=== PATIENT | female | born 1955 | race Caucasian/White ===

== ENCOUNTER → 2016-12-08 | Outpatient (CLI) | payer BC ==
[~2016-12-08] MED LIST: DXY100 PO; HYD10 PO; HYDR-5688 PO; LOSA1TAB38 PO; MAGN500C PO; MISCCAP80 PO; NAPR1CAP12 PO; OMEP40CA PO; ONDA8TAB6 PO; PPTBS PO; PROM25TA9 PO; SYN25 PO; [UNRECOGNIZED DRUG - OTHER] PO
[2016-12-08 17:29] LABS: BASO % 0.3 %; BASO ABS # 0.02 K/uL (0-0.2); COMPLETE YES; HEMATOCRIT 38.4 % (37-47); IG% 0.2 %; LYMPH % 25.8 %; LYMPH ABS # 1.61 K/uL (1.2-3.4); MEAN CELL VOLUME 83.8 fL (80-100); MEAN CORPUSCULAR HEMOGLOBIN 26.9 pg (25-34); MONO % 9.1 %; NEUT % 60.6 %; PLATELET COUNT 277 K/uL (130-400); RED BLOOD COUNT 4.58 M/uL (4.2-5.4); WHITE BLOOD COUNT 6.24 K/uL (4.8-10.8)
== END | disposition home or self-care (01) ==
LOC: C.CPL 16:33
DX: R04.0 Epistaxis (principal); Z85.43 Personal history of malignant neoplasm of ovary

== ENCOUNTER 2017-01-02 15:12 | Emergency (ER) | payer BC ==
[~2017-01-02] VITALS: Ht 168.9 cm; Wt 83.6 kg
[~2017-01-02 15:12] MED LIST changes: -DXY100 PO; -HYD10 PO; -HYDR-5688 PO; -MAGN500C PO; -MISCCAP80 PO; -NAPR1CAP12 PO; -OMEP40CA PO; -ONDA8TAB6 PO; -PPTBS PO; -PROM25TA9 PO; -SYN25 PO; -[UNRECOGNIZED DRUG - OTHER] PO
[2017-01-02 15:30] VITALS: TEMP 36.4; Ht 168.9 cm; Wt 83.6 kg
[2017-01-02] MEDS ORDERED: SODIUM CHLORIDE 0.9% 1000ML 1,000 ML IV STA (16:25)
[2017-01-02] MEDS ORDERED: ONDANSETRON INJ 2 MG/ML 2 ML VIAL IV STA (16:25)
[2017-01-02 17:04] VITALS: O2SAT 91
[2017-01-02 17:06] LABS: BASO % 0.2 %; BASO ABS # 0.01 K/uL (0-0.2); COMPLETE YES; EOS % 2.3 %; HEMATOCRIT 41.2 % (37-47); IG% 0.2 %; LYMPH % 25.1 %; LYMPH ABS # 1.39 K/uL (1.2-3.4); MEAN CELL VOLUME 78.5 fL (80-100); MEAN CORPUSCULAR HEMOGLOBIN 25.3 pg (25-34); MEAN CORPUSCULAR HGB CONC 32.3 g/dl (32-36); MEAN PLATELET VOLUME 9.6 fL (7.4-10.4); MONO % 13.7 %; NEUT % 58.5 %; PLATELET COUNT 224 K/uL (130-400); RED BLOOD COUNT 5.25 M/uL (4.2-5.4); WHITE BLOOD COUNT 5.54 K/uL (4.8-10.8)
[2017-01-02 17:15] LABS: PARTIAL THROMBOPLASTIN RATIO 1.2; PROTHROMBIN TIME (PATIENT) 11.1 SECONDS (9.0-12.0)
[2017-01-02 17:23] LABS: ALT/SGPT 28 U/L (12-78); AST/SGOT 32 U/L (15-37); BLOOD UREA NITROGEN 9 mg/dl (7-18); BUN/CREATININE RATIO 9.4 (10-20); CALCIUM 8.3 mg/dl (8.5-10.1); CARBON DIOXIDE 29 mmol/L (21-32); CHLORIDE 99 mmol/L (98-107); CREATININE 0.94 mg/dl (0.60-1.20); GLUCOSE 81 mg/dl (70-99); MAGNESIUM 1.4 mg/dl (1.8-2.4); POTASSIUM 3.4 mmol/L (3.5-5.1); SODIUM 137 mmol/L (136-145)
[2017-01-02 17:31] LABS: ALKALINE PHOSPHATASE 73 U/L (45-117); C-REACTIVE PROTEIN 4.19 mg/dl (0-0.29); PHOSPHORUS 4.3 mg/dl (2.5-4.9)
--- NOTE | 2017-01-02 17:35 | DIAGNOSTIC IMAGING REPORT ---
CHEST ONE VIEW PORTABLE CLINICAL HISTORY: Altered mental status. Weakness. Ovarian cancer. COMPARISON STUDY: Chest CT April 30, 2015. FINDINGS: A right subclavian [id number] is in place. There is no pneumothorax or pleural effusion. Cardiomediastinal silhouette is stable. There is no evidence of pulmonary edema. The small lung nodules shown on CT of April 30, 2015 are not visualized on this exam, possibly due to technique. Minimal left basilar opacity favors atelectasis. IMPRESSION: No acute cardiopulmonary findings. Electronically signed by: Ernesto Arora M.D. 01/02/2017 5:33 PM Dictated Date/Time: 01/02/2017 5:32 PM
[2017-01-02] MEDS ORDERED: ONDA8TAB6 PO (17:37)
[2017-01-02] MEDS ORDERED: [UNRECOGNIZED DRUG - OTHER] PO (17:37)
[2017-01-02] MEDS ORDERED: PPTBS PO (17:37)
[2017-01-02 18:04] LABS: LYME DISEASE AB IGM NEG (NEG)
[2017-01-02 18:05] LABS: LYME DISEASE AB IGG NEG (NEG)
[2017-01-02] MEDS ORDERED: MAGNESIUM SULFATE 1GM / D5W 1 GM BAG IV STA (18:17)
[2017-01-02] MEDS ORDERED: PROM25TA9 PO (22:09)
[2017-01-02 22:10] VITALS: BP 154/97; PULSE 80; O2SAT 92
[2017-01-02] MEDS ORDERED: PHENERGAN 25MG HOMEPACK PO ONE (22:15)
--- NOTE | 2017-01-02 22:17 | EMERGENCY ROOM VISIT NOTE ---
History First contact with patient: 16:00 Chief Complaint: DIARRHEA Stated Complaint: DIARRHEA - DRY MOUTH - VIRUS FOR 3K - NO APPATITE Nursing Triage Summary: diarrhea and nausea decreased food and fluid intake hospital admission last week for iv fluids History of Present Illness The patient is a 61 year old female who presents to the Emergency Room with complaints of weakness, myalgias, poor appetite, dry mouth and diarrhea. The patient has a history of ovarian cancer, and has been in and [facility] clinical trial for immunotherapy since August 2015. She follows locally with Dr. Molina. The patient reports that she required IV hydration last week. She is also had a history of hypomagnesemia. She developed watery diarrhea last night. She reports generalized abdominal cramping. She has lost approximately 4-6 pounds over the past 5 days. She has had no recent upper respiratory infection, chest pain, cough or urinary symptoms. She currently denies any pain. Review of Systems HEENT: Denies dizziness, visual problems, hearing loss, tinnitus. Denies difficulty swallowing or oral lesions. PULMONARY: Denies cough, shortness of breath, sputum production or hemoptysis. CARDIOVASCULAR: Denies chest pain, palpitations, dyspnea on exertion, orthopnea or peripheral edema. GASTROINTESTINAL: Reports current diarrhea, denies any history of chronic diarrhea/constipation, nausea or vomiting. GENITOURINARY: Denies dysuria, frequency, urgency or nocturia. NEUROLOGIC: Denies history of epilepsy, CVA, TIA or chronic headaches. MUSCULOSKELETAL: Denies history of joint tenderness/swelling. SKIN: Denies rashes or lesions. PSYCHIATRIC: Denies history of depression or mental illness. ENDOCRINE: Denies history of diabetes or thyroid disorders. Past Medical/Surgical History Medical Problems: (1) Calf pain (2) Esophageal Reflux (3) Hx Of Ovarian Malignancy (4) Hx-Venous Thrombosis&Embolism (5) Hypertension Nos (6) Hypertension Nos (7) Obstructive Sleep Apnea (Adult) (Pediatric) (8) Oth Pulmon Embolism/Infarct Surgical Problems: (1) Cystic Kidney Disease, Unspecified Family History Diabetes mellitus Social History Smoking Status: Never Smoker Alcohol Use: occasionally Marital Status: Housing Status: lives with family Occupation Status: employed Current/Historical Medications Scheduled Bismuth Subsalicylate (Pepto-Bismol Susp), 1 DOSE PO PRN Losartan Potassium (Cozaar), 1 TAB PO DAILY [Cediranib Medioc], 20 MG PO 5XD Scheduled PRN Ondansetron Hcl (Zofran), 4-8 MG PO Q6 PRN for Nausea Promethazine Hcl (Phenergan), 25 MG PO Q6H PRN for Nausea Allergies Coded Allergies: Carboplatin (Verified Allergy, Severe, anaphylactic reaction, 12/26/16) Physical Exam Vital Signs Date Time Temp Pulse Resp B/P Pulse Ox O2 Delivery O2 Flow Rate FiO2 01/02/17 22:10 80 18 154/97 92 Room Air 01/02/17 19:32 82 01/02/17 18:29 83 18 134/99 90 Room Air 01/02/17 17:04 91 Room Air 01/02/17 17:00 90 146/93 86 136/100 93 119/85 01/02/17 15:30 36.4 100 20 126/90 91 Room Air Physical Exam CONSTITUTIONAL: Healthy and well nourished. Alert and oriented X 3 with positive affect. Patient does not appear in any acute distress. She clinically appears dehydrated, and is pale. HEENT: Normocephalic, atraumatic. Pupils equal, round and reactive. Ears and nares are clear. No scleral icterus or conjunctival injection/pallor. NECK: Full active range of motion without discomfort. RESPIRATORY: Clear to auscultation bilaterally with no wheezing, crackles, rhonchi or stridor. CARDIOVASCULAR: Regular rate and rhythm with no murmurs, rubs or gallops. GASTROINTESTINAL: Bowel sounds present in all quadrants. Patient has mild and nonfocal tenderness to palpation of the abdomen. No rigidity, guarding or rebound. Negative CVA tenderness. MUSCULOSKELETAL: Full range of motion of all joints without discomfort. INTEGUMENTARY: No rash or other significant dermatologic conditions noted. HEMATOLOGIC: No ecchymosis or petechiae. NEUROLOGIC: No focal neurologic deficits noted. Medical Decision & Procedures ER Provider Diagnostic Interpretation: My interpretation of an ECG shows a normal sinus rhythm of 87 bpm with a low- voltage QRS. There is question of some possible infarct findings in the anterolateral leads. Comparison with a prior ECG of 10/19/14 shows changes in T waves. Repeat ECG after the patient received 2 g of magnesium sulfate showed no significant changes. ECGs were also reviewed with Dr. Sahni. My interpretation of a portable chest x-ray does not show any pneumothorax, consolidations or widened mediastinum. Radiologist report is as follows: CHEST ONE VIEW PORTABLE CLINICAL HISTORY: Altered mental status. Weakness. Ovarian cancer. COMPARISON STUDY: Chest CT April 30, 2015. FINDINGS: A right subclavian [id number] is in place. There is no pneumothorax or pleural effusion. Cardiomediastinal silhouette is stable. There is no evidence of pulmonary edema. The small lung nodules shown on CT of April 30, 2015 are not visualized on this exam, possibly due to technique. Minimal left basilar opacity favors atelectasis. IMPRESSION: No acute cardiopulmonary findings. Laboratory Results 01/02/17 16:50 Red Blood Count 5.25, Mean Corpuscular Volume 78.5, Mean Corpuscular Hemoglobin 25.3, Mean Corpuscular Hemoglobin Concent 32.3, Mean Platelet Volume 9.6, Neutrophils (%) (Auto) 58.5, Lymphocytes (%) (Auto) 25.1, Monocytes (%) (Auto) 13.7, Eosinophils (%) (Auto) 2.3, Basophils (%) (Auto) 0.2, Neutrophils # (Auto ) 3.24, Lymphocytes # (Auto) 1.39, Monocytes # (Auto) 0.76, Eosinophils # (Auto ) 0.13, Basophils # (Auto) 0.01 01/02/17 16:50 Test 01/02/17 16:50 01/02/17 20:17 01/02/17 21:43 White Blood Count 5.54 K/uL (4.8-10.8) Red Blood Count 5.25 M/uL (4.2-5.4) Hemoglobin 13.3 g/dL (12.0-16.0) Hematocrit 41.2 % (37-47) Mean Corpuscular Volume 78.5 fL (80-100) Mean Corpuscular Hemoglobin 25.3 pg (25-34) Mean Corpuscular Hemoglobin Concent 32.3 g/dl (32-36) Platelet Count 224 K/uL (130-400) Mean Platelet Volume 9.6 fL (7.4-10.4) Neutrophils (%) (Auto) 58.5 % Lymphocytes (%) (Auto) 25.1 % Monocytes (%) (Auto) 13.7 % Eosinophils (%) (Auto) 2.3 % Basophils (%) (Auto) 0.2 % Neutrophils # (Auto) 3.24 K/uL (1.4-6.5) Lymphocytes # (Auto) 1.39 K/uL (1.2-3.4) Monocytes # (Auto) 0.76 K/uL (0.11-0.59) Eosinophils # (Auto) 0.13 K/uL (0-0.5) Basophils # (Auto) 0.01 K/uL (0-0.2) RDW Standard Deviation 40.7 fL (36.4-46.3) RDW Coefficient of Variation 14.4 % (11.5-14.5) Immature Granulocyte % (Auto) 0.2 % Immature Granulocyte # (Auto) 0.01 K/uL (0.00-0.02) Erythrocyte Sedimentation Rate 23 mm/hr (0-21) Prothrombin Time 11.1 SECONDS (9.0-12.0) Prothromb Time International Ratio 1.0 (0.9-1.1) Activated Partial Thromboplast Time 30.4 SECONDS (21.0-31.0) Partial Thromboplastin Ratio 1.2 Anion Gap 9.0 mmol/L (3-11) Est Creatinine Clear Calc Drug Dose 68.3 ml/min Estimated GFR () 75.4 Estimated GFR (Non- 65.0 BUN/Creatinine Ratio 9.4 (10-20) Calcium Level 8.3 mg/dl (8.5-10.1) Phosphorus Level 4.3 mg/dl (2.5-4.9) Magnesium Level 1.4 mg/dl (1.8-2.4) Total Bilirubin 0.9 mg/dl (0.2-1) Direct Bilirubin 0.2 mg/dl (0-0.2) Aspartate Amino Transf (AST/SGOT) 32 U/L (15-37) Alanine Aminotransferase (ALT/SGPT) 28 U/L (12-78) Alkaline Phosphatase 73 U/L (45-117) Total Creatine Kinase 99 U/L (26-192) C-Reactive Protein 4.19 mg/dl (0-0.29) Total Protein 6.6 gm/dl (6.4-8.2) Albumin 3.0 gm/dl (3.4-5.0) Thyroid Stimulating Hormone (TSH) 4.780 uIu/ml (0.300-4.500) Free Thyroxine 0.87 ng/dl (0.80-1.60) Free Triiodothyronine 3.11 pg/ml (2.30-4.20) Lyme Disease IgG Antibody NEG (NEG) Lyme Disease IgM Antibody NEG (NEG) Monoscreen NEG (NEG) Bedside Troponin I 0.000 ng/ml (0-0.045) Date/Time Source Procedure Growth Status 01/02/17 17:07 Stool C.difficile Toxin B Gene (PCR) - Final No C. difficile toxin B gene detected Complete The above labs were reviewed. CBC, partial renal profile, LFTs, lipase and troponin are all normal. Sedimentation rate and C-reactive protein are elevated. TSH is mild elevated at 4.78. Lyme screen and mono screen are negative. A repeat laboratory troponin after 2 g of magnesium sulfate was ordered, but they were unable to find the test tube. A bedside troponin was therefore performed in the emergency department and was normal. Review of stool studies shows negative rotavirus and C. difficile. Stool cultures are pending. Medications Administered Medications (Trade) Dose Ordered Sig/Peterson Route Start Time Stop Time Status Last Admin Dose Admin Ondansetron HCl 4 mg 4 mg NOW STAT IV 01/02/17 16:25 01/02/17 16:28 DC 01/02/17 16:25 4 MG Sodium Chloride (Nss 1000ml) 1,000 ml @ 999 mls/hr Q1H1M STAT IV 01/02/17 16:25 01/02/17 17:25 DC 01/02/17 16:25 999 MLS/HR Magnesium Sulfate (Magnesium Sulfate) 2 gm NOW STAT IV 01/02/17 18:17 01/02/17 18:18 DC 01/02/17 18:17 2 GM Heparin Sodium (Porcine) (Heparin 100 Unit/ml 5ml Flush) 5 ml STK-MED ONCE .ROUTE 01/02/17 18:24 01/02/17 18:25 DC 01/02/17 18:24 5 ML Promethazine HCl (Phenergan 25MG Home Pack) 1 homepack UD ONCE PO 01/02/17 22:15 01/02/17 22:16 01/02/17 22:13 1 HOMEPACK Procedure 1. IV hydration: The patient received a liter normal saline bolus 2. IV medications: Zofran 4 mg IVP. The patient also received magnesium sulfate 2 g IV infusion. ED Course Patient history and physical exam were performed. Nurse's notes were reviewed. Vital signs were reviewed, showing an O2 saturation of 91% on room air. The patient is afebrile and normotensive. Pulse rate is at 100 in triage. The patient clinically appears dehydrated. She is also pale in appearance. Orthostatics were performed, showing an approximately 20% drop in systolic pressure from supine to standing position. IV access was established, and labs were drawn. The patient was hydrated with a liter of normal saline. Portable chest x-ray was normal. ECG shows some T- wave inversions in anterolateral leads. Review of labs shows hypomagnesemia. At this point, the case was discussed with Dr. Sahni, ED attending physician , who recommended administering 2 g of magnesium sulfate, followed by repeat ECG and troponin. ECG was reviewed again with Dr. Sahni. The patient reported improvement of symptoms with IV hydration and magnesium sulfate. Repeat ECG and troponin were performed to show no acute changes in her EKG, and negative troponin. At the time of final reevaluation, the patient did reported significant improvement in her symptoms, and requested discharge home. She refused hospitalist evaluation. I did explain that she had an abnormal ECG and should follow-up closely with her PCP for further management. Her reports that her ECGs have also been performed at [facility], and will have her most recent ECG and labs sent to Dr. Molina. She was encouraged to return to the emergency department over the weekend for any concerning or worsening symptoms. I did look at the patient's prescriptions and noticed that she only has a few more Zofran 8 mg tablets left. She was offered a refill of her prescription, but reports that the Zofran actually made her symptoms worse. The patient was therefore provided a home pack and prescription for Phenergan that she can also try for nausea. The patient and were happy with plan of care, and voiced understanding of all discharge instructions. Medical Decision Patient presents to the emergency Department with primary complaint of diarrhea and fatigue. She does clinically appear dehydrated, and responded nicely to IV hydration. Her labs are otherwise unremarkable today except for mildly elevated TSH. Free T3 and T4 were ordered and are pending. She reports that her TSH was actually low at [facility]. The patient was repleted with magnesium. Impression Primary Impression: Hypomagnesemia Additional Impressions: Dehydration Diarrhea Departure Information Prescriptions Promethazine Hcl (Phenergan) 25 Mg Tab 25 MG PO Q6H Y for Nausea, #20 TAB Prov: Sánchez Matson PA 01/02/17 Referrals Mo Molina Jr,D.O. (PCP) Patient Instructions My [facility] Problem Qualifiers Additional Impressions: Diarrhea Diarrhea type: unspecified type Qualified Codes: R19.7 - Diarrhea, unspecified
== END 2017-01-02 22:23 | disposition home or self-care (01) ==
LOC: C.EDB 15:15 → C.EDA 22:23
DX: E83.42 Hypomagnesemia (principal); E86.0 Dehydration; R19.7 Diarrhea, unspecified; K21.9 Gastro-esophageal reflux disease without esophagitis; I10 Essential (primary) hypertension; G47.33 Obstructive sleep apnea (adult) (pediatric); Q61.9 Cystic kidney disease, unspecified; Z85.43 Personal history of malignant neoplasm of ovary; Z86.718 Personal history of other venous thrombosis and embolism; Z86.711 Personal history of pulmonary embolism; Z83.3 Family history of diabetes mellitus

== ENCOUNTER → 2017-01-15 | Outpatient (CLI) | payer BC ==
[~2017-01-15] MED LIST changes: +DXY100 PO; +HYD10 PO; +MAGN500C PO; +MISCCAP80 PO; +NAPR1CAP12 PO; +ONDA8TAB6 PO; +PPTBS PO; +PROM25TA9 PO; +SYN25 PO; +[UNRECOGNIZED DRUG - OTHER] PO
[2017-01-15 15:18] LABS: BASO % 0.6 %; BASO ABS # 0.02 K/uL (0-0.2); COMPLETE YES; EOS % 4.3 %; HEMATOCRIT 42.3 % (37-47); LYMPH % 33.6 %; LYMPH ABS # 1.16 K/uL (1.2-3.4); MEAN CELL VOLUME 80.7 fL (80-100); MEAN CORPUSCULAR HEMOGLOBIN 25.6 pg (25-34); MEAN CORPUSCULAR HGB CONC 31.7 g/dl (32-36); MEAN PLATELET VOLUME 10.4 fL (7.4-10.4); MONO % 17.4 %; NEUT % 44.1 %; PLATELET COUNT 244 K/uL (130-400); RED BLOOD COUNT 5.24 M/uL (4.2-5.4); WHITE BLOOD COUNT 3.45 K/uL (4.8-10.8)
[2017-01-15 15:48] LABS: ALT/SGPT 30 U/L (12-78); AMYLASE 26 U/L (25-115); AST/SGOT 47 U/L (15-37); BLOOD UREA NITROGEN 9 mg/dl (7-18); BUN/CREATININE RATIO 6.9 (10-20); CALCIUM 9.2 mg/dl (8.5-10.1); CARBON DIOXIDE 35 mmol/L (21-32); CHLORIDE 97 mmol/L (98-107); GLUCOSE 84 mg/dl (70-99); MAGNESIUM 1.9 mg/dl (1.8-2.4); POTASSIUM 3.7 mmol/L (3.5-5.1); SODIUM 141 mmol/L (136-145)
[2017-01-15 15:50] LABS: ALB/GLOB RATIO 0.9 (0.9-2); ALKALINE PHOSPHATASE 64 U/L (45-117)
== END | disposition home or self-care (01) ==
LOC: C.LAB 12:28
DX: E86.0 Dehydration (principal)

== ENCOUNTER 2017-01-16 16:10 | Inpatient (IN) | payer BC ==
[~2017-01-16] VITALS: Ht 167.6 cm; Wt 81.1 kg
[~2017-01-16 16:10] MED LIST changes: -DXY100 PO; -HYD10 PO; -MAGN500C PO; -MISCCAP80 PO; -NAPR1CAP12 PO; -SYN25 PO
[2017-01-16] MEDS ORDERED: ONDANSETRON INJ 2 MG/ML 2 ML VIAL IV STA (16:44)
[2017-01-16] MEDS ORDERED: SODIUM CHLORIDE 0.9% 1000ML 1,000 ML IV STA (16:44)
--- NOTE | 2017-01-16 16:51 | EMERGENCY ROOM VISIT NOTE ---
History Report prepared by Kianna: Sy Hodges Under the Supervision of: Dr. Lane Morrison D.O. First contact with patient: 16:36 Chief Complaint: ILLNESS Stated Complaint: VIRUS SX, DEHYDRATED, DIARRHEA, VERY WEAK History of Present Illness The patient is a 61 year old female who presents to the Emergency Room with complaints of worsening weakness and dehydration that the patient has been dealing with for for the past month. The patient states that she came to the emergency department today due to being light headed and severely lethargic. She has been vomiting intermittently as well. The patient has visited with her PCP multiple times over the past week for blood work as well as a stool study. She had both Lyme's disease and C-Diff ruled out from these studies. She was given a prescription of Amoxicillin one week ago, which was just changed to Doxycycline yesterday. The patient had additional blood work drawn yesterday. She also notes that she has been having nausea and diarrhea persistently as well. Her diarrhea is intermittently black and tarry. 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 She has a history of total hysterectomy due to her cancer. Source of History: patient Onset: One month [employer] Position: other (Global) Quality: other (Weakness) Timing: worsening Associated Symptoms: + nausea, + diarrhea, + fatigue, + weakness Review of Systems See HPI for pertinent positives & negatives. A total of 10 systems reviewed and were otherwise negative. Past Medical & Surgical Medical Problems: (1) Calf pain (2) Esophageal Reflux (3) Hx Of Ovarian Malignancy (4) Hx-Venous Thrombosis&Embolism (5) Hypertension Nos (6) Hypertension Nos (7) Lethargy (8) Obstructive Sleep Apnea (Adult) (Pediatric) (9) Oth Pulmon Embolism/Infarct Surgical Problems: (1) Cystic Kidney Disease, Unspecified Family History Diabetes mellitus Social History Smoking Status: Never Smoker Alcohol Use: occasionally Marital Status: Housing Status: lives with family Occupation Status: employed Current/Historical Medications Scheduled Bismuth Subsalicylate (Pepto-Bismol Susp), 1 DOSE PO PRN Doxycycline Hyclate (Doxycycline Hyclate), 1 CAP PO BID Losartan Potassium (Cozaar), 1 TAB PO DAILY Magnesium Oxide (Mg Supplement (Magnesium), 1 CAP PO DAILY Naproxen Sodium (Aleve), 1 CAP PO DAILY Probiotic Product (Probiotic), 1 CAP PO DAILY [Cediranib Medioc], 20 MG PO 5XWK Scheduled PRN Ondansetron Hcl (Zofran), 4-8 MG PO Q6 PRN for Nausea Promethazine Hcl (Phenergan), 25 MG PO Q6H PRN for Nausea Allergies Coded Allergies: Carboplatin (Verified Allergy, Severe, anaphylactic reaction, 01/16/17) Physical Exam Vital Signs Date Time Temp Pulse Resp B/P (MAP) Pulse Ox O2 Delivery O2 Flow Rate FiO2 01/16/17 19:56 100 Nasal Cannula 2.0 01/16/17 18:47 74 20 180/100 95 Room Air 01/16/17 18:40 72 16 167/115 84 Room Air 01/16/17 18:05 69 20 159/102 88 Room Air 01/16/17 17:21 70 01/16/17 16:15 36.5 87 18 132/96 93 Room Air Physical Exam GENERAL: Patient is awake, but somewhat listless. He does not appear to be uncomfortable or in pain. He answers appropriately. EYES: The conjunctivae are clear. The pupils are round and reactive. EARS, NOSE, MOUTH AND THROAT: The nose is without any evidence of any deformity. Mucous membranes are moist tongue is midline NECK: The neck is nontender and supple. RESPIRATORY: Normal respiratory effort is noted there is no evidence of wheezing rhonchi or rales CARDIOVASCULAR: Regular rate and rhythm noted there no murmurs rubs or gallops normal S1 normal S2 GASTROINTESTINAL: The abdomen is distended but soft. Bowel sounds are present in all quadrants. Abdomen is nontender. No specific guarding or rigidity MUSCULOSKELETAL/EXTREMITIES: There is no evidence of gross deformity full range of motion is noted in the hips and shoulders SKIN: Skin is cool, pale, and dry. No pedal edema noted. No signs of cellulitis. There is no obvious evidence of any rash. There are no petechiae, pallor or cyanosis noted. NEUROLOGIC: Patient oriented x3 strength is symmetric patellar reflexes are 1+ bilaterally. Strength was symmetric but diminished. Medical Decision & Procedures ER Provider Diagnostic Interpretation: Radiology results as stated below per my review and radiologist interpretation: CT HEAD WITHOUT CONTRAST (CT) CLINICAL HISTORY: Confusion. Altered mental status. COMPARISON STUDY: No previous studies for comparison. TECHNIQUE: Axial CT of the brain is performed from the vertex to the skull base. IV contrast was not administered for this examination. CT DOSE: 679.75 mGycm FINDINGS: No intra or extra-axial mass lesions are visualized. There is no CT evidence of acute cortical infarction. There is no evidence of midline shift. There is no acute hemorrhage. No calvarial fractures are visualized. There is no evidence of pathologic ventricular dilatation. There is no evidence of acute sinusitis IMPRESSION: Normal noncontrast head CT for age. Electronically signed by: Gustavo Valentin M.D. 01/16/2017 5:40 PM Dictated Date/Time: 01/16/2017 5:39 PM ABDOMEN 2VIEW W/PA CHEST RTN CLINICAL HISTORY: Abdominal pain and weakness. History of ovarian carcinoma. COMPARISON STUDY: Chest x-ray dated 01/02/2017 FINDINGS: The cardiac and mediastinal contours remain stable. There is a right-sided A-Port catheter. There is no free air. There is no focal pulmonary consolidation. Erect and supine views the abdomen reveal surgical clips within the right upper quadrant consistent with a prior cholecystectomy. There are no abnormally dilated loops of large or small bowel. There are no transition zones indicate bowel obstruction. IMPRESSION: No evidence of bowel obstruction. No evidence of free air. Electronically signed by: Gustavo Valentin M.D. 01/16/2017 6:00 PM Dictated Date/Time: 01/16/2017 5:[address] ANGIOGRAM OF THE CHEST CLINICAL HISTORY: Hypoxia OVARIAN CARCINOMA COMPARISON STUDY: 04/30/2015 TECHNIQUE: Following the IV administration of 84 mL of Optiray-320, CT angiogram of the thorax was performed from the thoracic inlet to the lung bases utilizing the pulmonary embolus protocol. Images are reviewed in the axial, sagittal, and coronal planes. IV contrast was administered without complication. MIP imaging was performed. CT DOSE: 445.99 mGy.cm FINDINGS: No pathologically enlarged axillary mediastinal or hilar lymph nodes were visualized. There was no evidence of thoracic aortic dilatation. There were no pulmonary artery filling defects to indicate acute pulmonary embolism. No pleural effusions are visualized. There was no evidence of focal pulmonary consolidation. There is a 7 x 4 mm right apical pulmonary nodule which appears smaller than the prior April 2015 study. The previously identified 7 mm left upper lobe pulmonary nodule has nearly resolved. IMPRESSION: 1. No evidence of acute pulmonary embolism 2. No evidence of focal pulmonary consolidation 3. Interval decrease in the size of the previously identified bilateral pulmonary nodules Electronically signed by: Gustavo Valentin M.D. 01/16/2017 7:33 PM Dictated Date/Time: 01/16/2017 7:28 PM Laboratory Results 01/16/17 17:11 Red Blood Count 5.05, Mean Corpuscular Volume 78.8, Mean Corpuscular Hemoglobin 25.7, Mean Corpuscular Hemoglobin Concent 32.7, Mean Platelet Volume 10.0, Neutrophils (%) (Auto) 47.0, Lymphocytes (%) (Auto) 29.6, Monocytes (%) (Auto) 17.6, Eosinophils (%) (Auto) 4.8, Basophils (%) (Auto) 0.5, Neutrophils # (Auto ) 1.84, Lymphocytes # (Auto) 1.16, Monocytes # (Auto) 0.69, Eosinophils # (Auto ) 0.19, Basophils # (Auto) 0.02 01/16/17 17:11 Test 01/16/17 17:11 01/16/17 19:00 White Blood Count 3.92 K/uL (4.8-10.8) Red Blood Count 5.05 M/uL (4.2-5.4) Hemoglobin 13.0 g/dL (12.0-16.0) Hematocrit 39.8 % (37-47) Mean Corpuscular Volume 78.8 fL (80-100) Mean Corpuscular Hemoglobin 25.7 pg (25-34) Mean Corpuscular Hemoglobin Concent 32.7 g/dl (32-36) Platelet Count 206 K/uL (130-400) Mean Platelet Volume 10.0 fL (7.4-10.4) Neutrophils (%) (Auto) 47.0 % Lymphocytes (%) (Auto) 29.6 % Monocytes (%) (Auto) 17.6 % Eosinophils (%) (Auto) 4.8 % Basophils (%) (Auto) 0.5 % Neutrophils # (Auto) 1.84 K/uL (1.4-6.5) Lymphocytes # (Auto) 1.16 K/uL (1.2-3.4) Monocytes # (Auto) 0.69 K/uL (0.11-0.59) Eosinophils # (Auto) 0.19 K/uL (0-0.5) Basophils # (Auto) 0.02 K/uL (0-0.2) RDW Standard Deviation 41.0 fL (36.4-46.3) RDW Coefficient of Variation 14.6 % (11.5-14.5) Immature Granulocyte % (Auto) 0.5 % Immature Granulocyte # (Auto) 0.02 K/uL (0.00-0.02) Prothrombin Time 10.8 SECONDS (9.0-12.0) Prothromb Time International Ratio 1.0 (0.9-1.1) Activated Partial Thromboplast Time 33.7 SECONDS (21.0-31.0) Partial Thromboplastin Ratio 1.3 Venous Blood pH 7.39 (7.36-7.41) Venous Blood Partial Pressure CO2 57 mmHg (38.0-50.0) Venous Blood Partial Pressure O2 34 mmHg Venous Blood HCO3 34 mmol/L Venous Blood Oxygen Saturation 62.3 % Venous Blood Base Excess 6.9 mmol/L Anion Gap 9.0 mmol/L (3-11) Est Creatinine Clear Calc Drug Dose 52.2 ml/min Estimated GFR () 56.1 Estimated GFR (Non- 48.4 BUN/Creatinine Ratio 7.5 (10-20) Calcium Level 9.0 mg/dl (8.5-10.1) Phosphorus Level 4.0 mg/dl (2.5-4.9) Magnesium Level 1.7 mg/dl (1.8-2.4) Total Bilirubin 0.6 mg/dl (0.2-1) Direct Bilirubin 0.1 mg/dl (0-0.2) Aspartate Amino Transf (AST/SGOT) 46 U/L (15-37) Alanine Aminotransferase (ALT/SGPT) 30 U/L (12-78) Alkaline Phosphatase 65 U/L (45-117) Ammonia 27.0 umol/L (11-32) Total Creatine Kinase 105 U/L (26-192) Creatine Kinase MB 1.4 ng/ml (0.5-3.6) Creatine Kinase MB Ratio 1.3 (0-3.0) Troponin I < 0.015 ng/ml (0-0.045) Pro-B-Type Natriuretic Peptide 221 pg/ml (0-900) Total Protein 6.3 gm/dl (6.4-8.2) Albumin 2.8 gm/dl (3.4-5.0) Lipase 89 U/L (73-393) Urine Color YELLOW Urine Appearance CLEAR (CLEAR) Urine pH 5.5 (4.5-7.5) Urine Specific [place] 1.006 (1.000-1.030) Urine Protein NEG (NEG) Urine Glucose (UA) NEG (NEG) Urine Ketones NEG (NEG) Urine Occult Blood NEG (NEG) Urine Nitrite NEG (NEG) Urine Bilirubin NEG (NEG) Urine Urobilinogen NEG (NEG) Urine Leukocyte Esterase NEG (NEG) Laboratory results per my review. Medications Administered Medications (Trade) Dose Ordered Sig/Peterson Route Start Time Stop Time Status Last Admin Dose Admin Sodium Chloride 1,000 ml @ 999 mls/hr Q1H1M STAT IV 01/16/17 16:44 01/16/17 17:44 DC 01/16/17 16:44 999 MLS/HR Ondansetron HCl (Zofran Inj) 4 mg NOW STAT IV 01/16/17 16:44 01/16/17 16:47 DC 01/16/17 18:08 4 MG Magnesium Sulfate (Magnesium Sulfate) 1 gm NOW STAT IV 01/16/17 18:47 01/16/17 18:48 DC 01/16/17 19:00 1 GM ECG Indication: weakness Rate (beats per minute): 72 Rhythm: normal sinus Findings: nonspecific-ST abn (Diffuse), other (Low voltage noted throughout. ) Comparison ECG Date: 01/02/2017 Change: no significant change ED Course 1639: The patient was evaluated in room C6. A complete history and physical examination were performed. 1644: Ordered Zofran 4 mg IV, Sodium Chloride 1000 mL @ 999 mL/hr IV. 7: Ordered Magnesium Sulfate 1 gm IV. 1954: Upon reevaluation, the patient is resting comfortably in bed. I discussed the results and treatment plan with her. She verbalized agreement of the treatment plan. The patient was discharged home. 2016: I discussed the case with Dr. Rico - [facility] at this time. He will evaluate the patient for further treatment. Medical Decision Differential diagnosis: Etiologies such as metabolic, infection, hypo/hyperglycemia, electrolyte abnormalities, cardiac sources, intracerebral event, toxicologic, neurologic, as well as others were entertained. Nursing notes reviewed. The patient is a 61-year-old female who presented to the emergency department for an evaluation of generalized weakness and diarrhea. The patient's family members also state that she's been having altered mental status with decreased mental status and difficulty concentrating. She was found have hypoxia. Her breath sounds did not appear to be abnormal in her chest x-ray showed nothing acute. For this reason and her history of ovarian cancer was concerned this could be related to a pulmonary embolism. CT the chest did not reveal any acute signs of venous thromboembolic disease. I discussed the patient's laboratory radiographic studies with her. She was treated with IV fluids in the emergency department. She was also given IV magnesium replacement. Given the patient's overall condition as well as her hypoxia I discussed [facility] They've agreed to evaluate the patient in the emergency apartment for further management and disposition. Consults Time Called: 2010 Consulting Physician: Dr. Jacky FISCHER Hospitalist Returned Call: 2016 I discussed the case with Dr. [facility] at this time. He will evaluate the patient for further treatment. Impression Primary Impression: Weakness Additional Impressions: Altered mental status Hypomagnesemia Hypoxia Scribe Attestation The scribe's documentation has been prepared under my direction and personally reviewed by me in its entirety. I confirm that the note above accurately reflects all work, treatment, procedures, and medical decision making performed by me. Departure Information Dispostion Being Evaluated By Hospitalist Referrals Mo Molina Jr,D.O. (PCP) Patient Instructions My [facility] Problem Qualifiers Additional Impressions: Altered mental status Altered mental status type: unspecified Qualified Codes: R41.82 - Altered mental status, unspecified
--- NOTE | 2017-01-16 17:41 | DIAGNOSTIC IMAGING REPORT ---
CT HEAD WITHOUT CONTRAST (CT) CLINICAL HISTORY: Confusion. Altered mental status. COMPARISON STUDY: No previous studies for comparison. TECHNIQUE: Axial CT of the brain is performed from the vertex to the skull base. IV contrast was not administered for this examination. CT DOSE: 679.75 mGycm FINDINGS: No intra or extra-axial mass lesions are visualized. There is no CT evidence of acute cortical infarction. There is no evidence of midline shift. There is no acute hemorrhage. No calvarial fractures are visualized. There is no evidence of pathologic ventricular dilatation. There is no evidence of acute sinusitis IMPRESSION: Normal noncontrast head CT for age. Electronically signed by: Gustavo Valentin M.D. 01/16/2017 5:40 PM Dictated Date/Time: 01/16/2017 5:39 PM
[2017-01-16 17:43] LABS: BASO % 0.5 %; BASO ABS # 0.02 K/uL (0-0.2); COMPLETE YES; EOS % 4.8 %; HEMATOCRIT 39.8 % (37-47); IG% 0.5 %; LYMPH % 29.6 %; LYMPH ABS # 1.16 K/uL (1.2-3.4); MEAN CELL VOLUME 78.8 fL (80-100); MEAN CORPUSCULAR HEMOGLOBIN 25.7 pg (25-34); MEAN CORPUSCULAR HGB CONC 32.7 g/dl (32-36); MONO % 17.6 %; PLATELET COUNT 206 K/uL (130-400); RED BLOOD COUNT 5.05 M/uL (4.2-5.4); WHITE BLOOD COUNT 3.92 K/uL (4.8-10.8)
[2017-01-16 17:47] LABS: VEN BLD GAS O2 SATURATION 62.3 %; VEN BLOOD GAS BASE EXCESS 6.9 mmol/L
[2017-01-16 17:54] LABS: PARTIAL THROMBOPLASTIN RATIO 1.3; PROTHROMBIN TIME (PATIENT) 10.8 SECONDS (9.0-12.0)
--- NOTE | 2017-01-16 18:01 | DIAGNOSTIC IMAGING REPORT ---
ABDOMEN 2VIEW W/PA CHEST RTN CLINICAL HISTORY: Abdominal pain and weakness. History of ovarian carcinoma. COMPARISON STUDY: Chest x-ray dated 01/02/2017 FINDINGS: The cardiac and mediastinal contours remain stable. There is a right-sided A-Port catheter. There is no free air. There is no focal pulmonary consolidation. Erect and supine views the abdomen reveal surgical clips within the right upper quadrant consistent with a prior cholecystectomy. There are no abnormally dilated loops of large or small bowel. There are no transition zones indicate bowel obstruction. IMPRESSION: No evidence of bowel obstruction. No evidence of free air. Electronically signed by: Gustavo Valentin M.D. 01/16/2017 6:00 PM Dictated Date/Time: 01/16/2017 5:59 PM
[2017-01-16] MEDS ORDERED: DXY100 PO (18:20)
[2017-01-16] MEDS ORDERED: NAPR1CAP12 PO (18:20)
[2017-01-16] MEDS ORDERED: MISCCAP80 PO (18:20)
[2017-01-16] MEDS ORDERED: MAGN500C PO (18:20)
[2017-01-16 18:29] LABS: ALT/SGPT 30 U/L (12-78); AST/SGOT 46 U/L (15-37); BLOOD UREA NITROGEN 9 mg/dl (7-18); BUN/CREATININE RATIO 7.5 (10-20); CARBON DIOXIDE 34 mmol/L (21-32); CHLORIDE 98 mmol/L (98-107); GLUCOSE 83 mg/dl (70-99); MAGNESIUM 1.7 mg/dl (1.8-2.4); POTASSIUM 3.4 mmol/L (3.5-5.1); SODIUM 141 mmol/L (136-145)
[2017-01-16 18:32] LABS: ALKALINE PHOSPHATASE 65 U/L (45-117); CKMB/CK RATIO 1.3 (0-3.0)
[2017-01-16] MEDS ORDERED: MAGNESIUM SULFATE 1GM / D5W 1 GM BAG IV STA (18:47)
[2017-01-16] MEDS ORDERED: OPTIRAY 320 IV PRN (19:00)
[2017-01-16 19:27] LABS: URINE APPEARANCE CLEAR (CLEAR); URINE BILIRUBIN NEG (NEG); URINE COLOR YELLOW; URINE NITRITE NEG (NEG); URINE PH 5.5 (4.5-7.5); URINE SPECIFIC GRAVITY 1.006 (1.000-1.030); UROBILINOGEN NEG (NEG)
[2017-01-16 19:28] LABS: MANUAL MICROSCOPIC REQUIRED? NO; REVIEW REQ? NO
--- NOTE | 2017-01-16 19:34 | DIAGNOSTIC IMAGING REPORT ---
CT ANGIOGRAM OF THE CHEST CLINICAL HISTORY: Hypoxia OVARIAN CARCINOMA COMPARISON STUDY: 04/30/2015 TECHNIQUE: Following the IV administration of 84 mL of Optiray-320, CT angiogram of the thorax was performed from the thoracic inlet to the lung bases utilizing the pulmonary embolus protocol. Images are reviewed in the axial, sagittal, and coronal planes. IV contrast was administered without complication. MIP imaging was performed. CT DOSE: 445.99 mGy.cm FINDINGS: No pathologically enlarged axillary mediastinal or hilar lymph nodes were visualized. There was no evidence of thoracic aortic dilatation. There were no pulmonary artery filling defects to indicate acute pulmonary embolism. No pleural effusions are visualized. There was no evidence of focal pulmonary consolidation. There is a 7 x 4 mm right apical pulmonary nodule which appears smaller than the prior April 2015 study. The previously identified 7 mm left upper lobe pulmonary nodule has nearly resolved. IMPRESSION: 1. No evidence of acute pulmonary embolism 2. No evidence of focal pulmonary consolidation 3. Interval decrease in the size of the previously identified bilateral pulmonary nodules Electronically signed by: Gustavo Valentin M.D. 01/16/2017 7:33 PM Dictated Date/Time: 01/16/2017 7:28 PM
[2017-01-16] MEDS ORDERED: MAGNESIUM HYDROXIDE SUSP 30 ML UDC PO PRN (20:45)
[2017-01-16] MEDS ORDERED: ALUMINUM/MAGNESIUM/SIMETH (MAALOX MAX) 30 ML UDC PO PRN (20:45)
[2017-01-16] MEDS ORDERED: POLYETHYLENE (MIRALAX) 17 GM PACK PO PRN (20:45)
[2017-01-16] MEDS ORDERED: ONDANSETRON INJ 2 MG/ML 2 ML VIAL IV PRN (20:45)
[2017-01-16] MEDS ORDERED: PROMETHAZINE HCL 25 MG TAB PO PRN (20:45)
--- NOTE | 2017-01-16 20:59 | History and Physical ---
History & Physical Date & Time of Service: Jan 16, 2017 at 20:46 Chief Complaint: Virus Sx, Dehydrated, Diarrhea, Very Weak Primary Care Physician: Mo Molina Jr, D.O. 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 Pt presents with a constellation of symptoms including severe lethargy and lightheadedness, intermittent N/V, diarrhea and dehydration. She has had a degree of the preceding symptoms for a few months. On arrival to the ER she was also notably hypoxic but has not c/o SOB. She denies fevers, a productive cough, CP or abdominal pain. Her reports that her memory and executive functioning have been declining over the past month as well. The pt has been treated with Cediranib for her CA for the past 1.5 years. This is experimental treatment under a clinical trial and is apparently showing positive effect. She has had minimal side effects aside from her symptom constellation over the past month which may or may not be related. She reports that she was having headaches 2 months prior and was sent for an MRI as a result , which was read as normal. Past Medical/Surgical History Medical Problems: (1) Calf pain Status: Resolved (2) Hypertension Nos Status: Chronic (3) Oth Pulmon Embolism/Infarct Status: Resolved 4) Clear cell ovarian CA - pt had resection of colon mets prior to chemo -0 has been on various treatments which were ineffective for 4.5 years - treated with Cediranib over last 18 months with positive effect. 5) CASSANDRA Family History Diabetes mellitus Social History Smoking Status: Never Smoker Marital Status: Occupational Status: employed Immunizations History of Influenza Vaccine: Yes History of Tetanus Vaccine?: utd ? History of Pneumococcal: No History of Hepatitis B Vaccine: No Multi-Drug Resistant Organisms History of MDRO: No Allergies Coded Allergies: Carboplatin (Verified Allergy, Severe, anaphylactic reaction, 01/16/17) Home Medications Scheduled Bismuth Subsalicylate (Pepto-Bismol Susp), 1 DOSE PO PRN Doxycycline Hyclate (Doxycycline Hyclate), 1 CAP PO BID Losartan Potassium (Cozaar), 1 TAB PO DAILY Magnesium Oxide (Mg Supplement (Magnesium), 1 CAP PO DAILY Naproxen Sodium (Aleve), 1 CAP PO DAILY Probiotic Product (Probiotic), 1 CAP PO DAILY [Cediranib Medioc], 20 MG PO 5XWK Scheduled PRN Ondansetron Hcl (Zofran), 4-8 MG PO Q6 PRN for Nausea Promethazine Hcl (Phenergan), 25 MG PO Q6H PRN for Nausea Review of Systems Constitutional: No fever, No chills, No sweats Eyes: No worsening of vision, No eye pain ENT: No hearing loss, No unusual epistaxis, No nasal symptoms Respiratory: + dyspnea on exertion, No cough, No sputum, No wheezing Cardiovascular: No chest pain, No orthopnea, No PND Abdomen: + nausea, + vomiting, + diarrhea, No pain Musculoskeletal: No joint pain, No muscle pain Genitourinary - Female: No dysuria, No urinary frequency, No urinary urgency Neurologic: + memory loss, + weakness, + problem reported (decline in executive function) Psychiatric: + depression symptoms Endocrine: + fatigue Hematologic / Lymphatic: No abnormal bleeding/bruising Integumentary: No rash Physical Exam Vital Signs Date Time Temp Pulse Resp B/P (MAP) Pulse Ox O2 Delivery O2 Flow Rate FiO2 01/16/17 19:56 100 Nasal Cannula 2.0 01/16/17 18:47 74 20 180/100 95 Room Air 01/16/17 18:40 72 16 167/115 84 Room Air 01/16/17 18:05 69 20 159/102 88 Room Air 01/16/17 17:21 70 01/16/17 16:15 36.5 87 18 132/96 93 Room Air General Appearance: WD/WN, no apparent distress, + pertinent finding (Pale appearing, overweight, middle-aged F) Head: normocephalic, atraumatic Eyes: normal inspection, PERRL, EOMI ENT: normal ENT inspection, pharynx normal Neck: supple, no JVD Respiratory/Chest: chest non-tender, lungs clear, normal breath sounds, no respiratory distress, no accessory muscle use Cardiovascular: regular rate, rhythm, no edema, no gallop, no JVD, no murmur, normal peripheral pulses Abdomen/GI: normal bowel sounds, non tender, soft Back: normal inspection, no CVA tenderness, no muscle spasm, normal range of motion Extremities/Musculoskelatal: normal inspection, no calf tenderness, normal capillary refill, no pedal edema, normal range of motion Neurologic/Psych: water hauler II-XII nml as tested, no motor/sensory deficits, alert, normal mood/affect, normal reflexes, oriented x 3, + pertinent finding ( Genrally weak without focal defecits - AAO x 3 ) Skin: normal color, warm/dry, no rash, + pertinent finding (Pallor present) Diagnostics Laboratory Results Results Past 24 Hours Test 01/16/17 17:11 01/16/17 19:00 Range/Units White Blood Count 3.92 4.8-10.8 K/uL Red Blood Count 5.05 4.2-5.4 M/uL Hemoglobin 13.0 12.0-16.0 g/dL Hematocrit 39.8 37-47 % Mean Corpuscular Volume 78.8 80-100 fL Mean Corpuscular Hemoglobin 25.7 25-34 pg Mean Corpuscular Hemoglobin Concent 32.7 32-36 g/dl Platelet Count 206 130-400 K/uL Mean Platelet Volume 10.0 7.4-10.4 fL Neutrophils (%) (Auto) 47.0 % Lymphocytes (%) (Auto) 29.6 % Monocytes (%) (Auto) 17.6 % Eosinophils (%) (Auto) 4.8 % Basophils (%) (Auto) 0.5 % Neutrophils # (Auto) 1.84 1.4-6.5 K/uL Lymphocytes # (Auto) 1.16 1.2-3.4 K/uL Monocytes # (Auto) 0.69 0.11-0.59 K/uL Eosinophils # (Auto) 0.19 0-0.5 K/uL Basophils # (Auto) 0.02 0-0.2 K/uL RDW Standard Deviation 41.0 36.4-46.3 fL RDW Coefficient of Variation 14.6 11.5-14.5 % Immature Granulocyte % (Auto) 0.5 % Immature Granulocyte # (Auto) 0.02 0.00-0.02 K/uL Prothrombin Time 10.8 9.0-12.0 SECONDS Prothromb Time International Ratio 1.0 0.9-1.1 Activated Partial Thromboplast Time 33.7 21.0-31.0 SECONDS Partial Thromboplastin Ratio 1.3 Venous Blood pH 7.39 7.36-7.41 Venous Blood Partial Pressure CO2 57 38.0-50.0 mmHg Venous Blood Partial Pressure O2 34 mmHg Venous Blood HCO3 34 mmol/L Venous Blood Oxygen Saturation 62.3 % Venous Blood Base Excess 6.9 mmol/L Sodium Level 141 136-145 mmol/L Potassium Level 3.4 3.5-5.1 mmol/L Chloride Level 98 98-107 mmol/L Carbon Dioxide Level 34 21-32 mmol/L Anion Gap 9.0 3-11 mmol/L Blood Urea Nitrogen 9 7-18 mg/dl Creatinine 1.20 0.60-1.20 mg/dl Est Creatinine Clear Calc Drug Dose 52.2 ml/min Estimated GFR () 56.1 Estimated GFR (Non- 48.4 BUN/Creatinine Ratio 7.5 10-20 Random Glucose 83 70-99 mg/dl Calcium Level 9.0 8.5-10.1 mg/dl Magnesium Level 1.7 1.8-2.4 mg/dl Total Bilirubin 0.6 0.2-1 mg/dl Direct Bilirubin 0.1 0-0.2 mg/dl Aspartate Amino Transf (AST/SGOT) 46 15-37 U/L Alanine Aminotransferase (ALT/SGPT) 30 12-78 U/L Alkaline Phosphatase 65 45-117 U/L Ammonia 27.0 11-32 umol/L Total Creatine Kinase 105 26-192 U/L Creatine Kinase MB 1.4 0.5-3.6 ng/ml Creatine Kinase MB Ratio 1.3 0-3.0 Troponin I < 0.015 0-0.045 ng/ml Total Protein 6.3 6.4-8.2 gm/dl Albumin 2.8 3.4-5.0 gm/dl Lipase 89 73-393 U/L Urine Color YELLOW Urine Appearance CLEAR CLEAR Urine pH 5.5 4.5-7.5 Urine Specific [place] 1.006 1.000-1.030 Urine Protein NEG NEG Urine Glucose (UA) NEG NEG Urine Ketones NEG NEG Urine Occult Blood NEG NEG Urine Nitrite NEG NEG Urine Bilirubin NEG NEG Urine Urobilinogen NEG NEG Urine Leukocyte Esterase NEG NEG Diagnostic Radiology CTA 1. No evidence of acute pulmonary embolism 2. No evidence of focal pulmonary consolidation 3. 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 Pt presents with a constellation of symptoms including severe lethargy and lightheadedness, intermittent N/V, diarrhea, dehydration, muscle cramps. She has had a degree of the preceding symptoms for at least 1 month. On arrival to the ER she was also notably hypoxic but has not c/o SOB. She denies fevers, a productive cough, CP or abdominal pain. Her reports that her memory and executive functioning have been declining over the past month as well. 1) Lethargy, functional decline - etiology is not clear - she was recently placed on Amoxicillin and then Doxycycline by her MD to treat a presumed infection - perhaps Lyme. There is no evidence of infectious etiology. Hormonal etiology is also unlikely as her thyroid hormone levels were recently checked and normal and her BP is high ruling out adrenal insufficiency. Differential for her symptoms may then include advancement of her CA (although it is, per her , regressing) and possibly a paraneoplastic process affecting neuromuscular function. More likely would be a progressive effect from her Cediranib treatment. Her blueprint blocker will be consulted to advise on the above and we have held her Cediranib pending evaluation. 2) Diarrhea, N/V, dehydration. She reports markedly decreased PO intake over the past week. She has mild electrolyte abnormalities including hypoMg and hypoK. She reports that she recently received hydration and electrolytes in the outpt setting and this this improved her condition in the short-term. We will hydrate her and replace her electrolytes in addition to checking a phos level. We will culture her stool and check for C diff and O&P. These symptoms however, are more likely tied to her CA or medication. 3) Hypoxia - 02 was in the mid 80s without supplementation. She does not c/o SOB although she fatigues easily with minimal exertion. We will obtain an echo. It is possible that her generalized weakness is leading to hypoventilation as she has a degree of CO2 retention on current labs. We will request a pulmonary consult and monitor on telemetry. EKG shows a NSR and low voltage - there is no clinical or imaging evidence of pericardial effusion or tamponade. 4) HTN - cont Losartan 5) Clear cell ovarian CA - can follow-up as outpt pending further inpt workup - continuation of Cediranib to discretion of her blueprint blocker. Full code - Heparin prophylaxis Total time for this admit including review of labs, meds, EKG, CTA - discussion with pt and ER attending - 45 min Level of Care Telemetry Resuscitation Status FULL RESUSCITATION VTE Prophylaxis VTE Risk Assessment Done? Y/N: Yes Risk Level: High Given or contraindicated: Unfractionated heparin SQ
[2017-01-16] MEDS ORDERED: ALBUTEROL 0.083% NEBU SOLN 3 ML VIAL INH PRN (21:00)
[2017-01-16 22:11] VITALS: BP 163/108; PULSE 77; TEMP 36.6; O2SAT 96; Ht 167.6 cm; Wt 81.1 kg
[2017-01-16] MEDS ORDERED: MAGNESIUM SULFATE 1GM / D5W 1 GM in PREMIXED IN D5W 100 ML IV SCH (22:30)
[2017-01-16] MEDS: D5NSS + 20MEQ KCL 1,000 ML IV SCH (22:45)
[2017-01-16] MEDS: ACETAMINOPHEN 325 MG TAB PO PRN (23:08)
[2017-01-16 23:12] VITALS: BP 153/100; PULSE 72; TEMP 36.5; O2SAT 98
[2017-01-16 23:59] VITALS: O2SAT 98
[2017-01-17] VITALS (7 sets, daily range): BP systolic 143–168; BP diastolic 93–126; PULSE 66–74; TEMP 36.5–36.8; O2SAT 91–98
[2017-01-17] MEDS: D5NSS + 20MEQ KCL 1,000 ML IV SCH (04:59)
[2017-01-17] MEDS: HEPARIN SOD 5000 UNIT/0.5 ML CARP SQ SCH ×3 (05:01→22:03)
[2017-01-17] MEDS: LOSARTAN POTASSIUM 50 MG TAB PO SCH (07:59)
[2017-01-17] MEDS: MAGNESIUM OXIDE 400 MG TAB PO SCH (08:00)
[2017-01-17] MEDS: NAPROXEN 250 MG TAB PO SCH (08:00)
[2017-01-17] MEDS ORDERED: NON-FORMULARY MEDICATION (Probiotic Product (Probiotic) 1 CAP) PO SCH (09:00)
[2017-01-17 11:04] LABS: ARTERIAL BLD GAS O2 SATURATION 97.5 % (90-95); ARTERIAL BLOOD GAS BASE EXCESS 8.6 mEq/L (-9-1.8); ARTERIAL BLOOD GAS HCO3 34 mmol/L (19-24); ARTERIAL BLOOD GAS PO2 100 mm/Hg (80-95); ARTERIAL BLOOD GAS pH 7.43 (7.35-7.45)
[2017-01-17 11:08] LABS: ALLEN TEST POS (POS); O2 ADMINISTRATION 2 L
--- NOTE | 2017-01-17 11:46 | Oncology Consultation ---
Oncology/Heme Consultation Date of Consultation: Jan 17, 2017. Attending Physician: Alexandro Rico M.D. Reason for Consultation: Metastatic ovarian cancer Profound fatigue History of Present Illness Ms. Anderson is a 61 year old woman with a long-standing history of metastatic ovarian cancer. She is heavily pre-treated and most recently has been following at the [facility]. She is on a clinical trial with cediranib (an anti-VEGF TKI) and durvalumab (an anti-PDL1 antibody). Over the last month, she has been profoundly fatigued. She has difficulty getting out of bed in the morning. She also feels generally weak and somewhat lethargic and confused. She saw her PCP who screened her for mono and Lyme, which were negative. She had some friends who were ill around the time her symptoms started, so she thought she just had a viral illness. However, her symptoms have not improved and so her brought her into the ER. She has had intermittent, mild diarrhea. She denies any productive cough, rash, or fevers. Past Medical/Surgical History Medical Problems: (1) Altered mental status Status: Acute (2) Dehydration Status: Acute (3) Hypomagnesemia Status: Acute (4) Hypomagnesemia Status: Acute (5) Hypoxia Status: Acute (6) Weakness Status: Acute Family History Diabetes mellitus Social History Smoking Status: Never Smoker Marital Status: Housing Status: lives with family Occupation Status: employed Allergies Coded Allergies: Carboplatin (Verified Allergy, Severe, anaphylactic reaction, 01/16/17) Home Medications Scheduled Bismuth Subsalicylate (Pepto-Bismol Susp), 1 DOSE PO PRN Doxycycline Hyclate (Doxycycline Hyclate), 1 CAP PO BID Losartan Potassium (Cozaar), 1 TAB PO DAILY Magnesium Oxide (Mg Supplement (Magnesium), 1 CAP PO DAILY Naproxen Sodium (Aleve), 1 CAP PO DAILY Probiotic Product (Probiotic), 1 CAP PO DAILY [Cediranib Medioc], 20 MG PO 5XWK Scheduled PRN Ondansetron Hcl (Zofran), 4-8 MG PO Q6 PRN for Nausea Promethazine Hcl (Phenergan), 25 MG PO Q6H PRN for Nausea Current Inpatient Medications Current Inpatient Medications Medications (Trade) Dose Ordered Sig/Peterson Route Start Time Stop Time Status Last Admin Dose Admin Ioversol (Optiray 320) 100 ml UD PRN IV 01/16/17 19:00 01/20/17 18:59 Heparin Sodium (Porcine) (Heparin Sq 5000 Unit/0.5ml) 5,000 unit Q8 SQ 01/17/17 06:00 02/16/17 05:59 01/17/17 05:01 5,000 UNIT Acetaminophen (Tylenol Tab) 650 mg Q4H PRN PO 01/16/17 20:45 02/15/17 20:44 01/16/17 23:08 650 MG Al Hydrox/Mg Hydrox/Simethicone (Maalox Max Susp) 15 ml Q4H PRN PO 01/16/17 20:45 02/15/17 20:44 Magnesium Hydroxide (Milk Of Magnesia Susp) 30 ml Q12H PRN PO 01/16/17 20:45 02/15/17 20:44 Ondansetron HCl (Zofran Inj) 4 mg Q6H PRN IV 01/16/17 20:45 02/15/17 20:44 Polyethylene (Miralax Powder Packet) 17 gm DAILY PRN PO 01/16/17 20:45 02/15/17 20:44 Losartan Potassium (coZAAR TAB) 100 mg DAILY PO 01/17/17 09:00 02/16/17 08:59 01/17/17 07:59 100 MG Promethazine HCl (Phenergan Tab) 25 mg Q6H PRN PO 01/16/17 20:45 02/15/17 20:44 Magnesium Oxide (Mag-Ox Tab) 400 mg DAILY PO 01/17/17 09:00 02/16/17 08:59 01/17/17 08:00 400 MG Naproxen (Naprosyn Tab) 250 mg DAILY PO 01/17/17 09:00 02/16/17 08:59 01/17/17 08:00 250 MG Potassium Chloride/Dextrose/ Sod Cl 1,000 ml @ 150 mls/hr Q6H40M IV 01/16/17 22:30 01/17/17 11:49 01/17/17 04:59 150 MLS/HR Albuterol Sulfate (Ventolin 0.083% 2.5MG/3ML Neb) 2.5 mg Q6R PRN INH 01/16/17 21:00 02/15/17 20:59 Heparin Sodium (Porcine) (Heparin 100 Unit/ml 5ml Flush) 5 ml PRN PRN IV 01/17/17 04:15 02/16/17 04:14 Review of Systems Constitutional: + weakness, + fatigue, No fever Eyes: No worsening of vision ENT: No nasal symptoms, No sore throat Respiratory: No cough, No sputum, No shortness of breath Cardiovascular: No chest pain Abdomen: + diarrhea, No pain, No nausea, No vomiting Musculoskeletal: No joint pain, No muscle pain Genitourinary - Female: No dysuria, No urinary frequency Neurologic: No weakness Hematologic / Lymphatic: No abnormal bleeding/bruising, No swollen lymph nodes Integumentary: No rash Physical Exam Date Time Temp Pulse Resp B/P (MAP) Pulse Ox O2 Delivery O2 Flow Rate FiO2 01/17/17 08:00 Nasal Cannula 2.0 01/17/17 07:24 36.8 74 16 164/105 (124) 92 Nasal Cannula 2.0 149/97 (114) 01/17/17 04:03 98 Nasal Cannula 2.0 01/17/17 04:00 36.5 68 20 162/108 (126) 98 Nasal Cannula 2.0 159/103 (121) 01/16/17 23:59 98 Nasal Cannula 2.0 01/16/17 23:12 36.5 72 16 153/100 (117) 98 Nasal Cannula 2.0 01/16/17 22:11 36.6 77 14 163/108 96 Nasal Cannula 2.0 01/16/17 21:30 72 12 150/105 99 Nasal Cannula 2.0 01/16/17 21:14 74 14 156/108 98 Nasal Cannula 01/16/17 20:54 72 14 172/116 98 Room Air 01/16/17 19:56 100 Nasal Cannula 2.0 01/16/17 18:47 74 20 180/100 95 Room Air 01/16/17 18:40 72 16 167/115 84 Room Air 01/16/17 18:05 69 20 159/102 88 Room Air 01/16/17 17:21 70 01/16/17 16:15 36.5 87 18 132/96 93 Room Air General Appearance: no apparent distress, + pertinent finding (tired-appearing but otherwise well) Eyes: EOMI, sclerae normal (anicteric) ENT: pharynx normal Respiratory/Chest: lungs clear Cardiovascular: regular rate, rhythm, no murmur Abdomen/GI: non tender, soft, no organomegaly Extremities/Musculoskelatal: no pedal edema Neurologic/Psych: no motor/sensory deficits, alert, oriented x 3 Skin: no rash Lymphatic: no adenopathy Laboratory Results Last 24 Hours Test 01/16/17 17:11 01/16/17 19:00 01/17/17 10:53 White Blood Count 3.92 K/uL Red Blood Count 5.05 M/uL Hemoglobin 13.0 g/dL Hematocrit 39.8 % Mean Corpuscular Volume 78.8 fL Mean Corpuscular Hemoglobin 25.7 pg Mean Corpuscular Hemoglobin Concent 32.7 g/dl Platelet Count 206 K/uL Mean Platelet Volume 10.0 fL Neutrophils (%) (Auto) 47.0 % Lymphocytes (%) (Auto) 29.6 % Monocytes (%) (Auto) 17.6 % Eosinophils (%) (Auto) 4.8 % Basophils (%) (Auto) 0.5 % Neutrophils # (Auto) 1.84 K/uL Lymphocytes # (Auto) 1.16 K/uL Monocytes # (Auto) 0.69 K/uL Eosinophils # (Auto) 0.19 K/uL Basophils # (Auto) 0.02 K/uL RDW Standard Deviation 41.0 fL RDW Coefficient of Variation 14.6 % Immature Granulocyte % (Auto) 0.5 % Immature Granulocyte # (Auto) 0.02 K/uL Prothrombin Time 10.8 SECONDS Prothromb Time International Ratio 1.0 Activated Partial Thromboplast Time 33.7 SECONDS Partial Thromboplastin Ratio 1.3 Venous Blood pH 7.39 Venous Blood Partial Pressure CO2 57 mmHg Venous Blood Partial Pressure O2 34 mmHg Venous Blood HCO3 34 mmol/L Venous Blood Oxygen Saturation 62.3 % Venous Blood Base Excess 6.9 mmol/L Sodium Level 141 mmol/L Potassium Level 3.4 mmol/L Chloride Level 98 mmol/L Carbon Dioxide Level 34 mmol/L Anion Gap 9.0 mmol/L Blood Urea Nitrogen 9 mg/dl Creatinine 1.20 mg/dl Est Creatinine Clear Calc Drug Dose 52.2 ml/min Estimated GFR () 56.1 Estimated GFR (Non- 48.4 BUN/Creatinine Ratio 7.5 Random Glucose 83 mg/dl Calcium Level 9.0 mg/dl Phosphorus Level 4.0 mg/dl Magnesium Level 1.7 mg/dl Total Bilirubin 0.6 mg/dl Direct Bilirubin 0.1 mg/dl Aspartate Amino Transf (AST/SGOT) 46 U/L Alanine Aminotransferase (ALT/SGPT) 30 U/L Alkaline Phosphatase 65 U/L Ammonia 27.0 umol/L Total Creatine Kinase 105 U/L Creatine Kinase MB 1.4 ng/ml Creatine Kinase MB Ratio 1.3 Troponin I < 0.015 ng/ml Pro-B-Type Natriuretic Peptide 221 pg/ml Total Protein 6.3 gm/dl Albumin 2.8 gm/dl Lipase 89 U/L Hepatitis C Antibody Screen NEG Urine Color YELLOW Urine Appearance CLEAR Urine pH 5.5 Urine Specific [place] 1.006 Urine Protein NEG Urine Glucose (UA) NEG Urine Ketones NEG Urine Occult Blood NEG Urine Nitrite NEG Urine Bilirubin NEG Urine Urobilinogen NEG Urine Leukocyte Esterase NEG Arterial Blood pH 7.43 Arterial Blood Partial Pressure CO2 52 mmHg Arterial Blood Partial Pressure O2 100 mm/Hg Arterial Blood HCO3 34 mmol/L Arterial Blood Oxygen Saturation 97.5 % Arterial Blood Base Excess 8.6 mEq/L Arterial Blood Gas Delivery 2 L Jesus Test POS Assessment & Plan Ms. Anderson presents with severe fatigue. Her scans show no evidence of inflammation or infection in her chest. She reports that she's been responding to treatment. She is on a PD-L1 inhibitor, durvalumab. Checkpoint inhibitors very commonly cause endocrinopathies, including hypothyroidism, hypocortisolism , mineralocorticoid deficiency, or even panhypopituitarism. I would work her up for these issues, which could easily explain her symptoms. If they are confirmed , this is a treatment-related effect and she will need hormone replacement, as this inflammatory endocrinopathy is generally not reversible. I will check back in tomorrow.
--- NOTE | 2017-01-17 13:46 | ECHOCARDIOGRAM REPORT ---
*NOTICE TO RECEIVING [employer] This information is strictly Confidential and protected under [place] law. [place] law prohibits you from making any further disclosure of this information unless further disclosure is expressly permitted by the written consent of the person to whom it pertains or is authorized by law. A general authorization for the release of medical or other information is not sufficient for this purpose. Hospital accepts no responsibility if the information is made available to any other person, INCLUDING THE PATIENT. Interpretation Summary * Name: JUNAID GARDNER Study Date: 01/17/2017 06:54 AM BP: 159/103 mmHg * Patient Location: C.2T\S\E220\S\1 HR: 68 * : 1955 (M/d/yyyy) Gender: Female Height: 66 in * Age: 61 yrs Ethnicity: CA Weight: 179 lb * Ordering Physician: Alexandro Rico * Referring Physician: Mo Molina D.O. * Performed By: Margaret Ball * * Reason For Study: CHF * BSA: 1.9 m2 * -- Conclusions -- * There is mild concentric left ventricular hypertrophy. * Left ventricular systolic function is normal. * Grade I diastolic dysfunction, (abnormal relaxation pattern). * Moderate aortic regurgitation. * Right ventricular systolic pressure is normal. Procedure Details * A complete two-dimensional transthoracic echocardiogram was performed (2D, M-mode, Doppler and color flow Doppler). Left Ventricle * The left ventricle is normal in size. * There is mild concentric left ventricular hypertrophy. * Ejection Fraction = 50-55%. * Left ventricular systolic function is normal. * Grade I diastolic dysfunction, (abnormal relaxation pattern). * The left ventricular wall motion is normal. Right Ventricle * The right ventricle is normal in size and function. Atria * The left atrial size is normal. * Right atrial size is normal. Mitral Valve * The mitral valve is grossly normal. * Significant mitral regurgitation is absent. Tricuspid Valve * The tricuspid valve is not well visualized, but is grossly normal. * There is mild tricuspid regurgitation. * Right ventricular systolic pressure is normal. Aortic Valve * The aortic valve is trileaflet. * No hemodynamically significant valvular aortic stenosis. * Moderate aortic regurgitation. Pericardium/Pleural * There is no pericardial effusion. Great Vessels * Normal inferior vena cava diameter and respiratory variation suggests normal central venous pressure. MMode 2D Measurements and Calculations IVSd 1.4 cm IVSs 1.5 cm LVIDd 4.4 cm LVIDs 3.2 cm LVPWd 1.2 cm LVPWs 1.9 cm IVS/LVPW 1.2 FS 27.0 % EDV(Teich) 86.8 ml ESV(Teich) 40.9 ml EF(Teich) 52.9 % EDV(cubed) 84.1 ml ESV(cubed) 32.7 ml EF(cubed) 61.1 % % IVS thick 7.8 % % LVPW thick 65.1 % LV mass(C)d 211.4 grams LV mass(C)dI 110.8 grams/m\S\2 LV mass(C)s 217.1 grams LV mass(C)sI 113.8 grams/m\S\2 SV(Teich) 45.9 ml SI(Teich) 24.1 ml/m\S\2 SV(cubed) 51.4 ml SI(cubed) 26.9 ml/m\S\2 ACS 1.5 cm LA dimension 3.3 cm asc Aorta Diam 3.5 cm LVOT diam 1.7 cm LVOT area 2.4 cm\S\2 LVAd ap4 20.3 cm\S\2 LVLd ap4 6.7 cm EDV(MOD-sp4) 54.1 ml EDV(sp4-el) 52.3 ml LVAs ap4 13.5 cm\S\2 LVLs ap4 6.0 cm ESV(MOD-sp4) 26.0 ml ESV(sp4-el) 26.0 ml EF(MOD-sp4) 52.0 % EF(sp4-el) 50.4 % LVAd ap2 22.4 cm\S\2 LVLd ap2 7.1 cm EDV(MOD-sp2) 58.8 ml EDV(sp2-el) 60.0 ml LVAs ap2 14.4 cm\S\2 LVLs ap2 6.1 cm ESV(MOD-sp2) 28.4 ml ESV(sp2-el) 28.7 ml EF(MOD-sp2) 51.7 % EF(sp2-el) 52.1 % LVLd %diff 5.7 % EDV(MOD-bp) 57.2 ml LVLs %diff 2.5 % ESV(MOD-bp) 27.4 ml EF(MOD-bp) 52.1 % SV(MOD-sp4) 28.1 ml SI(MOD-sp4) 14.7 ml/m\S\2 SV(MOD-sp2) 30.4 ml SI(MOD-sp2) 15.9 ml/m\S\2 SV(MOD-bp) 29.8 ml SI(MOD-bp) 15.6 ml/m\S\2 SV(sp4-el) 26.4 ml SI(sp4-el) 13.8 ml/m\S\2 SV(sp2-el) 31.3 ml SI(sp2-el) 16.4 ml/m\S\2 Doppler Measurements and Calculations MV E max dionne 52.5 cm/sec MV A max dionne 74.0 cm/sec MV E/A 0.71 MV dec time 0.25 sec Ao V2 max 108.7 cm/sec Ao max PG 4.7 mmHg Ao max PG (full) 1.7 mmHg PRINCESS(V,A) 1.9 cm\S\2 PRINCESS(V,D) 1.9 cm\S\2 AI max dionne 440.0 cm/sec AI max PG 77.5 mmHg AI dec slope 110.1 cm/sec\S\2 AI P1/2t 1170.4 msec LV V1 max PG 3.1 mmHg LV V1 max 87.6 cm/sec PA V2 max 76.0 cm/sec PA max PG 2.3 mmHg TR max dionne 249.5 cm/sec
--- NOTE | 2017-01-17 14:02 | Pulmonary Consultation ---
History General Date of Service: Jan 17, 2017. Stated Complaint: Hypoxia, Lethargy HPI The patient is a 61 year old female who presents to [facility] with complaints of Hypoxia, Lethargy. The patient's primary care provider is Mo Molina Jr,D.O.. 61 y/o female admitted to [facility] 01/16/2017 for lethargy, syncope, diarrhea, dehydration and was noted to have a SaO2 of 84% on room air. She had no respiratory complaints and her PE per the reports also noted no signs of respiratory deficiencies. The patient also notes headaches while the patients describes increased memory and cognitive functioning decline over the past 4-6 weeks with a negative MRI of the head. The patient has been maintained on Cediranib over the last 1.5years for treatment of her endometriosis-associated clear cell carcinoma. The patient myself and her have a long conversation and both of them deny any history or clinical signs suggestive of chronic respiratory insufficiency. Cediranib sided effects: HTN, bleeding, poor wound healing, wound dehiscence, fatigue, nausea, diarrhea, weight loss Current Work-Up WBC: 4K H/H: 13/40 PLT: 206K VB.39/57 corrected to ABG #s 7.42/47 ABG: (01/17/17) 7.43/52/100/34 2L A-a gradient : 21 Hep C: negative ALB: 2.8 EKG (01/16/17) compared to 01/02/17 NSR with Left axis deviation poor T wave progression across anterior lateral leads VS: in the ED Sao2: 84-100% (RA2L) RR: 16-20 HR: 69-87 Non-contrast CT Head: WNL ABD 2 view: WNL CTA Chest (01/16/17) compared to (04/30/15) WNL no signs of PE 7mm RUL nodule stable LENKA previous 6.6mm nodule dramatic resolution Previous Work-Up Spirometry (06/2006): mild OVD especially at low lung volumes Historian: patient, family, EMS Review of Systems Constitutional: reports: as stated in HPI Eyes: reports: no symptoms ENT: reports: no symptoms Cardiovascular: reports: no symptoms Respiratory: reports: as stated in HPI Genitourinary - Female: reports: no symptoms Musculoskeletal: reports: as stated in HPI Neurologic: reports: as stated in HPI Psychiatric: reports: no symptoms Endocrine: no symptoms Hematologic / Lymphatic: no symptoms Allergic / Immunologic: no symptoms Past Medical History Past Medical History: 1. Perforated Nasal septum with Epistaxis while on Coumadin & Avastin, necessitating emergency room visit on 12/10/2011 [address] intervention [address] Jaime Saez of ENT on 12/11/2011. 2. Endometriosis-associated clear cell carcinoma Chemotherapy: Taxol, Cisplatin, Neulasta, Aranesp, Avastin, Venofer (06/12/ /02/08) Debulking surgeries (04/18/11 & 06/08/13) 3. Laryngopharyngeal reflux disease 4. B12 deficiency 5. Borderline iron deficiency 6. Mild cisplatin-induced rise in serum creatinine 7. Pulmonary emboli (RLL) diagnosed CTA (09/04/11) 8. Left subclavian vein sub occlusive thrombus (09/05/11) 9. 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 Nancy-umbilical Hernia 11. Ectopic Thyroid tissue CT chest (05/2013) 12. CASSANDRA 13. HTN Past Surgical History: 1. Debulking Ednometriosis-associated clear cell carcinoma (04/18/11) 2. Appendectomy (04/18/11) 3. Recto-sigmoid colectomy (04/18/11) 4. Intraperitoneal Port-A-Cath (04/18/11) 5. Debulking abdominal surgery (06/08/13) Family History Diabetes mellitus Diabetes mellitus Social History Smoking Status: Never Smoker Alcohol Use: occasionally Marital Status: Housing Status: lives with family Occupation Status: employed Hx Tobacco Use In Past Year?: No Smoking Status: Never Smoker Marital status: Occupational Status: employed Immunizations History of Influenza Vaccine: Yes History of Tetanus Vaccine?: utd ? History of Pneumococcal: No History of Hepatitis B Vaccine: No History of MDRO History of MDRO: No Allergies Coded Allergies: Carboplatin (Verified Allergy, Severe, anaphylactic reaction, 01/16/17) Current Medications Reported Home Medications Medications Dose Route/Sig Max Daily Dose Days Date Category Dose Instructions Probiotic (Probiotic Product) 1 Cap Cap 1 Cap PO DAILY 01/16/17 Reported Magnesium (Magnesium Oxide (Mg Supplement) 500 Mg Cap 1 Cap PO DAILY 01/16/17 Reported Aleve (Naproxen Sodium) 220 Mg Cap 1 Cap PO DAILY 01/16/17 Reported Doxycycline Hyclate 100 Mg Cap 1 Cap PO BID 01/16/17 Reported Phenergan (Promethazine HCl) 25 Mg Tab 25 Mg PO Q6H PRN 01/02/17 Rx Pepto-Bismol Susp (Bismuth Subsalicylate) 30 Ml/524 Mg Susp 1 Dose PO PRN 01/02/17 Reported Zofran (Ondansetron HCl) 8 Mg Tab 4-8 Mg PO Q6 PRN 01/02/17 Reported [Cediranib Medioc] 20 Mg PO 5XWK 01/02/17 Reported TRIAL DRUG. WEEKDAYS ONLY. Cozaar (Losartan Potassium) 100 Mg Tab 1 Tab PO DAILY 30 12/25/16 Reported Physical Physical Exam Vital Signs: Date Time Temp Pulse Resp B/P (MAP) Pulse Ox O2 Delivery O2 Flow Rate FiO2 01/17/17 12:00 Nasal Cannula 2.0 01/17/17 11:43 36.5 67 16 154/101 (118) 97 143/96 (112) 01/17/17 08:00 Nasal Cannula 2.0 01/17/17 07:24 36.8 74 16 164/105 (124) 92 Nasal Cannula 2.0 149/97 (114) 01/17/17 04:03 98 Nasal Cannula 2.0 01/17/17 04:00 36.5 68 20 162/108 (126) 98 Nasal Cannula 2.0 159/103 (121) 01/16/17 23:59 98 Nasal Cannula 2.0 01/16/17 23:12 36.5 72 16 153/100 (117) 98 Nasal Cannula 2.0 01/16/17 22:11 36.6 77 14 163/108 96 Nasal Cannula 2.0 01/16/17 21:30 72 12 150/105 99 Nasal Cannula 2.0 01/16/17 21:14 74 14 156/108 98 Nasal Cannula 01/16/17 20:54 72 14 172/116 98 Room Air 01/16/17 19:56 100 Nasal Cannula 2.0 01/16/17 18:47 74 20 180/100 95 Room Air 01/16/17 18:40 72 16 167/115 84 Room Air 01/16/17 18:05 69 20 159/102 88 Room Air 01/16/17 17:21 70 01/16/17 16:15 36.5 87 18 132/96 93 Room Air General Appearance: NO APPARENT DISTRESS Head: NORMOCEPHALIC Eyes: PERRLA ENT: NORMAL EAR EXAM, NORMAL NASAL EXAM, NORMAL MOUTH EXAM, NORMAL THROAT EXAM , NORMAL DENTAL EXAM Neck: NORMAL RANGE OF MOTION, NO TENDERNESS, TRACHEA MIDLINE, NO STRIDOR Respiratory: BREATH SOUNDS NORMAL, CLEAR TO AUSCULTATION, CLEAR TO PERCUSSION Cardiovasular: REGULAR RATE/RHYTHM, NORMAL S1S2, NO M/G/R, NO MURMUR, NO GALLOP Abdomen: NON TENDER, NORMAL BOWEL SOUNDS, NO REBOUND, NO MASSES, NO GUARDING, NO ORGANOMEGALY, NORMAL RECTAL EXAM Genitourinary - Female: EXTERNAL GENITALIA NORMAL Back: NORMAL INSPECTION, NO MIDLINE TENDERNESS, NO CVA TENDERNESS, NO PARAVERTEBRAL TTP Upper Extremities: NO EDEMA, NO DEFORMITY, NORMAL ROM Lower Extremities: other (mild ecchymosis over the mid kessler on the left lower extremity/minimal petechia associated bilateral feet on the dorsum) Pulses: carotid (R) (2+), carotid (L) (2+), posterior tibial (R), posterior tibial (L) (2+) Neuro: ALERT, ORIENTED x 3, memory abnormal, other (qtnaqa-fjde-xwdoep maneuver notably abnormal) Reflexes: biceps (R) (1+), bicpes (L) (1+), achilles (R) (2+), achilles (L) (2+ ) Babinski Testing: right (downgoing), left (downgoing) Psychiatric: NORMAL AFFECT Diagnostics Labs Results Past 24 Hours Test 01/16/17 17:11 01/16/17 19:00 01/17/17 10:53 Range/Units White Blood Count 3.92 4.8-10.8 K/uL Red Blood Count 5.05 4.2-5.4 M/uL Hemoglobin 13.0 12.0-16.0 g/dL Hematocrit 39.8 37-47 % Mean Corpuscular Volume 78.8 80-100 fL Mean Corpuscular Hemoglobin 25.7 25-34 pg Mean Corpuscular Hemoglobin Concent 32.7 32-36 g/dl Platelet Count 206 130-400 K/uL Mean Platelet Volume 10.0 7.4-10.4 fL Neutrophils (%) (Auto) 47.0 % Lymphocytes (%) (Auto) 29.6 % Monocytes (%) (Auto) 17.6 % Eosinophils (%) (Auto) 4.8 % Basophils (%) (Auto) 0.5 % Neutrophils # (Auto) 1.84 1.4-6.5 K/uL Lymphocytes # (Auto) 1.16 1.2-3.4 K/uL Monocytes # (Auto) 0.69 0.11-0.59 K/uL Eosinophils # (Auto) 0.19 0-0.5 K/uL Basophils # (Auto) 0.02 0-0.2 K/uL RDW Standard Deviation 41.0 36.4-46.3 fL RDW Coefficient of Variation 14.6 11.5-14.5 % Immature Granulocyte % (Auto) 0.5 % Immature Granulocyte # (Auto) 0.02 0.00-0.02 K/uL Prothrombin Time 10.8 9.0-12.0 SECONDS Prothromb Time International Ratio 1.0 0.9-1.1 Activated Partial Thromboplast Time 33.7 21.0-31.0 SECONDS Partial Thromboplastin Ratio 1.3 Venous Blood pH 7.39 7.36-7.41 Venous Blood Partial Pressure CO2 57 38.0-50.0 mmHg Venous Blood Partial Pressure O2 34 mmHg Venous Blood HCO3 34 mmol/L Venous Blood Oxygen Saturation 62.3 % Venous Blood Base Excess 6.9 mmol/L Sodium Level 141 136-145 mmol/L Potassium Level 3.4 3.5-5.1 mmol/L Chloride Level 98 98-107 mmol/L Carbon Dioxide Level 34 21-32 mmol/L Anion Gap 9.0 3-11 mmol/L Blood Urea Nitrogen 9 7-18 mg/dl Creatinine 1.20 0.60-1.20 mg/dl Est Creatinine Clear Calc Drug Dose 52.2 ml/min Estimated GFR () 56.1 Estimated GFR (Non- 48.4 BUN/Creatinine Ratio 7.5 10-20 Random Glucose 83 70-99 mg/dl Calcium Level 9.0 8.5-10.1 mg/dl Phosphorus Level 4.0 2.5-4.9 mg/dl Magnesium Level 1.7 1.8-2.4 mg/dl Total Bilirubin 0.6 0.2-1 mg/dl Direct Bilirubin 0.1 0-0.2 mg/dl Aspartate Amino Transf (AST/SGOT) 46 15-37 U/L Alanine Aminotransferase (ALT/SGPT) 30 12-78 U/L Alkaline Phosphatase 65 45-117 U/L Ammonia 27.0 11-32 umol/L Total Creatine Kinase 105 26-192 U/L Creatine Kinase MB 1.4 0.5-3.6 ng/ml Creatine Kinase MB Ratio 1.3 0-3.0 Troponin I < 0.015 0-0.045 ng/ml Pro-B-Type Natriuretic Peptide 221 0-900 pg/ml Total Protein 6.3 6.4-8.2 gm/dl Albumin 2.8 3.4-5.0 gm/dl Lipase 89 73-393 U/L Hepatitis C Antibody Screen NEG NEG Urine Color YELLOW Urine Appearance CLEAR CLEAR Urine pH 5.5 4.5-7.5 Urine Specific [place] 1.006 1.000-1.030 Urine Protein NEG NEG Urine Glucose (UA) NEG NEG Urine Ketones NEG NEG Urine Occult Blood NEG NEG Urine Nitrite NEG NEG Urine Bilirubin NEG NEG Urine Urobilinogen NEG NEG Urine Leukocyte Esterase NEG NEG Arterial Blood pH 7.43 7.35-7.45 Arterial Blood Partial Pressure CO2 52 35-46 mmHg Arterial Blood Partial Pressure O2 100 80-95 mm/Hg Arterial Blood HCO3 34 19-24 mmol/L Arterial Blood Oxygen Saturation 97.5 90-95 % Arterial Blood Base Excess 8.6 -9-1.8 mEq/L Arterial Blood Gas Delivery 2 L Jesus Test POS POS Diagnostic Radiology CTA Chest (01/16/17) compared to (04/30/15) WNL no signs of PE 7mm RUL nodule stable LENKA previous 6.6mm nodule dramatic resolution EKG EKG (01/16/17) compared to 01/02/17 Impression Assessment and Plan 61-year-old female admitted with chronic fatigue, progressive decrease in cognitive functioning and low SaO2: #1 Hypoxia: Patient has had no complaints of shortness of breath over the past year that was noted in the ED to have her SaO2 at 84%. The workup does show signs of chronic hypercapnia in the ABG notes a non-gradient mild hypoxemia on 2 L nasal cannula. This patient does have a non-88 gradient hypoxemia suggesting that she is chronically hypoventilating. The etiology of this is unknown at this time possibly progressive CASSANDRA to obesity hypoventilation syndrome, neuromuscular dysfunctioning or even combination of history of CASSANDRA with increasing neurocognitive dysfunction. I did have the patient perform peak flow meter and she was only able to reach 200 cc but her coordination was severely limited. At this time I will order nocturnal desaturation study for further evaluation. I do believe she'll need spirometry as well with peak inspiratory, peak expiratory and maximum minute ventilation evaluations for respiratory muscle evaluation. A recent MRI at the [facility] showed no signs of APARTMENT LOCATOR abnormality but we should obtain that image for evaluation of the port of the midbrain. #2 Neurocognitive Dysfunctioning: Patient's vital chronically used Cediranib have been documented to have progressive neuro cognitive dysfunctioning. Cediranib is also noted to cause diarrhea, hypertension as well as hypothyroidism. Due to this I suggest we move forward with the nocturnal desaturation study which increase her neurocognitive dysfunctioning as well as obtained a TSH/free T4 levels for further evaluation.
[2017-01-17 21:07] LABS: CALCIUM 8.1 mg/dl (8.5-10.1); CREATININE 0.96 mg/dl (0.60-1.20); MAGNESIUM 1.9 mg/dl (1.8-2.4); POTASSIUM 3.7 mmol/L (3.5-5.1)
[2017-01-17 21:19] LABS: C-REACTIVE PROTEIN 1.02 mg/dl (0-0.29); PHOSPHORUS 3.4 mg/dl (2.5-4.9); THYROID STIMULATING HORMONE 8.55 uIu/ml (0.300-4.500)
--- NOTE | 2017-01-17 23:24 | Hospitalist Progress Note ---
Hospitalist Progress Note Date of Service Jan 17, 2017. Subjective Pt evaluation today including: conversation w/ patient, conversation w/ family , physical exam, conversation w/ wellness consultant (Oncology, Pulmonology) Pt and relay a one month h/o severe fatigue, shoulder, hip, and thigh pain as well as low back pain. She has had intermittent nausea. No fevers. No headaches. Has also had severe dry mouth and dry eyes. She is on clinical trial for her metastatic ovarian CA through the [facility]. BPs have been high which she was told is a side effect of the chemo. No jaw claudication but does feel stiff in the jaw. No joint swelling. Has also noticed a rash on tops of her feet and very sore shins. Constitutional: + weakness (generalized), + fatigue, No fever, No chills Eyes: + worsening of vision, + eye pain (chronic photophobia), + problem reported (very dry eyes and blurry vision x 1 month) ENT: + trouble swallowing (due to thick mucus in throat in the AMs recently , no sinus congestion) Respiratory: + shortness of breath, No cough Cardiovascular: No chest pain, No edema Breast: No problem reported Abdomen: + nausea, + vomiting, + diarrhea (a fe loose stools this AM) Musculoskeletal: + joint pain (bilateral shoulders and hips with shooting pains down thighs), + muscle pain, + problem reported (lower back pain) Female : No dysuria, No urinary frequency, No hematuria Neurologic: + memory loss (recently), No paralysis, No numbness/tingling Psychiatric: No problem reported Heme: No problem reported Endo: + fatigue Skin: + rash All Other Systems: Reviewed and Negative Objective Vital Signs Date Time Temp Pulse Resp B/P (MAP) Pulse Ox O2 Delivery O2 Flow Rate FiO2 01/17/17 20:05 36.5 73 18 167/126 (140) 91 168/114 (132) 01/17/17 20:00 Room Air 01/17/17 16:00 Nasal Cannula 2.0 01/17/17 15:15 36.6 69 16 152/93 (112) 97 2.0 155/105 (122) 01/17/17 12:00 Nasal Cannula 2.0 01/17/17 11:43 36.5 67 16 154/101 (118) 97 143/96 (112) 01/17/17 08:00 Nasal Cannula 2.0 01/17/17 07:24 36.8 74 16 164/105 (124) 92 Nasal Cannula 2.0 149/97 (114) 01/17/17 04:03 98 Nasal Cannula 2.0 01/17/17 04:00 36.5 68 20 162/108 (126) 98 Nasal Cannula 2.0 159/103 (121) 01/16/17 23:59 98 Nasal Cannula 2.0 01/16/17 23:12 36.5 72 16 153/100 (117) 98 Nasal Cannula 2.0 Physical Exam General Appearance: no apparent distress (but appears chronically ill) Eyes: normal inspection, PERRL, EOMI, sclerae normal ENT: hearing grossly normal, + pertinent finding (very dry mucus membranes; no ttp over temporal arteries, no cervical RUBÉN palpable) Neck: supple, no adenopathy, thyroid normal, trachea midline Respiratory/Chest: lungs clear, normal breath sounds, no respiratory distress, no accessory muscle use Cardiovascular: regular rate, rhythm, no edema, no gallop, no murmur Abdomen: normal bowel sounds, non tender, soft, no organomegaly, no pulsatile mass Extremities: normal range of motion, normal inspection, no pedal edema, no calf tenderness, + pertinent finding (+exquisite +TTP over medial anterior tibiae bilat as well as bilateral trochanteric bursae) Neurologic/Psychiatric: can stacker II-XII nml as tested, no motor/sensory deficits, alert, normal mood/affect, oriented x 3 Skin: normal color, warm/dry, + rash (dorsal feet and anterior distal tibiae with petechial rash) Lymphatic: no adenopathy Laboratory Results Last 24 Hours Test 01/17/17 10:53 01/17/17 20:30 Arterial Blood pH 7.43 Arterial Blood Partial Pressure CO2 52 mmHg Arterial Blood Partial Pressure O2 100 mm/Hg Arterial Blood HCO3 34 mmol/L Arterial Blood Oxygen Saturation 97.5 % Arterial Blood Base Excess 8.6 mEq/L Arterial Blood Gas Delivery 2 L Jesus Test POS Erythrocyte Sedimentation Rate 12 mm/hr Sodium Level 144 mmol/L Potassium Level 3.7 mmol/L Chloride Level 105 mmol/L Carbon Dioxide Level 32 mmol/L Anion Gap 7.0 mmol/L Blood Urea Nitrogen 6 mg/dl Creatinine 0.96 mg/dl Est Creatinine Clear Calc Drug Dose 65.4 ml/min Estimated GFR () 73.5 Estimated GFR (Non- 63.4 BUN/Creatinine Ratio 6.0 Random Glucose 95 mg/dl Calcium Level 8.1 mg/dl Phosphorus Level 3.4 mg/dl Magnesium Level 1.9 mg/dl C-Reactive Protein 1.02 mg/dl Prealbumin 8.0 mg/dl Thyroid Stimulating Hormone (TSH) 8.550 uIu/ml Free Thyroxine 0.68 ng/dl Free Triiodothyronine 2.82 pg/ml Assessment and Plan 61 y/o F Hx HTN, CASSANDRA, metastatic clear cell ovarian CA treated with various modalities over the past 6 years and currently in clinical trial through [facility] on 2 different chemotherapeutic agents. Pt presents with a constellation of symptoms including severe lethargy and lightheadedness, intermittent N/V, diarrhea, dehydration, muscle cramps, joint pains, and dry eyes and mouth. She has had a degree of the preceding symptoms for at least 1 month. On arrival to the ER she was also notably hypoxic with POx 84% but has not c/o SOB. She denies fevers, a productive cough, CP or abdominal pain. Her reports that her memory and executive functioning have been declining over the past month as well. 1) Lethargy, functional decline, joint pains, dry eyes/mouth, petechial rash, Acute hypoxic respiratory failure-- she was recently placed on Amoxicillin and then Doxycycline by her MD to treat a presumed infection - perhaps Lyme. There is no evidence of infectious etiology. Oncology reports common Endocrinopathies with the type of chemo agent she is on. BP is high ruling out adrenal insufficiency but will check AM cortisol. Differential for her symptoms may then include advancement of her CA (although it is, per her , regressing ) and possibly a paraneoplastic process affecting neuromuscular function. Could be a progressive effect from her Cediranib treatment. Hypoventilation causing non A-a gradient hypoxia as per Pulm--> r/o endocrine and Neuromuscular disorders; she does have known CASSANDRA but not using CPAP No anemia on CBC TSH repeated here now even higher than previous at 8.5 with very low FT4 at 0.68 and low-normal FT3 Suspected possible PMR clinically but ESR only 12 so not likely at all Dry eyes and mouth suggest Sjogren's but could all be from hypothyroidism ECHO with normal EF, mod AI Does not seem to be from infectious cause -check SSA, SSB as well -Consult Rheumatology -Treat for hypothyroidism with IV levothyroxine initially, then transition to po -Will contact [facility] and ask for Medical Oncology Fellow regulation supervisor for [facility] [phone] to discuss her case -Overnight oximetry test 2) Diarrhea, N/V, dehydration-all likely related to hypothyroidism and then had vomiting ith taking doxycycline which is common ASE. She reports markedly decreased PO intake over the past week. She has mild electrolyte abnormalities including hypoMg and hypoK. 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 Full code - Heparin prophylaxis
[2017-01-18 04:33] VITALS: BP 150/94; PULSE 66; TEMP 36.3; O2SAT 98
[2017-01-18] MEDS: HEPARIN SOD 5000 UNIT/0.5 ML CARP SQ SCH ×3 (05:32→23:41)
[2017-01-18 06:44] LABS: BASO % 0.5 %; BASO ABS # 0.02 K/uL (0-0.2); COMPLETE YES; EOS % 4.5 %; HEMATOCRIT 38.1 % (37-47); IG% 0.3 %; LYMPH % 30.5 %; LYMPH ABS # 1.21 K/uL (1.2-3.4); MEAN CELL VOLUME 79.7 fL (80-100); MEAN CORPUSCULAR HEMOGLOBIN 24.5 pg (25-34); MEAN CORPUSCULAR HGB CONC 30.7 g/dl (32-36); MONO % 16.4 %; NEUT % 47.8 %; PLATELET COUNT 180 K/uL (130-400); RED BLOOD COUNT 4.78 M/uL (4.2-5.4); WHITE BLOOD COUNT 3.97 K/uL (4.8-10.8)
[2017-01-18 07:23] LABS: CALCIUM 8.3 mg/dl (8.5-10.1); CREATININE 0.81 mg/dl (0.60-1.20); MAGNESIUM 1.7 mg/dl (1.8-2.4); POTASSIUM 3.5 mmol/L (3.5-5.1)
[2017-01-18 07:26] LABS: PHOSPHORUS 3.6 mg/dl (2.5-4.9)
[2017-01-18 07:38] VITALS: BP 143/89; PULSE 67; TEMP 36.3; O2SAT 93
[2017-01-18] MEDS ORDERED: LEVOTHYROXINE SODIUM INJ 25 MCG in SYRINGE 0 ML IV SCH (09:00)
[2017-01-18] MEDS: MAGNESIUM OXIDE 400 MG TAB PO SCH (09:13)
[2017-01-18] MEDS: NAPROXEN 250 MG TAB PO SCH (09:14)
[2017-01-18] MEDS: LOSARTAN POTASSIUM 50 MG TAB PO SCH (09:14)
[2017-01-18] MEDS ORDERED: MAGNESIUM SULFATE 1GM / D5W 1 GM in PREMIXED IN D5W 100 ML IV ONE (09:30)
--- NOTE | 2017-01-18 11:31 | Hematology/Oncology Prog Note ---
Hematology/Onc Progress Note Date of Service Jan 18, 2017. Diagnoses Hypothyroidism Hypocortisolism Metastatic ovarian cancer Medications Medications Administered Medications (Trade) Dose Ordered Sig/Peterson Route Start Time Stop Time Status Last Admin Dose Admin Sodium Chloride 1,000 ml @ 999 mls/hr Q1H1M STAT IV 01/16/17 16:44 01/16/17 17:44 DC 01/16/17 16:44 999 MLS/HR Ondansetron HCl (Zofran Inj) 4 mg NOW STAT IV 01/16/17 16:44 01/16/17 16:47 DC 01/16/17 18:08 4 MG Magnesium Sulfate (Magnesium Sulfate) 1 gm NOW STAT IV 01/16/17 18:47 01/16/17 18:48 DC 01/16/17 19:00 1 GM Heparin Sodium (Porcine) (Heparin Sq 5000 Unit/0.5ml) 5,000 unit Q8 SQ 01/17/17 06:00 02/16/17 05:59 01/18/17 05:32 5,000 UNIT Acetaminophen (Tylenol Tab) 650 mg Q4H PRN PO 01/16/17 20:45 02/15/17 20:44 01/16/17 23:08 650 MG Losartan Potassium (coZAAR TAB) 100 mg DAILY PO 01/17/17 09:00 02/16/17 08:59 01/18/17 09:14 100 MG Magnesium Oxide (Mag-Ox Tab) 400 mg DAILY PO 01/17/17 09:00 02/16/17 08:59 01/18/17 09:13 400 MG Naproxen (Naprosyn Tab) 250 mg DAILY PO 01/17/17 09:00 02/16/17 08:59 01/18/17 09:14 250 MG Potassium Chloride/Dextrose/ Sod Cl 1,000 ml @ 150 mls/hr Q6H40M IV 01/16/17 22:30 01/17/17 11:49 DC 01/17/17 04:59 150 MLS/HR Magnesium Sulfate 1 gm/Prmx 100 ml @ 100 mls/hr TODAY@2230 IV 01/16/17 22:30 01/16/17 23:29 DC 01/16/17 22:45 100 MLS/HR Levothyroxine Sodium 25 mcg/ Syringe 1.25 ml @ 2 mls/min DAILY@09 IV 01/18/17 09:00 02/17/17 08:59 01/18/17 09:13 2 MLS/MIN Magnesium Sulfate 1 gm/Prmx 100 ml @ 100 mls/hr ONE ONCE IV 01/18/17 09:30 01/18/17 10:29 DC 01/18/17 09:56 100 MLS/HR Subjective Ms. Anderson was started on Synthroid last night after her TSH was found to be > 8, with a low T4. She feels much better today. Her energy is higher and she feels more alert. Review of Systems: Constitutional: + fatigue (improved), No fever Eyes: + worsening of vision (stable, mild visual disturbance) Respiratory: No cough, No shortness of breath Cardiovascular: No chest pain Abdomen: No pain, No nausea, No diarrhea Musculoskeletal: No joint pain, No muscle pain Skin: No rash Vital Signs Vital Signs Past 12 Hours Date Time Temp Pulse Resp B/P (MAP) Pulse Ox O2 Delivery O2 Flow Rate FiO2 01/18/17 08:00 Room Air 01/18/17 07:38 36.3 67 18 143/89 (107) 93 Room Air 01/18/17 04:33 36.3 66 16 150/94 (112) 98 Nasal Cannula 1.0 01/18/17 04:00 Nasal Cannula 1.0 01/17/17 23:59 Nasal Cannula 1.0 01/17/17 23:51 36.8 66 18 151/95 (113) 98 Nasal Cannula 1.0 Physical Exam Constitutional: Level of Distress: NAD, chronically ill Psychiatric: Mental Status: active & alert Orientation: oriented except where noted ENMT: pharynx normal Lungs: Auscuitation: CTA except as noted Cardiovascular: Heart Auscultation: RRR Abdomen: Inspection & Palpation: soft, no tenderness, guarding & rebound Extremities: no edema Laboratory Last 24 Hours Test 01/17/17 20:30 01/18/17 05:27 01/18/17 08:26 Erythrocyte Sedimentation Rate 12 mm/hr Sodium Level 144 mmol/L 145 mmol/L Potassium Level 3.7 mmol/L 3.5 mmol/L Chloride Level 105 mmol/L 104 mmol/L Carbon Dioxide Level 32 mmol/L 32 mmol/L Anion Gap 7.0 mmol/L 9.0 mmol/L Blood Urea Nitrogen 6 mg/dl 6 mg/dl Creatinine 0.96 mg/dl 0.81 mg/dl Est Creatinine Clear Calc Drug Dose 65.4 ml/min 77.8 ml/min Estimated GFR () 73.5 90.2 Estimated GFR (Non- 63.4 77.8 BUN/Creatinine Ratio 6.0 7.0 Random Glucose 95 mg/dl 77 mg/dl Calcium Level 8.1 mg/dl 8.3 mg/dl Phosphorus Level 3.4 mg/dl 3.6 mg/dl Magnesium Level 1.9 mg/dl 1.7 mg/dl C-Reactive Protein 1.02 mg/dl Prealbumin 8.0 mg/dl Thyroid Stimulating Hormone (TSH) 8.550 uIu/ml Free Thyroxine 0.68 ng/dl Free Triiodothyronine 2.82 pg/ml White Blood Count 3.97 K/uL Red Blood Count 4.78 M/uL Hemoglobin 11.7 g/dL Hematocrit 38.1 % Mean Corpuscular Volume 79.7 fL Mean Corpuscular Hemoglobin 24.5 pg Mean Corpuscular Hemoglobin Concent 30.7 g/dl Platelet Count 180 K/uL Mean Platelet Volume 10.0 fL Neutrophils (%) (Auto) 47.8 % Lymphocytes (%) (Auto) 30.5 % Monocytes (%) (Auto) 16.4 % Eosinophils (%) (Auto) 4.5 % Basophils (%) (Auto) 0.5 % Neutrophils # (Auto) 1.90 K/uL Lymphocytes # (Auto) 1.21 K/uL Monocytes # (Auto) 0.65 K/uL Eosinophils # (Auto) 0.18 K/uL Basophils # (Auto) 0.02 K/uL RDW Standard Deviation 41.8 fL RDW Coefficient of Variation 14.5 % Immature Granulocyte % (Auto) 0.3 % Immature Granulocyte # (Auto) 0.01 K/uL Total Bilirubin 0.5 mg/dl Direct Bilirubin 0.1 mg/dl Aspartate Amino Transf (AST/SGOT) 31 U/L Alanine Aminotransferase (ALT/SGPT) 23 U/L Alkaline Phosphatase 59 U/L Total Protein 5.4 gm/dl Albumin 2.4 gm/dl Cortisol AM Sample 0.53 mcg/dl Assessment & Plan Ms. Anderson's AM cortisol and TSH are both low, consistent with hypopituitarism. We should consult endocrinology to arrange for treatment. We should also get an MRI of her brain to rule out apoplexy. Endocrinopathies, particularly thyroiditis but also adrenalitis and even hypophysitis, are well- characterized toxicities of checkpoint inhibitors such as Durvalumab, which she is taking on her clinical trial. The toxicity is generally permanent but is usually manageable with medication. We should report this event to her trial coordinator, as this is a treatment-related severe adverse event and needs to be reported within 24 hours of diagnosis. She would also be due to restart her other protocol drug tomorrow, so we will need to clarify with her complaint investigator whether to restart it.
[2017-01-18 11:38] VITALS: BP_SYST 157; BP_SYST 160; BP_DIAS 105; BP_DIAS 110; PULSE 66; TEMP 36.4; O2SAT 90
[2017-01-18] MEDS ORDERED: COSYNTROPIN INJ 0.25 MCG in SYRINGE 4 ML IV ONE (11:45)
[2017-01-18] MEDS ORDERED: COSYNTROPIN INJ 1 MCG in SYRINGE 0 ML IV ONE (12:00)
[2017-01-18] MEDS ORDERED: LORAZEPAM INJ 0.5 MG in SYRINGE 0.75 ML IV PRN (14:15)
[2017-01-18] MEDS ORDERED: LORAZEPAM 2 MG/ML 1 ML VIAL IV PRN (14:15)
--- NOTE | 2017-01-18 14:38 | Pulmonology Progress Note ---
Pulmonary Progress Note Date of Service Jan 18, 2017. Attending Dr. Coley Subjective Patient is overall improved today notes continued dyspnea on exertion Objective Patient was sitting in a chair today with no signs of respiratory insufficiency Vital signs: SaO2: 90-98% on ra-2Lnc Respiratory: Clear to auscultation bilaterally Cardiac: S1-S2 regular rate and rhythm Abdomen: Positive bowel sounds soft nontender Extremities: Mild ecchymosis of the left anterior kessler Oximetry study Maximum single event with SaO2 <88% 186sec Assessment & Plan 67-year-old female being seen for hypoventilation: #1 Hypoventilation: Patient's hypoventilation is highly likely secondary to her current endocrine dysfunctioning from chronic use of Cediranib. Her overnight oximetry study did not qualify her for BiPAP therapy at this time. I do believe that outpatient workup with repeat polysomnogram is indicated at this time. I'm also going to contact the principal software engineer of her current study at the [facility] Dr. Lita Rendon or her nurse coordinator Kathy Moran @ to see if this hypoventilatory syndrome as occurred with Cediranib therapy in the past. #2 Discharge: I believe two-step evaluation prior to discharge would be appropriate. Data Medications: Current Inpatient Medications Medications (Trade) Dose Ordered Sig/Peterson Route Start Time Stop Time Status Last Admin Dose Admin Ioversol (Optiray 320) 100 ml UD PRN IV 01/16/17 19:00 01/20/17 18:59 Heparin Sodium (Porcine) (Heparin Sq 5000 Unit/0.5ml) 5,000 unit Q8 SQ 01/17/17 06:00 02/16/17 05:59 01/18/17 05:32 5,000 UNIT Acetaminophen (Tylenol Tab) 650 mg Q4H PRN PO 01/16/17 20:45 02/15/17 20:44 01/16/17 23:08 650 MG Al Hydrox/Mg Hydrox/Simethicone (Maalox Max Susp) 15 ml Q4H PRN PO 01/16/17 20:45 02/15/17 20:44 Magnesium Hydroxide (Milk Of Magnesia Susp) 30 ml Q12H PRN PO 01/16/17 20:45 02/15/17 20:44 Ondansetron HCl (Zofran Inj) 4 mg Q6H PRN IV 01/16/17 20:45 02/15/17 20:44 Polyethylene (Miralax Powder Packet) 17 gm DAILY PRN PO 01/16/17 20:45 02/15/17 20:44 Losartan Potassium (coZAAR TAB) 100 mg DAILY PO 01/17/17 09:00 02/16/17 08:59 01/18/17 09:14 100 MG Promethazine HCl (Phenergan Tab) 25 mg Q6H PRN PO 01/16/17 20:45 02/15/17 20:44 Magnesium Oxide (Mag-Ox Tab) 400 mg DAILY PO 01/17/17 09:00 02/16/17 08:59 01/18/17 09:13 400 MG Naproxen (Naprosyn Tab) 250 mg DAILY PO 01/17/17 09:00 02/16/17 08:59 01/18/17 09:14 250 MG Albuterol Sulfate (Ventolin 0.083% 2.5MG/3ML Neb) 2.5 mg Q6R PRN INH 01/16/17 21:00 02/15/17 20:59 Heparin Sodium (Porcine) (Heparin 100 Unit/ml 5ml Flush) 5 ml PRN PRN IV 01/17/17 04:15 02/16/17 04:14 Lorazepam (Ativan Inj) 0.5 mg Q4H PRN IV 01/18/17 14:15 02/17/17 14:14 Lorazepam 0.5 mg/ Syringe 1 ml @ 1 mls/min Q4H PRN IV 01/18/17 14:15 02/17/17 14:14 I & O: 24-Hour Column 01/19/17 08:00 Intake Total 375 ml Balance 375 ml Vital Signs: Date Time Temp Pulse Resp B/P (MAP) Pulse Ox O2 Delivery O2 Flow Rate FiO2 01/18/17 12:00 Room Air 01/18/17 11:38 36.4 66 18 157/105 (122) 90 Room Air 160/110 (127) 01/18/17 08:00 Room Air 01/18/17 07:38 36.3 67 18 143/89 (107) 93 Room Air 01/18/17 04:33 36.3 66 16 150/94 (112) 98 Nasal Cannula 1.0 01/18/17 04:00 Nasal Cannula 1.0 01/17/17 23:59 Nasal Cannula 1.0 01/17/17 23:51 36.8 66 18 151/95 (113) 98 Nasal Cannula 1.0 01/17/17 20:05 36.5 73 18 167/126 (140) 91 168/114 (132) 01/17/17 20:00 Room Air 01/17/17 16:00 Nasal Cannula 2.0 01/17/17 15:15 36.6 69 16 152/93 (112) 97 2.0 155/105 (122) Laboratory Results: Last 24 Hours Test 01/17/17 20:30 01/18/17 05:27 01/18/17 08:26 01/18/17 12:35 Erythrocyte Sedimentation Rate 12 mm/hr Sodium Level 144 mmol/L 145 mmol/L Potassium Level 3.7 mmol/L 3.5 mmol/L Chloride Level 105 mmol/L 104 mmol/L Carbon Dioxide Level 32 mmol/L 32 mmol/L Anion Gap 7.0 mmol/L 9.0 mmol/L Blood Urea Nitrogen 6 mg/dl 6 mg/dl Creatinine 0.96 mg/dl 0.81 mg/dl Est Creatinine Clear Calc Drug Dose 65.4 ml/min 77.8 ml/min Estimated GFR () 73.5 90.2 Estimated GFR (Non- 63.4 77.8 BUN/Creatinine Ratio 6.0 7.0 Random Glucose 95 mg/dl 77 mg/dl Calcium Level 8.1 mg/dl 8.3 mg/dl Phosphorus Level 3.4 mg/dl 3.6 mg/dl Magnesium Level 1.9 mg/dl 1.7 mg/dl C-Reactive Protein 1.02 mg/dl Prealbumin 8.0 mg/dl Thyroid Stimulating Hormone (TSH) 8.550 uIu/ml Free Thyroxine 0.68 ng/dl Free Triiodothyronine 2.82 pg/ml White Blood Count 3.97 K/uL Red Blood Count 4.78 M/uL Hemoglobin 11.7 g/dL Hematocrit 38.1 % Mean Corpuscular Volume 79.7 fL Mean Corpuscular Hemoglobin 24.5 pg Mean Corpuscular Hemoglobin Concent 30.7 g/dl Platelet Count 180 K/uL Mean Platelet Volume 10.0 fL Neutrophils (%) (Auto) 47.8 % Lymphocytes (%) (Auto) 30.5 % Monocytes (%) (Auto) 16.4 % Eosinophils (%) (Auto) 4.5 % Basophils (%) (Auto) 0.5 % Neutrophils # (Auto) 1.90 K/uL Lymphocytes # (Auto) 1.21 K/uL Monocytes # (Auto) 0.65 K/uL Eosinophils # (Auto) 0.18 K/uL Basophils # (Auto) 0.02 K/uL RDW Standard Deviation 41.8 fL RDW Coefficient of Variation 14.5 % Immature Granulocyte % (Auto) 0.3 % Immature Granulocyte # (Auto) 0.01 K/uL Total Bilirubin 0.5 mg/dl Direct Bilirubin 0.1 mg/dl Aspartate Amino Transf (AST/SGOT) 31 U/L Alanine Aminotransferase (ALT/SGPT) 23 U/L Alkaline Phosphatase 59 U/L Total Protein 5.4 gm/dl Albumin 2.4 gm/dl Cortisol AM Sample 0.53 mcg/dl Cortisol Response to Stimulation Cortisol Baseline Test 01/18/17 13:05 01/18/17 14:04
--- NOTE | 2017-01-18 14:52 | Rheumatology Consultation ---
Rheumatology Consultation Date of Consultation: Jan 18, 2017. Reason for Consultation: Fatigue, muscle weakness, and dry mouth History of Present Illness 61 year old woman with history of metastatic clear cell ovarian cancer diagnosed in 2010 status post surgery, chemotherapy, now on immunotherapy with cediranib for the past 18 months who presented with fatigue, muscle weakness, and several weeks of diarrhea. History is obtained from the patient and her who is quite supportive. He reports that she has not felt well for the past 5 weeks. Symptoms were initially thought to be a viral illness as she was in contact with someone with similar symptoms. She was tested for lyme disease as an outpatient in December and was briefly on doxycycline. She was admitted on 01/16 with persistent symptoms of fatigue and generalized weakness and was noted to be hypoxic. Her breathing has improved. She is being followed by oncology who noted that her constellation of symptoms are likely due to cediranib which can cause hypertension, fatigue, nausea, vomiting, and weight loss. She reports worsening dry mouth and occasional mouth burning with mint products but denies any oral ulcers or salivary gland swelling. She has also noticed dry skin and hair loss. She has not been active for the past 5 weeks finding it difficult to perform her ADLs. She has some muscle and joint pain and has not noticed any joint swelling. During this admission, her labs have been notable for normal CK, normal LFTs, sed rate of 13, mild elevation in her crp at 1.02, elevated TSH and low free T4. AM cortisol today was low and césar stim and ACTH are pending. She was given levothyroxine today and notes that she is feeling somewhat better. 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) PSH Appendectomy KATY/BSO Colon resection Debulking abdominal surgery Port placement Social History Smoking Status: Never Smoker History of Alcohol Use: No Marital Status: Occupation Status: employed Review of Systems Constitutional: + chills, + weight loss, + weakness, + fatigue, No fever Eyes: No worsening of vision ENT: + see HPI, No sore throat, No trouble swallowing Respiratory: + dyspnea on exertion, No shortness of breath Cardiac: No chest pain, No orthopnea Abdomen: + nausea, + diarrhea Musculoskeletal: + joint pain, + muscle pain, No swelling Neurologic: + weakness, No numbness/tingling Skin: + rash Allergies Coded Allergies: Carboplatin (Verified Allergy, Severe, anaphylactic reaction, 01/16/17) Medications Current Inpatient Medications Medications (Trade) Dose Ordered Sig/Peterson Route Start Time Stop Time Status Last Admin Dose Admin Ioversol (Optiray 320) 100 ml UD PRN IV 01/16/17 19:00 01/20/17 18:59 Heparin Sodium (Porcine) (Heparin Sq 5000 Unit/0.5ml) 5,000 unit Q8 SQ 01/17/17 06:00 02/16/17 05:59 01/18/17 05:32 5,000 UNIT Acetaminophen (Tylenol Tab) 650 mg Q4H PRN PO 01/16/17 20:45 02/15/17 20:44 01/16/17 23:08 650 MG Al Hydrox/Mg Hydrox/Simethicone (Maalox Max Susp) 15 ml Q4H PRN PO 01/16/17 20:45 02/15/17 20:44 Magnesium Hydroxide (Milk Of Magnesia Susp) 30 ml Q12H PRN PO 01/16/17 20:45 02/15/17 20:44 Ondansetron HCl (Zofran Inj) 4 mg Q6H PRN IV 01/16/17 20:45 02/15/17 20:44 Polyethylene (Miralax Powder Packet) 17 gm DAILY PRN PO 01/16/17 20:45 02/15/17 20:44 Losartan Potassium (coZAAR TAB) 100 mg DAILY PO 01/17/17 09:00 02/16/17 08:59 01/18/17 09:14 100 MG Promethazine HCl (Phenergan Tab) 25 mg Q6H PRN PO 01/16/17 20:45 02/15/17 20:44 Magnesium Oxide (Mag-Ox Tab) 400 mg DAILY PO 01/17/17 09:00 02/16/17 08:59 01/18/17 09:13 400 MG Naproxen (Naprosyn Tab) 250 mg DAILY PO 01/17/17 09:00 02/16/17 08:59 01/18/17 09:14 250 MG Albuterol Sulfate (Ventolin 0.083% 2.5MG/3ML Neb) 2.5 mg Q6R PRN INH 01/16/17 21:00 02/15/17 20:59 Heparin Sodium (Porcine) (Heparin 100 Unit/ml 5ml Flush) 5 ml PRN PRN IV 01/17/17 04:15 02/16/17 04:14 Physical Exam Date Time Temp Pulse Resp B/P (MAP) Pulse Ox O2 Delivery O2 Flow Rate FiO2 01/18/17 12:00 Room Air 01/18/17 11:38 36.4 66 18 157/105 (122) 90 Room Air 160/110 (127) 01/18/17 08:00 Room Air 01/18/17 07:38 36.3 67 18 143/89 (107) 93 Room Air 01/18/17 04:33 36.3 66 16 150/94 (112) 98 Nasal Cannula 1.0 01/18/17 04:00 Nasal Cannula 1.0 01/17/17 23:59 Nasal Cannula 1.0 01/17/17 23:51 36.8 66 18 151/95 (113) 98 Nasal Cannula 1.0 01/17/17 20:05 36.5 73 18 167/126 (140) 91 168/114 (132) 01/17/17 20:00 Room Air 01/17/17 16:00 Nasal Cannula 2.0 01/17/17 15:15 36.6 69 16 152/93 (112) 97 2.0 155/105 (122) Eyes: bilateral eyes normal inspection, bilateral eyes EOMI ENT: + pertinent finding (dry mucus membranes) Neck: no adenopathy Respiratory: lungs clear, normal breath sounds, no respiratory distress, no accessory muscle use Cardiovascular: regular rate, rhythm, no edema Abdomen: normal bowel sounds, non tender Musculoskeletal: Tenderness of her upper arms and calves. No joint tenderness or swelling Skin: warm/dry, + pertinent finding (petechial rash on dorsal aspects of her feet) Laboratory Results Last 24 Hours Test 01/17/17 20:30 01/18/17 05:27 01/18/17 08:26 01/18/17 12:35 Erythrocyte Sedimentation Rate 12 mm/hr Sodium Level 144 mmol/L 145 mmol/L Potassium Level 3.7 mmol/L 3.5 mmol/L Chloride Level 105 mmol/L 104 mmol/L Carbon Dioxide Level 32 mmol/L 32 mmol/L Anion Gap 7.0 mmol/L 9.0 mmol/L Blood Urea Nitrogen 6 mg/dl 6 mg/dl Creatinine 0.96 mg/dl 0.81 mg/dl Est Creatinine Clear Calc Drug Dose 65.4 ml/min 77.8 ml/min Estimated GFR () 73.5 90.2 Estimated GFR (Non- 63.4 77.8 BUN/Creatinine Ratio 6.0 7.0 Random Glucose 95 mg/dl 77 mg/dl Calcium Level 8.1 mg/dl 8.3 mg/dl Phosphorus Level 3.4 mg/dl 3.6 mg/dl Magnesium Level 1.9 mg/dl 1.7 mg/dl C-Reactive Protein 1.02 mg/dl Prealbumin 8.0 mg/dl Thyroid Stimulating Hormone (TSH) 8.550 uIu/ml Free Thyroxine 0.68 ng/dl Free Triiodothyronine 2.82 pg/ml White Blood Count 3.97 K/uL Red Blood Count 4.78 M/uL Hemoglobin 11.7 g/dL Hematocrit 38.1 % Mean Corpuscular Volume 79.7 fL Mean Corpuscular Hemoglobin 24.5 pg Mean Corpuscular Hemoglobin Concent 30.7 g/dl Platelet Count 180 K/uL Mean Platelet Volume 10.0 fL Neutrophils (%) (Auto) 47.8 % Lymphocytes (%) (Auto) 30.5 % Monocytes (%) (Auto) 16.4 % Eosinophils (%) (Auto) 4.5 % Basophils (%) (Auto) 0.5 % Neutrophils # (Auto) 1.90 K/uL Lymphocytes # (Auto) 1.21 K/uL Monocytes # (Auto) 0.65 K/uL Eosinophils # (Auto) 0.18 K/uL Basophils # (Auto) 0.02 K/uL RDW Standard Deviation 41.8 fL RDW Coefficient of Variation 14.5 % Immature Granulocyte % (Auto) 0.3 % Immature Granulocyte # (Auto) 0.01 K/uL Total Bilirubin 0.5 mg/dl Direct Bilirubin 0.1 mg/dl Aspartate Amino Transf (AST/SGOT) 31 U/L Alanine Aminotransferase (ALT/SGPT) 23 U/L Alkaline Phosphatase 59 U/L Total Protein 5.4 gm/dl Albumin 2.4 gm/dl Cortisol AM Sample 0.53 mcg/dl Cortisol Response to Stimulation Cortisol Baseline Test 01/18/17 13:05 01/18/17 14:04 JAVY pending SSA/SSB pending Hepatitis C negative Assessment & Plan Assessment & Plan: 61 year old woman with ovarian cancer on immunotherapy clinical trial that appears to be experiencing side effects from her treatment. Labs showing hypothyroidism and hypocortisolism. She reports dry mouth and denies dry eyes. Her overall presentation is not suggestive of Sjogren's disease. Management of sicca syndrome is focused on symptomatic management. Plan: 1. Agree with correcting her endocrinopathies. 2. Discussed symptomatic management of dry mouth symptoms with the patient and her such as using OTC products for dry mouth. She did not tolerate Biotene products. Can consider using ACT products, Xyli Melts, or medications such as Salagen or Evoxac. Reviewed the potential side effects of these medications. Thank you for allowing rheumatology to participate in the care of this patient.
[2017-01-18 15:26] VITALS: BP_SYST 163; BP_SYST 170; BP_DIAS 104; BP_DIAS 114; PULSE 65; TEMP 36.4; O2SAT 93
[2017-01-18] MEDS: ACETAMINOPHEN 325 MG TAB PO PRN (16:34)
[2017-01-18 19:42] VITALS: BP 153/98; PULSE 66; TEMP 36.6; O2SAT 92
[2017-01-18 23:40] VITALS: BP 140/92; PULSE 71; TEMP 36.6; O2SAT 91
--- NOTE | 2017-01-18 23:58 | Hospitalist Progress Note ---
Hospitalist Progress Note Date of Service Jan 18, 2017. Subjective Pt evaluation today including: conversation w/ patient, conversation w/ family Feels a little better today. Reviewed results, doing cosyntrop stim test today. She was too tired nd anxious to go for MRI pituitary so post-poned till tomorrow. All Other Systems: Reviewed and Negative Objective Vital Signs Date Time Temp Pulse Resp B/P (MAP) Pulse Ox O2 Delivery O2 Flow Rate FiO2 01/18/17 20:00 Room Air 01/18/17 19:42 36.6 66 22 153/98 (116) 92 Room Air 01/18/17 16:00 Room Air 01/18/17 15:26 36.4 65 18 170/114 (132) 93 Room Air 163/104 (123) 01/18/17 12:00 Room Air 01/18/17 11:38 36.4 66 18 157/105 (122) 90 Room Air 160/110 (127) 01/18/17 08:00 Room Air 01/18/17 07:38 36.3 67 18 143/89 (107) 93 Room Air 01/18/17 04:33 36.3 66 16 150/94 (112) 98 Nasal Cannula 1.0 01/18/17 04:00 Nasal Cannula 1.0 01/17/17 23:59 Nasal Cannula 1.0 01/17/17 23:51 36.8 66 18 151/95 (113) 98 Nasal Cannula 1.0 Physical Exam General Appearance: no apparent distress Eyes: normal inspection, sclerae normal ENT: hearing grossly normal Neck: trachea midline Respiratory/Chest: lungs clear, normal breath sounds, no respiratory distress, no accessory muscle use Cardiovascular: regular rate, rhythm, no edema, no gallop, no murmur Abdomen: normal bowel sounds, non tender, soft Extremities: normal range of motion, non-tender, normal inspection, no pedal edema Neurologic/Psychiatric: alert, normal mood/affect, oriented x 3 Skin: normal color, warm/dry, no rash Laboratory Results Last 24 Hours Test 01/18/17 05:27 01/18/17 08:26 01/18/17 12:35 01/18/17 13:05 White Blood Count 3.97 K/uL Red Blood Count 4.78 M/uL Hemoglobin 11.7 g/dL Hematocrit 38.1 % Mean Corpuscular Volume 79.7 fL Mean Corpuscular Hemoglobin 24.5 pg Mean Corpuscular Hemoglobin Concent 30.7 g/dl Platelet Count 180 K/uL Mean Platelet Volume 10.0 fL Neutrophils (%) (Auto) 47.8 % Lymphocytes (%) (Auto) 30.5 % Monocytes (%) (Auto) 16.4 % Eosinophils (%) (Auto) 4.5 % Basophils (%) (Auto) 0.5 % Neutrophils # (Auto) 1.90 K/uL Lymphocytes # (Auto) 1.21 K/uL Monocytes # (Auto) 0.65 K/uL Eosinophils # (Auto) 0.18 K/uL Basophils # (Auto) 0.02 K/uL RDW Standard Deviation 41.8 fL RDW Coefficient of Variation 14.5 % Immature Granulocyte % (Auto) 0.3 % Immature Granulocyte # (Auto) 0.01 K/uL Sodium Level 145 mmol/L Potassium Level 3.5 mmol/L Chloride Level 104 mmol/L Carbon Dioxide Level 32 mmol/L Anion Gap 9.0 mmol/L Blood Urea Nitrogen 6 mg/dl Creatinine 0.81 mg/dl Est Creatinine Clear Calc Drug Dose 77.8 ml/min Estimated GFR () 90.2 Estimated GFR (Non- 77.8 BUN/Creatinine Ratio 7.0 Random Glucose 77 mg/dl Calcium Level 8.3 mg/dl Phosphorus Level 3.6 mg/dl Magnesium Level 1.7 mg/dl Total Bilirubin 0.5 mg/dl Direct Bilirubin 0.1 mg/dl Aspartate Amino Transf (AST/SGOT) 31 U/L Alanine Aminotransferase (ALT/SGPT) 23 U/L Alkaline Phosphatase 59 U/L Total Protein 5.4 gm/dl Albumin 2.4 gm/dl Cortisol AM Sample 0.53 mcg/dl Cortisol Response to Stimulation Cortisol Baseline Test 01/18/17 14:04 Assessment and Plan 61 y/o F Hx HTN, CASSANDRA, metastatic clear cell ovarian CA treated with various modalities over the past 6 years and currently in clinical trial through [facility] on 2 different chemotherapeutic agents. Pt presents with a constellation of symptoms including severe lethargy and lightheadedness, intermittent N/V, diarrhea, dehydration, muscle cramps, joint pains, and dry eyes and mouth. She has had a degree of the preceding symptoms for at least 1 month. On arrival to the ER she was also notably hypoxic with POx 84% but has not c/o SOB. She denies fevers, a productive cough, CP or abdominal pain. Her reports that her memory and executive functioning have been declining over the past month as well. 1) Lethargy, functional decline, joint pains, dry eyes/mouth, petechial rash, Acute hypoxic respiratory failure-- she was recently placed on Amoxicillin and then Doxycycline by her MD to treat a presumed infection - perhaps Lyme. There is no evidence of infectious etiology. Oncology reports common Endocrinopathies with the type of chemo agent she is on. BP is high pointing away from adrenal insufficiency but AM cortisol very low. Differential for her symptoms may then include advancement of her CA (although it is, per her , regressing) and possibly a paraneoplastic process affecting neuromuscular function. Could be a progressive effect from her Cediranib treatment. Hypoventilation causing non A-a gradient hypoxia as per Pulm--> r/o endocrine and Neuromuscular disorders; she does have known CASSANDRA but not using CPAP, but hypovent could be from adrenal insuff and hypothyroidism No anemia on CBC. ESR normal at 12. TSH 8.5 with low FT4 and low normal FT3 TSH repeated here now even higher than previous at 8.5 with very low FT4 at 0.68 and low-normal FT3 Suspected possible PMR clinically but ESR only 12 so not likely at all -Overnight oximetry test negative Dry eyes and mouth suggest Sjogren's but could all be from hypothyroidism Fasting AM cortisol quite low at 0.5 ECHO with normal EF, mod AI Does not seem to be from infectious cause -Cosyntropin stim test -Discussed case with Dr. Howard on the phone from Endo -f/u SSA, SSB as well -Consult Rheumatology appreciated--> treat sicca syndrome -start synthroid 25mcg po daily -need to contact [facility] and ask for Medical Oncology Fellow credit administration manager for [facility] [phone] to discuss her case and let them know her adverse SEs -if does have Adrenal insufficiency, start IV HC 100mg IV q8h x 1 day then switch to po HC 30mg po qAM and 20mg po qPM---> would expect dramatic response to steroids -check MRI pituitary--> needs ativan prior to this 2) Diarrhea, N/V, dehydration-all likely related to hypothyroidism and then had vomiting ith taking doxycycline which is common ASE. She reports markedly decreased PO intake over the past week. She has mild electrolyte abnormalities including hypoMg and hypoK. -improved after replacement, feels better already with IVFs -check prealbumin--> very low at 8 -Nutritional support 3) HTN - not well controlled, was told is ASE of her chemo -cont Losartan -consider adding second agent 4) Metastatic Clear cell ovarian CA - can follow-up as outpt pending further inpt workup - continuation of Cediranib to discretion of her internal audit manager/ oncologist Full code - Heparin prophylaxis
[2017-01-19] VITALS (8 sets, daily range): BP systolic 126–163; BP diastolic 89–118; PULSE 61–88; TEMP 35.9–36.6; O2SAT 90–93
[2017-01-19] MEDS: LEVOTHYROXINE 25 MCG TAB PO SCH (05:58)
[2017-01-19] MEDS: HEPARIN SOD 5000 UNIT/0.5 ML CARP SQ SCH ×3 (05:58→21:20)
[2017-01-19] MEDS: NAPROXEN 250 MG TAB PO SCH (09:05)
[2017-01-19] MEDS: LOSARTAN POTASSIUM 50 MG TAB PO SCH (09:05)
[2017-01-19] MEDS: MAGNESIUM OXIDE 400 MG TAB PO SCH (09:05)
--- NOTE | 2017-01-19 09:13 | HEME/ONC PROGRESS NOTE ---
DATE: 01/19/2017 DIAGNOSES: 1. Hypothyroidism. 2. Hypopituitarism. 3. Generalized weakness. HOSPITAL COURSE: Megan is a very pleasant 61-year-old female with a known history of clear cell ovarian carcinoma, treated with various modalities over the past several years. She presented on January 16 with a constellation of symptoms including lethargy, lightheadedness, intermittent nausea and vomiting along with diarrhea. Megan is currently engaged in a clinical trial at [facility] utilizing durvalumab and cediranib. Apparently, she has been doing well, responding to current therapy. Dr. 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 She has been started on hormone replacement therapy including corticosteroids. She will meet with endocrinology today. Clinically, she is doing much better, offers no specific complaint. PHYSICAL EXAMINATION: GENERAL: She is in no acute distress. VITAL SIGNS: Temperature is 36.3, pulse 61, respirations 16, and blood pressure 150/98. SKIN: Warm, dry, and noncyanotic without petechia, rash or ecchymosis. HEENT: Oral mucosa without erythema or ulceration. NECK: Supple. HEART: Regular rate and rhythm. No clicks, rubs or murmurs. LUNGS: Clear to auscultation bilaterally. ABDOMEN: Soft, nontender, and nondistended without palpable hepatosplenomegaly. EXTREMITIES: No calf tenderness or swelling. No clubbing, cyanosis or edema. LABORATORY DATA: Pending. IMPRESSION: 1. Hypothyroidism. 2. Hypopituitarism. 3. Metastatic ovarian cancer. PLAN: It was discovered over the weekend that her TSH and cortisol were decreased. Endocrinology has been consulted. Endocrinopathies particularly thyroiditis, and hypophysitis are well characterized toxicities associated with durvalumab. She is doing better clinically. We will continue to follow her during her hospital stay. I have nothing further to add at present. Thank you for assisting us in the care of this very pleasant patient.
--- NOTE | 2017-01-19 09:30 | Pulmonology Progress Note ---
Pulmonary Progress Note Date of Service Jan 19, 2017. Attending Dr. Bolivar Subjective Feeling more fatigued today. Sleeping well. No cough. Ambulating about the room without difficulty. Objective 61-yo female admitted to [facility] through the ER 01/16/17 with 4-6 week h/o progressive weakness/lethargy and hypoxia. Prior records were reviewed. PMHx includes: clear cell ovarian CA (dx 2010 - current dediranib + durvalumab), h/o PE/DVT, severe sleep apnea (AHI: 36 dx 2012 - unable to tolerate BiPAP or Nasal cannula), laryngopharyngeal reflux disease, and former tobacco (quit 1979). In the ER patient noted to be hypoxic in the mid-80s --21%. VBG 7.38/57. W/U included echocardiogram 01/16: grade I diastolic dysfunction and moderate AI. CT head: unremarkable. CTA which was without PE or consolidation - this noted decrease in size of previously documented pulmonary nodules (7x4mm rt apical). W/U notable for hypothyroid and low AM cortisol felt to be secondary pharmacologic regimen. Endocrine and rheumatology consulted. MRI brain pending. ABG 01/17 again consistent with chronic CO2 retention. Today: - 91-93% RA - Afebrile, hypertensive - ACTH pending Physical Exam: Constitutional: Well developed female lying in hospital bed. No acute distress but appears fatigued in general Head: + facial symmetry Eyes: EOMi, PERRLA, no injection Mouth: dry mucous membranes. Pale mucous membranes. No erythema or exudate. Mallampati III CV: Diminished S1, S2, RRR. Warm and perfused peripherally Respiratory: non-labored respirations. No cough. Fine crackles at bases. No wheeze. Abdomen: Soft, active bowel sounds MSK/Extremities: Slight asymmetry of LEs Left > Right without pitting edema. Assessment & Plan 67-year-old female admitted with lethargy/weakness felt to be secondary to endocrine dysfunction as well as chronic hypoventilation 1 Hypoventilation: - Endocrine dysfunction - w/u in progress per primary service and endocrinology - Severe sleep apnea per PSG 2012: has been intolerant to BiPAP in the past, has not tried CPAP but had difficulty tolerating nasal cannula - recommend follow-up in the sleep lab for repeat testing - patient will consider this. - Consideration of outpatient PFTs. 2. Hypoxia: - 2-step prior to discharge - PFTs as outpatient as above Discussed with Dr. Bolivar. Data Medications: Current Inpatient Medications Medications (Trade) Dose Ordered Sig/Peterson Route Start Time Stop Time Status Last Admin Dose Admin Ioversol (Optiray 320) 100 ml UD PRN IV 01/16/17 19:00 01/20/17 18:59 Heparin Sodium (Porcine) (Heparin Sq 5000 Unit/0.5ml) 5,000 unit Q8 SQ 01/17/17 06:00 02/16/17 05:59 01/18/17 23:41 5,000 UNIT Acetaminophen (Tylenol Tab) 650 mg Q4H PRN PO 01/16/17 20:45 02/15/17 20:44 01/18/17 16:34 650 MG Al Hydrox/Mg Hydrox/Simethicone (Maalox Max Susp) 15 ml Q4H PRN PO 01/16/17 20:45 02/15/17 20:44 Magnesium Hydroxide (Milk Of Magnesia Susp) 30 ml Q12H PRN PO 01/16/17 20:45 02/15/17 20:44 Ondansetron HCl (Zofran Inj) 4 mg Q6H PRN IV 01/16/17 20:45 02/15/17 20:44 01/18/17 16:33 4 MG Polyethylene (Miralax Powder Packet) 17 gm DAILY PRN PO 01/16/17 20:45 02/15/17 20:44 Losartan Potassium (coZAAR TAB) 100 mg DAILY PO 01/17/17 09:00 02/16/17 08:59 01/19/17 09:05 100 MG Promethazine HCl (Phenergan Tab) 25 mg Q6H PRN PO 01/16/17 20:45 02/15/17 20:44 Magnesium Oxide (Mag-Ox Tab) 400 mg DAILY PO 01/17/17 09:00 02/16/17 08:59 01/19/17 09:05 400 MG Naproxen (Naprosyn Tab) 250 mg DAILY PO 01/17/17 09:00 02/16/17 08:59 01/19/17 09:05 250 MG Albuterol Sulfate (Ventolin 0.083% 2.5MG/3ML Neb) 2.5 mg Q6R PRN INH 01/16/17 21:00 02/15/17 20:59 Heparin Sodium (Porcine) (Heparin 100 Unit/ml 5ml Flush) 5 ml PRN PRN IV 01/17/17 04:15 02/16/17 04:14 Lorazepam (Ativan Inj) 0.5 mg Q4H PRN IV 01/18/17 14:15 02/17/17 14:14 Lorazepam 0.5 mg/ Syringe 1 ml @ 1 mls/min Q4H PRN IV 01/18/17 14:15 02/17/17 14:14 Levothyroxine Sodium (Synthroid Tab) 25 mcg DAILYBB PO 01/19/17 06:00 02/18/17 05:59 01/19/17 05:58 25 MCG Vital Signs: Date Time Temp Pulse Resp B/P (MAP) Pulse Ox O2 Delivery O2 Flow Rate FiO2 01/19/17 07:41 36.6 83 20 126/95 (105) 93 Room Air 01/19/17 04:20 36.3 61 16 150/98 (115) 92 Room Air 01/19/17 04:00 Room Air 01/18/17 23:59 Room Air 01/18/17 23:40 36.6 71 16 140/92 (108) 91 Room Air 01/18/17 20:00 Room Air 01/18/17 19:42 36.6 66 22 153/98 (116) 92 Room Air 01/18/17 16:00 Room Air 01/18/17 15:26 36.4 65 18 170/114 (132) 93 Room Air 163/104 (123) 01/18/17 12:00 Room Air 01/18/17 11:38 36.4 66 18 157/105 (122) 90 Room Air 160/110 (127) Laboratory Results: Last 24 Hours Test 01/18/17 12:35 01/18/17 13:05 01/18/17 14:04 Cortisol Response to Stimulation Cortisol Baseline
--- NOTE | 2017-01-19 12:54 | DIAGNOSTIC IMAGING REPORT ---
MRI THE BRAIN AND PITUITARY WITHOUT A WITH GADOLINIUM CLINICAL HISTORY: Hypoxia, lethargy, adrenal insufficiency, hypothyroidism. Ovarian carcinoma. COMPARISON STUDY: No previous studies for comparison. FINDINGS: Imaging was performed before and after the administration of 8 cc of intravenous Gadavist. Axial diffusion-weighted images reveal no evidence of acute or subacute infarction. The ventricular system has a normal size and configuration for age. The pituitary gland is of normal size. Proton density T2-weighted and FLAIR images reveal no significant intraparenchymal signal abnormalities. Dynamic contrast enhanced images were obtained in the coronal plane through the pituitary. The gland enhances in a uniform fashion. No optic chiasmatic abnormalities are visualized. The infundibulum is within the midline. Post gadolinium whole brain images reveal no pathologically enhancing lesions. This examination is moderately limited from a technical standpoint secondary to motion artifact. IMPRESSION: 1. Moderately limited study from a technical standpoint secondary to motion artifact 2. No acute findings. No intracranial masses identified. No evidence of acute or subacute infarction. No pituitary abnormalities, given the limitations of the study (significant motion artifact) Electronically signed by: Gustavo Valentin M.D. 01/19/2017 12:53 PM Dictated Date/Time: 01/19/2017 12:47 PM
--- NOTE | 2017-01-19 17:20 | Progress Note ---
Subjective Date of Service: Jan 19, 2017. Subjective Pt evaluation today including: conversation w/ patient, conversation w/ family (), physical exam, lab review, conversation w/ internal controls consultant, review of inpatient medication list Pain: denies pain PO Intake: adequate Voiding: no voiding problems patient had MRI brain today, result reviewed, she is still very sleepy from Ativan for her claustrophobia discussed the results of the Cosyn stim test with Dr. Howard over the phone, recommends starting hydrocortisone discussed with patient and , looking to discharge tomorrow after two step overall she continues to feel better after IV hydration and starting Synthroid Problem List Medical Problems: (1) Altered mental status Status: Acute (2) Dehydration Status: Acute (3) Hypomagnesemia Status: Acute (4) Hypomagnesemia Status: Acute (5) Hypoxia Status: Acute (6) Weakness Status: Acute Review of Systems Constitutional: + weakness, + fatigue Neurologic: + weakness, + problem reported (lethargic, from Ativan) All Other Systems: Reviewed and Negative Medications Current Inpatient Medications Medications (Trade) Dose Ordered Sig/Peterson Route Start Time Stop Time Status Last Admin Dose Admin Ioversol (Optiray 320) 100 ml UD PRN IV 01/16/17 19:00 01/20/17 18:59 Heparin Sodium (Porcine) (Heparin Sq 5000 Unit/0.5ml) 5,000 unit Q8 SQ 01/17/17 06:00 02/16/17 05:59 01/19/17 14:00 5,000 UNIT Acetaminophen (Tylenol Tab) 650 mg Q4H PRN PO 01/16/17 20:45 02/15/17 20:44 01/18/17 16:34 650 MG Al Hydrox/Mg Hydrox/Simethicone (Maalox Max Susp) 15 ml Q4H PRN PO 01/16/17 20:45 02/15/17 20:44 Magnesium Hydroxide (Milk Of Magnesia Susp) 30 ml Q12H PRN PO 01/16/17 20:45 02/15/17 20:44 Ondansetron HCl (Zofran Inj) 4 mg Q6H PRN IV 01/16/17 20:45 02/15/17 20:44 01/18/17 16:33 4 MG Polyethylene (Miralax Powder Packet) 17 gm DAILY PRN PO 01/16/17 20:45 7/9/17 20:44 Losartan Potassium (coZAAR TAB) 100 mg DAILY PO 01/17/17 09:00 02/16/17 08:59 01/19/17 09:05 100 MG Promethazine HCl (Phenergan Tab) 25 mg Q6H PRN PO 01/16/17 20:45 02/15/17 20:44 Magnesium Oxide (Mag-Ox Tab) 400 mg DAILY PO 01/17/17 09:00 02/16/17 08:59 01/19/17 09:05 400 MG Naproxen (Naprosyn Tab) 250 mg DAILY PO 01/17/17 09:00 02/16/17 08:59 01/19/17 09:05 250 MG Albuterol Sulfate (Ventolin 0.083% 2.5MG/3ML Neb) 2.5 mg Q6R PRN INH 01/16/17 21:00 02/15/17 20:59 Heparin Sodium (Porcine) (Heparin 100 Unit/ml 5ml Flush) 5 ml PRN PRN IV 01/17/17 04:15 02/16/17 04:14 Lorazepam (Ativan Inj) 0.5 mg Q4H PRN IV 01/18/17 14:15 02/17/17 14:14 01/19/17 11:19 0.5 MG Lorazepam 0.5 mg/ Syringe 1 ml @ 1 mls/min Q4H PRN IV 01/18/17 14:15 02/17/17 14:14 Levothyroxine Sodium (Synthroid Tab) 25 mcg DAILYBB PO 01/19/17 06:00 02/18/17 05:59 01/19/17 05:58 25 MCG Hydrocortisone (Cortef Tab) 30 mg QAM PO 01/20/17 09:00 02/19/17 08:59 Hydrocortisone (Cortef Tab) 20 mg QPM PO 01/19/17 21:00 02/18/17 20:59 Objective Vital Signs Date Time Temp Pulse Resp B/P (MAP) Pulse Ox O2 Delivery O2 Flow Rate FiO2 01/19/17 15:37 35.9 77 16 163/114 (130) 90 Room Air 156/118 (131) 01/19/17 11:20 36.6 80 16 151/98 (115) 90 Room Air 01/19/17 07:41 36.6 83 20 126/95 (105) 93 Room Air 01/19/17 04:20 36.3 61 16 150/98 (115) 92 Room Air 01/19/17 04:00 Room Air 01/18/17 23:59 Room Air 01/18/17 23:40 36.6 71 16 140/92 (108) 91 Room Air 01/18/17 20:00 Room Air 01/18/17 19:42 36.6 66 22 153/98 (116) 92 Room Air Physical Exam General Appearance: WD/WN, no apparent distress Eyes: normal inspection, EOMI, funduscopic exam normal ENT: normal ENT inspection, hearing grossly normal, pharynx normal Neck: supple, no adenopathy, no JVD, trachea midline Respiratory/Chest: chest non-tender, lungs clear, normal breath sounds, no respiratory distress, no accessory muscle use Cardiovascular: regular rate, rhythm, no edema, no gallop, no JVD, no murmur Abdomen: normal bowel sounds, non tender, soft, no organomegaly Extremities: normal range of motion, non-tender, normal inspection, no pedal edema, no calf tenderness, pelvis stable Neurologic/Psychiatric: jewelry making instructor II-XII nml as tested, alert, normal mood/affect, oriented x 3, + motor weakness (generalized) Skin: normal color, warm/dry, no rash Lymphatic: no adenopathy Assessment and Plan 61 y/o F Hx HTN, CASSANDRA, metastatic clear cell ovarian CA treated with various modalities over the past 6 years and currently in clinical trial through [facility] on 2 different chemotherapeutic agents. Pt presents with a constellation of symptoms including severe lethargy and lightheadedness, intermittent N/V, diarrhea, dehydration, muscle cramps, joint pains, and dry eyes and mouth. She has had a degree of the preceding symptoms for at least 1 month. On arrival to the ER she was also notably hypoxic with POx 84% but has not c/o SOB. She denies fevers, a productive cough, CP or abdominal pain. Her reports that her memory and executive functioning have been declining over the past month as well. 1) Lethargy, functional decline, joint pains, dry eyes/mouth, petechial rash, Acute hypoxic respiratory failure-- likely due to hypothyroidism, hypopituitarism continue Synthroid at 25mcg daily start Hydrocortisone 30mg in the AM and 20mg in the PM discussed over the phone with Dr. Howard, he would like to see the patient in the office this week Cediranib can cause these issues, she has a follow up appointment with [facility] next Thursday, hold trial medication for now will discuss with [facility] over the phone on 01/21 Hypoventilation: non A-a gradient, pulmonology recommends 2 step prior to d/ c and a sleep study as outpatient MRI brain - normal, no pituitary abnormalities 2) Diarrhea, N/V, dehydration-all likely related to hypothyroidism and then had vomiting with taking doxycycline which is common ASE. She reports markedly decreased PO intake over the past week. She has mild electrolyte abnormalities including hypoMg and hypoK. -improved after replacement, feels better already with IVFs -check prealbumin--> very low at 8 -Nutritional support 3) HTN - not well controlled, was told is ASE of her chemo -cont Losartan and will add Norvasc 5mg tomorrow since pressures still elevated 4) Metastatic Clear cell ovarian CA - can follow-up as outpt pending further inpt workup - continuation of Cediranib to discretion of her technical intern/ oncologist sees [facility] next Thursday Full code - Heparin prophylaxis
[2017-01-19] MEDS ORDERED: HYDROCORTISONE 10 MG TAB PO SCH (21:00)
[2017-01-20] VITALS (7 sets, daily range): BP systolic 139–146; BP diastolic 85–96; PULSE 78–88; TEMP 36.5–36.9; O2SAT 89–93
[2017-01-20] MEDS: LEVOTHYROXINE 25 MCG TAB PO SCH (05:59)
[2017-01-20] MEDS: HEPARIN SOD 5000 UNIT/0.5 ML CARP SQ SCH (06:00)
[2017-01-20] MEDS ORDERED: AMLODIPINE BESYLATE 5 MG TAB PO SCH (09:00)
[2017-01-20] MEDS ORDERED: HYDROCORTISONE 10 MG TAB PO SCH (09:00)
[2017-01-20] MEDS: LOSARTAN POTASSIUM 50 MG TAB PO SCH (09:18)
[2017-01-20] MEDS: MAGNESIUM OXIDE 400 MG TAB PO SCH (09:18)
[2017-01-20] MEDS: NAPROXEN 250 MG TAB PO SCH (09:18)
[2017-01-20] MEDS ORDERED: SYN25 PO (09:43)
[2017-01-20] MEDS ORDERED: HYD10 PO ×2 (09:43)
--- NOTE | 2017-01-20 09:51 | Discharge Instructions ---
Discharge Instructions Date of Service Jan 20, 2017. Admission Reason for Admission: Hypoxia, Lethargy Discharge Discharge Diagnosis / Problem: Hypopituitarism, Hypothyroidism, likely caused by Cediranib Discharge Goals Goal(s): Improve disease control, Specific goals (follow up with Dr. Howard) Activity Recommendations Activity Limitations: resume your previous activity Lifting Limitations: none Exercise/Sports Limitations: as tolerated May Resume Sexual Activity: when tolerated Shower/Bathe: no limitations Driving or Machine Use: no limitations . Instructions / Follow-Up Instructions / Follow-Up Medications: - SYNTHROID: started at 25mcg daily, take early in the morning, one hour prior to other medications and breakfast - HYDROCORTISONE: supplementation for adrenal insufficiency, 30mg in the AM and 20mg in the PM - CEDIRANIB: hold until further instructions given by oncology, [facility] follow up In summary, the likely etiology of your symptoms is hypopituitarism caused by Cediranib, pituitary toxicity is a known possible adverse effect will treat hypothyroidism with Synthroid will treat adrenal insufficiency with Hydrocortisone close follow up with both endocrinology and [facility] is recommended stay well hydrated and nourished, get rest FOLLOW UP - Dr. Howard this week, - [facility] next Thursday as previously scheduled Current Hospital Diet Patient's current hospital diet: Regular Diet Discharge Diet Recommended Diet: Regular Diet Pending Studies Studies pending at discharge: yes List of pending studies: ACTH Medical Emergencies . Who to Call and When: Medical Emergencies: If at any time you feel your situation is an emergency, please call 911 immediately. . Non-Emergent Contact Non-Emergency issues call your: Primary Care Provider, Oncologist Call Non-Emergent contact if: you have any medication questions . . "Provider Documentation" section prepared by Acosta Thompson. . VTE Core Measure Inpt VTE Proph given/why not?: Unfractionated heparin SQ [place] Drug Monitoring Program Search Results: no issues identified
--- NOTE | 2017-01-20 11:53 | PULMONARY PROGRESS NOTE ---
DATE: 01/20/2017 DATE: 01/20/2017. TIME: 11:10 a.m. SUBJECTIVE: The patient remains quite weak and fatigued. She feels a little better than when she first came in. Her was with her during this evaluation. We had a long discussion regarding her sleep apnea. I reviewed her prior sleep studies and in January of 2013 she had an apnea hypopnea index of 37, which represents moderately severe apnea. Her longest apnea was 52 seconds. She came back for a titration study on 03/17/2013 and was ultimately treated with BiPAP 07/14. She had some residual apnea at that time with an apnea hypopnea index of 9.5. The patient never accepted treatment with BiPAP at that time. She was treated apparently with oxygen. She has very negative connotations about treatment. We spoke about her symptoms. Her states that he feels her apnea has gotten worse. He many times counts longer than 30 seconds that she has not taken a breath. She becomes very concerned that anxious about her doing this. She does snore loudly as well. The patient denies difficulty initiating sleep or staying asleep. She does have daytime fatigue and sleepiness. OBJECTIVE: GENERAL: The patient appeared comfortable but looked tired. VITAL SIGNS: Temperature is 36.5. Her current heart rate is 80 beats per minute. The blood pressure this morning is 139/93. LUNGS: Lung ortiz were clear bilaterally. Her breath sounds were a little shallow. Her oxygen saturation done by myself on room air was 94% at rest. Respiratory rate was 18 breaths per minute. EXTREMITIES: Showed no cyanosis, clubbing or edema. I did not find any lab work from today on this patient. Review of her CAT scan done on 01/16/2017 showed no pulmonary embolism. There was a decrease in the size of the previously identified bilateral nodules. IMPRESSIONS: 1. Respiratory failure -- with hypoxia and hypercarbia -- improved. 2. Obstructive sleep apnea. 3. Possible side effect from chemotherapy. COMMENTS AND RECOMMENDATIONS: I spoke with the patient and her at length about the need for a repeat sleep study. This would need to be done for her to be treated again. It is difficult to determine how much of her lethargy and hypoventilatory changes are related to sleep apnea, although at long ago as 4 years ago she had moderately severe sleep apnea. The patient is very resistant to this whole process. I explained to them the home sleep study versus the in-lab sleep study. She apparently had a very unpleasant experience at the sleep lab and she would prefer to have a home sleep study. They are agreeable to having me set this up. I will try and make arrangements for this to be done soon. I will follow up with her in that regard. I am questioning whether she will be compliant with CPAP. We also discussed the alternatives of oral appliances. I tried to encourage the patient as much as I could. I spent approximately 30 minutes with the patient discussing this issue. She is tentatively set to go home today.
--- NOTE | 2017-01-20 12:47 | Discharge Summary ---
Discharge Summary Date of Service Jan 20, 2017. Discharge Summary Admission Date: Jan 16, 2017 at 20:43 Discharge Date: Jan 20, 2017 Discharge Disposition: Home Principal Diagnosis: Hypopituitarism Problems/Secondary Diagnoses: Hypothyroidism Adrenal insufficiency Weakness Obstructive sleep apnea Ovarian cancer Immunizations: Have You Had Influenza Vaccine: Yes History of Tetanus Vaccine?: utd ? History of Pneumococcal: No History of Hepatitis B Vaccine: No Procedures: none Consultations: Oncology Pulmonology Rheumatology Endocrinology, via phone Medication Reconciliation New Medications: Hydrocortisone (Cortef) 10 Mg Tab 30 MG PO QAM, #90 TAB 2 Refills Hydrocortisone (Cortef) 10 Mg Tab 20 MG PO QPM, #60 TAB 2 Refills Levothyroxine Sodium (Synthroid) 25 Mcg Tab 25 MCG PO DAILYBB, #30 TAB 2 Refills Continued Medications: Bismuth Subsalicylate (Pepto-Bismol Susp) 30 Ml/524 Mg Susp 1 DOSE PO PRN Losartan Potassium (Cozaar) 100 Mg Tab 1 TAB PO DAILY for 30 Days, #30 TAB 5 Refills Magnesium Oxide (Mg Supplement (Magnesium) 500 Mg Cap 1 CAP PO DAILY Naproxen Sodium (Aleve) 220 Mg Cap 1 CAP PO DAILY Ondansetron Hcl (Zofran) 8 Mg Tab 4-8 MG PO Q6 PRN for Nausea, TAB Probiotic Product (Probiotic) 1 Cap Cap 1 CAP PO DAILY Discontinued Medications: Doxycycline Hyclate (Doxycycline Hyclate) 100 Mg Cap 1 CAP PO BID Promethazine Hcl (Phenergan) 25 Mg Tab 25 MG PO Q6H PRN for Nausea, #20 TAB [Cediranib Medioc] () 20 MG PO 5XWK TRIAL DRUG. WEEKDAYS ONLY. Discharge Exam Patient more awake today, actually still feeling some of the effects of the Ativan from yesterday for her MRI of the brain. She is oriented x 3, eating well, ambulating okay. She walked with respiratory, does not need home oxygen. Long talk with Dr. Bolivar, he is going to set up home sleep study. Talked with patient and her about plan for discharge and will follow up this week with Dr. Howard. Patient's actually says that they used to be neighbors with him. Plan to see the [facility] on Thursday. All questions answered. Review of Systems: Constitutional: + fever, + weakness, + fatigue, No chills, No sweats, No weight loss, No problem reported Eyes: No worsening of vision, No eye pain, No redness, No discharge, No diplopia, No problem reported ENT: No hearing loss, No unusual epistaxis, No nasal symptoms, No sore throat, No tinnitus, No dental problems, No trouble swallowing, No problem reported Respiratory: + dyspnea on exertion (mild), No cough, No sputum, No wheezing , No shortness of breath, No dyspnea at rest, No hemoptysis, No problem reported Cardiovascular: No chest pain, No orthopnea, No PND, No edema, No claudication, No palpitations, No problem reported Abdomen: No pain, No nausea, No vomiting, No diarrhea, No constipation, No GI bleeding, No problem reported Musculoskeletal: No joint pain, No muscle pain, No swelling, No calf pain, No problem reported Genitourinary - Female: No dysuria, No urinary frequency, No urinary urgency , No urinary incontinence, No urinary retention, No hematuria Neurologic: + weakness, No memory loss, No paralysis, No numbness/tingling, No vertigo, No balance problems, No problem reported Psychiatric: No depression symptoms, No anhedonism, No anxiety, No insomnia , No substance abuse, No problem reported Endocrine: + fatigue, No excessive thirst, No excessive urination, No problem reported Hematologic / Lymphatic: No abnormal bleeding/bruising, No clotting problems , No swollen lymph nodes, No night sweats, No problem reported Integumentary: No rash, No itch, No new/changing skin lesions, No color change, No bleeding, No problem reported Physical Exam: General Appearance: WD/WN, no apparent distress Eyes: normal inspection, EOMI, sclerae normal ENT: normal ENT inspection, hearing grossly normal, pharynx normal Neck: supple, no adenopathy, no JVD, trachea midline Respiratory/Chest: chest non-tender, lungs clear, normal breath sounds, no respiratory distress, no accessory muscle use Cardiovascular: regular rate, rhythm, no edema, no gallop, no JVD, no murmur , normal peripheral pulses Abdomen / GI: normal bowel sounds, non tender, soft, no organomegaly Extremities: normal inspection, no calf tenderness, normal capillary refill , no pedal edema, normal range of motion Neurologic/Psychiatric: edge molder II-XII nml as tested, no motor/sensory deficits , alert, normal mood/affect, normal reflexes, oriented x 3 Skin: normal color, warm/dry, no rash Hospital Course 61 y/o F Hx HTN, CASSANDRA, metastatic clear cell ovarian CA treated with various modalities over the past 6 years and currently in clinical trial through [facility] on 2 different chemotherapeutic agents. Pt presents with a constellation of symptoms including severe lethargy and lightheadedness, intermittent N/V, diarrhea, dehydration, muscle cramps, joint pains, and dry eyes and mouth. She has had a degree of the preceding symptoms for at least 1 month. On arrival to the ER she was also notably hypoxic with POx 84% but has not c/o SOB. She denies fevers, a productive cough, CP or abdominal pain. Her reports that her memory and executive functioning have been declining over the past month as well. 1) Lethargy, functional decline, joint pains, dry eyes/mouth, petechial rash, Acute hypoxic respiratory failure-- likely due to hypothyroidism, hypopituitarism continue Synthroid at 25mcg daily start Hydrocortisone 30mg in the AM and 20mg in the PM discussed over the phone with Dr. Howard, he would like to see the patient in the office this week patient and will call for appointment Cediranib can cause these issues, she has a follow up appointment with [facility] next Thursday, hold trial medication for now will discuss with [facility] over the phone on 01/21 Hypoventilation: non A-a gradient, pulmonology recommendations appreciated 2 step today, no home oxygen required set up for home sleep study per Dr. Bolivar MRI brain - normal, no pituitary abnormalities ACTH still pending at time of discharge CoSyn stim test showed appropriate response but random AM Cortisol was quite low at 0.53 TSH high at 8.5 and T4 low at 0.68 2) Diarrhea, N/V, dehydration-all likely related to hypothyroidism and then had vomiting with taking doxycycline which is common ASE. She reports markedly decreased PO intake over the past week. She has mild electrolyte abnormalities including hypoMg and hypoK. -improved after replacement, feels better already with IVFs -check prealbumin--> very low at 8 -Nutritional support - eating better at time of discharge 3) HTN - side effect of chemo -continue Losartan for now, if BP elevated as outpatient then her PCP can adjust , add additional medications 4) Metastatic Clear cell ovarian CA - will hold Cediranib on discharge, follow up with [facility] on Thursday to discuss further use Full code - Heparin prophylaxis Total Time Spent: Greater than 30 minutes This includes examination of the patient, discharge planning, medication reconciliation, and communication with other providers. Discharge Instructions Please refer to the electronic Patient Visit Report (Discharge Instructions) for additional information. Follow-Up Dr. Howard this week [facility] oncology on 01/26 Dr. Molina in two weeks Dr. Bolivar in a few weeks after sleep study completed Additional Copies To Willem Bolivar DO; Mo Molina Jr,D.O.; Mauro Howard M.D.
[2017-01-20 21:53] LABS: ANTI-SS-A <1.0 NEG AI (<1.0 NEG); ANTI-SS-B <1.0 NEG AI (<1.0 NEG)
== END 2017-01-20 11:50 | disposition home or self-care (01) | DRG 643 ==
LOC: C.EDB 16:12 → C.2T 20:43 → ENRESERV 20:58
PROVIDERS: ADMIT Internal Medicine; ATTEND Family Medicine
DX: E23.0 Hypopituitarism (principal); J96.01 Acute respiratory failure with hypoxia; C56.9 Malignant neoplasm of unspecified ovary; E27.1 Primary adrenocortical insufficiency; C79.9 Secondary malignant neoplasm of unspecified site; E03.9 Hypothyroidism, unspecified; I10 Essential (primary) hypertension; R06.89 Other abnormalities of breathing; G47.33 Obstructive sleep apnea (adult) (pediatric); E86.0 Dehydration; E83.42 Hypomagnesemia; Z83.3 Family history of diabetes mellitus; T45.1X5A Adverse effect of antineoplastic and immunosuppressive drugs, initial encounter

== ENCOUNTER → 2017-03-16 | Outpatient (CLI) | payer BC ==
[~2017-03-16] MED LIST changes: +HYD10 PO; +MAGN500C PO; +MISCCAP80 PO; +NAPR1CAP12 PO; -PROM25TA9 PO; +SYN25 PO; -[UNRECOGNIZED DRUG - OTHER] PO
[2017-03-16 15:18] LABS: BASO % 0.1 %; BASO ABS # 0.01 K/uL (0-0.2); COMPLETE YES; EOS % 1.2 %; HEMATOCRIT 29.8 % (37-47); IG% 0.3 %; LYMPH % 12.6 %; LYMPH ABS # 0.94 K/uL (1.2-3.4); MEAN CELL VOLUME 79.3 fL (80-100); MEAN CORPUSCULAR HEMOGLOBIN 24.2 pg (25-34); MEAN CORPUSCULAR HGB CONC 30.5 g/dl (32-36); MEAN PLATELET VOLUME 9.4 fL (7.4-10.4); MONO % 7.1 %; NEUT % 78.7 %; PLATELET COUNT 328 K/uL (130-400); RED BLOOD COUNT 3.76 M/uL (4.2-5.4); WHITE BLOOD COUNT 7.46 K/uL (4.8-10.8)
[2017-03-16 15:36] LABS: BLOOD UREA NITROGEN 22 mg/dl (7-18); BUN/CREATININE RATIO 22.3 (10-20); CALCIUM 9.3 mg/dl (8.5-10.1); CARBON DIOXIDE 29 mmol/L (21-32); CHLORIDE 105 mmol/L (98-107); GLUCOSE 123 mg/dl (70-99); SODIUM 140 mmol/L (136-145)
[2017-03-16 15:46] LABS: FERRITIN 6.2 ng/ml (8.0-388.0)
[2017-03-16 16:44] LABS: URINE APPEARANCE CLEAR (CLEAR); URINE BILIRUBIN NEG (NEG); URINE COLOR YELLOW; URINE NITRITE NEG (NEG); URINE SPECIFIC GRAVITY 1.021 (1.000-1.030); UROBILINOGEN NEG (NEG)
[2017-03-16 16:45] LABS: MANUAL MICROSCOPIC REQUIRED? NO; REVIEW REQ? NO
== END | disposition home or self-care (01) ==
LOC: C.LAB 14:38
DX: D64.9 Anemia, unspecified (principal)

== ENCOUNTER → 2017-03-30 | Outpatient (CLI) | payer BC ==
[2017-03-30 14:49] LABS: BASO % 0.3 %; BASO ABS # 0.02 K/uL (0-0.2); COMPLETE YES; EOS % 1.8 %; HEMATOCRIT 31.5 % (37-47); IG% 0.3 %; LYMPH % 12.3 %; MEAN CELL VOLUME 78.6 fL (80-100); MEAN CORPUSCULAR HEMOGLOBIN 24.2 pg (25-34); MEAN CORPUSCULAR HGB CONC 30.8 g/dl (32-36); MEAN PLATELET VOLUME 10.2 fL (7.4-10.4); MONO % 5.9 %; NEUT % 79.4 %; PLATELET COUNT 347 K/uL (130-400); RED BLOOD COUNT 4.01 M/uL (4.2-5.4); WHITE BLOOD COUNT 7.32 K/uL (4.8-10.8)
[2017-03-30 15:01] LABS: THYROID STIMULATING HORMONE 1.37 uIu/ml (0.300-4.500)
== END | disposition home or self-care (01) ==
LOC: C.LAB 12:40
PROVIDERS: ATTEND Internal Medicine Endocrinology, Diabetes & Metabolism
DX: E23.0 Hypopituitarism (principal); E27.49 Other adrenocortical insufficiency; E06.3 Autoimmune thyroiditis; E03.8 Other specified hypothyroidism

== ENCOUNTER → 2017-06-29 | Outpatient (CLI) | payer BC ==
--- NOTE | 2017-07-03 08:57 | Sleep Study ---
Sleep Study Report Date of Service: 06/30/2017 Sleep Study Report Clinical data: The patient is a 62-year-old female who was hospitalized in January 2017 with lethargy. She has a history of sleep apnea diagnosed in 2012 when her apnea- hypopnea index was 37. She had respiratory events lasting as long as 52 seconds. A titration study was done and she was treated with BiPAP at a final pressure of 12/5. The patient however refused treatment at that time other than oxygen. Her complaints include snoring and fatigue. On the evening of a home sleep apnea test was performed using the [employer] type 3 monitor. Recording results: Total recording time was 8.7 hours. The patient only kept the equipment on for little over 5 hours. Respiratory data: The patient had a total of 276 respiratory events including 133 obstructive apneas and 143 hypopneas. Hypopneas were scored according to the 4 percent desaturation rule. The longest respiratory event was 59 seconds. The apnea- hypopnea index was severely elevated at 52.8 events per hour. This is consistent with severe obstructive sleep apnea. Oximetry data: The mean saturation for the night was 92 percent. The minimum saturation was 80 percent. There was a total of 24 minutes with saturations less than 89 percent. Heart rate data: The lowest heart rate was 70 beats per minute. The mean heart rate was 81 beats per minute. Snoring data: Snoring was present throughout the test. Impressions: 1. Obstructive sleep apnea-severe Recommendations: 1. It is strongly advised that the patient be treated with nasal CPAP or BiPAP. This could be accomplished by a referral to the Sleep Lab for a titration. Alternatively she could be treated with auto CPAP or auto BiPAP. 2. If the patient refuses nasal CPAP or BiPAP therapy, consideration could be given to a referral for an evaluation for an oral appliance. 3. If possible the patient should avoid sleeping in the supine position as typically there more respiratory events while supine. Copies To 1: Willem Bolivar DO; Mo Molina,,D.O.
== END | disposition home or self-care (01) ==
LOC: C.NEUR 15:43
PROVIDERS: ATTEND Internal Medicine Pulmonary Disease
DX: G47.33 Obstructive sleep apnea (adult) (pediatric) (principal)

== ENCOUNTER → 2017-10-29 | Outpatient (CLI) | payer BC ==
[~2017-10-29] MED LIST changes: +CYAN50TA2 PO; +HYDR5TAB PO; +HYDR5TAB57 PO; +LEVO50TA PO; +ONDA-170 PO; -ONDA8TAB6 PO; +OXYC1TAB3 PO; +PANT40TA PO; +hydrocortisone PO
[2017-10-29 18:10] LABS: HEMATOCRIT 29.2 % (37-47); HEMOGLOBIN 8.7 g/dL (12.0-16.0); MEAN CELL VOLUME 73.9 fL (80-100); MEAN CORPUSCULAR HGB CONC 29.8 g/dl (32-36); MEAN PLATELET VOLUME 8.9 fL (7.4-10.4); PLATELET COUNT 420 K/uL (130-400); RED CELL DISTRIBUTION WIDTH CV 18.8 % (11.5-14.5); RED CELL DISTRIBUTION WIDTH SD 51.1 fL (36.4-46.3); WHITE BLOOD COUNT 6.98 K/uL (4.8-10.8)
[2017-10-29 18:21] LABS: BASO % 0.3 %; BASO ABS # 0.02 K/uL (0-0.2); EOS ABS # 0.14 K/uL (0-0.5); IG# 0.01 K/uL (0.00-0.02); LYMPH % 14.2 %; LYMPH ABS # 0.99 K/uL (1.2-3.4); MONO % 8.7 %; MONO ABS # 0.61 K/uL (0.11-0.59); NEUT % 74.7 %; NEUT ABS # 5.21 K/uL (1.4-6.5)
== END | disposition home or self-care (01) ==
LOC: C.LAB 17:24
PROVIDERS: ATTEND Internal Medicine Hematology & Oncology
DX: C56.9 Malignant neoplasm of unspecified ovary (principal)

== ENCOUNTER → 2017-11-02 | Outpatient (CLI) | payer BC ==
[2017-11-02 10:13] LABS: HEMATOCRIT 28.1 % (37-47); HEMOGLOBIN 8.5 g/dL (12.0-16.0); MEAN CELL VOLUME 73.2 fL (80-100); MEAN CORPUSCULAR HEMOGLOBIN 22.1 pg (25-34); MEAN CORPUSCULAR HGB CONC 30.2 g/dl (32-36); MEAN PLATELET VOLUME 9.3 fL (7.4-10.4); PLATELET COUNT 383 K/uL (130-400); RED CELL DISTRIBUTION WIDTH CV 18.8 % (11.5-14.5); RED CELL DISTRIBUTION WIDTH SD 50.8 fL (36.4-46.3); WHITE BLOOD COUNT 5.03 K/uL (4.8-10.8)
[2017-11-02 10:47] LABS: BASO % 0.8 %; BASO ABS # 0.04 K/uL (0-0.2); EOS % 5.8 %; EOS ABS # 0.29 K/uL (0-0.5); IG# 0.02 K/uL (0.00-0.02); LYMPH % 23.7 %; LYMPH ABS # 1.19 K/uL (1.2-3.4); MONO % 11.1 %; MONO ABS # 0.56 K/uL (0.11-0.59); NEUT % 58.2 %; NEUT ABS # 2.93 K/uL (1.4-6.5)
[2017-11-02 16:49] LABS: ALBUMIN 2.9 gm/dl (3.4-5.0); ALT/SGPT 18 U/L (12-78); BLOOD UREA NITROGEN 23 mg/dl (7-18); CALCIUM 8.4 mg/dl (8.5-10.1); CARBON DIOXIDE 31 mmol/L (21-32); CREATININE 0.87 mg/dl (0.60-1.20); GLUCOSE 114 mg/dl (70-99); POTASSIUM 3.8 mmol/L (3.5-5.1); SODIUM 140 mmol/L (136-145)
[2017-11-02 16:52] LABS: ALKALINE PHOSPHATASE 90 U/L (45-117); AST/SGOT 14 U/L (15-37); TOTAL PROTEIN 6.3 gm/dl (6.4-8.2); TRANSFERRIN 311 mg/dl (200-360)
== END | disposition home or self-care (01) ==
LOC: C.LAB 09:19
PROVIDERS: ATTEND Internal Medicine Hematology & Oncology
DX: C56.9 Malignant neoplasm of unspecified ovary (principal)

== ENCOUNTER → 2017-11-16 | Outpatient (CLI) | payer BC ==
[~2017-11-16] MED LIST changes: -HYD10 PO; -LOSA1TAB38 PO; -MAGN500C PO; -MISCCAP80 PO; -NAPR1CAP12 PO; -ONDA-170 PO; -SYN25 PO
[2017-11-16 13:20] LABS: BASO % 0.1 %; BASO ABS # 0.01 K/uL (0-0.2); EOS % 0.8 %; EOS ABS # 0.06 K/uL (0-0.5); HEMATOCRIT 30.7 % (37-47); HEMOGLOBIN 9.2 g/dL (12.0-16.0); IG# 0.03 K/uL (0.00-0.02); LYMPH % 9.5 %; LYMPH ABS # 0.71 K/uL (1.2-3.4); MEAN CELL VOLUME 72.2 fL (80-100); MEAN CORPUSCULAR HEMOGLOBIN 21.6 pg (25-34); MEAN PLATELET VOLUME 9.7 fL (7.4-10.4); MONO % 8.2 %; MONO ABS # 0.61 K/uL (0.11-0.59); NEUT ABS # 6.06 K/uL (1.4-6.5); PLATELET COUNT 404 K/uL (130-400); RED CELL DISTRIBUTION WIDTH CV 19.1 % (11.5-14.5); RED CELL DISTRIBUTION WIDTH SD 51.1 fL (36.4-46.3); WHITE BLOOD COUNT 7.48 K/uL (4.8-10.8)
== END | disposition home or self-care (01) ==
LOC: C.LAB 12:07
PROVIDERS: ATTEND Internal Medicine Hematology & Oncology
DX: C56.9 Malignant neoplasm of unspecified ovary (principal)

== ENCOUNTER 2017-11-17 12:25 | Emergency (ER) | payer BC ==
[~2017-11-17] VITALS: Ht 170.2 cm; Wt 89.2 kg
[~2017-11-17 12:25] MED LIST changes: -HYDR5TAB PO; -HYDR5TAB57 PO; -OXYC1TAB3 PO
[2017-11-17 12:29] VITALS: TEMP 36.5; Ht 170.2 cm; Wt 89.2 kg
[2017-11-17] MEDS ORDERED: MoRPHine SULFATE 4 MG/ML 1 ML CARP\\VIAL IV STA ×2 (13:35→15:10)
[2017-11-17] MEDS ORDERED: SODIUM CHLORIDE 0.9% 1000ML 1,000 ML IV STA (13:35)
[2017-11-17] MEDS ORDERED: OPTIRAY 320 IV PRN (13:45)
--- NOTE | 2017-11-17 13:48 | EMERGENCY ROOM VISIT NOTE ---
ED Visit Note First contact with patient: 13:11 CHIEF COMPLAINT: Lower abdominal pain HISTORY OF PRESENTING ILLNESS: This is a 62-year-old female with past medical history significant for ovarian cancer status post chemo and radiation, currently on experimental immunotherapy treatments IV every 4 weeks at [facility], who presents to the emergency department with complaint of severe lower abdominal pain. The patient states that she started having some pain 5 days ago, it would come and go, and seemed to be aggravated after eating. She states that she woke up this morning with pain that has progressively gotten worse, is currently constant and severe, does not radiate, worse with any movement, better with rest, currently rates as 10/10. She has not taken any pain medication for her symptoms. She has associated nausea, but denies any vomiting. She denies any diarrhea or constipation and had a normal bowel movement this morning. She denies any bloody or black stools, urinary symptoms , or vaginal discharge. She reports a total hysterectomy secondary to her ovarian cancer and also has had tumors removed surgically. She states she still has multiple small masses in her abdomen that are being monitored, her last imaging was 1 month ago and she reports everything was stable at that time. She denies any chronic pain and states that this is very unusual for her. She denies any headaches, vision changes, chest pain, shortness of breath , back pain, joint pain or myalgias, or unusual rash. REVIEW OF SYSTEMS: A complete 10 point review of systems was reviewed with the patient with pertinent positives and negatives as per history of present illness. All else were negative. PAST MEDICAL HISTORY: Reviewed in chart SOCIAL HISTORY: Lives at home with family. Denies tobacco use, alcohol or recreational drug use. ALLERGIES: Reviewed in chart. PHYSICAL EXAM: CONSTITUTIONAL: Pleasant and cooperative. No acute distress, but appears uncomfortable and in pain. Mildly dehydrated, but otherwise well appearing and well nourished. HEENT: Normocephalic, atraumatic. Pupils equal, round and reactive to light, EOMI. TMs normal. Pharynx normal. Tacky mucus membranes. NECK: Supple, full active range of motion without discomfort. RESPIRATORY: Clear to auscultation bilaterally with no wheezing, crackles, rhonchi or stridor. Equal expansion bilaterally. CARDIOVASCULAR: Regular rate and rhythm with no murmurs, rubs or gallops. Normal peripheral perfusion. No edema. GASTROINTESTINAL: Soft, diffuse moderate tenderness to palpation of the lower abdomen, nondistended. No rebound tenderness or guarding. Multiple firm palpable masses of the lower abdomen. No HSM. Bowel sounds present in all quadrants. No CVA tenderness. MUSCULOSKELETAL: Full range of motion of all joints without discomfort. INTEGUMENTARY: No rash or other significant dermatologic conditions noted. NEUROLOGIC: Alert and oriented X 4 with normal affect. Normal strength and sensation in all four extremities. No focal neurologic deficits noted. Normal speech. Normal gait observed. ED COURSE AND MEDICAL DECISION MAKING: CC: Patient presenting with complaint of abdominal pain DIFFERENTIAL DIAGNOSIS: Includes, but not limited to intra-abdominal infection , small bowel obstruction, adhesions, hernia, mass or mass-effect, bowel perforation, UTI, among others. INTERPRETATION OF LABS: No leukocytosis or leukopenia, anemia (appears consistent with baseline), no significant electrolyte abnormalities, normal renal function, normal liver enzymes and lipase. UA negative. IMAGING: CT SCAN OF THE ABDOMEN AND PELVIS WITH IV CONTRAST CLINICAL HISTORY: Lower abdominal pain. Mass. History of ovarian cancer. COMPARISON STUDY: Abdominal CT dated 04/30/2015. TECHNIQUE: Following the IV administration of 120 cc of Optiray 320, CT scan of the abdomen and pelvis is performed from the lung bases to the proximal femora. Images are reviewed in the axial, sagittal, and coronal planes. IV contrast was administered without complication. A dose lowering technique was utilized adhering to the principles of ALARA. CT DOSE: 739.93 mGy.cm FINDINGS: Lung bases: The heart is top normal in size and without pericardial effusion. The lung bases are clear noting dependent atelectasis. There is a small hiatal hernia. Liver: The contrast-enhanced liver is normal in size, contour, and attenuation. Fatty infiltration is seen adjacent to the falciform ligament. There is minimal central intrahepatic biliary ductal dilatation. The hepatic veins and portal veins are patent. Gallbladder: Surgically absent noting clips in the gallbladder fossa. Spleen: Normal in size and attenuation. Pancreas: Unremarkable. Adrenal glands: Unremarkable. Kidneys: The contrast enhanced kidneys demonstrate mild cortical atrophy and are without hydronephrosis. The kidneys enhance symmetrically. A 1.3 cm cyst is noted in the right kidney. Abdominal vasculature: The abdominal aorta is normal in course and caliber noting mild atherosclerotic calcification. Bowel: There are postoperative changes from sigmoid colon resection with colocolonic anastomosis. A small bowel anastomosis is identified in the pelvis. No bowel obstruction is identified. There may be implants located along loops of small bowel in the pelvis. The appendix is not identified and reported surgically absent. Peritoneum: There is no intraperitoneal free air or abdominal ascites. There is a midline surgical scar with evidence of previous omentectomy. There are 2 large mass lesions identified involving the ventral abdominal wall at and to the right midline. A lesion chest DT umbilicus is seen on image #277 and measures 4.2 x 3.8 cm. A lesion is centered within the right rectus abdominis muscle is seen on image #271 and measures additionally, there are numerous peritoneal implants identified. Implant is seen inferior to the right kidney on image #20 and 25 and measures 2.5 x 1.9 cm. 3.2 x 6.1 cm. A large implant in the left pelvis is seen on image #308 and measures 3.6 x 4.5 cm. Additional smaller implants are present along the right colon seen on image #20 and 28, posterior to the distal stomach seen on image #130, and in the central mesentery on image #246. Lymphadenopathy: None. Pelvic viscera: The bladder is normal as visualized. The uterus is surgically absent. No adnexal lesion is seen. Skeletal structures: The skeletal structures are osteopenic. No lytic or blastic lesions are seen. IMPRESSION: 1. There are no acute infectious or inflammatory findings in the abdomen or pelvis. 2. There are numerous peritoneal implants as above, the largest of which are centered in the ventral abdominal wall. The appearance is consistent with carcinomatosis given the reported history of ovarian cancer. This has progressed as compared to the most recent comparison study dated 04/30/2015. 3. There is no abdominal ascites. 4. Additional findings as above. MEDICATION RECONCILIATION: I attest that I have personally reviewed the patient 's current medication list. INITIAL VITAL SIGNS REVIEW: I reviewed the patient's initial vital signs and interpret them as follows: T: Afebrile; BP: Normotensive; HR: Within normal limits; RR: Within normal limits; Pulse Ox: Within normal limits on room air. Blood pressure screening: The patient was found to have normal blood pressure on screening and does not require follow-up for repeat blood pressure check. SUMMARY: Patient was evaluated at bedside, history and physical exam performed. Patient is alert and oriented, no acute distress, but does appear uncomfortable and in pain. Patient is quite tender diffusely over the lower abdomen, with palpable firm masses in the abdominal wall that are tender to palpation. There is no rebound tenderness or guarding of the abdomen. Orders were placed at bedside for labs, UA, IV fluids for hydration, IV Zofran and morphine for nausea and pain, CT abdomen/pelvis with IV contrast to evaluate for intra-abdominal abnormality. Patient discussed with Dr. Sahni, who agrees with my assessment and plan. Labs and imaging reviewed as above, fairly unremarkable. Note is made of numerous peritoneal masses, which I suspect are the cause of patient's pain. I spoke on the phone with Dr. Boyce, patient's oncologist, and discussed today's CT imaging in comparison to previous recent CTs. He does agree that patient's pain is most likely secondary to her tumors. He recommended pain management, and will see the patient in follow up. The patient also has an appointment to follow up with her oncology team at [facility] this coming Thursday. A disc of her CT scan today was provided for her to take along to her appointment. Patient reassessed multiple times throughout ED stay, her pain is improved with the morphine and she appears much more comfortable. She was offered IV Toradol for additional pain management, however she prefers to avoid NSAIDs due to history of previous GI bleeding. She was given a dose of oral oxycodone for ongoing pain management today, and Rx for oxycodone was sent to the pharmacy. Patient was updated on all results and plan for discharge, she was encouraged to keep all of her upcoming follow-up appointments for continued management of her tumor pain. Patient was also given strict return precautions should her symptoms worsen, she verbalized understanding. Patient was discharged home in stable condition and ambulatory. Problem List Medical Problems: (1) Calf pain Status: Resolved (2) Hypertension Nos Status: Chronic (3) Oth Pulmon Embolism/Infarct Status: Resolved Current/Historical Medications Scheduled Bismuth Subsalicylate (Pepto-Bismol Susp), 1 DOSE PO PRN Cyanocobalamin (Vitamin B-12), 50 MCG PO QAM Hydrocortisone (Cortef), 15 MG PO QAM Hydrocortisone (Cortef), 5 MG PO DAILY Levothyroxine Sodium (Synthroid), 50 MCG PO DAILY Pantoprazole (Protonix), 40 MG PO DAILY Scheduled PRN Oxycodone Immediate Rel Tab (Roxicodone Ir), 1-2 TAB PO Q6H PRN for Severe Pain Allergies Coded Allergies: Carboplatin (Verified Allergy, Severe, anaphylactic reaction, 11/17/17) Vital Signs Date Time Temp Pulse Resp B/P (MAP) Pulse Ox O2 Delivery O2 Flow Rate FiO2 11/17/17 16:25 80 18 142/70 11/17/17 15:55 81 18 11/17/17 15:25 79 17 91 11/17/17 15:17 149/79 11/17/17 14:25 78 15 96 11/17/17 14:11 80 11/17/17 14:03 135/90 11/17/17 14:02 84 20 135/90 94 Room Air 11/17/17 12:29 36.5 88 20 139/88 98 Room Air Laboratory Results 11/17/17 13:51 Red Blood Count 4.33, Mean Corpuscular Volume 72.1, Mean Corpuscular Hemoglobin 21.7, Mean Corpuscular Hemoglobin Concent 30.1, Mean Platelet Volume 9.6, Neutrophils (%) (Auto) 76.4, Lymphocytes (%) (Auto) 13.8, Monocytes (%) (Auto) 7.7, Eosinophils (%) (Auto) 1.5, Basophils (%) (Auto) 0.3, Neutrophils # (Auto) 5.48, Lymphocytes # (Auto) 0.99, Monocytes # (Auto) 0.55, Eosinophils # (Auto) 0.11, Basophils # (Auto) 0.02 11/17/17 13:51 Test 11/17/17 13:51 11/17/17 14:10 White Blood Count 7.17 K/uL (4.8-10.8) Red Blood Count 4.33 M/uL (4.2-5.4) Hemoglobin 9.4 g/dL (12.0-16.0) Hematocrit 31.2 % (37-47) Mean Corpuscular Volume 72.1 fL (80-100) Mean Corpuscular Hemoglobin 21.7 pg (25-34) Mean Corpuscular Hemoglobin Concent 30.1 g/dl (32-36) Platelet Count 393 K/uL (130-400) Mean Platelet Volume 9.6 fL (7.4-10.4) Neutrophils (%) (Auto) 76.4 % Lymphocytes (%) (Auto) 13.8 % Monocytes (%) (Auto) 7.7 % Eosinophils (%) (Auto) 1.5 % Basophils (%) (Auto) 0.3 % Neutrophils # (Auto) 5.48 K/uL (1.4-6.5) Lymphocytes # (Auto) 0.99 K/uL (1.2-3.4) Monocytes # (Auto) 0.55 K/uL (0.11-0.59) Eosinophils # (Auto) 0.11 K/uL (0-0.5) Basophils # (Auto) 0.02 K/uL (0-0.2) RDW Standard Deviation 50.2 fL (36.4-46.3) RDW Coefficient of Variation 18.8 % (11.5-14.5) Immature Granulocyte % (Auto) 0.3 % Immature Granulocyte # (Auto) 0.02 K/uL (0.00-0.02) Hypochromasia PRESENT Anisocytosis PRESENT Ovalocytes 1+ Anion Gap 4.0 mmol/L (3-11) Est Creatinine Clear Calc Drug Dose 75.0 ml/min Estimated GFR () 81.0 Estimated GFR (Non- 69.9 BUN/Creatinine Ratio 22.7 (10-20) Calcium Level 8.9 mg/dl (8.5-10.1) Total Bilirubin 0.3 mg/dl (0.2-1) Direct Bilirubin 0.1 mg/dl (0-0.2) Aspartate Amino Transf (AST/SGOT) 13 U/L (15-37) Alanine Aminotransferase (ALT/SGPT) 19 U/L (12-78) Alkaline Phosphatase 81 U/L (45-117) Total Protein 6.5 gm/dl (6.4-8.2) Albumin 3.0 gm/dl (3.4-5.0) Lipase 143 U/L (73-393) Urine Color YELLOW Urine Appearance CLEAR (CLEAR) Urine pH 5.0 (4.5-7.5) Urine Specific [place] 1.018 (1.000-1.030) Urine Protein NEG (NEG) Urine Glucose (UA) NEG (NEG) Urine Ketones NEG (NEG) Urine Occult Blood NEG (NEG) Urine Nitrite NEG (NEG) Urine Bilirubin NEG (NEG) Urine Urobilinogen NEG (NEG) Urine Leukocyte Esterase NEG (NEG) Medications Administered Medications (Trade) Dose Ordered Sig/Peterson Route Start Time Stop Time Status Last Admin Dose Admin Sodium Chloride 1,000 ml @ 999 mls/hr Q1H1M STAT IV 11/17/17 13:35 11/17/17 14:40 DC 11/17/17 13:59 999 MLS/HR Morphine Sulfate (MoRPHine SULFATE INJ) 4 mg NOW STAT IV 11/17/17 13:35 11/17/17 13:39 DC 11/17/17 14:00 4 MG Morphine Sulfate (MoRPHine SULFATE INJ) 4 mg NOW STAT IV 11/17/17 15:10 11/17/17 15:11 DC 11/17/17 15:18 4 MG Ondansetron HCl (Zofran Inj) 4 mg NOW STAT IV 11/17/17 15:10 11/17/17 15:11 DC 11/17/17 15:17 4 MG Oxycodone HCl (Roxicodone Immediate Rel Tab) 5 mg NOW STAT PO 11/17/17 16:44 11/17/17 16:45 DC 11/17/17 16:57 5 MG Departure Information Impression Primary Impression: Tumor associated pain Additional Impression: Abdominal pain Dispostion Home / Self-Care Condition GOOD Prescriptions Oxycodone Immediate Rel Tab (ROXICODONE IR) 5 Mg Tab 1-2 TAB PO Q6H Y for Severe Pain, #30 TAB Prov: Odalys Plascencia CRNP 11/17/17 Referrals Mo Molina,,D.O. (PCP) Kaleb Boyce MD Patient Instructions ED Abdominal Pain Unkn Cause, My [facility] Additional Instructions You have been treated in the Emergency Department for your abdominal pain. Laboratory results and imaging studies have ruled out any emergent causes for your symptoms which would warrant admission or surgery. You have been prescribed Oxycodone to be used as needed for SEVERE pain. This is a narcotic, do not drive, operate machinery, or drink alcohol while you are taking it. Narcotics may cause constipation, please take an [id number] stool softener such as Colace or senna while you are taking this medication to help prevent constipation. For pain control, you can use the following [id number] medicines (if >12 yo): - Regular strength (325mg/tab) Tylenol (acetaminophen) 2 tabs every 4-6 hours as needed. Do not exceed 10 tablets in a 24 hour period. Avoid taking more than 3000 mg of Tylenol per day. This includes any other sources of acetaminophen you may take on a regular basis. You may apply a heating pad to your lower abdomen to help with pain. Drink plenty of fluids to stay well hydrated. Please keep your scheduled appointment with [facility] and take the disc of your CT scan with you to your appointment. You should also follow-up with your Primary Care Provider and Dr. Boyce as needed. Return to the emergency department for severe worsening abdominal or back pain, worsening nausea/vomiting, vomiting blood, blood in your stool or urine, fevers > 101.5, severe dizziness or passing out, or any other concerns. Problem Qualifiers Additional Impression: Abdominal pain Abdominal location: lower abdomen, unspecified Qualified Codes: R10.30 - Lower abdominal pain, unspecified
[2017-11-17] MEDS ORDERED: HYDR5TAB PO (14:22)
[2017-11-17] MEDS ORDERED: HYDR5TAB57 PO (14:22)
[2017-11-17 14:23] LABS: HEMATOCRIT 31.2 % (37-47); HEMOGLOBIN 9.4 g/dL (12.0-16.0); MEAN CELL VOLUME 72.1 fL (80-100); MEAN CORPUSCULAR HEMOGLOBIN 21.7 pg (25-34); MEAN CORPUSCULAR HGB CONC 30.1 g/dl (32-36); MEAN PLATELET VOLUME 9.6 fL (7.4-10.4); PLATELET COUNT 393 K/uL (130-400); RED CELL DISTRIBUTION WIDTH CV 18.8 % (11.5-14.5); RED CELL DISTRIBUTION WIDTH SD 50.2 fL (36.4-46.3); WHITE BLOOD COUNT 7.17 K/uL (4.8-10.8)
[2017-11-17 14:30] LABS: CALCIUM 8.9 mg/dl (8.5-10.1); CREATININE 0.88 mg/dl (0.60-1.20); POTASSIUM 3.8 mmol/L (3.5-5.1)
[2017-11-17 14:33] LABS: TOTAL PROTEIN 6.5 gm/dl (6.4-8.2)
[2017-11-17 15:01] LABS: BASO % 0.3 %; BASO ABS # 0.02 K/uL (0-0.2); EOS % 1.5 %; EOS ABS # 0.11 K/uL (0-0.5); IG# 0.02 K/uL (0.00-0.02); LYMPH % 13.8 %; LYMPH ABS # 0.99 K/uL (1.2-3.4); MONO % 7.7 %; MONO ABS # 0.55 K/uL (0.11-0.59); NEUT % 76.4 %; NEUT ABS # 5.48 K/uL (1.4-6.5)
[2017-11-17] MEDS ORDERED: ONDANSETRON INJ 2 MG/ML 2 ML VIAL IV STA (15:10)
[2017-11-17 15:25] VITALS: O2SAT 91
--- NOTE | 2017-11-17 15:25 | DIAGNOSTIC IMAGING REPORT ---
CT SCAN OF THE ABDOMEN AND PELVIS WITH IV CONTRAST CLINICAL HISTORY: Lower abdominal pain. Mass. History of ovarian cancer. COMPARISON STUDY: Abdominal CT dated 04/30/2015. TECHNIQUE: Following the IV administration of 120 cc of Optiray 320, CT scan of the abdomen and pelvis is performed from the lung bases to the proximal femora. Images are reviewed in the axial, sagittal, and coronal planes. IV contrast was administered without complication. A dose lowering technique was utilized adhering to the principles of ALARA. CT DOSE: 739.93 mGy.cm FINDINGS: Lung bases: The heart is top normal in size and without pericardial effusion. The lung bases are clear noting dependent atelectasis. There is a small hiatal hernia. Liver: The contrast-enhanced liver is normal in size, contour, and attenuation. Fatty infiltration is seen adjacent to the falciform ligament. There is minimal central intrahepatic biliary ductal dilatation. The hepatic veins and portal veins are patent. Gallbladder: Surgically absent noting clips in the gallbladder fossa. Spleen: Normal in size and attenuation. Pancreas: Unremarkable. Adrenal glands: Unremarkable. Kidneys: The contrast enhanced kidneys demonstrate mild cortical atrophy and are without hydronephrosis. The kidneys enhance symmetrically. A 1.3 cm cyst is noted in the right kidney. Abdominal vasculature: The abdominal aorta is normal in course and caliber noting mild atherosclerotic calcification. Bowel: There are postoperative changes from sigmoid colon resection with colocolonic anastomosis. A small bowel anastomosis is identified in the pelvis. No bowel obstruction is identified. There may be implants located along loops of small bowel in the pelvis. The appendix is not identified and reported surgically absent. Peritoneum: There is no intraperitoneal free air or abdominal ascites. There is a midline surgical scar with evidence of previous omentectomy. There are 2 large mass lesions identified involving the ventral abdominal wall at and to the right midline. A lesion chest DT umbilicus is seen on image #277 and measures 4.2 x 3.8 cm. A lesion is centered within the right rectus abdominis muscle is seen on image #271 and measures additionally, there are numerous peritoneal implants identified. Implant is seen inferior to the right kidney on image #20 and 25 and measures 2.5 x 1.9 cm. 3.2 x 6.1 cm. A large implant in the left pelvis is seen on image #308 and measures 3.6 x 4.5 cm. Additional smaller implants are present along the right colon seen on image #20 and 28, posterior to the distal stomach seen on image #130, and in the central mesentery on image #246. Lymphadenopathy: None. Pelvic viscera: The bladder is normal as visualized. The uterus is surgically absent. No adnexal lesion is seen. Skeletal structures: The skeletal structures are osteopenic. No lytic or blastic lesions are seen. IMPRESSION: 1. There are no acute infectious or inflammatory findings in the abdomen or pelvis. 2. There are numerous peritoneal implants as above, the largest of which are centered in the ventral abdominal wall. The appearance is consistent with carcinomatosis given the reported history of ovarian cancer. This has progressed as compared to the most recent comparison study dated 04/30/2015. 3. There is no abdominal ascites. 4. Additional findings as above. Electronically signed by: Jonas Paulino M.D. 11/17/2017 3:23 PM Dictated Date/Time: 11/17/2017 3:10 PM
[2017-11-17 16:25] VITALS: BP 142/70; PULSE 80
[2017-11-17] MEDS ORDERED: KETOROLAC TROMETHAMINE 30 MG/ML VIAL IV STA (16:36)
[2017-11-17] MEDS ORDERED: OXYCODONE HCL IR 5 MG TAB (IMMEDIATE RELEASE) PO STA (16:44)
[2017-11-17] MEDS ORDERED: OXYC1TAB3 PO (16:53)
== END 2017-11-17 17:50 | disposition home or self-care (01) ==
LOC: C.EDB 12:26
DX: G89.3 Neoplasm related pain (acute) (chronic) (principal); C56.9 Malignant neoplasm of unspecified ovary; E86.0 Dehydration; I10 Essential (primary) hypertension; Z86.711 Personal history of pulmonary embolism; Z79.899 Other long term (current) drug therapy; Z88.8 Allergy status to other drugs, medicaments and biological substances

== ENCOUNTER 2017-12-07 20:38 | Emergency (ER) | payer BC ==
[~2017-12-07] VITALS: Ht 170.2 cm; Wt 86.5 kg
[~2017-12-07 20:38] MED LIST changes: +HYDR5TAB PO; +HYDR5TAB57 PO; +OXYC1TAB3 PO; -hydrocortisone PO
[2017-12-07 20:53] VITALS: Ht 170.2 cm; Wt 86.5 kg
[2017-12-07] MEDS ORDERED: SODIUM CHLORIDE 0.9% 1000ML 500 ML IV STA (21:15)
[2017-12-07] MEDS ORDERED: HYDROCORTISONE SOD SUCCINATE 100 MG/2 ML VIAL IV STA (21:15)
[2017-12-07] MEDS ORDERED: ONDANSETRON INJ 2 MG/ML 2 ML VIAL IV STA ×2 (21:15)
[2017-12-07] MEDS: MoRPHine SULFATE 10 MG/ML CARP/VIAL IV PRN ×2 (21:27→22:02)
[2017-12-07] MEDS ORDERED: OPTIRAY 320 IV PRN (21:30)
[2017-12-07 21:31] LABS: PTT PATIENT 23.4 SECONDS (21.0-31.0)
[2017-12-07 21:46] LABS: ALBUMIN 3.1 gm/dl (3.4-5.0); ALT/SGPT 17 U/L (12-78); AST/SGOT 12 U/L (15-37); BLOOD UREA NITROGEN 16 mg/dl (7-18); CALCIUM 8.8 mg/dl (8.5-10.1); CARBON DIOXIDE 31 mmol/L (21-32); CREATININE 0.85 mg/dl (0.60-1.20); GLUCOSE 99 mg/dl (70-99); LIPASE 110 U/L (73-393); POTASSIUM 3.4 mmol/L (3.5-5.1); SODIUM 140 mmol/L (136-145)
[2017-12-07 21:54] LABS: ALKALINE PHOSPHATASE 89 U/L (45-117); TOTAL PROTEIN 6.7 gm/dl (6.4-8.2)
[2017-12-07 21:57] LABS: BASO % 0.1 %; BASO ABS # 0.01 K/uL (0-0.2); EOS % 1.1 %; EOS ABS # 0.12 K/uL (0-0.5); HEMATOCRIT 30.8 % (37-47); HEMOGLOBIN 9.2 g/dL (12.0-16.0); IG# 0.03 K/uL (0.00-0.02); LYMPH % 10.7 %; LYMPH ABS # 1.14 K/uL (1.2-3.4); MEAN CELL VOLUME 71.8 fL (80-100); MEAN CORPUSCULAR HEMOGLOBIN 21.4 pg (25-34); MEAN CORPUSCULAR HGB CONC 29.9 g/dl (32-36); MEAN PLATELET VOLUME 9.4 fL (7.4-10.4); MONO % 9.2 %; MONO ABS # 0.98 K/uL (0.11-0.59); NEUT % 78.6 %; NEUT ABS # 8.34 K/uL (1.4-6.5); PLATELET COUNT 405 K/uL (130-400); RED CELL DISTRIBUTION WIDTH CV 20.2 % (11.5-14.5); RED CELL DISTRIBUTION WIDTH SD 52.7 fL (36.4-46.3); WHITE BLOOD COUNT 10.62 K/uL (4.8-10.8)
--- NOTE | 2017-12-07 22:03 | DIAGNOSTIC IMAGING REPORT ---
CHEST ONE VIEW PORTABLE CLINICAL HISTORY: ABDOMINAL PAIN/GI pain. Nausea. COMPARISON STUDY: 01/16/2017 FINDINGS: Mild cardiomegaly. Atelectasis versus minimal infiltrate left base. Lungs otherwise are clear. The diaphragms are smooth. IMPRESSION: Atelectasis versus minimal infiltrate left base. Mild cardiomegaly. The above report was generated using voice recognition software. It may contain grammatical, syntax or spelling errors. Electronically signed by: Isaias Dangelo M.D. 12/07/2017 10:02 PM Dictated Date/Time: 12/07/2017 10:01 PM
[2017-12-07] MEDS ORDERED: OXYC-609 PO (22:14)
[2017-12-07] MEDS ORDERED: CLR10 PO (22:14)
--- NOTE | 2017-12-07 22:28 | DIAGNOSTIC IMAGING REPORT ---
ABD/PELVIS IV CONTRAST ONLY CT DOSE: 566.90 mGy.cm HISTORY: Nausea. Vomiting. ABD PAIN, POSS OBSTRUCTION, IV CONTRAST ONLY TECHNIQUE: Multiaxial CT images of the abdomen and pelvis were performed following the use of intravenous contrast. A dose lowering technique was utilized adhering to the principles of ALARA. COMPARISON STUDY: 11/17/2017 FINDINGS: Minimal basilar interstitial change. This is slightly increased in prominence in the prior study. There are findings of a prior cholecystectomy. There is a small benign hemangioma of the anterior margin right hepatic lobe image 126. Gallbladder is surgically absent. Pancreas is unremarkable. Kidneys negative for hydronephrosis. Several small renal cortical cysts are present. There metastatic implants along the anterior abdominal wall which are stable. Masslike implants within the left lateral aspect of the soft tissue pelvis are stable as are implants within the right central pelvis. Increase in fecal material within the rectosigmoid consistent with fecal stasis. Additional findings of carcinomatosis are stable. No evidence for abdominal ascites. This study is considered unchanged in the prior study dated 11/17/2017. IMPRESSION: 1. 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 2. This is unchanged from the prior exam and again is consistent with a patient's known clinical history of ovarian carcinoma. 3. Increased fecal load within the colon and rectosigmoid consistent with fecal stasis. 4. The bowel pattern at this time is considered nonobstructive 5. Prior cholecystectomy. 6. Interstitial prominence both lung bases slightly progressive from the prior study and potentially is inflammatory. The above report was generated using voice recognition software. It may contain grammatical, syntax or spelling errors. Electronically signed by: Isaias Dangelo M.D. 12/07/2017 10:26 PM Dictated Date/Time: 12/07/2017 10:20 PM
[2017-12-07] MEDS ORDERED: SENN-65 PO (22:55)
[2017-12-07] MEDS ORDERED: ONDANSETRON HOME PACK 4MG OD TAB PO ONE (23:00)
[2017-12-07] MEDS ORDERED: DOCUSATE SODIUM/SENNA 50/8.6MG TAB PO ONE (23:00)
[2017-12-07 23:01] VITALS: BP 119/80; PULSE 88; TEMP 37; O2SAT 95
--- NOTE | 2017-12-07 23:03 | EMERGENCY ROOM VISIT NOTE ---
History Report prepared by Kianna: Kiera Lawler Under the Supervision of: Dr. Jonas Britt M.D. First contact with patient: 21:09 Chief Complaint: ABDOMINAL PAIN Stated Complaint: SEVERE STOMACH PAIN - VOMITING Nursing Triage Summary: abd pain History of Present Illness The patient is a 62 year old female who presents to the Emergency Room with complaints of persistent lower abdominal pain starting 5 hours ago. The patient is on a clinical trial for ovarian cancer. She currently rates her discomfort as a 9/10 in severity. The pain is in the mid to left lower abdomen. The pain does not go through to her back. She is feeling bloated. She is nauseous and has vomited 2 times. She denies any urinary symptoms or change in bowel movements. She has had 3 abdominal surgeries in the past for tumors. She denies any history of bowel obstruction. She notes that she receives regular blood transfusions. She has been feeling fatigued and SOB with exertion and suspects that she might be anemic again. She had a CT a couple weeks ago which found that some of the tumors in her abdomen had grown. She notes that she has a hernia. Source of History: patient, spouse/significant other Onset: 5 hours ago Position: abdomen (lower) Symptom Intensity: 9/10 Timing: other (persistent) Associated Symptoms: + SOB, + nausea, + vomiting, + fatigue, No back pain, No urinary symptoms Review of Systems See HPI for pertinent positives & negatives. A total of 10 systems reviewed and were otherwise negative. Past Medical & Surgical Medical Problems: (1) Calf pain (2) Esophageal Reflux (3) Hx Of Ovarian Malignancy (4) Hx-Venous Thrombosis&Embolism (5) Hypertension Nos (6) Hypertension Nos (7) Lethargy (8) Obstructive Sleep Apnea (Adult) (Pediatric) (9) Oth Pulmon Embolism/Infarct Surgical Problems: (1) Cystic Kidney Disease, Unspecified Family History Diabetes mellitus Social History Smoking Status: Never Smoker Alcohol Use: occasionally Marital Status: Housing Status: lives with significant other Occupation Status: employed Current/Historical Medications Scheduled Cyanocobalamin (Vitamin B-12), 50 MCG PO QAM Hydrocortisone (Cortef), 15 MG PO QAM Hydrocortisone (Cortef), 5 MG PO AFTERNOON Levothyroxine Sodium (Synthroid), 50 MCG PO DAILY Pantoprazole (Protonix), 40 MG PO DAILY Scheduled PRN Loratadine (Claritin), 10 MG PO DAILY PRN for Allergy Symptoms Oxycodone HCl (Oxycodone HCl), 5-10 MG PO Q6H PRN for Severe Pain Sennosides-Docusate Sodium (Senokot S), 2 TAB PO TIDM PRN for Constipation Allergies Coded Allergies: Carboplatin (Verified Allergy, Severe, anaphylactic reaction, 11/17/17) Physical Exam Vital Signs Date Time Temp Pulse Resp B/P (MAP) Pulse Ox O2 Delivery O2 Flow Rate FiO2 12/07/17 23:01 37.0 88 21 119/80 95 12/07/17 22:53 37.0 88 21 119/80 95 Room Air 12/07/17 22:26 87 21 122/70 95 Room Air 12/07/17 21:30 83 19 127/81 93 12/07/17 21:20 91 12/07/17 20:53 37.0 94 18 110/72 98 Room Air Physical Exam GENERAL: Patient is in moderate distress secondary to pain. HEENT: No acute trauma, normocephalic atraumatic, mucous membranes moist, no nasal congestion, no scleral icterus. NECK: No stridor, no adenopathy, no meningismus, trachea is midline. LUNGS: Clear to auscultation bilaterally, no wheeze, no rhonchi, breath sounds equal. HEART: Without murmurs gallops or rubs, regular rate and rhythm. ABDOMEN: Soft, moderately tender in the LLQ, bowel sounds positive, no hernias, no peritonitis. EXTREMITIES: No cyanosis or edema, full range of motion of all the joints without pain or difficulty, no signs for acute trauma. NEUROLOGIC: Oriented x 3, no acute motor or sensory deficits, no focal weakness. SKIN: No rash, no jaundice, no diaphoresis. Medical Decision & Procedures ER Provider Diagnostic Interpretation: X-ray results as stated below per interpretation by me and the radiologist. Radiology results as stated below per my review and radiologist interpretation: CHEST ONE VIEW PORTABLE CLINICAL HISTORY: ABDOMINAL PAIN/GI pain. Nausea. COMPARISON STUDY: 01/16/2017 FINDINGS: Mild cardiomegaly. Atelectasis versus minimal infiltrate left base. Lungs otherwise are clear. The diaphragms are smooth. IMPRESSION: Atelectasis versus minimal infiltrate left base. Mild cardiomegaly. The above report was generated using voice recognition software. It may contain grammatical, syntax or spelling errors. Electronically signed by: Isaias Dangelo M.D. 12/07/2017 10:02 PM Dictated Date/Time: 12/07/2017 10:01 PM ABD/PELVIS IV CONTRAST ONLY CT DOSE: 566.90 mGy.cm HISTORY: Nausea. Vomiting. ABD PAIN, POSS OBSTRUCTION, IV CONTRAST ONLY TECHNIQUE: Multiaxial CT images of the abdomen and pelvis were performed following the use of intravenous contrast. A dose lowering technique was utilized adhering to the principles of ALARA. COMPARISON STUDY: 11/17/2017 FINDINGS: Minimal basilar interstitial change. This is slightly increased in prominence in the prior study. There are findings of a prior cholecystectomy. There is a small benign hemangioma of the anterior margin right hepatic lobe image 126. Gallbladder is surgically absent. Pancreas is unremarkable. Kidneys negative for hydronephrosis. Several small renal cortical cysts are present. There metastatic implants along the anterior abdominal wall which are stable. Masslike implants within the left lateral aspect of the soft tissue pelvis are stable as are implants within the right central pelvis. Increase in fecal material within the rectosigmoid consistent with fecal stasis. Additional findings of carcinomatosis are stable. No evidence for abdominal ascites. This study is considered unchanged in the prior study dated 11/17/2017. IMPRESSION: 1. 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 2. This is unchanged from the prior exam and again is consistent with a patient's known clinical history of ovarian carcinoma. 3. Increased fecal load within the colon and rectosigmoid consistent with fecal stasis. 4. The bowel pattern at this time is considered nonobstructive 5. Prior cholecystectomy. 6. Interstitial prominence both lung bases slightly progressive from the prior study and potentially is inflammatory. The above report was generated using voice recognition software. It may contain grammatical, syntax or spelling errors. Electronically signed by: Isaias Dangelo M.D. 12/07/2017 10:26 PM Dictated Date/Time: 12/07/2017 10:20 PM Laboratory Results 12/07/17 21:00 Red Blood Count 4.29, Mean Corpuscular Volume 71.8, Mean Corpuscular Hemoglobin 21.4, Mean Corpuscular Hemoglobin Concent 29.9, Mean Platelet Volume 9.4, Neutrophils (%) (Auto) 78.6, Lymphocytes (%) (Auto) 10.7, Monocytes (%) (Auto) 9.2, Eosinophils (%) (Auto) 1.1, Basophils (%) (Auto) 0.1, Neutrophils # (Auto) 8.34, Lymphocytes # (Auto) 1.14, Monocytes # (Auto) 0.98, Eosinophils # (Auto) 0.12, Basophils # (Auto) 0.01 12/07/17 21:00 Test 12/07/17 21:00 White Blood Count 10.62 K/uL (4.8-10.8) Red Blood Count 4.29 M/uL (4.2-5.4) Hemoglobin 9.2 g/dL (12.0-16.0) Hematocrit 30.8 % (37-47) Mean Corpuscular Volume 71.8 fL (80-100) Mean Corpuscular Hemoglobin 21.4 pg (25-34) Mean Corpuscular Hemoglobin Concent 29.9 g/dl (32-36) Platelet Count 405 K/uL (130-400) Mean Platelet Volume 9.4 fL (7.4-10.4) Neutrophils (%) (Auto) 78.6 % Lymphocytes (%) (Auto) 10.7 % Monocytes (%) (Auto) 9.2 % Eosinophils (%) (Auto) 1.1 % Basophils (%) (Auto) 0.1 % Neutrophils # (Auto) 8.34 K/uL (1.4-6.5) Lymphocytes # (Auto) 1.14 K/uL (1.2-3.4) Monocytes # (Auto) 0.98 K/uL (0.11-0.59) Eosinophils # (Auto) 0.12 K/uL (0-0.5) Basophils # (Auto) 0.01 K/uL (0-0.2) RDW Standard Deviation 52.7 fL (36.4-46.3) RDW Coefficient of Variation 20.2 % (11.5-14.5) Immature Granulocyte % (Auto) 0.3 % Immature Granulocyte # (Auto) 0.03 K/uL (0.00-0.02) Polychromasia 1+ Hypochromasia PRESENT Microcytosis PRESENT Prothrombin Time 10.0 SECONDS (9.0-12.0) Prothromb Time International Ratio 1.0 (0.9-1.1) Activated Partial Thromboplast Time 23.4 SECONDS (21.0-31.0) Partial Thromboplastin Ratio 0.9 Anion Gap 4.0 mmol/L (3-11) Est Creatinine Clear Calc Drug Dose 76.5 ml/min Estimated GFR () 84.5 Estimated GFR (Non- 72.9 BUN/Creatinine Ratio 19.2 (10-20) Calcium Level 8.8 mg/dl (8.5-10.1) Magnesium Level 1.8 mg/dl (1.8-2.4) Total Bilirubin 0.4 mg/dl (0.2-1) Aspartate Amino Transf (AST/SGOT) 12 U/L (15-37) Alanine Aminotransferase (ALT/SGPT) 17 U/L (12-78) Alkaline Phosphatase 89 U/L (45-117) Troponin I < 0.015 ng/ml (0-0.045) Total Protein 6.7 gm/dl (6.4-8.2) Albumin 3.1 gm/dl (3.4-5.0) Globulin 3.6 gm/dl (2.5-4.0) Albumin/Globulin Ratio 0.9 (0.9-2) Lipase 110 U/L (73-393) Thyroid Stimulating Hormone (TSH) 1.440 uIu/ml (0.300-4.500) Free Thyroxine 1.20 ng/dl (0.80-1.60) Laboratory results reviewed by me. Medications Administered Medications (Trade) Dose Ordered Sig/Peterson Route Start Time Stop Time Status Last Admin Dose Admin Sodium Chloride 500 ml @ 999 mls/hr Q31M STAT IV 12/07/17 21:15 12/07/17 21:45 DC 12/07/17 21:26 999 MLS/HR Ondansetron HCl (Zofran Inj) 4 mg NOW STAT IV 12/07/17 21:15 12/07/17 21:19 DC 12/07/17 21:26 4 MG Hydrocortisone Sodium Succinate (Solu-Cortef IV) 100 mg NOW STAT IV 12/07/17 21:15 12/07/17 21:19 DC 12/07/17 21:26 100 MG Ondansetron HCl (Zofran Inj) 4 mg NOW STAT IV 12/07/17 21:15 12/07/17 21:19 DC 12/07/17 21:33 4 MG Morphine Sulfate (MoRPHine SULFATE INJ) 6 mg Q15M PRN IV 12/07/17 21:15 12/07/17 23:32 DC 12/07/17 22:02 6 MG Senna/Docusate Sodium (Senokot S Tab) 2 tab NOW ONCE PO 12/07/17 23:00 12/07/17 23:01 DC 12/07/17 22:50 2 TAB Ondansetron HCl (ZOFRAN ODT 4MG Home Pack) 1 homepack UD ONCE PO 12/07/17 23:00 12/07/17 23:01 DC 12/07/17 22:50 1 HOMEPACK ECG Per My Interpretation Indication: abdominal pain Rate (beats per minute): 85 Rhythm: normal sinus Findings: no acute ischemic change, other (no ST elevation, no PVC) ED Course 2110: The patient was evaluated in room A11B. A complete history and physical exam was performed. 2114: Morphine Sulfate 6 mg IV, Zofran Inj 4 mg IV, Solu-Cortef IV 100 mg IV, Zofran Inj 4 mg IV, Sodium Chloride 500 ml @ 999 mls/hr IV. 2239: Reevaluated the patient. Discussed results and discharge instructions: She verbalized understanding and agreement. The patient is ready for discharge. 2299: Zofran Odt 4 mg 1 homepack PO, Senokot S Tab 2 tab PO. Medical Decision Differential diagnoses considered include bowel obstruction, pain from tumor, ovarian torsion, electrolyte imbalance, anemia, hernia, diverticulitis, bowel rupture, UTI, pancreatitis. There is no leukocytosis. The patient is anemic but this looks relatively baseline looking back at previous testing. No significant electrolyte abnormality, kidney failure or hepatitis. No pancreatitis. Chest film does not show free air or pneumonia. EKG shows a normal sinus rhythm, no acute ischemia. Cardiac enzyme testing 1 is not consistent with acute cardiac injury. Abdominal and pelvis CT does not show bowel obstruction, carcinomatosis was seen. The patient was constipated. The CT was similar to the CT performed a few weeks ago. On my exam, the patient was not febrile or toxic. There was no peritonitis. Patient received IV saline, IV morphine and IV Zofran. She was given a dose of IV hydrocortisone as stress dose steroids. She received oral Senokot. The patient is feeling improved. She does want to go home. I think this is reasonable. She will be using Senokot and MiraLAX, she can take her pain medications as before. Follow-up with her cancer doctor and family doctor were suggested. She can return here for increasing pain, fever or persistent vomiting. She was given a Zofran home pack at discharge. It appears her pain and discomfort are from the cancer coupled with the constipation. Medication Reconcilliation Current Medication List: was personally reviewed by me Blood Pressure Screening Patient's blood pressure: Normal blood pressure Blood pressure disposition: Did not require urgent referral Impression Primary Impression: Lower abdominal pain Additional Impressions: Ovarian cancer Constipation Tumor associated pain Scribe Attestation The scribe's documentation has been prepared under my direction and personally reviewed by me in its entirety. I confirm that the note above accurately reflects all work, treatment, procedures, and medical decision making performed by me. Departure Information Dispostion Home / Self-Care Prescriptions Sennosides-Docusate Sodium (SENOKOT S) 1 Tab Tab 2 TAB PO TIDM Y for Constipation, #20 TAB Prov: Jonas Britt M.D. 12/07/17 Referrals Mo Molina Jr,D.O. (PCP) Forms Call Back Authorization, HOME CARE DOCUMENTATION FORM, IMPORTANT VISIT INFORMATION Patient Instructions My [facility] Additional Instructions use senokot 2 tab 2-3 times per day to help bowel movements use zofran 1 tab every 6 hours for nausea use your pain pills at home if needed bland diet fluids, rest miralax 1 heaping capfull in 8 oz of gatorade every few hours until start having bowel movements return for fever, worsening symptoms or persistent vomiting follow with your doctors this week Problem Qualifiers
== END 2017-12-07 23:02 | disposition home or self-care (01) ==
LOC: C.EDB 20:39 → C.EDA 23:02
DX: R10.30 Lower abdominal pain, unspecified (principal); C56.9 Malignant neoplasm of unspecified ovary; K59.00 Constipation, unspecified; G89.3 Neoplasm related pain (acute) (chronic); K21.9 Gastro-esophageal reflux disease without esophagitis; I10 Essential (primary) hypertension; G47.33 Obstructive sleep apnea (adult) (pediatric); Z86.711 Personal history of pulmonary embolism; Z79.899 Other long term (current) drug therapy; Z88.8 Allergy status to other drugs, medicaments and biological substances

== ENCOUNTER 2017-12-25 21:21 | Inpatient (IN) | payer BC ==
[~2017-12-25] VITALS: Ht 170.2 cm; Wt 81.2 kg
[~2017-12-25 21:21] MED LIST changes: -OXYC1TAB3 PO; -PPTBS PO
[2017-12-25] MEDS ORDERED: HYDROCORTISONE SOD SUCCINATE 100 MG/2 ML VIAL IV STA (21:36)
[2017-12-25] MEDS ORDERED: DiphenhydrAMINE HCL 50 MG/ML VIAL IV STA (21:36)
[2017-12-25] MEDS ORDERED: SODIUM CHLORIDE 0.9% 1000ML 1,000 ML IV STA ×2 (21:36)
[2017-12-25] MEDS ORDERED: METOCLOPRAMIDE HCL INJ 5 MG/ML 2 ML VIAL IV STA (21:36)
[2017-12-25] MEDS ORDERED: DICYCLOMINE HCL 10 MG/ML 2 ML AMP IM ONE (21:45)
[2017-12-25] MEDS ORDERED: OXYC-609 PO (22:14)
[2017-12-25] MEDS ORDERED: CLR10 PO (22:14)
[2017-12-25] MEDS ORDERED: KETOROLAC TROMETHAMINE 30 MG/ML VIAL IV STA (22:18)
[2017-12-25 22:38] LABS: HEMOGLOBIN 10.3 g/dL (12.0-16.0); MEAN CELL VOLUME 71.7 fL (80-100); MEAN CORPUSCULAR HEMOGLOBIN 21.7 pg (25-34); MEAN CORPUSCULAR HGB CONC 30.3 g/dl (32-36); MEAN PLATELET VOLUME 9.4 fL (7.4-10.4); PLATELET COUNT 410 K/uL (130-400); RED CELL DISTRIBUTION WIDTH CV 19.9 % (11.5-14.5); RED CELL DISTRIBUTION WIDTH SD 52.5 fL (36.4-46.3)
[2017-12-25 22:43] LABS: BASO % 0.6 %; BASO ABS # 0.03 K/uL (0-0.2); EOS % 1.9 %; IG# 0.01 K/uL (0.00-0.02); LYMPH % 24.4 %; LYMPH ABS # 1.32 K/uL (1.2-3.4); MONO ABS # 0.65 K/uL (0.11-0.59); NEUT % 60.9 %; NEUT ABS # 3.29 K/uL (1.4-6.5)
--- NOTE | 2017-12-25 22:49 | DIAGNOSTIC IMAGING REPORT ---
ABDOMEN 2VIEW W/PA CHEST RTN CLINICAL HISTORY: Abdominal pain, nausea, vomiting, diarrhea, history of ovarian carcinoma COMPARISON STUDY: Chest x-ray dated 12/07/2017 FINDINGS: Erect chest reveals no free intraperitoneal air. There are minor left basilar airspace opacities likely atelectatic.] Supine views the abdomen reveal surgical clips within the right upper quadrant consistent with a prior cholecystectomy. At least one surgical anastomotic suture line is visualized. There are several dilated small bowel loops. There is gas present within the colon. IMPRESSION: 1. No evidence of free intraperitoneal air 2. Nonspecific bowel gas pattern with several dilated small bowel loops. There is however gas present within the colon. A partial or early small bowel obstruction cannot be excluded Electronically signed by: Gustavo Valentin M.D. 12/25/2017 10:48 PM Dictated Date/Time: 12/25/2017 10:44 PM
[2017-12-25 22:50] LABS: BLOOD UREA NITROGEN 14 mg/dl (7-18); CALCIUM 8.8 mg/dl (8.5-10.1); CARBON DIOXIDE 30 mmol/L (21-32); CREATININE 0.86 mg/dl (0.60-1.20); GLUCOSE 102 mg/dl (70-99); POTASSIUM 3.4 mmol/L (3.5-5.1); SODIUM 139 mmol/L (136-145); TOTAL PROTEIN 6.5 gm/dl (6.4-8.2)
[2017-12-25 22:51] LABS: ALKALINE PHOSPHATASE 89 U/L (45-117); ALT/SGPT 19 U/L (12-78); AST/SGOT 18 U/L (15-37); LIPASE 113 U/L (73-393)
[2017-12-25] MEDS ORDERED: OPTIRAY 320 IV PRN (23:45)
[2017-12-26] VITALS (7 sets, daily range): BP systolic 95–142; BP diastolic 60–86; PULSE 66–79; TEMP 36.2–36.9; O2SAT 91–96; Ht 170.2 cm; Wt 81.2 kg
--- NOTE | 2017-12-26 00:38 | EMERGENCY ROOM VISIT NOTE ---
History First contact with patient: 21:26 Chief Complaint: CONSTIPATION Stated Complaint: BAD STOMACH PAIN History of Present Illness The patient is a 62 year old female who presents to the Emergency Room with complaints of lower abdominal cramping and bloating with nausea and vomiting who has ovarian cancer with metastases who is in a clinical trial at [facility] in [place] for the past 2 and half years he gets IV immunosuppression therapy every 4 weeks. This is the patient's third ER visit this month for this ongoing issue with constipation and bloating and pain. Patient tried MiraLAX and stool softeners with minimal improvement of symptoms. Patient states she had nausea and vomiting and takes Cortef for adrenal insufficiency secondary to her chemotherapy. She feels as if she is adrenal deficient now. She has not taken any extra steroids. She has been vomiting. Patient denies chest pain, dyspnea, fever, chills, back pain, urinary symptoms. Patient states she does not feel like she is moving her bowels appropriately. No history of bowel obstructions. She has had prior abdominal surgeries. Review of Systems An 10 system review of systems was completed with positives and pertinent negatives listed in the HPI. Past Medical/Surgical History Medical Problems: (1) Calf pain (2) Esophageal Reflux (3) Hx Of Ovarian Malignancy (4) Hx-Venous Thrombosis&Embolism (5) Hypertension Nos (6) Hypertension Nos (7) Lethargy (8) Obstructive Sleep Apnea (Adult) (Pediatric) (9) Oth Pulmon Embolism/Infarct Surgical Problems: (1) Cystic Kidney Disease, Unspecified Ovarian cancer with metastases, hysterectomy Family History Diabetes mellitus Social History Smoking Status: Former Smoker Alcohol Use: occasionally Marital Status: Housing Status: lives with significant other Occupation Status: employed Current/Historical Medications Scheduled Cyanocobalamin (Vitamin B-12), 50 MCG PO QAM Hydrocortisone (Cortef), 15 MG PO QAM Hydrocortisone (Cortef), 5 MG PO AFTERNOON Levothyroxine Sodium (Synthroid), 50 MCG PO DAILY Pantoprazole (Protonix), 40 MG PO DAILY Scheduled PRN Loratadine (Claritin), 10 MG PO DAILY PRN for Allergy Symptoms Oxycodone HCl (Oxycodone HCl), 5-10 MG PO Q6H PRN for Severe Pain Physical Exam Vital Signs Date Time Temp Pulse Resp B/P (MAP) Pulse Ox O2 Delivery O2 Flow Rate FiO2 12/25/18 23:41 74 18 114/73 93 Room Air 12/25/17 21:23 36.7 80 16 123/76 99 Room Air Physical Exam VITALS: Vitals are noted on the nurse's note and reviewed by myself. Vital signs stable. GENERAL: Pleasant female who appears uncomfortable, in no acute distress, nondiaphoretic, well-developed well-nourished. SKIN: The skin was without rashes, erythema, edema, or bruising. There is no tenting of the skin. Capillary reflex less than 2 seconds. HEAD: Normocephalic atraumatic. EARS: External auditory canals clear EYES: Pupils equal round and reactive to light and accommodation. Conjunctivae without injection, sclerae without icterus. Extraocular movements intact. NOSE: Patent, turbinates without inflammation or discharge. MOUTH: Mucous membranes moist. Pharynx without erythema or exudate. Uvula midline. Airway patent. Tongue does not deviate. NECK: Supple without nuchal rigidity. No lymphadenopathy. No thyromegaly. Cervical spine is nontender. No JVD. HEART: Regular rate and rhythm without murmurs gallops or rubs. LUNGS: Clear to auscultation bilaterally without wheezes, rales or rhonchi. No retractions or accessory muscle use. ABDOMEN: Positive bowel sounds x 4. Normal tympanic percussion. Soft, tender to palpation lower abdomen, distended, without masses or organomegaly. Kline sign negative. No guarding or rebound tenderness. No CVA tenderness MUSCULOSKELETAL: No muscle atrophy, erythema, or edema noted. NEURO: Patient was alert and oriented to person place and time. Normal sensation to light and sharp touch. No focal neurological deficits. Medical Decision & Procedures Laboratory Results 12/25/17 22:00 Red Blood Count 4.74, Mean Corpuscular Volume 71.7, Mean Corpuscular Hemoglobin 21.7, Mean Corpuscular Hemoglobin Concent 30.3, Mean Platelet Volume 9.4, Neutrophils (%) (Auto) 60.9, Lymphocytes (%) (Auto) 24.4, Monocytes (%) (Auto) 12.0, Eosinophils (%) (Auto) 1.9, Basophils (%) (Auto) 0.6, Neutrophils # (Auto ) 3.29, Lymphocytes # (Auto) 1.32, Monocytes # (Auto) 0.65, Eosinophils # (Auto ) 0.10, Basophils # (Auto) 0.03 12/25/17 22:00 Test 12/25/17 22:00 White Blood Count 5.40 K/uL (4.8-10.8) Red Blood Count 4.74 M/uL (4.2-5.4) Hemoglobin 10.3 g/dL (12.0-16.0) Hematocrit 34.0 % (37-47) Mean Corpuscular Volume 71.7 fL (80-100) Mean Corpuscular Hemoglobin 21.7 pg (25-34) Mean Corpuscular Hemoglobin Concent 30.3 g/dl (32-36) Platelet Count 410 K/uL (130-400) Mean Platelet Volume 9.4 fL (7.4-10.4) Neutrophils (%) (Auto) 60.9 % Lymphocytes (%) (Auto) 24.4 % Monocytes (%) (Auto) 12.0 % Eosinophils (%) (Auto) 1.9 % Basophils (%) (Auto) 0.6 % Neutrophils # (Auto) 3.29 K/uL (1.4-6.5) Lymphocytes # (Auto) 1.32 K/uL (1.2-3.4) Monocytes # (Auto) 0.65 K/uL (0.11-0.59) Eosinophils # (Auto) 0.10 K/uL (0-0.5) Basophils # (Auto) 0.03 K/uL (0-0.2) RDW Standard Deviation 52.5 fL (36.4-46.3) RDW Coefficient of Variation 19.9 % (11.5-14.5) Immature Granulocyte % (Auto) 0.2 % Immature Granulocyte # (Auto) 0.01 K/uL (0.00-0.02) Hypochromasia PRESENT Anion Gap 7.0 mmol/L (3-11) Est Creatinine Clear Calc Drug Dose 74.1 ml/min Estimated GFR () 83.3 Estimated GFR (Non- 71.9 BUN/Creatinine Ratio 16.5 (10-20) Calcium Level 8.8 mg/dl (8.5-10.1) Magnesium Level 1.8 mg/dl (1.8-2.4) Total Bilirubin 0.3 mg/dl (0.2-1) Direct Bilirubin < 0.1 mg/dl (0-0.2) Aspartate Amino Transf (AST/SGOT) 18 U/L (15-37) Alanine Aminotransferase (ALT/SGPT) 19 U/L (12-78) Alkaline Phosphatase 89 U/L (45-117) Total Protein 6.5 gm/dl (6.4-8.2) Albumin 3.0 gm/dl (3.4-5.0) Lipase 113 U/L (73-393) Thyroid Stimulating Hormone (TSH) 1.950 uIu/ml (0.300-4.500) Medications Administered Medications (Trade) Dose Ordered Sig/Peterson Route Start Time Stop Time Status Last Admin Dose Admin Dicyclomine HCl (Bentyl Inj) 20 mg NOW ONCE IM 12/25/17 21:45 12/25/17 21:46 DC 12/25/17 21:56 20 MG Sodium Chloride 1,000 ml @ 125 mls/hr Q8H STAT IV 12/25/17 21:36 12/26/17 05:35 12/25/17 23:41 125 MLS/HR Sodium Chloride 1,000 ml @ 999 mls/hr Q1H1M STAT IV 12/25/17 21:36 12/25/17 22:36 DC 12/25/17 21:57 999 MLS/HR Hydrocortisone Sodium Succinate (Solu-Cortef IV) 100 mg NOW STAT IV 12/25/17 21:36 12/25/17 21:39 DC 12/25/17 21:56 100 MG Metoclopramide HCl (Reglan Inj) 10 mg NOW STAT IV 12/25/17 21:36 12/25/17 21:39 DC 12/25/17 21:56 10 MG Diphenhydramine HCl (Benadryl Inj) 12.5 mg NOW STAT IV 12/25/17 21:36 12/25/17 21:40 DC 12/25/17 21:56 12.5 MG Ketorolac Tromethamine (Toradol Inj) 10 mg NOW STAT IV 12/25/17 22:18 12/25/17 22:19 DC 12/25/17 22:39 10 MG ED Course Prior records/ancillary studies reviewed. Triage Nursing notes reviewed. Additional history obtained from family. The patient's history was concerning for abdominal pain with known history of ovarian carcinoma with metastases who is in a clinical trial currently. Differential diagnosis: Etiologies such as progression of ovarian carcinoma, appendicitis, diverticulitis, PUD, biliary pathology, UTI, pancreatitis, obstruction, mesenteric ischemia, aortic pathology, infections, inflammatory bowel disease, renal colic, as well as others were entertained. Physical examination findings: As above. ER treatment provided: Bentyl, Reglan, Benadryl, IV fluids, Toradol On reassessment the patient felt better. Diagnostics interpreted by me: The labs revealed improving H&H. No leukocytosis. Imaging studies: CT ABDOMEN & PELVIS With Contrast: Comparison December 07. Again noted are post postoperative changes including surgical changes of bowel. There is increasing/more diffuse small bowel distention compared to the previous. Findings may represent obstructive process with transition in region of surgical change of small bowel in the pelvis. There is some increasing ectasia of the right greater than left collecting systems. No significant hydronephrosis. Suspect this is related to extrinsic mass effect by dilated small bowel with some increasing bladder distention possibly contributing. No other significant changes appreciated. Soft tissue masses in the pelvis and body wall and other unchanged findings again noted. Radiologist: Michael Davis M.D. [~ rep ct add3]] ABDOMEN 2VIEW W/PA CHEST RTN CLINICAL HISTORY: Abdominal pain, nausea, vomiting, diarrhea, history of ovarian carcinoma COMPARISON STUDY: Chest x-ray dated 12/07/2017 FINDINGS: Erect chest reveals no free intraperitoneal air. There are minor left basilar airspace opacities likely atelectatic.] Supine views the abdomen reveal surgical clips within the right upper quadrant consistent with a prior cholecystectomy. At least one surgical anastomotic suture line is visualized. There are several dilated small bowel loops. There is gas present within the colon. IMPRESSION: 1. No evidence of free intraperitoneal air 2. Nonspecific bowel gas pattern with several dilated small bowel loops. There is however gas present within the colon. A partial or early small bowel obstruction cannot be excluded Electronically signed by: Gustavo Valentin M.D. ABD/PELVIS IV CONTRAST ONLY CT DOSE: 566.90 mGy.cm HISTORY: Nausea. Vomiting. ABD PAIN, POSS OBSTRUCTION, IV CONTRAST ONLY TECHNIQUE: Multiaxial CT images of the abdomen and pelvis were performed following the use of intravenous contrast. A dose lowering technique was utilized adhering to the principles of ALARA. COMPARISON STUDY: 11/17/2017 FINDINGS: Minimal basilar interstitial change. This is slightly increased in prominence in the prior study. There are findings of a prior cholecystectomy. There is a small benign hemangioma of the anterior margin right hepatic lobe image 126. Gallbladder is surgically absent. Pancreas is unremarkable. Kidneys negative for hydronephrosis. Several small renal cortical cysts are present. There metastatic implants along the anterior abdominal wall which are stable. Masslike implants within the left lateral aspect of the soft tissue pelvis are stable as are implants within the right central pelvis. Increase in fecal material within the rectosigmoid consistent with fecal stasis. Additional findings of carcinomatosis are stable. No evidence for abdominal ascites. This study is considered unchanged in the prior study dated 11/17/2017. IMPRESSION: 1. 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 2. This is unchanged from the prior exam and again is consistent with a patient's known clinical history of ovarian carcinoma. 3. Increased fecal load within the colon and rectosigmoid consistent with fecal stasis. 4. The bowel pattern at this time is considered nonobstructive 5. Prior cholecystectomy. 6. Interstitial prominence both lung bases slightly progressive from the prior study and potentially is inflammatory. The above report was generated using voice recognition software. It may contain grammatical, syntax or spelling errors. Electronically signed by: Isaias Dangelo M.D. 12/07/2017 10:26 PM Dictated Date/Time: 12/07/2017 10:20 PM Consultation: A consultation was placed with the Dr. Rodríguez and the resident. The case was discussed and diagnostics were reviewed. The patient was evaluated in the ER for further treatment. Exam and history seem consistent with possible developing small bowel obstruction. Patient was placed n.p.o. and will be evaluated by medicine. Patient had no leukocytosis. Improving H&H. Patient is agreeable to treatment plan. By the evaluation outlined above emergent etiologies such as appendicitis , diverticulitis, PUD, biliary pathology, UTI, pancreatitis, mesenteric ischemia, aortic pathology, infections, inflammatory bowel disease, renal colic , as well as others were deemed relatively unlikely. The pt informed about the findings as listed above. All questions were answered and pleased with the treatment Case reviewed with my attending. The chart was completed utilizing [employer] voice recognition software. Grammatical errors, random word insertions, pronoun errors, and incomplete sentences are an occassional consequence of this system due to software limitations, ambient noise, and hardware issues. Any formal questions or concerns about the content, text, or information contained within the body of this dictation should be directly addressed to the physician special education teaching assistant for clarification. Medical Decision As above Medication Reconcilliation Current Medication List: was personally reviewed by me Blood Pressure Screening Patient's blood pressure: Normal blood pressure Impression Primary Impression: Small bowel obstruction Departure Information Dispostion Being Evaluated By Hospitalist Condition FAIR Referrals Mo Molina,,D.O. (PCP) Patient Instructions My [facility]
--- NOTE | 2017-12-26 01:13 | History and Physical ---
History & Physical Date & Time of Service: December 26, 2017 at 01:13 Chief Complaint: Bad Stomach Pain Primary Care Physician: Mo Molina Jr,D.O. History of Present Illness Source: patient, hospital records This is a 62 yo f with a longstanding history of metastatic ovarian cancer that presents to us with increasing abdominal pain and bloating. The patient has been seen in the ED approx 3 times in the past month for constipation and bloating. She was started on a bowel regimen and has been taking miralax and stool softeners with poor improvement in symptoms and ongoing constipation. She has also started to vomit leading to weakness and concerned the patient as she is adrenal deficient. The patient has been undergoing a clinical trial at [facility] in [place] for approx 2 1/2 years and immunosuppressive therapy q 4 weeks. She does not take chronic pain medications. Past Medical/Surgical History Medical Problems: (1) Abdominal pain (2) Altered mental status (3) Calf pain (4) Calf pain (5) Colitis (6) Constipation (7) Dehydration (8) Diarrhea (9) Esophageal Reflux (10) Hx Of Ovarian Malignancy (11) Hx-Venous Thrombosis&Embolism (12) Hypertension Nos (13) Hypertension Nos (14) Hypomagnesemia (15) Hypomagnesemia (16) Hypoxia (17) Lethargy (18) Lower abdominal pain (19) Nausea, vomiting, and diarrhea (20) Obstructive Sleep Apnea (Adult) (Pediatric) (21) Oth Pulmon Embolism/Infarct (22) Ovarian cancer (23) Tumor associated pain (24) Tumor associated pain (25) Vomiting (26) Weakness Surgical Problems: (1) Cystic Kidney Disease, Unspecified Family History Diabetes mellitus Social History Smoking Status: Former Smoker Smokeless Tobacco Use: No Alcohol Use: none Drug Use: none Marital Status: Housing status: lives with family Occupational Status: employed Immunizations History of Influenza Vaccine: Yes History of Tetanus Vaccine?: utd ? History of Pneumococcal: No History of Hepatitis B Vaccine: No Allergies Coded Allergies: Carboplatin (Verified Allergy, Severe, anaphylactic reaction, 11/17/17) Home Medications Scheduled Cyanocobalamin (Vitamin B-12), 50 MCG PO QAM Hydrocortisone (Cortef), 15 MG PO QAM Hydrocortisone (Cortef), 5 MG PO AFTERNOON Levothyroxine Sodium (Synthroid), 50 MCG PO DAILY Pantoprazole (Protonix), 40 MG PO DAILY Scheduled PRN Loratadine (Claritin), 10 MG PO DAILY PRN for Allergy Symptoms Oxycodone HCl (Oxycodone HCl), 5-10 MG PO Q6H PRN for Severe Pain Review of Systems Constitutional: No fever, No chills, No sweats Eyes: No worsening of vision ENT: No hearing loss Respiratory: No cough, No sputum, No wheezing, No shortness of breath, No dyspnea on exertion, No dyspnea at rest Cardiovascular: No chest pain Abdomen: + pain, + nausea, + vomiting, + constipation, No diarrhea, No GI bleeding Musculoskeletal: No joint pain, No muscle pain Genitourinary - Female: No dysuria Neurologic: + weakness, No numbness/tingling, No balance problems Psychiatric: No depression symptoms, No anxiety Endocrine: + fatigue Hematologic / Lymphatic: No abnormal bleeding/bruising Integumentary: No rash Physical Exam Vital Signs Date Time Temp Pulse Resp B/P (MAP) Pulse Ox O2 Delivery O2 Flow Rate FiO2 12/25/17 23:41 74 18 114/73 93 Room Air 12/25/17 21:23 36.7 80 16 123/76 99 Room Air General Appearance: no apparent distress Head: normocephalic, atraumatic Eyes: normal inspection ENT: normal ENT inspection Neck: supple Respiratory/Chest: normal breath sounds, no respiratory distress, no accessory muscle use Cardiovascular: regular rate, rhythm, no murmur, normal peripheral pulses Abdomen/GI: + distended, + pertinent finding (increased BS) Back: normal inspection Extremities/Musculoskelatal: no calf tenderness, no pedal edema, normal range of motion Neurologic/Psych: alert, normal mood/affect, oriented x 3 Skin: normal color, warm/dry, no rash Lymphatic: no adenopathy Diagnostics Laboratory Results Results Past 24 Hours Test 12/25/17 22:00 12/26/17 00:51 Range/Units White Blood Count 5.40 4.8-10.8 K/uL Red Blood Count 4.74 4.2-5.4 M/uL Hemoglobin 10.3 12.0-16.0 g/dL Hematocrit 34.0 37-47 % Mean Corpuscular Volume 71.7 80-100 fL Mean Corpuscular Hemoglobin 21.7 25-34 pg Mean Corpuscular Hemoglobin Concent 30.3 32-36 g/dl Platelet Count 410 130-400 K/uL Mean Platelet Volume 9.4 7.4-10.4 fL Neutrophils (%) (Auto) 60.9 % Lymphocytes (%) (Auto) 24.4 % Monocytes (%) (Auto) 12.0 % Eosinophils (%) (Auto) 1.9 % Basophils (%) (Auto) 0.6 % Neutrophils # (Auto) 3.29 1.4-6.5 K/uL Lymphocytes # (Auto) 1.32 1.2-3.4 K/uL Monocytes # (Auto) 0.65 0.11-0.59 K/uL Eosinophils # (Auto) 0.10 0-0.5 K/uL Basophils # (Auto) 0.03 0-0.2 K/uL RDW Standard Deviation 52.5 36.4-46.3 fL RDW Coefficient of Variation 19.9 11.5-14.5 % Immature Granulocyte % (Auto) 0.2 % Immature Granulocyte # (Auto) 0.01 0.00-0.02 K/uL Hypochromasia PRESENT Sodium Level 139 136-145 mmol/L Potassium Level 3.4 3.5-5.1 mmol/L Chloride Level 102 98-107 mmol/L Carbon Dioxide Level 30 21-32 mmol/L Anion Gap 7.0 3-11 mmol/L Blood Urea Nitrogen 14 7-18 mg/dl Creatinine 0.86 0.60-1.20 mg/dl Est Creatinine Clear Calc Drug Dose 74.1 ml/min Estimated GFR () 83.3 Estimated GFR (Non- 71.9 BUN/Creatinine Ratio 16.5 10-20 Random Glucose 102 70-99 mg/dl Calcium Level 8.8 8.5-10.1 mg/dl Magnesium Level 1.8 1.8-2.4 mg/dl Total Bilirubin 0.3 0.2-1 mg/dl Direct Bilirubin < 0.1 0-0.2 mg/dl Aspartate Amino Transf (AST/SGOT) 18 15-37 U/L Alanine Aminotransferase (ALT/SGPT) 19 12-78 U/L Alkaline Phosphatase 89 45-117 U/L Total Protein 6.5 6.4-8.2 gm/dl Albumin 3.0 3.4-5.0 gm/dl Lipase 113 73-393 U/L Thyroid Stimulating Hormone (TSH) 1.950 0.300-4.500 uIu/ml Urine Color YELLOW Urine Appearance CLEAR CLEAR Urine pH 5.0 4.5-7.5 Urine Specific [place] > 1.045 1.000-1.030 Urine Protein NEG NEG Urine Glucose (UA) NEG NEG Urine Ketones NEG NEG Urine Occult Blood NEG NEG Urine Nitrite NEG NEG Urine Bilirubin NEG NEG Urine Urobilinogen NEG NEG Urine Leukocyte Esterase NEG NEG Diagnostic Radiology CT abd: mass effect resulting in dilated small bowel, no overt obstruction bladder retention Impression Assessment and Plan this is a 62 yo f with longstanding metastatic ovarian cancer and hypothyroid/ hypocortisolism suffering from abdominal discomfort secondary to mass effect Abdominal pain secondary to partial SBO - admit med surg - NPO - Zosyn IV - NSS with 20 KCL Hypokalemia - supplement K - repeat BMP in am Metastatic Ovarian Ca with now mass effect on bowels - consult hem/onc Hypothyroidism - continue Synthroid 50 mcg Hypocortisolism Hydrocort 50 mg IV every 8 hours, taper down starting tomorrow - home dose is 5 mg in afternoon and 15 mg in am DVT Prophylaxis Lovenox Attending addendum: I have physically seen this patient, have supervised the medical residents activities, and agree with the H&P unless as otherwise noted. Assessment and Plan: Small bowel obstruction/mass-effect metastatic ovarian CA-- Admit nonmonitored bed. NPO Zosyn IV NSS + KCl 20 mEq 100 mils per hour. Serial laboratories. Consult oncology. Adrenal insufficiency-- Takes Cortef 15 mg every morning and 5 mg every afternoon. Stress dose hydrocortisone 100 mg initially given in the ED, will continue at 50 mg IV every 8 hours. Advanced Directives Existing Advance Directive: No Existing Living Will: No Existing Power of Master Police Detective: No Resuscitation Status VTE Prophylaxis Will order VTE Prophylaxis: Yes Social Service Consult None Apply, Cancer Patient Under [place] Note Total Time: Critical Care 30 - 74 minutes Additional Copies To Mo Molina Jr,D.O.
[2017-12-26] MEDS ORDERED: POLYETHYLENE (MIRALAX) 17 GM PACK PO PRN (01:15)
[2017-12-26] MEDS ORDERED: ALUMINUM/MAGNESIUM/SIMETH (MAALOX MAX) 30 ML UDC PO PRN (01:15)
[2017-12-26] MEDS ORDERED: ACETAMINOPHEN 325 MG TAB PO PRN (01:15)
[2017-12-26] MEDS ORDERED: MAGNESIUM HYDROXIDE SUSP 30 ML UDC PO PRN (01:15)
[2017-12-26] MEDS ORDERED: LORATADINE 10 MG TAB PO PRN (01:30)
[2017-12-26] MEDS: NSS + 20MEQ KCL 1000ML 1,000 ML IV SCH ×3 (02:38→18:33)
[2017-12-26] MEDS ORDERED: PIPERACILL/TAZOBAC CONSULT ACTIVE PRN (04:15)
[2017-12-26] MEDS ORDERED: PIPERACILL/TAZOBAC IV 3.375 GM in D5W 100 ML IV ONE (04:30)
[2017-12-26] MEDS ORDERED: PIPERACILL/TAZOBAC IV 3.375 GM in DEXTROSE 5% 100ML 100 ML IV SCH (05:00)
[2017-12-26] MEDS: LEVOTHYROXINE 50 MCG TAB PO SCH (06:18)
--- NOTE | 2017-12-26 07:41 | DIAGNOSTIC IMAGING REPORT ---
ABDOMEN AND PELVIS CT WITH IV CONTRAST CT DOSE: 588.92 mGy.cm HISTORY: Generalized abdominal pain. Ovarian cancer with metastatic disease. TECHNIQUE: Multiaxial CT images of the abdomen and pelvis were performed following the use of intravenous contrast. A dose lowering technique was utilized adhering to the principles of ALARA. COMPARISON STUDY: Abdomen and pelvis CT 12/07/2017. FINDINGS: Mild dependent changes seen at the lung bases. No pneumoperitoneum. No pneumatosis. No suspicious lytic or blastic osseous lesions. Cholecystectomy. Stable 1.2 cm hypodense lesion within the quadrate lobe of the liver. No new hepatic or splenic lesions. The adrenal glands and pancreas are unremarkable. Mild fullness within the bilateral renal collecting systems which has progressed. Normal bladder. The uterus is surgically absent. Multiple soft tissue masses are seen within the anterior abdomen, right retroperitoneal space, mesenteric, and pelvis consistent with metastatic disease. These are similar in size compared to the prior study. Progressive distention of the small bowel within the abdomen. These are filled with gas and fluid. These measure up to 4.9 cm in diameter and is consistent with a small bowel obstruction. Small bowel anastomosis seen within the right lower quadrant. Immediately proximal to the small bowel masses there is a 4.9 x 3.9 cm soft tissue mass appears to result in the transition point of the small bowel obstruction. This is best seen on image 65. IMPRESSION: 1. Progressive distention of the small bowel consistent with a small bowel obstruction. The transition point is located within the deep pelvis and is secondary to a 4.9 x 3.9 cm soft tissue mass. 2. No change in the metastatic disease as described above. 3. Mild fullness within the bilateral renal collecting systems which has progressed. Electronically signed by: Isiah Rizo M.D. 12/26/2017 7:40 AM Dictated Date/Time: 12/26/2017 7:33 AM
[2017-12-26] MEDS ORDERED: HYDROCORTISONE IV 50 MG in SYRINGE 0 ML IV SCH (08:00)
[2017-12-26] MEDS: PANTOprazole SOD 40 MG TAB PO SCH (09:24)
[2017-12-26] MEDS: CYANOCOBALAMIN 100 MCG TAB (VIT B-12) PO SCH (09:24)
[2017-12-26] MEDS: ENOXAPARIN 40 MG/0.4 ML SYR SQ SCH (09:25)
[2017-12-26] MEDS ORDERED: PIPERACILL/TAZOBAC IV 3.375 GM in D5W 100ML IV SCH (10:00)
[2017-12-26] MEDS: HYDROCORTISONE IV 50 MG in SYRINGE 0 ML IV SCH ×2 (10:07→16:09)
--- NOTE | 2017-12-26 11:01 | Oncology Consultation ---
Oncology/Heme Consultation Date of Consultation: December 26, 2017. Attending Physician: Franck Rodríguez M.D. Reason for Consultation: Metastatic ovarian cancer Partial small bowel obstruction Adrenal insufficiency History of Present Illness Ms. Anderson is a 62 year old woman with metastatic ovarian cancer. She has been on treatment through the [facility] with durvalumab, a PD-L1 inhibitor for the last 2.5 years. 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 She has had several recent ER visits for worsening abdominal pain and was found to have a tumor implant situated on her small bowel that appears to be causing a partial bowel obstruction. She has moved her bowels regularly throughout this time, but with variation in consistency and a good deal of bloating and pain. She's tried some laxatives at home, but has not found a regimen that keeps her regular. She report some nausea but no vomiting. Past Medical/Surgical History Medical Problems: (1) Abdominal pain Status: Acute (2) Altered mental status Status: Acute (3) Constipation Status: Acute (4) Dehydration Status: Acute (5) Hypomagnesemia Status: Acute (6) Hypomagnesemia Status: Acute (7) Hypoxia Status: Acute (8) Lower abdominal pain Status: Acute (9) Ovarian cancer Status: Acute (10) Small bowel obstruction Status: Acute (11) Tumor associated pain Status: Acute (12) Tumor associated pain Status: Acute (13) Weakness Status: Acute Family History Diabetes mellitus Social History Smoking Status: Former Smoker Smokeless Tobacco Use: No Alcohol Use: none Drug Use: none Marital Status: Housing Status: lives with significant other Occupation Status: employed Allergies Coded Allergies: Carboplatin (Verified Allergy, Severe, anaphylactic reaction, 11/17/17) Home Medications Scheduled Cyanocobalamin (Vitamin B-12), 50 MCG PO QAM Hydrocortisone (Cortef), 15 MG PO QAM Hydrocortisone (Cortef), 5 MG PO AFTERNOON Levothyroxine Sodium (Synthroid), 50 MCG PO DAILY Pantoprazole (Protonix), 40 MG PO DAILY Scheduled PRN Loratadine (Claritin), 10 MG PO DAILY PRN for Allergy Symptoms Oxycodone HCl (Oxycodone HCl), 5-10 MG PO Q6H PRN for Severe Pain Current Inpatient Medications Current Inpatient Medications Medications (Trade) Dose Ordered Sig/Peterson Route Start Time Stop Time Status Last Admin Dose Admin Ioversol (Optiray 320) 115 ml UD PRN IV 12/25/17 23:45 12/29/17 23:44 Enoxaparin Sodium (Lovenox Inj) 40 mg Q24H SQ 12/26/17 08:00 01/25/18 07:59 12/26/17 09:25 40 MG Acetaminophen (Tylenol Tab) 650 mg Q4H PRN PO 12/26/17 01:15 01/25/18 01:14 Al Hydrox/Mg Hydrox/Simethicone (Maalox Max Susp) 15 ml Q4H PRN PO 12/26/17 01:15 01/25/18 01:14 Magnesium Hydroxide (Milk Of Magnesia Susp) 30 ml Q6H PRN PO 12/26/17 01:15 01/25/18 01:14 Polyethylene (Miralax Powder Packet) 17 gm DAILY PRN PO 12/26/17 01:15 01/25/18 01:14 Ondansetron HCl (Zofran Inj) 4 mg Q6H PRN IV 12/26/17 01:15 01/25/18 01:14 Potassium Chloride/Sodium Chloride 1,000 ml @ 125 mls/hr Q8H IV 12/26/17 02:30 01/25/18 02:29 12/26/17 02:38 125 MLS/HR Levothyroxine Sodium (Synthroid Tab) 50 mcg DAILYBB PO 12/26/17 06:30 01/25/18 06:29 12/26/17 06:18 50 MCG Loratadine (Claritin Tab) 10 mg DAILY PRN PO 12/26/17 01:30 01/25/18 01:29 Pantoprazole Sodium (Protonix Tab) 40 mg DAILY PO 12/26/17 08:00 01/25/18 08:59 12/26/17 09:24 40 MG Cyanocobalamin (Vitamin B-12 Tab) 50 mcg QAM PO 12/26/17 08:00 01/25/18 08:59 12/26/17 09:24 50 MCG Hydrocortisone Sodium Succinate 50 mg/Syringe 1 ml @ 4 mls/min Q8H IV 12/26/17 08:00 01/25/18 08:59 12/26/17 10:07 4 MLS/MIN Review of Systems Constitutional: + fatigue, No fever Respiratory: No cough, No shortness of breath Cardiovascular: No chest pain Abdomen: + pain, + nausea, + constipation Musculoskeletal: No joint pain, No muscle pain Neurologic: No weakness Hematologic / Lymphatic: No abnormal bleeding/bruising Physical Exam Date Time Temp Pulse Resp B/P (MAP) Pulse Ox O2 Delivery O2 Flow Rate FiO2 12/26/17 07:00 36.2 66 18 95/60 (72) 91 Room Air 12/26/17 02:15 36.4 74 18 112/74 92 Room Air 12/26/17 01:59 75 16 117/93 93 12/25/17 23:41 74 18 114/73 93 Room Air 12/25/17 21:23 36.7 80 16 123/76 99 Room Air General Appearance: WD/WN, no apparent distress Respiratory/Chest: lungs clear Cardiovascular: regular rate, rhythm Abdomen/GI: non tender, soft Extremities/Musculoskelatal: no pedal edema Neurologic/Psych: alert, oriented x 3 Skin: no rash Laboratory Results Last 24 Hours Test 12/25/17 22:00 12/26/17 00:51 White Blood Count 5.40 K/uL Red Blood Count 4.74 M/uL Hemoglobin 10.3 g/dL Hematocrit 34.0 % Mean Corpuscular Volume 71.7 fL Mean Corpuscular Hemoglobin 21.7 pg Mean Corpuscular Hemoglobin Concent 30.3 g/dl Platelet Count 410 K/uL Mean Platelet Volume 9.4 fL Neutrophils (%) (Auto) 60.9 % Lymphocytes (%) (Auto) 24.4 % Monocytes (%) (Auto) 12.0 % Eosinophils (%) (Auto) 1.9 % Basophils (%) (Auto) 0.6 % Neutrophils # (Auto) 3.29 K/uL Lymphocytes # (Auto) 1.32 K/uL Monocytes # (Auto) 0.65 K/uL Eosinophils # (Auto) 0.10 K/uL Basophils # (Auto) 0.03 K/uL RDW Standard Deviation 52.5 fL RDW Coefficient of Variation 19.9 % Immature Granulocyte % (Auto) 0.2 % Immature Granulocyte # (Auto) 0.01 K/uL Hypochromasia PRESENT Sodium Level 139 mmol/L Potassium Level 3.4 mmol/L Chloride Level 102 mmol/L Carbon Dioxide Level 30 mmol/L Anion Gap 7.0 mmol/L Blood Urea Nitrogen 14 mg/dl Creatinine 0.86 mg/dl Est Creatinine Clear Calc Drug Dose 74.1 ml/min Estimated GFR () 83.3 Estimated GFR (Non- 71.9 BUN/Creatinine Ratio 16.5 Random Glucose 102 mg/dl Calcium Level 8.8 mg/dl Magnesium Level 1.8 mg/dl Total Bilirubin 0.3 mg/dl Direct Bilirubin < 0.1 mg/dl Aspartate Amino Transf (AST/SGOT) 18 U/L Alanine Aminotransferase (ALT/SGPT) 19 U/L Alkaline Phosphatase 89 U/L Total Protein 6.5 gm/dl Albumin 3.0 gm/dl Lipase 113 U/L Thyroid Stimulating Hormone (TSH) 1.950 uIu/ml Urine Color YELLOW Urine Appearance CLEAR Urine pH 5.0 Urine Specific [place] > 1.045 Urine Protein NEG Urine Glucose (UA) NEG Urine Ketones NEG Urine Occult Blood NEG Urine Nitrite NEG Urine Bilirubin NEG Urine Urobilinogen NEG Urine Leukocyte Esterase NEG Assessment & Plan Ms. Anderson has metastatic ovarian cancer and has done quite well now for more than 2 years while on immunotherapy. She has two large tumor implants, one in her pelvic side wall and the other situated on her small bowel. This latter lesion appears to be causing an intermittent bowel obstruction. She also has had melena and iron deficiency and it is possible this is the source. While we often try to avoid surgery in patients with peritoneal carcinomatosis, the reason is that the partial obstructions they develop are usually more functional , related to diffuse involvement of the visceral peritoneum, than a focal lesion causing a mechanical obstruction. However, in her case the source does appear to be focal. For now, I think conservative management with bowel rest is appropriate. But consideration could be made next week to the idea of a resection.
--- NOTE | 2017-12-26 16:18 | Family Medicine Progress Note ---
Progress Note Date of Service December 26, 2017. Subjective Pt evaluation today including: conversation w/ patient, conversation w/ family Pain: none Voiding: no voiding problems Reports feeling better. Would like to pursue further surgical care at [facility]. Constitutional: No fever, No chills Eyes: No worsening of vision ENT: No hearing loss Respiratory: No cough, No sputum, No wheezing, No shortness of breath, No dyspnea on exertion Cardiovascular: No chest pain Abdomen: + constipation, No pain, No nausea, No vomiting, No diarrhea Medications Medications (Trade) Dose Ordered Sig/Peterson Route Start Time Stop Time Status Last Admin Dose Admin Dicyclomine HCl (Bentyl Inj) 20 mg NOW ONCE IM 12/25/17 21:45 12/25/17 21:46 DC 12/25/17 21:56 20 MG Sodium Chloride 1,000 ml @ 125 mls/hr Q8H STAT IV 12/25/17 21:36 12/26/17 02:22 DC 12/25/17 23:41 125 MLS/HR Sodium Chloride 1,000 ml @ 999 mls/hr Q1H1M STAT IV 12/25/17 21:36 12/25/17 22:36 DC 12/25/17 21:57 999 MLS/HR Hydrocortisone Sodium Succinate (Solu-Cortef IV) 100 mg NOW STAT IV 12/25/17 21:36 12/25/17 21:39 DC 12/25/17 21:56 100 MG Metoclopramide HCl (Reglan Inj) 10 mg NOW STAT IV 12/25/17 21:36 12/25/17 21:39 DC 12/25/17 21:56 10 MG Diphenhydramine HCl (Benadryl Inj) 12.5 mg NOW STAT IV 12/25/17 21:36 12/25/17 21:40 DC 12/25/17 21:56 12.5 MG Ketorolac Tromethamine (Toradol Inj) 10 mg NOW STAT IV 12/25/17 22:18 12/25/17 22:19 DC 12/25/17 22:39 10 MG Enoxaparin Sodium (Lovenox Inj) 40 mg Q24H SQ 12/26/17 08:00 01/25/18 07:59 12/26/17 09:25 40 MG Potassium Chloride/Sodium Chloride 1,000 ml @ 125 mls/hr Q8H IV 12/26/17 02:30 01/25/18 02:29 12/26/17 11:55 125 MLS/HR Levothyroxine Sodium (Synthroid Tab) 50 mcg DAILYBB PO 12/26/17 06:30 01/25/18 06:29 12/26/17 06:18 50 MCG Pantoprazole Sodium (Protonix Tab) 40 mg DAILY PO 12/26/17 08:00 01/25/18 08:59 12/26/17 09:24 40 MG Cyanocobalamin (Vitamin B-12 Tab) 50 mcg QAM PO 12/26/17 08:00 01/25/18 08:59 12/26/17 09:24 50 MCG Hydrocortisone Sodium Succinate 50 mg/Syringe 1 ml @ 4 mls/min Q8H IV 12/26/17 08:00 01/25/18 08:59 12/26/17 10:07 4 MLS/MIN Piperacillin Sod/ Tazobactam Sod 3.375 gm/Dextrose 115 ml @ 230 mls/hr NOW ONCE IV 12/26/17 04:30 12/26/17 10:05 DC 12/26/17 05:20 230 MLS/HR Piperacillin Sod/ Tazobactam Sod 3.375 gm/Dextrose 115 ml @ 28.75 mls/ hr Q8H IV 12/26/17 10:00 12/26/17 10:05 DC 12/26/17 09:29 28.75 MLS/HR Objective Vital Signs Date Time Temp Pulse Resp B/P (MAP) Pulse Ox O2 Delivery O2 Flow Rate FiO2 12/26/17 15:26 36.8 72 18 119/78 (92) 92 12/26/17 11:25 36.6 69 18 109/73 (85) 93 Room Air 12/26/17 08:00 91 Room Air 12/26/17 07:00 36.2 66 18 95/60 (72) 91 Room Air 12/26/17 02:15 36.4 74 18 112/74 92 Room Air 12/26/17 01:59 75 16 117/93 93 12/25/17 23:41 74 18 114/73 93 Room Air 12/25/17 21:23 36.7 80 16 123/76 99 Room Air Physical Exam General Appearance: no apparent distress Eyes: PERRL, EOMI ENT: hearing grossly normal Neck: supple, no JVD Respiratory/Chest: lungs clear, normal breath sounds, no respiratory distress, no accessory muscle use Cardiovascular: regular rate, rhythm, no edema, no murmur Abdomen: normal bowel sounds, + tenderness (mild diffuse) Extremities: non-tender, no pedal edema Neurologic/Psychiatric: alert, normal mood/affect Laboratory Results Last 24 Hours Test 12/25/17 22:00 12/26/17 00:51 White Blood Count 5.40 K/uL Red Blood Count 4.74 M/uL Hemoglobin 10.3 g/dL Hematocrit 34.0 % Mean Corpuscular Volume 71.7 fL Mean Corpuscular Hemoglobin 21.7 pg Mean Corpuscular Hemoglobin Concent 30.3 g/dl Platelet Count 410 K/uL Mean Platelet Volume 9.4 fL Neutrophils (%) (Auto) 60.9 % Lymphocytes (%) (Auto) 24.4 % Monocytes (%) (Auto) 12.0 % Eosinophils (%) (Auto) 1.9 % Basophils (%) (Auto) 0.6 % Neutrophils # (Auto) 3.29 K/uL Lymphocytes # (Auto) 1.32 K/uL Monocytes # (Auto) 0.65 K/uL Eosinophils # (Auto) 0.10 K/uL Basophils # (Auto) 0.03 K/uL RDW Standard Deviation 52.5 fL RDW Coefficient of Variation 19.9 % Immature Granulocyte % (Auto) 0.2 % Immature Granulocyte # (Auto) 0.01 K/uL Hypochromasia PRESENT Sodium Level 139 mmol/L Potassium Level 3.4 mmol/L Chloride Level 102 mmol/L Carbon Dioxide Level 30 mmol/L Anion Gap 7.0 mmol/L Blood Urea Nitrogen 14 mg/dl Creatinine 0.86 mg/dl Est Creatinine Clear Calc Drug Dose 74.1 ml/min Estimated GFR () 83.3 Estimated GFR (Non- 71.9 BUN/Creatinine Ratio 16.5 Random Glucose 102 mg/dl Calcium Level 8.8 mg/dl Magnesium Level 1.8 mg/dl Total Bilirubin 0.3 mg/dl Direct Bilirubin < 0.1 mg/dl Aspartate Amino Transf (AST/SGOT) 18 U/L Alanine Aminotransferase (ALT/SGPT) 19 U/L Alkaline Phosphatase 89 U/L Total Protein 6.5 gm/dl Albumin 3.0 gm/dl Lipase 113 U/L Thyroid Stimulating Hormone (TSH) 1.950 uIu/ml Urine Color YELLOW Urine Appearance CLEAR Urine pH 5.0 Urine Specific [place] > 1.045 Urine Protein NEG Urine Glucose (UA) NEG Urine Ketones NEG Urine Occult Blood NEG Urine Nitrite NEG Urine Bilirubin NEG Urine Urobilinogen NEG Urine Leukocyte Esterase NEG Assessment and Plan this is a 62 yo f with longstanding metastatic ovarian cancer and hypothyroid/ hypocortisolism suffering from abdominal discomfort secondary to mass effect SBO 2/2 to mass effect by ovarian mass - advance to clears - D/C Zosyn - continue NSS with 20 KCL - Consult Surgery- patient will eventually speak to her Teaching Aide Surgeon Hypokalemia - supplement K - Follow BMP Metastatic Ovarian Ca with now mass effect on bowels - consult hem/onc - recommends eventually resecting the mass - Will defer to surgery and possibly discussion with patients Teaching Aide-surgeon Hypothyroidism - continue Synthroid 50 mcg Hypocortisolism Given stress doses Resume home dose DVT Prophylaxis Lovenox Resident Physician Supervision Note: I interviewed and examined the patient. Discussed with Dr. Garcia and agree with findings and plan as documented in the note. Any exceptions or clarifications are listed here: None Documented By: Sahil Haley feeling ok now notes that she's had recurrent sx lately discussed CT findings and conservative vs surgical treatment brenda noted nad breathing unlabored no pallor or icterus SBO - suspect relates to mass. clear liquids for now; with high likelihood of SBO related to mass and her recent track record - suspect that she'll do poorly when trying to advance diet. will ask for surgical eval. suspect if surgery needed would be better served with her housekeeper and laundry assistant/onc surgeon - but will move forward slowly to allow for rational decision making and discussion otherwise as above
[2017-12-27] MEDS: NSS + 20MEQ KCL 1000ML 1,000 ML IV SCH ×3 (01:50→17:34)
[2017-12-27] MEDS: hydrOXYzine HCL 25 MG TAB PO PRN (02:26)
[2017-12-27 06:32] LABS: CREATININE 0.68 mg/dl (0.60-1.20)
[2017-12-27] MEDS: PANTOprazole SOD 40 MG TAB PO SCH (07:30)
[2017-12-27] MEDS: LEVOTHYROXINE 50 MCG TAB PO SCH (07:30)
[2017-12-27] MEDS: ENOXAPARIN 40 MG/0.4 ML SYR SQ SCH (07:31)
[2017-12-27] MEDS: HYDROCORTISONE IV SCH ×2 (07:31→17:34)
[2017-12-27] MEDS: CYANOCOBALAMIN 100 MCG TAB (VIT B-12) PO SCH (07:31)
[2017-12-27 07:52] VITALS: BP 120/72; PULSE 68; TEMP 36.5; O2SAT 96
--- NOTE | 2017-12-27 09:04 | Family Medicine Progress Note ---
Progress Note Date of Service December 27, 2017. Subjective Pt evaluation today including: conversation w/ patient reports no abdominal pain, doing well. Tolerated clears Would like to advance diet Constitutional: No fever, No chills Eyes: No worsening of vision Respiratory: No cough, No sputum, No shortness of breath, No dyspnea on exertion Cardiovascular: No chest pain Abdomen: + constipation, No pain, No nausea, No diarrhea Female : No dysuria, No urinary frequency Medications Medications (Trade) Dose Ordered Sig/Peterson Route Start Time Stop Time Status Last Admin Dose Admin Piperacillin Sod/ Tazobactam Sod 3.375 gm/Dextrose 115 ml @ 28.75 mls/ hr Q8H IV 12/26/17 10:00 12/26/17 10:05 DC 12/26/17 09:29 28.75 MLS/HR Hydrocortisone Sodium Succinate 15 mg/Syringe 0.3 ml @ 4 mls/min QAM IV 12/27/17 08:00 01/26/18 07:59 12/27/17 07:31 4 MLS/MIN Hydroxyzine HCl (Vistaril Tab) 25 mg HS PRN PO 12/27/17 01:30 01/26/18 01:29 12/27/17 02:26 25 MG Objective Vital Signs Date Time Temp Pulse Resp B/P (MAP) Pulse Ox O2 Delivery O2 Flow Rate FiO2 12/27/17 07:52 36.5 68 18 120/72 (88) 96 Room Air 12/27/17 00:30 Room Air 12/26/17 23:07 36.6 69 17 122/78 (93) 96 Room Air 12/26/17 18:42 36.9 79 18 142/86 (104) 93 12/26/17 16:00 Room Air 12/26/17 15:26 36.8 72 18 119/78 (92) 92 12/26/17 11:25 36.6 69 18 109/73 (85) 93 Room Air Physical Exam General Appearance: no apparent distress Eyes: PERRL, EOMI ENT: hearing grossly normal Neck: supple, no JVD Respiratory/Chest: lungs clear, normal breath sounds, no respiratory distress, no accessory muscle use Cardiovascular: regular rate, rhythm, no edema, no murmur Abdomen: non tender, soft, + abnormal bowel sounds (decreased) Extremities: non-tender, normal inspection, no pedal edema, no calf tenderness Neurologic/Psychiatric: no motor/sensory deficits, alert, normal mood/affect Laboratory Results Last 24 Hours Test 12/27/17 05:46 Sodium Level 143 mmol/L Potassium Level 4.0 mmol/L Chloride Level 113 mmol/L Carbon Dioxide Level 26 mmol/L Anion Gap 4.0 mmol/L Blood Urea Nitrogen 11 mg/dl Creatinine 0.68 mg/dl Est Creatinine Clear Calc Drug Dose 93.7 ml/min Estimated GFR () 107.9 Estimated GFR (Non- 93.1 BUN/Creatinine Ratio 15.6 Random Glucose 94 mg/dl Calcium Level 8.0 mg/dl Assessment and Plan this is a 62 yo f with longstanding metastatic ovarian cancer and hypothyroid/ hypocortisolism suffering from abdominal discomfort secondary to mass effect SBO 2/2 to mass effect by ovarian mass - advance to full liquid this morning, would still take it slow - D/C Zosyn - continue NSS with 20 KCL - Surgery consult pending- patient will eventually speak to her [employer] Blindstitch Surgeon Hypokalemia- resolved - Follow BMP Chronic Anemia- 2/2 to Ca. - Stable Metastatic Ovarian Ca with now mass effect on bowels - consult hem/onc - recommends eventually resecting the mass - Will defer to surgery and possibly discussion with patients [employer] Blind[employer]ch-surgeon Hypothyroidism - continue Synthroid 50 mcg Hypocortisolism Given stress doses Resume home dose DVT Prophylaxis Lovenox Resident Physician Supervision Note: I interviewed and examined the patient. Discussed with Dr. Garcia and agree with findings and plan as documented in the note. Any exceptions or clarifications are listed here: None Documented By: Sahil Sudha feeling ok when first saw, was just eating lunch - food tasting good and going down well. while we talk, she gets to eating about 1/3 of tray and then feels full. later she asked me to revisit to clarify plan - at that point she's had some cramping abdominal pain but not too severe, a little "queasy" but not true nausea/vomiting. ate only a small amount of dinner tray as well vitals noted nad but later visit does appear mildly uncomfortable breathing unlabored no pallor or icterus SBO related to ovarian mets - appears will need surgery - question is timing - if able to tolerate diet well enough to "break even" can look at home w expedited sap consultant/onc referral; if fails advancing diet will need hopsital to hospital transfer since surgery would be required to alleviate obstruction and if she can't advance diet to where she can sustain at home then outpt eval/ treatment would be wrought with her worsening/complications/etc >30mins face to face over two visits today >50% educating/discussing/ counselling on situation and plan
--- NOTE | 2017-12-27 10:26 | Pre-Operative Consultation ---
History General Date of Service: December 27, 2017. HPI HPI: The patient is a 62 year old female being seen for partial SBO. She was admitted with complaints of lower abdominal cramping and bloating with nausea and vomiting. She has ovarian cancer with metastases who is in a clinical trial at [facility] in [place] for the past 2 and half years he gets IV immunosuppression therapy every 4 weeks. This is the patient's third ER visit this month for this ongoing issue with constipation and bloating and pain. She has a met near a piece of SB likely causing partial SBO. She has been vomiting. Patient denies chest pain, dyspnea, fever, chills, back pain, urinary symptoms. Historian: patient Procedure Urgency: Acute Risk Assessment Daily beta annabelle use?: Yes Beta Annabelle Details Indication Beta Annabelle use: hypertension Problem List Medical Problems: (1) Abdominal pain Status: Acute (2) Altered mental status Status: Acute (3) Constipation Status: Acute (4) Dehydration Status: Acute (5) Hypomagnesemia Status: Acute (6) Hypomagnesemia Status: Acute (7) Hypoxia Status: Acute (8) Lower abdominal pain Status: Acute (9) Ovarian cancer Status: Acute (10) Small bowel obstruction Status: Acute (11) Tumor associated pain Status: Acute (12) Tumor associated pain Status: Acute (13) Weakness Status: Acute Medical & Surgical History Past Medical History: cancer - ovarian, hypertension, hypothyroidism, pulmonary embolism, other (sleep apnea) Past Surgical History: hysterectomy, other (ex laps) Family History Family History: diabetes Social History Hx Tobacco Use In Past Year?: No Smoking Status: Former Smoker Alcohol: occasionally Drug Use: none Marital status: Housing status: lives with family Occupation status: employed Immunizations Have You Had Influenza Vaccine: Yes Have You Had Tetanus Vaccine: utd ? History of Pneumococcal: No History Hepatitis B Vaccine: No Allergies Allergies: Coded Allergies: Carboplatin (Verified Allergy, Severe, anaphylactic reaction, 11/17/17) Medications Current Inpatient Medications Current Inpatient Medications Medications (Trade) Dose Ordered Sig/Peterson Route Start Time Stop Time Status Last Admin Dose Admin Ioversol (Optiray 320) 115 ml UD PRN IV 12/25/17 23:45 12/29/17 23:44 Enoxaparin Sodium (Lovenox Inj) 40 mg Q24H SQ 12/26/17 08:00 6/18/18 07:59 12/27/17 07:31 40 MG Acetaminophen (Tylenol Tab) 650 mg Q4H PRN PO 12/26/17 01:15 01/25/18 01:14 Al Hydrox/Mg Hydrox/Simethicone (Maalox Max Susp) 15 ml Q4H PRN PO 12/26/17 01:15 01/25/18 01:14 Magnesium Hydroxide (Milk Of Magnesia Susp) 30 ml Q6H PRN PO 12/26/17 01:15 01/25/18 01:14 Polyethylene (Miralax Powder Packet) 17 gm DAILY PRN PO 12/26/17 01:15 01/25/18 01:14 Ondansetron HCl (Zofran Inj) 4 mg Q6H PRN IV 12/26/17 01:15 01/25/18 01:14 Potassium Chloride/Sodium Chloride 1,000 ml @ 125 mls/hr Q8H IV 12/26/17 02:30 01/25/18 02:29 12/27/17 09:38 125 MLS/HR Levothyroxine Sodium (Synthroid Tab) 50 mcg DAILYBB PO 12/26/17 06:30 01/25/18 06:29 12/27/17 07:30 50 MCG Loratadine (Claritin Tab) 10 mg DAILY PRN PO 12/26/17 01:30 01/25/18 01:29 Pantoprazole Sodium (Protonix Tab) 40 mg DAILY PO 12/26/17 08:00 01/25/18 08:59 12/27/17 07:30 40 MG Cyanocobalamin (Vitamin B-12 Tab) 50 mcg QAM PO 12/26/17 08:00 01/25/18 08:59 12/27/17 07:31 50 MCG Hydrocortisone Sodium Succinate 15 mg/Syringe 0.3 ml @ 4 mls/min QAM IV 12/27/17 08:00 01/26/18 07:59 12/27/17 07:31 4 MLS/MIN Hydrocortisone Sodium Succinate 5 mg/Syringe 0.1 ml @ 4 mls/min DAILY@1700 IV 12/27/17 17:00 01/26/18 16:59 Hydroxyzine HCl (Vistaril Tab) 25 mg HS PRN PO 12/27/17 01:30 01/26/18 01:29 12/27/17 02:26 25 MG Review of Systems Review of Systems Constitutional: denies chills, denies diaphoresis, denies fever Eyes: reports: no symptoms ENT: reports: no symptoms reported Cardiovascular: denies: chest pain, chest tightness, chest pressure Respiratory: denies: cough, short of breath, stridor Gastrointestinal: abdominal pain, constipation, denies diarrhea, nausea, vomiting Genitourinary - Female: reports: no symptoms Musculoskeletal: denies joint pain, denies joint swelling Integumentary: denies change in hair/nails, denies dryness, denies lumps, denies rash Neurologic: reports: no symptoms Psychiatric: reports: no symptoms Endocrine: no symptoms Hematologic / Lymphatic: no symptoms Allergic / Immunologic: no symptoms Physical Exam Physical Exam General Appearance: + WD/WN Ears, Nose, Throat: + normal ENT inspection Neck: No tracheal deviation, No lymphadenophy, No stiffness, No tenderness Respiratory: No decreased breath sounds, No rhonchi, No stridor, No wheezing Cardiovascular: No tachycardia, No gallop/S3, No diastolic murmur, No gallop/S4 , No bradycardia, No systolic murmur Abdomen: No abnormal bowel sounds, No rebound, No hepatomegaly, No tenderness, No distension, No hernia, No guarding Extremities: No deformity, No swelling, No calf tenderness, No inflammation Neurologic/Psychiatric: No motor deficit/weakness, No disorientation, No sensory deficit Skin Characteristics: No diaphoresis, No pallor, No jaundice, No rash Lymphatic: No abnormal adenopathy Diagnostics Labs Labs Results Past 24 Hours Test 12/27/17 05:46 Range/Units Sodium Level 143 136-145 mmol/L Potassium Level 4.0 3.5-5.1 mmol/L Chloride Level 113 98-107 mmol/L Carbon Dioxide Level 26 21-32 mmol/L Anion Gap 4.0 3-11 mmol/L Blood Urea Nitrogen 11 7-18 mg/dl Creatinine 0.68 0.60-1.20 mg/dl Est Creatinine Clear Calc Drug Dose 93.7 ml/min Estimated GFR () 107.9 Estimated GFR (Non- 93.1 BUN/Creatinine Ratio 15.6 10-20 Random Glucose 94 70-99 mg/dl Calcium Level 8.0 8.5-10.1 mg/dl Diagnostic Radiology Diagnostic Radiology ABDOMEN AND PELVIS CT WITH IV CONTRAST CT DOSE: 588.92 mGy.cm HISTORY: Generalized abdominal pain. Ovarian cancer with metastatic disease. TECHNIQUE: Multiaxial CT images of the abdomen and pelvis were performed following the use of intravenous contrast. A dose lowering technique was utilized adhering to the principles of ALARA. COMPARISON STUDY: Abdomen and pelvis CT 12/07/2017. FINDINGS: Mild dependent changes seen at the lung bases. No pneumoperitoneum. No pneumatosis. No suspicious lytic or blastic osseous lesions. Cholecystectomy. Stable 1.2 cm hypodense lesion within the quadrate lobe of the liver. No new hepatic or splenic lesions. The adrenal glands and pancreas are unremarkable. Mild fullness within the bilateral renal collecting systems which has progressed. Normal bladder. The uterus is surgically absent. Multiple soft tissue masses are seen within the anterior abdomen, right retroperitoneal space, mesenteric, and pelvis consistent with metastatic disease. These are similar in size compared to the prior study. Progressive distention of the small bowel within the abdomen. These are filled with gas and fluid. These measure up to 4.9 cm in diameter and is consistent with a small bowel obstruction. Small bowel anastomosis seen within the right lower quadrant. Immediately proximal to the small bowel masses there is a 4.9 x 3.9 cm soft tissue mass appears to result in the transition point of the small bowel obstruction. This is best seen on image 65. IMPRESSION: 1. Progressive distention of the small bowel consistent with a small bowel obstruction. The transition point is located within the deep pelvis and is secondary to a 4.9 x 3.9 cm soft tissue mass. 2. No change in the metastatic disease as described above. 3. Mild fullness within the bilateral renal collecting systems which has progressed. Impression Assessment and Plan Assessment and Plan partial SBO secondary to mets partially obstructing loop os SB -responding well to conservative treatment -advance diet -should see CAFE ASSISTANT oncologist at [facility] to discuss elective surgical resection or options
--- NOTE | 2017-12-27 11:23 | Hematology/Oncology Prog Note ---
Hematology/Onc Progress Note Date of Service December 27, 2017. Diagnoses Ovarian cancer Recurrent partial SBO Medications Medications Administered Medications (Trade) Dose Ordered Sig/Peterson Route Start Time Stop Time Status Last Admin Dose Admin Dicyclomine HCl (Bentyl Inj) 20 mg NOW ONCE IM 12/25/17 21:45 12/25/17 21:46 DC 12/25/17 21:56 20 MG Sodium Chloride 1,000 ml @ 125 mls/hr Q8H STAT IV 12/25/17 21:36 12/26/17 02:22 DC 12/25/17 23:41 125 MLS/HR Sodium Chloride 1,000 ml @ 999 mls/hr Q1H1M STAT IV 12/25/17 21:36 12/25/17 22:36 DC 12/25/17 21:57 999 MLS/HR Hydrocortisone Sodium Succinate (Solu-Cortef IV) 100 mg NOW STAT IV 12/25/17 21:36 12/25/17 21:39 DC 12/25/17 21:56 100 MG Metoclopramide HCl (Reglan Inj) 10 mg NOW STAT IV 12/25/17 21:36 12/25/17 21:39 DC 12/25/17 21:56 10 MG Diphenhydramine HCl (Benadryl Inj) 12.5 mg NOW STAT IV 12/25/17 21:36 12/25/17 21:40 DC 12/25/17 21:56 12.5 MG Ketorolac Tromethamine (Toradol Inj) 10 mg NOW STAT IV 12/25/17 22:18 12/25/17 22:19 DC 12/25/17 22:39 10 MG Enoxaparin Sodium (Lovenox Inj) 40 mg Q24H SQ 12/26/17 08:00 01/25/18 07:59 12/27/17 07:31 40 MG Potassium Chloride/Sodium Chloride 1,000 ml @ 125 mls/hr Q8H IV 12/26/17 02:30 01/25/18 02:29 12/27/17 09:38 125 MLS/HR Levothyroxine Sodium (Synthroid Tab) 50 mcg DAILYBB PO 12/26/17 06:30 01/25/18 06:29 12/27/17 07:30 50 MCG Pantoprazole Sodium (Protonix Tab) 40 mg DAILY PO 12/26/17 08:00 01/25/18 08:59 12/27/17 07:30 40 MG Cyanocobalamin (Vitamin B-12 Tab) 50 mcg QAM PO 12/26/17 08:00 01/25/18 08:59 12/27/17 07:31 50 MCG Hydrocortisone Sodium Succinate 50 mg/Syringe 1 ml @ 4 mls/min Q8H IV 12/26/17 08:00 12/26/17 16:21 DC 12/26/17 16:09 4 MLS/MIN Piperacillin Sod/ Tazobactam Sod 3.375 gm/Dextrose 115 ml @ 230 mls/hr NOW ONCE IV 12/26/17 04:30 12/26/17 10:05 DC 12/26/17 05:20 230 MLS/HR Piperacillin Sod/ Tazobactam Sod 3.375 gm/Dextrose 115 ml @ 28.75 mls/ hr Q8H IV 12/26/17 10:00 12/26/17 10:05 DC 12/26/17 09:29 28.75 MLS/HR Hydrocortisone Sodium Succinate 15 mg/Syringe 0.3 ml @ 4 mls/min QAM IV 12/27/17 08:00 01/26/18 07:59 12/27/17 07:31 4 MLS/MIN Hydroxyzine HCl (Vistaril Tab) 25 mg HS PRN PO 12/27/17 01:30 01/26/18 01:29 12/27/17 02:26 25 MG Subjective Ms. Anderson is advancing her diet and tolerating it well. Her pain is improved and her energy is up. Review of Systems: Constitutional: + fatigue, No fever, No weakness Respiratory: No cough, No shortness of breath Cardiovascular: No chest pain Abdomen: No pain, No nausea Female : No dysuria Heme: No abnormal bleeding/bruising Vital Signs Vital Signs Past 12 Hours Date Time Temp Pulse Resp B/P (MAP) Pulse Ox O2 Delivery O2 Flow Rate FiO2 12/27/17 07:52 36.5 68 18 120/72 (88) 96 Room Air 12/27/17 00:30 Room Air Physical Exam Constitutional: General Apperance: heathly-appearing Level of Distress: NAD Psychiatric: Mental Status: active & alert Orientation: oriented except where noted Lungs: Auscuitation: breath sounds normal Cardiovascular: Heart Auscultation: RRR Abdomen: Inspection & Palpation: soft, no tenderness, guarding & rebound Extremities: no edema Laboratory Last 24 Hours Test 12/27/17 05:46 Sodium Level 143 mmol/L Potassium Level 4.0 mmol/L Chloride Level 113 mmol/L Carbon Dioxide Level 26 mmol/L Anion Gap 4.0 mmol/L Blood Urea Nitrogen 11 mg/dl Creatinine 0.68 mg/dl Est Creatinine Clear Calc Drug Dose 93.7 ml/min Estimated GFR () 107.9 Estimated GFR (Non- 93.1 BUN/Creatinine Ratio 15.6 Random Glucose 94 mg/dl Calcium Level 8.0 mg/dl Assessment & Plan Ms. Anderson is looking better and is tolerating an advancing diet. I agree with her surgeon that resecting the small bowel mass is probably in her interest. She would prefer this be done by her gynecologic oncology surgeon in [place], who has operated on her multiple times before. I think that makes sense, particularly since she is improving. However, if she develops a complete obstruction, she will need emergent surgery. I would advance her diet as tolerated and she can follow up with her surgeon and her team at the [facility]. I will see her as scheduled for her iron-deficiency, though I can assist in other ways as needed. I will sign off for now, but would be happy to return at any time if needed.
[2017-12-27 11:38] VITALS: BP 124/70; PULSE 68; TEMP 36.5; O2SAT 96
[2017-12-27 15:42] VITALS: BP 115/77; PULSE 81; TEMP 36.6; O2SAT 97
[2017-12-27 19:01] VITALS: BP 115/78; PULSE 81; TEMP 36.7; O2SAT 98
[2017-12-27] MEDS: ONDANSETRON INJ 2 MG/ML 2 ML VIAL IV PRN (20:29)
[2017-12-27 23:22] VITALS: BP 130/83; PULSE 72; TEMP 36.6; O2SAT 98
[2017-12-28] MEDS: hydrOXYzine HCL 25 MG TAB PO PRN ×2 (02:30→02:31)
[2017-12-28 06:24] LABS: BASO % 0.2 %; BASO ABS # 0.01 K/uL (0-0.2); EOS % 3.4 %; EOS ABS # 0.16 K/uL (0-0.5); HEMATOCRIT 29.9 % (37-47); IG# 0.02 K/uL (0.00-0.02); LYMPH % 27.7 %; LYMPH ABS # 1.31 K/uL (1.2-3.4); MEAN CELL VOLUME 74.2 fL (80-100); MEAN CORPUSCULAR HEMOGLOBIN 22.3 pg (25-34); MEAN CORPUSCULAR HGB CONC 30.1 g/dl (32-36); MEAN PLATELET VOLUME 9.1 fL (7.4-10.4); MONO % 12.3 %; MONO ABS # 0.58 K/uL (0.11-0.59); NEUT ABS # 2.65 K/uL (1.4-6.5); PLATELET COUNT 300 K/uL (130-400); RED CELL DISTRIBUTION WIDTH CV 20.3 % (11.5-14.5); RED CELL DISTRIBUTION WIDTH SD 55.7 fL (36.4-46.3); WHITE BLOOD COUNT 4.73 K/uL (4.8-10.8)
[2017-12-28 06:50] LABS: CALCIUM 8.5 mg/dl (8.5-10.1); CREATININE 0.92 mg/dl (0.60-1.20); POTASSIUM 3.8 mmol/L (3.5-5.1)
[2017-12-28 07:22] VITALS: BP 112/73; PULSE 67; TEMP 36.5; O2SAT 95
[2017-12-28] MEDS: ENOXAPARIN 40 MG/0.4 ML SYR SQ SCH (08:00)
[2017-12-28] MEDS: PANTOprazole SOD 40 MG TAB PO SCH (08:12)
[2017-12-28] MEDS: HYDROCORTISONE IV SCH ×2 (08:12→17:44)
[2017-12-28] MEDS: CYANOCOBALAMIN 100 MCG TAB (VIT B-12) PO SCH (08:12)
--- NOTE | 2017-12-28 08:46 | Family Medicine Progress Note ---
Progress Note Date of Service December 28, 2017. Subjective Pt evaluation today including: conversation w/ patient, physical exam, chart review, lab review, review of studies, review of inpatient medication list Pain: mild generalized abdminal pain PO Intake: nausea with meals Voiding: no voiding problems Patient reports abdominal pain improved. Nausea vomting improved from previous day. subsequently Around 11:30 Am, patient began feeling nausea recurrence. She was also reporting urinary frequency overnight but denied dysuria, hematuria. She requested IV fluids to be shut off which occurred over night Constitutional: No fever Respiratory: No cough, No shortness of breath Abdomen: + pain, + nausea, No vomiting, No diarrhea, No constipation Female : + urinary frequency, No dysuria, No hematuria Medications Current Inpatient Medications Medications (Trade) Dose Ordered Sig/Peterson Route Start Time Stop Time Status Last Admin Dose Admin Ioversol (Optiray 320) 115 ml UD PRN IV 12/25/17 23:45 12/29/17 23:44 Enoxaparin Sodium (Lovenox Inj) 40 mg Q24H SQ 12/26/17 08:00 01/25/18 07:59 12/27/17 07:31 40 MG Acetaminophen (Tylenol Tab) 650 mg Q4H PRN PO 12/26/17 01:15 01/25/18 01:14 Al Hydrox/Mg Hydrox/Simethicone (Maalox Max Susp) 15 ml Q4H PRN PO 12/26/17 01:15 01/25/18 01:14 Magnesium Hydroxide (Milk Of Magnesia Susp) 30 ml Q6H PRN PO 12/26/17 01:15 01/25/18 01:14 Polyethylene (Miralax Powder Packet) 17 gm DAILY PRN PO 12/26/17 01:15 01/25/18 01:14 Ondansetron HCl (Zofran Inj) 4 mg Q6H PRN IV 12/26/17 01:15 01/25/18 01:14 12/28/17 12:17 4 MG Levothyroxine Sodium (Synthroid Tab) 50 mcg DAILYBB PO 12/26/17 06:30 01/25/18 06:29 12/28/17 10:07 50 MCG Loratadine (Claritin Tab) 10 mg DAILY PRN PO 12/26/17 01:30 01/25/18 01:29 Pantoprazole Sodium (Protonix Tab) 40 mg DAILY PO 12/26/17 08:00 01/25/18 08:59 12/28/17 08:12 40 MG Cyanocobalamin (Vitamin B-12 Tab) 50 mcg QAM PO 12/26/17 08:00 01/25/18 08:59 12/28/17 08:12 50 MCG Hydrocortisone Sodium Succinate 15 mg/Syringe 0.3 ml @ 4 mls/min QAM IV 12/27/17 08:00 01/26/18 07:59 12/28/17 08:12 4 MLS/MIN Hydrocortisone Sodium Succinate 5 mg/Syringe 0.1 ml @ 4 mls/min DAILY@1700 IV 12/27/17 17:00 01/26/18 16:59 12/28/17 17:44 4 MLS/MIN Hydroxyzine HCl (Vistaril Tab) 25 mg HS PRN PO 12/27/17 01:30 01/26/18 01:29 12/28/17 02:31 25 MG Ketorolac Tromethamine (Toradol Inj) 30 mg Q6H PRN IV. 12/28/17 13:00 01/02/18 12:59 12/28/17 13:17 30 MG Objective Vital Signs Date Time Temp Pulse Resp B/P (MAP) Pulse Ox O2 Delivery O2 Flow Rate FiO2 12/28/17 16:00 Room Air 12/28/17 15:47 36.6 71 18 121/78 (92) 94 Room Air 12/28/17 11:34 36.6 73 16 143/88 (106) 94 Room Air 12/28/17 08:10 Room Air 12/28/17 07:22 36.5 67 16 112/73 (86) 95 Room Air 12/28/17 00:00 Room Air 12/27/17 23:22 36.6 72 19 130/83 (99) 98 Room Air Physical Exam Notes: GENERAL: alert, no distress, non-toxic EYE EXAM: normal conjunctiva, PERRL and EOM's grossly intact OROPHARYNX: no exudate, no erythema, lips, buccal mucosa, and tongue normal and mucous membranes are moist NECK: supple, no nuchal rigidity, no adenopathy, non-tender LUNGS: Clear to auscultation. Normal chest wall mechanics HEART: no murmurs, S1 normal and S2 normal ABDOMEN: abdomen soft, mild non-specific generalized tenderness, normo-active bowel sounds, no masses, no rebound or guarding. BACK: Back is symmetrical on inspection and there is no deformity SKIN: no rashes and no bruising UPPER EXTREMITIES: upper extremities are grossly normal. LOWER EXTREMITIES: No pitting edema. NEURO EXAM: Normal sensorium, cranial nerves II-XII grossly intact, normal speech Laboratory Results Results Past 24 Hours Test 12/28/17 00:00 12/28/17 05:59 Range/Units Urine Color YELLOW Urine Appearance CLEAR CLEAR Urine pH 6.5 4.5-7.5 Urine Specific [place] 1.011 1.000-1.030 Urine Protein NEG NEG Urine Glucose (UA) NEG NEG Urine Ketones NEG NEG Urine Occult Blood NEG NEG Urine Nitrite NEG NEG Urine Bilirubin NEG NEG Urine Urobilinogen NEG NEG Urine Leukocyte Esterase NEG NEG White Blood Count 4.73 4.8-10.8 K/uL Red Blood Count 4.03 4.2-5.4 M/uL Hemoglobin 9.0 12.0-16.0 g/dL Hematocrit 29.9 37-47 % Mean Corpuscular Volume 74.2 80-100 fL Mean Corpuscular Hemoglobin 22.3 25-34 pg Mean Corpuscular Hemoglobin Concent 30.1 32-36 g/dl Platelet Count 300 130-400 K/uL Mean Platelet Volume 9.1 7.4-10.4 fL Neutrophils (%) (Auto) 56.0 % Lymphocytes (%) (Auto) 27.7 % Monocytes (%) (Auto) 12.3 % Eosinophils (%) (Auto) 3.4 % Basophils (%) (Auto) 0.2 % Neutrophils # (Auto) 2.65 1.4-6.5 K/uL Lymphocytes # (Auto) 1.31 1.2-3.4 K/uL Monocytes # (Auto) 0.58 0.11-0.59 K/uL Eosinophils # (Auto) 0.16 0-0.5 K/uL Basophils # (Auto) 0.01 0-0.2 K/uL RDW Standard Deviation 55.7 36.4-46.3 fL RDW Coefficient of Variation 20.3 11.5-14.5 % Immature Granulocyte % (Auto) 0.4 % Immature Granulocyte # (Auto) 0.02 0.00-0.02 K/uL Anisocytosis PRESENT Sodium Level 142 136-145 mmol/L Potassium Level 3.8 3.5-5.1 mmol/L Chloride Level 107 98-107 mmol/L Carbon Dioxide Level 30 21-32 mmol/L Anion Gap 5.0 3-11 mmol/L Blood Urea Nitrogen 10 7-18 mg/dl Creatinine 0.92 0.60-1.20 mg/dl Est Creatinine Clear Calc Drug Dose 70.2 ml/min Estimated GFR () 76.8 Estimated GFR (Non- 66.3 BUN/Creatinine Ratio 10.8 10-20 Random Glucose 96 70-99 mg/dl Calcium Level 8.5 8.5-10.1 mg/dl Assessment and Plan 62 yo F with longstanding metastatic ovarian cancer, Hypothyroid/ Hypocortisolism admitted with Small Bowel obstruction secondary to mass effect SBO 2/2 to mass effect by ovarian mass - nausea today with regular diet, return to Full liquids - NSS d/c'd overnight at patient's request - Surgery consult pending- patient will eventually speak to her Distribution Manager Surgeon Hypokalemia- resolved - Follow BMP Chronic Anemia- 2/2 to Ca. 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 Contreras during the history and exam. I discussed the case with the resident and agree with the findings and plan as documented in the note. Any exceptions or clarifications are listed here: Pt seen and examined at bedside. Overnight, progressively worsening abdominal pain (LLQ and central) with bloating and nausea which onset following 2 meals on full diet. Tolerated symptoms with PRN medications but would de-escalate diet for now. Discussed with piece work checker/onc with a goal of evaluation on Thursday, so may consider transition of care based on response to PRN medications and full liquid diet. If sx continue to worsen, would consider interfacility transfer, but likely to manage symptomatically and transition on outpatient/discharged basis to VERY close follow up based on dietary changes. Resident Tracking Resident Involvement: Resident Care Provided Care Provided: Adult [facility] Medicine
[2017-12-28] MEDS: LEVOTHYROXINE 50 MCG TAB PO SCH (10:07)
[2017-12-28 11:34] VITALS: BP 143/88; PULSE 73; TEMP 36.6; O2SAT 94
[2017-12-28] MEDS: ONDANSETRON INJ 2 MG/ML 2 ML VIAL IV PRN (12:17)
[2017-12-28] MEDS ORDERED: NURSING VERBAL MED ORDER ONE (13:00)
[2017-12-28] MEDS ORDERED: KETOROLAC TROMETHAMINE 30 MG/ML VIAL IV. PRN (13:00)
--- NOTE | 2017-12-28 14:12 | Surgery Progress Note ---
Surgery Progress Note Date of Service December 28, 2017. 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 Unsure if she is going to be discharged today or tomorrow. Occasional abdominal pain with solid foods. Objective Vital Signs: Date Time Temp Pulse Resp B/P (MAP) Pulse Ox O2 Delivery O2 Flow Rate FiO2 12/28/17 11:34 36.6 73 16 143/88 (106) 94 Room Air 12/28/17 08:10 Room Air 12/28/17 07:22 36.5 67 16 112/73 (86) 95 Room Air 12/28/17 00:00 Room Air 12/27/17 23:22 36.6 72 19 130/83 (99) 98 Room Air 12/27/17 20:00 Room Air 12/27/17 19:01 36.7 81 18 115/78 (90) 98 12/27/17 17:11 Room Air 12/27/17 15:42 36.6 81 18 115/77 (90) 97 Room Air General Appearance: WD/WN, no apparent distress Head: normocephalic, atraumatic Neck: trachea midline Respiratory/Chest: no respiratory distress, no accessory muscle use Laboratory Results: Results Past 24 Hours Test 12/28/17 00:00 12/28/17 05:59 Range/Units Urine Color YELLOW Urine Appearance CLEAR CLEAR Urine pH 6.5 4.5-7.5 Urine Specific [place] 1.011 1.000-1.030 Urine Protein NEG NEG Urine Glucose (UA) NEG NEG Urine Ketones NEG NEG Urine Occult Blood NEG NEG Urine Nitrite NEG NEG Urine Bilirubin NEG NEG Urine Urobilinogen NEG NEG Urine Leukocyte Esterase NEG NEG White Blood Count 4.73 4.8-10.8 K/uL Red Blood Count 4.03 4.2-5.4 M/uL Hemoglobin 9.0 12.0-16.0 g/dL Hematocrit 29.9 37-47 % Mean Corpuscular Volume 74.2 80-100 fL Mean Corpuscular Hemoglobin 22.3 25-34 pg Mean Corpuscular Hemoglobin Concent 30.1 32-36 g/dl Platelet Count 300 130-400 K/uL Mean Platelet Volume 9.1 7.4-10.4 fL Neutrophils (%) (Auto) 56.0 % Lymphocytes (%) (Auto) 27.7 % Monocytes (%) (Auto) 12.3 % Eosinophils (%) (Auto) 3.4 % Basophils (%) (Auto) 0.2 % Neutrophils # (Auto) 2.65 1.4-6.5 K/uL Lymphocytes # (Auto) 1.31 1.2-3.4 K/uL Monocytes # (Auto) 0.58 0.11-0.59 K/uL Eosinophils # (Auto) 0.16 0-0.5 K/uL Basophils # (Auto) 0.01 0-0.2 K/uL RDW Standard Deviation 55.7 36.4-46.3 fL RDW Coefficient of Variation 20.3 11.5-14.5 % Immature Granulocyte % (Auto) 0.4 % Immature Granulocyte # (Auto) 0.02 0.00-0.02 K/uL Anisocytosis PRESENT Sodium Level 142 136-145 mmol/L Potassium Level 3.8 3.5-5.1 mmol/L Chloride Level 107 98-107 mmol/L Carbon Dioxide Level 30 21-32 mmol/L Anion Gap 5.0 3-11 mmol/L Blood Urea Nitrogen 10 7-18 mg/dl Creatinine 0.92 0.60-1.20 mg/dl Est Creatinine Clear Calc Drug Dose 70.2 ml/min Estimated GFR () 76.8 Estimated GFR (Non- 66.3 BUN/Creatinine Ratio 10.8 10-20 Random Glucose 96 70-99 mg/dl Calcium Level 8.5 8.5-10.1 mg/dl Assessment & Plan Partial SBO secondary to mets partially obstructing loop of SB - Plan is to follow-up with SENIOR SALES ENGINEER oncologist surgeon at [facility] for further surgical evaluation and management (has operated on her multiple times) - tolerating clear liquids Plan: No acute surgical intervention required. Patient prefers to have further management by her gynecological oncologist which we believe is in the best interest of the patient. Continue current medical management until discharge/transfer Our services signing off thank you for consultation Dr. Garcia has seen pt, agrees with above
[2017-12-28 15:47] VITALS: BP 121/78; PULSE 71; TEMP 36.6; O2SAT 94
[2017-12-28 20:00] VITALS: BP 122/81; PULSE 80; TEMP 36.6; O2SAT 92
[2017-12-29] VITALS: BP 117/80; PULSE 82; TEMP 36.8; O2SAT 92
[2017-12-29 04:00] VITALS: BP 118/78; PULSE 74; TEMP 36.7; O2SAT 94
[2017-12-29] MEDS: LEVOTHYROXINE 50 MCG TAB PO SCH (06:21)
[2017-12-29 06:25] LABS: CREATININE 0.88 mg/dl (0.60-1.20)
[2017-12-29 07:37] VITALS: BP 112/76; PULSE 66; TEMP 36.6; O2SAT 93
[2017-12-29 08:13] LABS: BASO % 0.2 %; BASO ABS # 0.01 K/uL (0-0.2); EOS % 2.8 %; EOS ABS # 0.15 K/uL (0-0.5); HEMATOCRIT 32.1 % (37-47); HEMOGLOBIN 9.7 g/dL (12.0-16.0); IG# 0.01 K/uL (0.00-0.02); LYMPH ABS # 0.97 K/uL (1.2-3.4); MEAN CORPUSCULAR HEMOGLOBIN 22.4 pg (25-34); MEAN CORPUSCULAR HGB CONC 30.2 g/dl (32-36); MEAN PLATELET VOLUME 8.8 fL (7.4-10.4); MONO % 12.8 %; MONO ABS # 0.69 K/uL (0.11-0.59); NEUT ABS # 3.56 K/uL (1.4-6.5); PLATELET COUNT 285 K/uL (130-400); RED CELL DISTRIBUTION WIDTH CV 20.2 % (11.5-14.5); RED CELL DISTRIBUTION WIDTH SD 55.5 fL (36.4-46.3); WHITE BLOOD COUNT 5.39 K/uL (4.8-10.8)
[2017-12-29 08:50] LABS: ALBUMIN 2.4 gm/dl (3.4-5.0); CALCIUM 8.1 mg/dl (8.5-10.1); CREATININE 0.88 mg/dl (0.60-1.20); POTASSIUM 3.4 mmol/L (3.5-5.1); TOTAL PROTEIN 5.4 gm/dl (6.4-8.2)
[2017-12-29] MEDS: PANTOprazole SOD 40 MG TAB PO SCH (09:04)
[2017-12-29] MEDS: CYANOCOBALAMIN 100 MCG TAB (VIT B-12) PO SCH (09:04)
[2017-12-29] MEDS: ENOXAPARIN 40 MG/0.4 ML SYR SQ SCH (09:05)
[2017-12-29] MEDS: HYDROCORTISONE IV SCH (09:05)
[2017-12-29 11:20] VITALS: BP 108/75; PULSE 75; TEMP 36.4; O2SAT 94
[2017-12-29] MEDS ORDERED: IBUPROFEN 600 MG TAB PO PRN (11:30)
[2017-12-29] MEDS ORDERED: ZFRI4 IV (14:15)
[2017-12-29] MEDS ORDERED: ZFR/8 PO (14:24)
--- NOTE | 2017-12-29 14:45 | Discharge Instructions ---
Discharge Instructions Date of Service December 29, 2017. Admission Reason for Admission: Neoplasm Causing Mass Effect On Adjacent Structure Discharge Discharge Diagnosis / Problem: Small Bowel Obstruction Discharge Goals Goal(s): Decrease discomfort, Improve function, Increase independence, Improve disease control, Improve nutritional status, Learn about illness, Diagnostic testing, Therapeutic intervention, Screening, Prevent Disease Progression, Specific goals Activity Recommendations Activity Limitations: per Instructions/Follow-up section . Instructions / Follow-Up Instructions / Follow-Up You were in the hospital because you had a blockage in your bowel (intestine) likely due to masses. This condition is called an intestinal obstruction. While in the hospital, you received intravenous (IV) fluids. Your diet was gradually advanced based on your symptoms. Rock Worker will be involved prior to discharge to provide advice on eating prior to discharge. We suggest attempt incremental introduction of solids provided you are tolerated it. If not, please resort back to liquids. You will likely need surgery to correct the obstruction. You are set up for an appointment with your Gynecological Oncologist, Jay Hawk on ThursdayJanuary 01 at 12:00 noon. It is very important that you attend this appointment. You have been prescribed Medication for nausea (Ondansetron). Please take as prescribed. For pain, Tylenol or Ibuprofen is recommended. When to Call the Doctor: Vomiting or nausea unresponsive to medication Diarrhea that does not go away Pain that does not go away or is getting worse A swollen or tender belly Little or no gas or stools to pass Fever or chills Blood in your stool Current Hospital Diet Patient's current hospital diet: Regular Diet Discharge Diet Recommended Diet: Regular Diet Diet Texture: Pureed (blended smooth) Pending Studies Studies pending at discharge: no Medical Emergencies . Who to Call and When: Medical Emergencies: If at any time you feel your situation is an emergency, please call 911 immediately. . Non-Emergent Contact Non-Emergency issues call your: Primary Care Provider, Surgeon Call Non-Emergent contact if: you have a fever, your pain is not controlled, your pain is worsening, your pain is unusual for you, your pain is concerning you, wound has increased drainage, wound has increased redness, wound has increased pain, you have any medication questions . . "Provider Documentation" section prepared by Yosvany Contreras. .
--- NOTE | 2017-12-29 14:55 | Discharge Summary ---
Discharge Summary Date of Service December 29, 2017. Discharge Summary Admission Date: December 26, 2017 at 01:15 Discharge Date: December 29, 2017 Discharge Disposition: Home Principal Diagnosis: Small Bowel Obstruction Problems/Secondary Diagnoses: Metastatic Ovarian cancer Immunizations: Have You Had Influenza Vaccine: Yes History of Tetanus Vaccine?: utd ? History of Pneumococcal: No History of Hepatitis B Vaccine: No Procedures: ABDOMEN AND PELVIS CT WITH IV CONTRAST CT DOSE: 588.92 mGy.cm HISTORY: Generalized abdominal pain. Ovarian cancer with metastatic disease. TECHNIQUE: Multiaxial CT images of the abdomen and pelvis were performed following the use of intravenous contrast. A dose lowering technique was utilized adhering to the principles of ALARA. COMPARISON STUDY: Abdomen and pelvis CT 12/07/2017. FINDINGS: Mild dependent changes seen at the lung bases. No pneumoperitoneum. No pneumatosis. No suspicious lytic or blastic osseous lesions. Cholecystectomy. Stable 1.2 cm hypodense lesion within the quadrate lobe of the liver. No new hepatic or splenic lesions. The adrenal glands and pancreas are unremarkable. Mild fullness within the bilateral renal collecting systems which has progressed. Normal bladder. The uterus is surgically absent. Multiple soft tissue masses are seen within the anterior abdomen, right retroperitoneal space, mesenteric, and pelvis consistent with metastatic disease. These are similar in size compared to the prior study. Progressive distention of the small bowel within the abdomen. These are filled with gas and fluid. These measure up to 4.9 cm in diameter and is consistent with a small bowel obstruction. Small bowel anastomosis seen within the right lower quadrant. Immediately proximal to the small bowel masses there is a 4.9 x 3.9 cm soft tissue mass appears to result in the transition point of the small bowel obstruction. This is best seen on image 65. IMPRESSION: 1. Progressive distention of the small bowel consistent with a small bowel obstruction. The transition point is located within the deep pelvis and is secondary to a 4.9 x 3.9 cm soft tissue mass. 2. No change in the metastatic disease as described above. 3. Mild fullness within the bilateral renal collecting systems which has progressed. Electronically signed by: Isiah Rizo M.D. 12/26/2017 7:40 AM ABDOMEN 2VIEW W/PA CHEST RTN CLINICAL HISTORY: Abdominal pain, nausea, vomiting, diarrhea, history of ovarian carcinoma COMPARISON STUDY: Chest x-ray dated 12/07/2017 FINDINGS: Erect chest reveals no free intraperitoneal air. There are minor left basilar airspace opacities likely atelectatic.] Supine views the abdomen reveal surgical clips within the right upper quadrant consistent with a prior cholecystectomy. At least one surgical anastomotic suture line is visualized. There are several dilated small bowel loops. There is gas present within the colon. IMPRESSION: 1. No evidence of free intraperitoneal air 2. Nonspecific bowel gas pattern with several dilated small bowel loops. There is however gas present within the colon. A partial or early small bowel obstruction cannot be excluded Electronically signed by: Gustavo Valentin M.D. 12/25/2017 10:48 PM Consultations: Hematology/Oncology Medication Reconciliation New Medications: Ondansetron (Ondansetron HCl) 8 Mg Tab 8 MG PO BID PRN for Nausea, #20 TAB 0 Refills Continued Medications: Cyanocobalamin (Vitamin B-12) 50 Mcg Tab 50 MCG PO QAM Hydrocortisone (Cortef) 5 Mg Tab 15 MG PO QAM Hydrocortisone (Cortef) 5 Mg Tab 5 MG PO AFTERNOON TAKE 5 MG EIGHT HOURS AFTER MORNING DOSE OF 15 MG Levothyroxine Sodium (Synthroid) 50 Mcg Tab 50 MCG PO DAILY Loratadine (Claritin) 10 Mg Tab 10 MG PO DAILY PRN for Allergy Symptoms, TAB Oxycodone HCl (Oxycodone HCl) 5 Mg Tab 5-10 MG PO Q6H PRN for Severe Pain Pantoprazole (Protonix) 40 Mg Tab 40 MG PO DAILY Discharge Exam Constitutional: No fever Respiratory: No cough, No shortness of breath Abdomen: + pain(resolved), + nausea (resolved), No vomiting, No diarrhea, No constipation Female : + urinary frequency (resolved), No dysuria, No hematuria GENERAL: alert, no distress, non-toxic EYE EXAM: normal conjunctiva, PERRL and EOM's grossly intact OROPHARYNX: no exudate, no erythema, lips, buccal mucosa, and tongue normal and mucous membranes are moist NECK: supple, no nuchal rigidity, no adenopathy, non-tender LUNGS: Clear to auscultation. Normal chest wall mechanics HEART: no murmurs, S1 normal and S2 normal ABDOMEN: abdomen soft, mild non-specific generalized tenderness, normo-active bowel sounds, no masses, no rebound or guarding. BACK: Back is symmetrical on inspection and there is no deformity SKIN: no rashes and no bruising UPPER EXTREMITIES: upper extremities are grossly normal. LOWER EXTREMITIES: No pitting edema. NEURO EXAM: Normal sensorium, cranial nerves II-XII grossly intact, normal speech Hospital Course H&P 62 yo f with a longstanding history of metastatic ovarian cancer that presents to us with increasing abdominal pain and bloating. The patient has been seen in the ED approx 3 times in the past month for constipation and bloating. She was started on a bowel regimen and has been taking miralax and stool softeners with poor improvement in symptoms and ongoing constipation. She has also started to vomit leading to weakness and concerned the patient as she is adrenal deficient. The patient has been undergoing a clinical trial at [facility] in [place] for approx 2 1/2 years and immunosuppressive therapy q 4 weeks. She does not take chronic pain medications. Course Abdominal pain secondary to partial SBO 2/2 mass effect by ovarian mass - initally pgiven Zosyn IV - NSS with [address] abdomen/pelvis: 4.9 x 3.9 cm soft tissue mass within deep pelvis - Managed conservatively as patient preferred her [facility] Onc at [facility] to perform procedure (Dr. Jay Hawk , ThursdayJanuary 01) Adrenal insufficiency-- Takes Cortef 15 mg every morning and 5 mg every afternoon. Stress dose hydrocortisone 100 mg initially given in the ED, continued at 50 mg IV every 8 hours Hypokalemia - supplemented K - resolved by discharge Metastatic Ovarian Ca with now mass effect on bowels - consulted hem/onc , resection of mass recommended Hypothyroidism - continue Synthroid 50 mcg DVT Prophylaxis Lovenox Disposition: Discharged with follow up to OIL INSPECTOR Oncology Dr. Jay Hawk on ThursdayJanuary 01t Total Time Spent: Less than 30 minutes This includes examination of the patient, discharge planning, medication reconciliation, and communication with other providers. Discharge Instructions Please refer to the electronic Patient Visit Report (Discharge Instructions) for additional information. Assessment/Plan Resident Physician Supervision Note: I was present with Dr. Contreras during the history and exam. I discussed the case with the resident and agree with the findings and plan as documented in the note. Any exceptions or clarifications are listed here: Pt seen and examined at bedside. Since decreasing diet to full liquid with low residual solids, patient has been relatively asymptomatic. She states that she did have some abdominal cramping with a high fiber muffin. Mild TTP of the b/l lower abdomen on deep palpation. CTAB, S1/S2 nl RRR. SBO - At present, has close follow up with apartment community manager/onc to address causative mass, so will discharge with dietary counseling for soft, low residual diet until that evaluation. Precautions reviewed regarding worsening or changing sx. Else per resident documentation as noted. Resident Tracking Resident Involvement: Resident Care Provided Care Provided: Adult [facility]
[2017-12-29 14:58] VITALS: BP 108/75; PULSE 75; TEMP 36.4; O2SAT 94
[2017-12-29 15:11] VITALS: BP 122/82; PULSE 79; TEMP 36.7; O2SAT 94
[2017-12-30] MEDS ORDERED: HYDROCORTISONE 10 MG TAB PO SCH ×2 (08:00→17:00)
== END 2017-12-29 16:48 | disposition home or self-care (01) | DRG 389 ==
LOC: C.EDB 21:23 → C.4E 12-26 01:15 → ENRESERV 12-26 01:38 → C.4E 12-26 23:21
PROVIDERS: ADMIT Hospitalist; ATTEND Family Medicine
DX: K56.690 Other partial intestinal obstruction (principal); C56.9 Malignant neoplasm of unspecified ovary; C78.4 Secondary malignant neoplasm of small intestine; C79.89 Secondary malignant neoplasm of other specified sites; C78.6 Secondary malignant neoplasm of retroperitoneum and peritoneum; K92.1 Melena; E27.3 Drug-induced adrenocortical insufficiency; E03.2 Hypothyroidism due to medicaments and other exogenous substances; T45.1X5A Adverse effect of antineoplastic and immunosuppressive drugs, initial encounter; E87.6 Hypokalemia; E61.1 Iron deficiency; R35.0 Frequency of micturition; Z87.891 Personal history of nicotine dependence; Z87.892 Personal history of anaphylaxis; Z79.899 Other long term (current) drug therapy; Z88.8 Allergy status to other drugs, medicaments and biological substances

== ENCOUNTER → 2018-02-24 | Outpatient (CLI) | payer BC ==
[~2018-02-24] MED LIST changes: +CLR10 PO; +CYAN10005 PO; -CYAN50TA2 PO; +HYDR-5688 PO; +ONDA4TAB10 SL; +OXYC-609 PO
[2018-02-24 15:26] LABS: HEMATOCRIT 28.9 % (37-47); HEMOGLOBIN 8.6 g/dL (12.0-16.0); MEAN CELL VOLUME 73.2 fL (80-100); MEAN CORPUSCULAR HEMOGLOBIN 21.8 pg (25-34); MEAN CORPUSCULAR HGB CONC 29.8 g/dl (32-36); MEAN PLATELET VOLUME 8.6 fL (7.4-10.4); PLATELET COUNT 413 K/uL (130-400); RED CELL DISTRIBUTION WIDTH CV 16.6 % (11.5-14.5); RED CELL DISTRIBUTION WIDTH SD 44.6 fL (36.4-46.3); WHITE BLOOD COUNT 7.63 K/uL (4.8-10.8)
[2018-02-24 15:27] LABS: BASO % 0.1 %; BASO ABS # 0.01 K/uL (0-0.2); EOS % 0.7 %; EOS ABS # 0.05 K/uL (0-0.5); IG# 0.02 K/uL (0.00-0.02); LYMPH % 8.1 %; LYMPH ABS # 0.62 K/uL (1.2-3.4); MONO % 6.9 %; MONO ABS # 0.53 K/uL (0.11-0.59); NEUT % 83.9 %
[2018-02-24 15:31] LABS: ALBUMIN 2.5 gm/dl (3.4-5.0); ALKALINE PHOSPHATASE 85 U/L (45-117); ALT/SGPT 13 U/L (12-78); AST/SGOT 15 U/L (15-37); BLOOD UREA NITROGEN 15 mg/dl (7-18); CALCIUM 8.3 mg/dl (8.5-10.1); CARBON DIOXIDE 28 mmol/L (21-32); CREATININE 0.95 mg/dl (0.60-1.20); GLUCOSE 152 mg/dl (70-99); POTASSIUM 3.4 mmol/L (3.5-5.1); SODIUM 137 mmol/L (136-145); TOTAL PROTEIN 6.1 gm/dl (6.4-8.2)
== END | disposition home or self-care (01) ==
LOC: C.LABSPEC 14:49
PROVIDERS: ATTEND Internal Medicine Hematology & Oncology
DX: C56.9 Malignant neoplasm of unspecified ovary (principal)

== ENCOUNTER → 2018-03-24 | Outpatient (CLI) | payer BC ==
[2018-03-24 14:52] LABS: HEMATOCRIT 25.4 % (37-47); HEMOGLOBIN 7.4 g/dL (12.0-16.0); MEAN CELL VOLUME 71.1 fL (80-100); MEAN CORPUSCULAR HEMOGLOBIN 20.7 pg (25-34); MEAN CORPUSCULAR HGB CONC 29.1 g/dl (32-36); MEAN PLATELET VOLUME 8.4 fL (7.4-10.4); PLATELET COUNT 519 K/uL (130-400); RED CELL DISTRIBUTION WIDTH CV 17.2 % (11.5-14.5); RED CELL DISTRIBUTION WIDTH SD 44.1 fL (36.4-46.3)
[2018-03-24 15:15] LABS: BASO % 0.2 %; BASO ABS # 0.02 K/uL (0-0.2); EOS % 0.2 %; EOS ABS # 0.02 K/uL (0-0.5); IG# 0.02 K/uL (0.00-0.02); LYMPH % 5.8 %; MONO % 8.4 %; MONO ABS # 0.72 K/uL (0.11-0.59); NEUT % 85.2 %; NEUT ABS # 7.32 K/uL (1.4-6.5)
[2018-03-24 15:38] LABS: ALBUMIN 2.5 gm/dl (3.4-5.0); ALKALINE PHOSPHATASE 84 U/L (45-117); ALT/SGPT 16 U/L (12-78); AST/SGOT 11 U/L (15-37); BLOOD UREA NITROGEN 17 mg/dl (7-18); CALCIUM 8.3 mg/dl (8.5-10.1); CARBON DIOXIDE 26 mmol/L (21-32); CREATININE 0.87 mg/dl (0.60-1.20); GLUCOSE 120 mg/dl (70-99); POTASSIUM 3.7 mmol/L (3.5-5.1); SODIUM 136 mmol/L (136-145)
== END | disposition home or self-care (01) ==
LOC: C.LABSPEC 14:33
PROVIDERS: ATTEND Internal Medicine Hematology & Oncology
DX: C56.9 Malignant neoplasm of unspecified ovary (principal)

== ENCOUNTER 2018-07-19 12:20 | Inpatient (IN) ==
[2018-07-19] MEDS ORDERED: MoRPHine SULFATE 10 MG/ML CARP/VIAL IV STA ×2 (12:56→15:18)
[2018-07-19] MEDS ORDERED: HYDROCORTISONE SOD SUCCINATE 100 MG/2 ML VIAL IV STA (12:56)
[2018-07-19] MEDS ORDERED: ONDANSETRON INJ 2 MG/ML 2 ML VIAL IV STA (12:56)
[2018-07-19] MEDS ORDERED: SODIUM CHLORIDE 0.9% 1000ML 1,000 ML IV SCH (13:00)
[2018-07-19 13:06] LABS: Basophils # (auto) 0.03 K/uL (0-0.2); Basophils % (auto) 0.3 %; Eosinophils # (auto) 0.11 K/uL (0-0.5); Eosinophils % (auto) 0.9 %; Hematocrit (blood only) 35.7 % (37-47); Hemoglobin 11.2 g/dL (12.0-16.0); Immature Granulocytes # (auto) 0.04 K/uL (0.00-0.02); Immature Granulocytes % (auto) 0.3 %; Lymphocytes % (auto) 12.6 %; Mean Corpuscular Hgb Conc 31.4 g/dL (32-36); Mean Corpuscular Volume 82.6 fL (80-100); Mean Platelet Volume 8.9 fL (7.4-10.4); Monocytes # (auto) 1.03 K/uL (0.11-0.59); Monocytes % (auto) 8.7 %; Neutrophils # (auto) 9.19 K/uL (1.4-6.5); Neutrophils % (auto) 77.2 %; Platelet Count 612 K/uL (130-400); RDW Coefficient of Variation 17.1 % (11.5-14.5); RDW Standard Deviation 51.1 fL (36.4-46.3); Red Blood Count 4.32 M/uL (4.2-5.4)
[2018-07-19 13:22] LABS: Albumin Level 2.6 gm/dl (3.4-5.0); BUN Creatinine Ratio 13.7 (10-20); Calcium 9.2 mg/dl (8.5-10.1); Creatinine Clr Calc Pharmacy 66.6 ml/min; Est GFR (African American) 86.4; Est GFR (Non-African American) 74.5; Magnesium 1.8 mg/dl (1.8-2.4); Potassium 3.2 mmol/L (3.5-5.1)
--- NOTE | 2018-07-19 13:26 | XRay Report ---
SINGLE VIEW CHEST CLINICAL HISTORY: Generalized weakness. FINDINGS: An AP, portable, upright chest radiograph is compared to study dated 07/03/2018. Correlatio n is made with chest CT dated 05/14/2018. A left subclavian central venous infusion port is in place. The heart is top normal for projection. The mediastinal contour is within normal limits. There is lef t basilar atelectasis. The lungs and pleural spaces are otherwise clear. No pneumothorax is seen. The bony thorax is grossly intact. IMPRESSION: No active disease in the chest. Electronically signed by: Jonas Paulino M.D. 07/19/2018 1:24 PM
[2018-07-19 13:32] LABS: Albumin Globulin Ratio 0.7 (0.9-2); Bilirubin,Total 0.5 mg/dl (0.1-1); Globulin 3.9 gm/dl (2.5-4.0); T4 Free Thyroxine 1.58 ng/dl (0.8-1.6); Total Protein 6.5 gm/dl (6.4-8.2)
--- NOTE | 2018-07-19 13:47 | CT Scan Report ---
CT SCAN OF THE ABDOMEN AND PELVIS WITHOUT IV CONTRAST CLINICAL HISTORY: Generalized abdominal pain. COMPARISON STUDY: Multiple prior recent abdominal CT scans, most recently dated 07/16/2018. TECHNIQUE: CT scan of the abdomen and pelvis is performed from the lung bases to the proximal femora. Images are reviewed in the axial, sagittal, and coronal planes. IV contrast was not administered as per the referring clinician. Note that the examination was performed [facility] contrast. A dose lowering technique was utilized adhering to the principles of ALARA. CT DOSE: 519.97 mGy.cm FINDINGS: Lung bases: The heart is enlarged and there is trace pericardial effusion. The lung bases are clear n oting bibasilar scarring/atelectasis. A tiny hiatal hernia is observed. Liver: The unenhanced liver is normal in size, contour, and attenuation. There is mild central intrah epatic biliary ductal dilatation. An implant likely grows into the inferior left hepatic lobe on jose ge #[id number] and measures 1.8 cm. A 4.1 cm irregular low-attenuation focus is again seen in the left hepat ic lobe on image #100. This could represent metastatic disease versus focal fatty infiltration. Gallbladder: Surgically absent noting clips in the gallbladder fossa. Spleen: Normal in size and attenuation. Pancreas: The unenhanced pancreas is grossly unremarkable. Adrenal glands: Unremarkable. Kidneys: The unenhanced kidneys demonstrate mild cortical atrophy and are without hydronephrosis. A 3 mm nonobstructing calculus is noted in the left kidney. Abdominal vasculature: The abdominal aorta is normal in course and caliber noting scattered foci of a therosclerotic calcification. Bowel: There are postoperative changes from sigmoid colon resection with colocolonic anastomosis. The stomach and small bowel are markedly distended and filled with fluid. Small bowel loops measure up t o 6 cm in diameter. A transition point is identified in the central pelvis on image #339 above large serosal implant. A small bowel anastomosis is seen distal to this site on image #345. The distal smal l bowel and colon are decompressed, this is consistent with a high-grade small bowel obstruction. The appendix is not identified and reported surgically absent. Small bowel are matted against the ventr al abdominal wall implants. 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 This is not well delineated on this examination withou t IV contrast. A small pocket of subcutaneous fluid is again seen near the umbilicus on image #287. T his measures at least 2.8 cm in diameter. Peritoneum: There is no intraperitoneal free air or abdominal ascites. There is extensive peritoneal metastatic disease, with numerous serosal implants identified. This has not significantly changed fro m 07/16/2018. A large lesion in the left lower quadrant seen on image #318 measures 5.4 x 5.0 cm. Larg e implants are present along the ventral abdominal wall. The largest is seen on image #268 and measur es 7 x 4 cm. Numerous serosal implants are seen. A serosal implant on the distal stomach is seen on i mage #114, a serosal implant at the site of bowel obstruction is seen on image #345, and a serosal im plant at the colonic resection margin as seen on image #342. Lymphadenopathy: None. Pelvic viscera: The bladder is normal as imaged. The uterus is surgically absent. Skeletal structures: The skeletal structures are osteopenic. No lytic or blastic lesions are seen. IMPRESSION: 1. Extensive/multifocal peritoneal metastatic disease is unchanged from previous noting peritoneal an d serosal implants. 2. There is persistent high-grade small bowel obstruction. This has not appreciably changed from 07/16, and is likely related to serosal metastatic disease. 3. 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 This is not well assessed without IV contrast and is likely unchanged from recent prior studies. 4. There is a small pocket of subcutaneous fluid within the ventral abdominal wall at the site of the fistula. A small abscess is not excluded. 5. A serosal implant invades the inferior left lobe of the liver 6. Additional findings as above. Electronically signed by: Jonas Paulino M.D. 07/19/2018 1:46 PM
[2018-07-19] MEDS ORDERED: LORazepam 0.5 MG/1 ML VIAL IV STA (16:03)
--- NOTE | 2018-07-19 16:25 | Emergency Department Note ---
Entered by Melanie Calvin acting as a scribe for History of Present Illness General Chief complaint: Dehydration Stated complaint: DEHYDRATED, BOWEL PAIN Time Seen by Provider: 07/19/18 12:49 Source: patient and family History of Present Illness Provider complaint: vomiting Onset (ago): day(s) (yesterday and this morning) Location: abdomen Maximum Pain Intensity: 10 Quality: + other (vomiting) Associated symptoms: + other (fatigue, constant pain) The patient is a 63 year old female who presents to the Emergency Room with complaints of vomiting yesterday and this morning. She reports that she was unable to keep anything down yesterday and reports that she has been fatigued and constantly in pain. She rates her pain at a 10/10. 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 She states that she has a partial small bowel obstruction. The patient states that she was here 3 days ago with similar complaints. The patient states that she last had chemotherapy 2 weeks ago and states that she is supposed to have it tomorrow but states that she does not think that she is going to make it. The patient reports that she has hypothyroidism and states that takes steroids as she has an adrenal insufficiency. Home Medications Home Medications Medication Instructions Recorded Confirmed Type pantoprazole [Protonix] 40 mg PO DAILY #0 11/05/17 07/19/18 History hydrocortisone [Cortef] 5 mg PO QPM #0 11/17/17 07/19/18 History hydrocortisone [Cortef] 15 mg PO QAM #0 11/17/17 07/19/18 History oxycodone 5 - 10 mg PO Q6H PRN #0 12/07/17 07/19/18 History cyanocobalamin (vitamin B-12) 1,000 mcg PO DAILY #0 tab 02/16/18 07/19/18 History ondansetron HCl [Zofran] 4 mg PO Q6 PRN 06/16/18 07/19/18 History levothyroxine [Synthroid] 75 mcg PO DAILY 07/02/18 07/19/18 History ertapenem 1 g IV DAILY 07/16/18 07/19/18 History oxycodone 5 mg PO Q6H PRN #10 tab 07/16/18 07/19/18 Rx tramadol 50 mg PO QID PRN 07/16/18 07/19/18 History Allergies Allergy/AdvReac Type Severity Reaction Status Date / Time carboplatin Allergy Severe anaphylactic Verified 07/19/18 13:05 reaction Past Med/Surg History Social History marital status: Current Living Situation: Spouse current occupational status: employed Feels Safe at Home: Yes Smoking Status: Never smoker Hx Alcohol Use: No Hx Substance Use: No Beliefs That Will Affect Care: None Preferred Language: Tajik Review of Systems See HPI for pertinent positives & negatives. and A total of 10 systems reviewed and were otherwise negative Physical Exam Vital Signs Vital Signs - 24 hr 07/19/18 12:26 07/19/18 14:10 07/19/18 14:37 Temperature 36.3 C L Temperature Source Oral Sepsis Recent Fever Within 48 Hours No Sepsis New/Unexplained Change in Mental Status No Sepsis Action Taken by Nursing No Action Required Pulse Rate 101 H Pulse Rate [Right Finger] 79 Respiratory Rate 20 16 Respiratory Depth Normal Normal Blood Pressure [Left Arm] Blood Pressure Mean [Left Arm] Pulse Oximetry 95 95 97 Oxygen Delivery Method Room Air Room Air 07/19/18 15:29 Temperature Temperature Source Sepsis Recent Fever Within 48 Hours Sepsis New/Unexplained Change in Mental Status Sepsis Action Taken by Nursing Pulse Rate Pulse Rate [Right Finger] 88 Respiratory Rate 16 Respiratory Depth Blood Pressure [Left Arm] 112/71 Blood Pressure Mean [Left Arm] 84 Pulse Oximetry 95 Oxygen Delivery Method Room Air GENERAL: Patient is in no acute distress. HEENT: No acute trauma, normocephalic atraumatic, mucous membranes dry, no nasal congestion, no scleral icterus. NECK: No stridor, no adenopathy, no meningismus, trachea is midline. LUNGS: Clear to auscultation bilaterally, no wheeze, no rhonchi, breath sounds equal. HEART: Without murmurs gallops or rubs, regular rate and rhythm. ABDOMEN: Some mild diffuse tenderness with palpation. Mild distension. Some brownish dry secretions in the area of the mid lower abdomen. No active drainage. Palpable firm masses to the mid lower abdomen bilaterally. EXTREMITIES: No cyanosis or edema, full range of motion of all the joints without pain or difficulty, no signs for acute trauma. NEUROLOGIC: Oriented x 3, no acute motor or sensory deficits, no focal weakness. SKIN: No rash, no jaundice, no diaphoresis. Course 1252: Past medical records reviewed. The patient was evaluated in room A12B, and a complete history and physical examination were performed. 1430: I checked on the patient. She is feeling better. We will call Kael. 1548: I discussed the patient's case with Dr. Tian Scruggs. He said that the patient would benefit from a hospital stay and NG tube and states that the patient would not need to go to their facility unless she failed the NGT. 1550: I updated the patient. She verbalized agreement and understanding of the treatment plan. 1607: I discussed the patient's case with Dr. Helen Schwab who will evaluate the patient for further management. Consultations Consultation #1: Dr. Tian Scruggs Time: 15:48 Consultation #2: Dr. Helen Schwab Time: 16:07 Administered Medications Discontinued Medications Hydrocortisone Sodium Succinate (Solu-Cortef) 100 mg IV NOW STA Stop: 07/19/18 12:57 Last Admin: 07/19/18 13:11 Dose: 100 mg Sodium Chloride (Nss 1000ml) 1,000 mls @ 999 mls/hr IV .Q1H1M RAFIQ Stop: 07/19/18 14:00 Last Infusion: 07/19/18 14:09 Dose: Admin: 07/19/18 13:12 Dose: 999 mls/hr Lorazepam (Ativan) 0.5 mg in 1 mls @ 1 mls/min IV NOW STA Stop: 07/19/18 16:04 Last Admin: 07/19/18 16:41 Dose: 1 mls/min Morphine Sulfate (Morphine Sulfate) 6 mg IV NOW STA Stop: 07/19/18 12:57 Last Admin: 07/19/18 13:11 Dose: 6 mg Morphine Sulfate (Morphine Sulfate) 6 mg IV NOW STA Stop: 07/19/18 15:19 Last Admin: 07/19/18 15:23 Dose: 6 mg Ondansetron HCl (Zofran) 4 mg IV NOW STA Stop: 07/19/18 12:57 Last Admin: 07/19/18 13:11 Dose: 4 mg Medical Decision Making Differential Diagnosis The patient is a 63 year old female who presents to the ED with vomiting. Differential diagnosis includes bowel obstruction, partial bowel obstruction, electrolyte imbalance, anemia, dehydration, UTI, and abscess. Medical Records Attestation: I reviewed the patient's medical records. Home Medications Current Medication List: was personally reviewed by me Laboratory Data Attestation: I reviewed the patient's lab results. Result diagrams: 07/19/18 12:50 07/19/18 12:50 Lab Results 07/19/18 07/19/18 Range/Units 12:50 12:50 WBC 11.90 H (4.8-10.8) K/uL RBC 4.32 (4.2-5.4) M/uL Hgb 11.2 L (12.0-16.0) g/dL Hct 35.7 L (37-47) % MCV 82.6 (80-100) fL MCH 25.9 (25-34) pg MCHC 31.4 L (32-36) g/dL RDW Std Deviation 51.1 H (36.4-46.3) fL RDW Coeff of Jannette 17.1 H (11.5-14.5) % Plt Count 612 H (130-400) K/uL MPV 8.9 (7.4-10.4) fL Immature Gran % (Auto) 0.3 % Neut % (Auto) 77.2 % Lymph % (Auto) 12.6 % [place] % (Auto) 8.7 % Eos % (Auto) 0.9 % Baso % (Auto) 0.3 % Immature Gran # (Auto) 0.04 H (0.00-0.02) K/uL Neut # (Auto) 9.19 H (1.4-6.5) K/uL Lymph # (Auto) 1.50 (1.2-3.4) K/uL [place] # (Auto) 1.03 H (0.11-0.59) K/uL Eos # (Auto) 0.11 (0-0.5) K/uL Baso # (Auto) 0.03 (0-0.2) K/uL Sodium 138 (136-145) mmol/L Potassium 3.2 L (3.5-5.1) mmol/L Chloride 96 L (98-107) mmol/L Carbon Dioxide 27 (21-32) mmol/L Anion Gap 15.0 H (3-11) BUN 11 (7-18) mg/dl Creatinine 0.83 (0.6-1.2) mg/dl Est Cr Clr Drug Dosing 66.6 ml/min Est GFR ( Amer) 86.4 Est GFR (Non-Af Amer) 74.5 BUN/Creatinine Ratio 13.7 (10-20) Glucose 60 L (70-99) mg/dl Calcium 9.2 (8.5-10.1) mg/dl Magnesium 1.8 (1.8-2.4) mg/dl Total Bilirubin 0.5 (0.1-1) mg/dl AST 16 (15-37) U/L ALT 16 (12-78) U/L Alkaline Phosphatase 96 (45-117) U/L Total Protein 6.5 (6.4-8.2) gm/dl Albumin 2.6 L (3.4-5.0) gm/dl Globulin 3.9 (2.5-4.0) gm/dl Albumin/Globulin Ratio 0.7 L (0.9-2) TSH 0.701 (0.300-4.500) uIu/ml Free T4 1.58 (0.8-1.6) ng/dl Imaging Data Radiologist's Impression: Radiology results as stated below per my review and the radiologist's interpretation: SINGLE VIEW CHEST CLINICAL HISTORY: Generalized weakness. FINDINGS: An AP, portable, upright chest radiograph is compared to study dated 07/03/2018. Correlation is made with chest CT dated 05/14/2018. A left subclavian central venous infusion port is in place. The heart is top normal for projection. The mediastinal contour is within normal limits. There is left basilar atelectasis. The lungs and pleural spaces are otherwise clear. No pneumothorax is seen. The bony thorax is grossly intact. IMPRESSION: No active disease in the chest. Electronically signed by: Jonas Paulino M.D. 07/19/2018 1:[address] SCAN OF THE ABDOMEN AND PELVIS WITHOUT IV CONTRAST CLINICAL HISTORY: Generalized abdominal pain. COMPARISON STUDY: Multiple prior recent abdominal CT scans, most recently dated 07/16/2018. TECHNIQUE: CT scan of the abdomen and pelvis is performed from the lung bases to the proximal femora. Images are reviewed in the axial, sagittal, and coronal planes. IV contrast was not administered as per the referring clinician. Note that the examination was performed in significantly suboptimal fashion without IV contrast. A dose lowering technique was utilized adhering to the principles of ALARA. CT DOSE: 519.97 mGy.cm FINDINGS: Lung bases: The heart is enlarged and there is trace pericardial effusion. The lung bases are clear noting bibasilar scarring/atelectasis. A tiny hiatal hernia is observed. Liver: The unenhanced liver is normal in size, contour, and attenuation. There is mild central intrahepatic biliary ductal dilatation. An implant likely grows into the inferior left hepatic lobe on image #104 and measures 1.8 cm. A 4.1 cm irregular low-attenuation focus is again seen in the left hepatic lobe on image #100. This could represent metastatic disease versus focal fatty infiltration. Gallbladder: Surgically absent noting clips in the gallbladder fossa. Spleen: Normal in size and attenuation. Pancreas: The unenhanced pancreas is grossly unremarkable. Adrenal glands: Unremarkable. Kidneys: The unenhanced kidneys demonstrate mild cortical atrophy and are without hydronephrosis. A 3 mm nonobstructing calculus is noted in the left kidney. Abdominal vasculature: The abdominal aorta is normal in course and caliber noting scattered foci of atherosclerotic calcification. Bowel: There are postoperative changes from sigmoid colon resection with colocolonic anastomosis. The stomach and small bowel are markedly distended and filled with fluid. Small bowel loops measure up to 6 cm in diameter. A transition point is identified in the central pelvis on image #339 above large serosal implant. A small bowel anastomosis is seen distal to this site on image #345. The distal small bowel and colon are decompressed, this is consistent with a high-grade small bowel obstruction. The appendix is not identified and reported surgically absent. Small bowel are matted against the ventral abdominal wall implants. 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 This is not well delineated on this examination without IV contrast. A small pocket of subcutaneous fluid is again seen near the umbilicus on image #287. This measures at least 2.8 cm in diameter. Peritoneum: There is no intraperitoneal free air or abdominal ascites. There is extensive peritoneal metastatic disease, with numerous serosal implants identified. This has not significantly changed from 07/16/2018. A large lesion in the left lower quadrant seen on image #318 measures 5.4 x 5.0 cm. Large implants are present along the ventral abdominal wall. The largest is seen on image #268 and measures 7 x 4 cm. Numerous serosal implants are seen. A serosal implant on the distal stomach is seen on image #114, a serosal implant at the site of bowel obstruction is seen on image #345, and a serosal implant at the colonic resection margin as seen on image #342. Lymphadenopathy: None. Pelvic viscera: The bladder is normal as imaged. The uterus is surgically absent. Skeletal structures: The skeletal structures are osteopenic. No lytic or blastic lesions are seen. IMPRESSION: 1. Extensive/multifocal peritoneal metastatic disease is unchanged from previous noting peritoneal and serosal implants. 2. There is persistent high-grade small bowel obstruction. This has not appreciably changed from 07/16/2018, and is likely related to serosal metastatic disease. 3. 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 This is not well assessed without IV contrast and is likely unchanged from recent prior studies. 4. There is a small pocket of subcutaneous fluid within the ventral abdominal wall at the site of the fistula. A small abscess is not excluded. 5. A serosal implant invades the inferior left lobe of the liver 6. Additional findings as above. Electronically signed by: Jonas Paulino M.D. 07/19/2018 1:46 PM Blood Pressure Blood Pressure Findings: Normal blood pressure MDM Narrative There is a mild leukocytosis, this could be consistent with infection or just her pain and vomiting. No worrisome anemia. No significant electrolyte abnormality, kidney failure, hepatitis. The patient appears to be in a euthyroid state. Chest film does not show pneumonia or free air. Abdominal and pelvis CT shows a high-grade bowel obstruction with significant distention of the proximal small bowel and stomach. A fistula was noted. The study looked similar to the study performed a few days ago. The patient received IV saline, IV Zofran, IV morphine. Because of her history of adrenal insufficiency, she was given IV hydrocortisone. She received IV Ativan for anxiety. The patient does feel improved with the above treatment. I discussed her case with her surgeon in [place]. He recommended an NG tube and a hospital stay. If she fails this therapy, she may require transfer to [place] for surgical intervention. In short, surgery is to be avoided at all costs as she is a high surgical risk. I discussed my findings with the patient, case management has been involved. The on-call hospitalist was consulted. I did order for an NG tube be placed to low intermittent suction. Impression & Plan SBO (small bowel obstruction), Vomiting, Dehydration Discharge Plan Visit Data Chief Complaint: Dehydration Stated Complaint: DEHYDRATED, BOWEL PAIN ED Provider: Jonas Britt Discharge Problem: SBO (small bowel obstruction), Vomiting, Dehydration Patient Disposition: Being Evaluated by Hospitalist Forms Stand Alone Forms: My [facility] Prescriptions Prescriptions: No Action pantoprazole [Protonix] 40 mg Tablet,Delayed Release (Dr/Ec) 40 mg PO DAILY Qty: 0 RF: 0 hydrocortisone [Cortef] 5 mg Tablet 5 mg PO QPM Qty: 0 RF: 0 hydrocortisone [Cortef] 5 mg Tablet 15 mg PO QAM Qty: 0 RF: 0 oxycodone 5 mg Tablet 5 - 10 mg PO Q6H PRN (Reason: Pain) Qty: 0 RF: 0 cyanocobalamin (vitamin B-12) 1,000 mcg Tablet 1,000 mcg PO DAILY Qty: 0 RF: 0 ondansetron HCl [Zofran] 4 mg Tablet 4 mg PO Q6 PRN (Reason: Nausea) RF: 0 levothyroxine [Synthroid] 75 mcg tablet 75 mcg PO DAILY RF: 0 tramadol 50 mg tablet 50 mg PO QID PRN (Reason: Pain) RF: 0 ertapenem 1 gram Recon Soln 1 g IV DAILY RF: 0 oxycodone 5 mg tablet 5 mg PO Q6H PRN (Reason: pain) Qty: 10 RF: 0 Referrals Referrals: Mo Molina Jr, DO [Primary Care Provider] - The scribe's documentation has been prepared under my direction and personally reviewed by me in its entirety. I confirm that the note above accurately reflects all work, treatment, procedures, and medical decision making performed by me.
--- NOTE | 2018-07-19 17:55 | History & Physical Report ---
Date of Service July 19, 2018 Assessment & Plan (1) Small bowel obstruction: CT a/p on 07/19 showed a high-grade, mid/distal SBO which had not significantly changed from prior. ED physician spoke with Dr. Jay Hawk who is her [facility]. Cell phone is [phone]. If she doesn't respond to conservative care (i.e. NG tube), he will accept transfer to [facility] for surgical intervention. - NG tube to low-intermittent suction - NPO apart from sips & chips - Surgery consult (Dr. Segal put in port and has a history with her) - Pain and nausea control - KUB in the morning - Dietary consult - Could consider TPN given patient's likely prolonged inability to tolerate PO (2) Abdominal fluid collection: On prior admission, CT a/p showed a fluid collection in the abdominal wall that was aspirated and grew 3 bacteria. Was on ertapenem for 7-days. Patient and report moira-umbilical redness had significantly improved. However, this afternoon, they report the redness has started to return with some new, mild drainage. - Restart ertapenem - Patient felt ertapenem caused nausea and headache, but is willing to take for 2-3 days - ID consult - Re-culture wound drainage (3) Primary cancer of ovary with widespread metastatic disease: Patient and say plan is for eventual restarting of chemo; however , her prognosis is palliative at this point. Patient is still full code, and her expectations seem very high to me relative to her poor clinical status. - Holding off on heme/onc consult as no current inpatient needs - Trend CBC (4) Adrenal insufficiency: History of adrenal insufficiency. - Transition from oral Cortef to IV with mild increase given her acute illness. (5) Hypothyroidism: No hypo/hyperthyroid symptoms. - PO Synthroid 75 mcg switched to 37.5 mcg IV daily (6) DVT prophylaxis: Heparin 5000 BID - Will give chemoprophylaxis given her high risk given her metastatic disease History of Present Illness Primary Care Provider: Mo Molina Jr, DO 63yo F w/ hx of metastatic ovarian cancer causing SBO who presents with abdominal pain and nausea. Reports the pain has been ongoing for several day. She was recently admitted for SBO. In late June, was admitted and conservatively treated and improved. She was admitted after Thanksgiving after "overdoing it" and reproesented to the ED on 07/02. She had a prolonged stay for her SBO. She was found to have an abomdinal wall infection and was discharged on ertapenem. She reports that the redness of her abdominal wall improved significantly on the ertapenem; however, she had headaches and nausea with the medication. She saw Toni Vela in the office on 07/16 and her antibiotics were stopped due to the side effects and hope that the infection had been treated. She and her report that the redness on her abdomen has been worsening just in the last few hours. They admit there may be some mild drainage from the area as well. Allergies Allergy/AdvReac Type Severity Reaction Status Date / Time carboplatin Allergy Severe anaphylactic Verified 07/19/18 13:05 reaction Home Medications Home Medications Medication Instructions Recorded Confirmed Type pantoprazole [Protonix] 40 mg PO DAILY #0 11/05/17 07/19/18 History hydrocortisone [Cortef] 5 mg PO QPM #0 11/17/17 07/19/18 History hydrocortisone [Cortef] 15 mg PO QAM #0 11/17/17 07/19/18 History oxycodone 5 - 10 mg PO Q6H PRN #0 12/07/17 07/19/18 History cyanocobalamin (vitamin B-12) 1,000 mcg PO DAILY #0 tab 02/16/18 07/19/18 History ondansetron HCl [Zofran] 4 mg PO Q6 PRN 06/16/18 07/19/18 History levothyroxine [Synthroid] 75 mcg PO DAILY 07/02/18 07/19/18 History ertapenem 1 g IV DAILY 07/16/18 07/19/18 History oxycodone 5 mg PO Q6H PRN #10 tab 07/16/18 07/19/18 Rx tramadol 50 mg PO QID PRN 07/16/18 07/19/18 History Past Med/Surg History Medical History Primary cancer of ovary with widespread metastatic disease SBO (small bowel obstruction) (Acute) Adrenal insufficiency Hypocalcemia Hypomagnesemia Pancytopenia Hypothyroidism Neoplasm causing mass effect on adjacent structures Colitis (Acute) Dehydration (Acute) History of hysterectomy (Acute) Hx of thyroid disease (Acute) Hypocortisolemia (Acute) Ovarian cancer (Acute) Small bowel obstruction (Acute) Surgical History Hx of appendectomy (Acute) Hx of cholecystectomy (Acute) Family History Other No pertinent family history Social History marital status: Current Living Situation: Spouse current occupational status: employed Other Information That Helps Us Care for You: No Feels Safe at Home: Yes Safety Concerns: Feels Safe At This Time Smoking Status: Never smoker Do You Dip or Chew Tobacco: No Second Hand Exposure: No Tobacco Cessation Education Requested by Patient: No Hx Alcohol Use: No Hx Substance Use: No Beliefs That Will Affect Care: None Preferred Language: Portuguese Communication Ability: Effective Ranch Manager Required: No Review of Systems Constitutional: no fever, no chills and no sweats Eyes: no diplopia Ear, Nose, Mouth, Throat: no ear trauma, no nasal discharge and no dental pain Respiratory: no cough, no chest congestion and no dyspnea Cardiovascular: no chest pain, no dyspnea on exertion, no palpitations and no syncope Gastrointestinal: + abdominal pain, + belching, + nausea and + vomiting (Not all the time though.); no constipation, no diarrhea/loose stools, no blood in stools and no melena Musculoskeletal: no back pain, no joint pain and no muscle weakness Integumentary: no rash, no skin ulcer and no erythema Neurologic: no generalized weakness, no loss of sensation, no numbness and no paresthesia Psychiatric: no depression and no anxiety Endocrine: no fatigue, no polydipsia and no polyphagia Physical Exam 2 Vital Signs (Past 24 Hours): Last Vital Signs Temp 36.3 C L 07/19/18 12:26 Pulse 88 07/19/18 17:33 Resp 16 07/19/18 17:33 BP 97/74 L 07/19/18 17:33 Pulse Ox 93 07/19/18 17:33 Constitutional: WD/WN, vitals as above + ill appearing and + thin Eyes: EOM intact bilaterally; no conjunctival abnormality ENMT: external ear and nose normal, oropharynx normal Neck: trachea midline, no thyromegaly normal visual inspection Respiratory: normal respiratory effort, lungs clear to auscultation no respiratory distress Cardiovascular: RRR, no murmur, no edema Gastrointestinal (Abdomen): Inspection/Auscultation: + abdominal surgical scar and + abdominal surgical incision (Serous drainage present); + abdomen abnormal to inspection, abdomen not distended and + abnormal bowel sounds ( Hypoactive) Percussion/Palpation: abdomen soft and + abdominal mass; abdomen nontender, no guarding and abdomen not rigid Musculoskeletal: no cyanosis or clubbing, extremities motor strength 5/5 Skin: no rashes, warm and dry Neurologic: moves all extremities and awake Psychiatric: Orientation: alert, oriented to person and cooperative _ (1) Primary cancer of ovary with widespread metastatic disease Laterality: unspecified laterality Qualified Code(s): C56.9 - Malignant neoplasm of unspecified ovary; C80.0 - Disseminated malignant neoplasm, unspecified (2) Hypothyroidism Hypothyroidism type: acquired Qualified Code(s): E03.9 - Hypothyroidism, unspecified
[2018-07-19] MEDS ORDERED: TPN/PPN CONSULT PHARMACY PRN (18:15)
[2018-07-19] MEDS ORDERED: TPN/PPN CONSULT PHARMACY STA (18:15)
[2018-07-19] MEDS: SODIUM CHLORIDE 0.9% 1000ML 1,000 ML IV SCH (18:53)
[2018-07-19] MEDS ORDERED: ERTAPENEM SODIUM 1,000 MG in SODIUM CHLORIDE 0.9% 50 ML IV SCH (19:00)
[2018-07-19] MEDS ORDERED: ENOXAPARIN INJ 30 MG/0.3 ML SYR SQ SCH (19:00)
[2018-07-19] MEDS: HEPARIN SOD 5,000 UNIT/0.5 ML VIAL SQ SCH (21:46)
[2018-07-19] MEDS ORDERED: Nursing to Pharmacy Communication ONE (21:50)
[2018-07-19] MEDS ORDERED: COUGH DROP (SUGAR FREE) LOZ 24 LOZ/1 BOX BUCCAL PRN (21:53)
[2018-07-20] MEDS ORDERED: HEPARIN 100 UNIT/ML 5ML FLUSH FLUSH PRN (00:11)
[2018-07-20 06:03] LABS: Hematocrit (blood only) 32.3 % (37-47); Mean Corpuscular Volume 84.1 fL (80-100); Platelet Count 494 K/uL (130-400); RDW Coefficient of Variation 17.2 % (11.5-14.5); RDW Standard Deviation 52.3 fL (36.4-46.3); Red Blood Count 3.84 M/uL (4.2-5.4); White Blood Count 8.25 K/uL (4.8-10.8)
[2018-07-20 06:42] LABS: Albumin Level 2.2 gm/dl (3.4-5.0); BUN Creatinine Ratio 14.1 (10-20); Calcium 8.3 mg/dl (8.5-10.1); Creatinine Clr Calc Pharmacy 74.7 ml/min; Est GFR (African American) 99.2; Est GFR (Non-African American) 85.6; Magnesium 1.8 mg/dl (1.8-2.4); Potassium 3.9 mmol/L (3.5-5.1)
[2018-07-20] MEDS ORDERED: LORazepam 0.5 MG/1 ML VIAL IV ONE (06:45)
[2018-07-20 06:46] LABS: Albumin Globulin Ratio 0.7 (0.9-2); Bilirubin,Total 0.3 mg/dl (0.1-1); Globulin 3.3 gm/dl (2.5-4.0); Phosphorus 3.4 mg/dl (2.5-4.9); Prealbumin 9.2 mg/dl (20-40); Total Protein 5.5 gm/dl (6.4-8.2)
[2018-07-20 06:57] LABS: Appearance Urine Clear (Clear); Bacteria Urine Automated Negative (Negative); Bilirubin Urine Negative (Negative); Color Urine Dark Yellow; Epithelial Cell Urine Auto >30 /lpf (0-5); Glucose Urine UA Negative (Negative); Leukocyte Esterase Urine Negative (Negative); Nitrite Urine Negative (Negative); Protein Urine Trace (Negative); Specific Gravity Urine 1.024 (1.000-1.030); Urobilinogen Urine Negative (Negative)
[2018-07-20] MEDS ORDERED: HYDROCORTISONE SOD SUCCINATE 100 MG/2 ML VIAL IV SCH (07:00)
[2018-07-20 07:06] LABS: Ketones Urine 3+ (Negative)
[2018-07-20] MEDS: SODIUM CHLORIDE 0.9% 1000ML 1,000 ML IV SCH (08:15)
--- NOTE | 2018-07-20 08:41 | XRay Report ---
KUB CLINICAL HISTORY: Small bowel obstruction. FINDINGS: An AP supine abdominal radiograph is correlated with abdominal CT dated 07/19/2018. There i s evidence of persistent small bowel obstruction. No evidence of intraperitoneal free air is seen on this supine image. Suture material is noted in the right lower quadrant. Pelvic phlebolith are observ ed. Cholecystectomy clips are seen in the right upper quadrant. The skeletal structures are osteopeni c. Lumbosacral spondylosis is observed. IMPRESSION: Persistent small bowel obstruction. Electronically signed by: Jonas Paulino M.D. 07/20/2018 8:40 AM
--- NOTE | 2018-07-20 08:50 | Hospitalist Progress Note ---
Date of Service July 20, 2018 Assessment & Plan (1) Small bowel obstruction: CT a/p on 07/19 showed a high-grade, mid/distal SBO which had not significantly changed from prior. ED physician spoke with Dr. Jay Hawk who is her [facility]. Cell phone is [phone]. If she doesn't respond to conservative care (i.e. NG tube), he will accept transfer to [facility] for surgical intervention. - NG tube to low-intermittent suction - NPO apart from sips & chips - Surgery consult (Dr. Segal put in port and has a history with her) Dr. Canseco is seen in her previous hospital stay - Pain and nausea control - KUB 07/20 is consistent with persistent bowel obstruction - Dietary consult -starting TPN given patient's likely prolonged inability to tolerate PO and previous sandhya few weeks with poor p.o. intake (2) Abdominal fluid collection: On prior admission, CT a/p showed a fluid collection in the abdominal wall that was aspirated and grew 3 bacteria. Was on ertapenem for 7-days. Patient and report moira-umbilical redness had significantly improved. However, this afternoon, they report the redness has started to return with some new, mild drainage. Drainage is since started to lessen - Restarted ertapenem but Patient felt ertapenem caused nausea and headache, will change imipenem to see if symptoms improve - ID consult will follow - Re-culture wound drainage results pending (3) Primary cancer of ovary with widespread metastatic disease: Patient and say plan is for eventual restarting of chemo; however , her prognosis is palliative at this point. Patient is still full code, and her expectations seem very high patient will likely need coordination of care with her local oncologist Dr. Rendon and her oncologist at [place] (4) Adrenal insufficiency: History of adrenal insufficiency. - Transition from oral Cortef to IV hydrocortisone (5) Hypothyroidism: No hypo/hyperthyroid symptoms. - PO Synthroid 75 mcg switched to 37.5 mcg IV daily (6) DVT prophylaxis: Heparin 5000 BID -will change to the Lovenox given its improved track record malignancy associated VTE prevention Subjective Patient is somewhat sedated during my exam she is medicated for pain. Her x- ray this morning on 07/20 shows persistence of her bowel obstruction pattern. She has no further drainage of her abdominal wound and there is much less redness although some firmness is able to be palpated. Her is at the bedside and updated Review of Systems Unobtainable due to cognitive status (Patient was sedated due to morphine and Ativan this morning and unable to have a complete review of systems. She looks comfortable upon my presentation to the room) Physical Exam 2 Vital Signs (Past 24 Hours): Last Vital Signs Temp 36.3 C L 07/20/18 07:01 Pulse 77 07/20/18 07:01 Resp 18 07/20/18 07:01 BP 104/71 07/20/18 07:01 Pulse Ox 94 07/20/18 07:01 ROS: The patient appeared chronically ill but normally developed Vital signs as documented. Head exam is unremarkable. No scleral icterus or corneal arcus noted Neck is without jugular venous distension, thyromegaly, or lymphademopathy Lungs are decreased in effort no focal air loss no wheeze Cardiac exam reveals Rhythm is regular. First and second heart sounds normal. No murmurs, rubs or gallops. Abdominal exam reveals normal bowel sounds, there is once again a mass felt to the left of the midline incision there is some crusted drainage on the incision but no active drainage and there is no expressible fluid her abdomen is tender to touch and examine Extremities are trace edematous and both pedal pulses are normal. Neurologic exam is medicated and lethargic, she can spontaneously move all extremities Skin is warm Dry without bruises or lesions minor redness along with the midline abdominal incision Results & Data Diagnostic Findings CT ABD Pelvis 07/19 1. Extensive/multifocal peritoneal metastatic disease is unchanged from previous noting peritoneal and serosal implants. 2. There is persistent high-grade small bowel obstruction. This has not appreciably changed from 07/16/2018, and is likely related to serosal metastatic disease. 3. 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 This is not well assessed without IV contrast and is likely unchanged from recent prior studies. 4. There is a small pocket of subcutaneous fluid within the ventral abdominal wall at the site of the fistula. A small abscess is not excluded. 5. A serosal implant invades the inferior left lobe of the liver 6. Additional findings as above. _ (1) Primary cancer of ovary with widespread metastatic disease Laterality: unspecified laterality Qualified Code(s): C56.9 - Malignant neoplasm of unspecified ovary; C80.0 - Disseminated malignant neoplasm, unspecified (2) Hypothyroidism Hypothyroidism type: acquired Qualified Code(s): E03.9 - Hypothyroidism, unspecified
[2018-07-20] MEDS: LEVOTHYROXINE SODIUM 37.5 MCG in SYRINGE 0 ML IV SCH (09:14)
[2018-07-20] MEDS: HYDROCORTISONE SOD 25 MG in SYRINGE 0 ML IV SCH ×2 (09:16→20:36)
[2018-07-20] MEDS: HEPARIN SOD 5,000 UNIT/0.5 ML VIAL SQ SCH (09:16)
--- NOTE | 2018-07-20 10:29 | Infectious Disease Consult ---
Date of Consultation July 20, 2018 Assessment & Plan (1) Abdominal fluid collection: 63-year-old female with widely metastatic ovarian carcinoma being treated with ertapenem for abdominal wall fluid collection with resistant E. coli, admitted with abdominal pain, nausea, and headache, appears to have improved with NG tube placement and suction. Not clear whether she was having symptoms from her ertapenem or not. For now, since she appears to be tolerating so far, would continue ertapenem with length of treatment to depend on clinical response. Will follow. (2) E. coli infection: History of Present Illness Reason for Consultation: Abdominal wall infection abdominal wall infection Attending Physician: Jay Koch MD History of Present Illness 63-year-old female known to me from recent infectious disease consultation, with a history of widely metastatic ovarian carcinoma with intraperitoneal metastases, recent admission for small bowel obstruction, also recently found to have small abdominal wall infection as well as enterocutaneous fistula, and was discharged home on IV ertapenem. Cultures at that time grew E. coli, ESBL producing, and Bacteroides. She was seen yesterday with severe abdominal pain, nausea, and vomiting, along with headache, which she was attributing to ertapenem therapy. She was referred to the emergency department and admitted. CT scan shows high-grade small bowel obstruction, residual small collection in the anterior abdominal wall. NG tube is in place with improvement in symptoms. She is back on ertapenem and seems to be tolerating so far. White count has improved. She is not reporting any significant fever. Allergies Allergy/AdvReac Type Severity Reaction Status Date / Time carboplatin Allergy Severe anaphylactic Verified 07/19/18 13:05 reaction Home Medications Home Medications Medication Instructions Recorded Confirmed Type pantoprazole [Protonix] 40 mg PO DAILY #0 11/05/17 07/19/18 History hydrocortisone [Cortef] 5 mg PO QPM #0 11/17/17 07/19/18 History hydrocortisone [Cortef] 15 mg PO QAM #0 11/17/17 07/19/18 History oxycodone 5 - 10 mg PO Q6H PRN #0 12/07/17 07/19/18 History cyanocobalamin (vitamin B-12) 1,000 mcg PO DAILY #0 tab 02/16/18 07/19/18 History ondansetron HCl [Zofran] 4 mg PO Q6 PRN 06/16/18 07/19/18 History levothyroxine [Synthroid] 75 mcg PO DAILY 07/02/18 07/19/18 History ertapenem 1 g IV DAILY 07/16/18 07/19/18 History oxycodone 5 mg PO Q6H PRN #10 tab 07/16/18 07/19/18 Rx tramadol 50 mg PO QID PRN 07/16/18 07/19/18 History Patient History Medical History Primary cancer of ovary with widespread metastatic disease SBO (small bowel obstruction) (Acute) Adrenal insufficiency Hypocalcemia Hypomagnesemia Pancytopenia Hypothyroidism Neoplasm causing mass effect on adjacent structures Colitis (Acute) Dehydration (Acute) History of hysterectomy (Acute) Hx of thyroid disease (Acute) Hypocortisolemia (Acute) Ovarian cancer (Acute) Small bowel obstruction (Acute) Surgical History Hx of appendectomy (Acute) Hx of cholecystectomy (Acute) Family History Other No pertinent family history Social History marital status: Current Living Situation: Spouse current occupational status: employed Other Information That Helps Us Care for You: No Feels Safe at Home: Yes Safety Concerns: Feels Safe At This Time Smoking Status: Never smoker Do You Dip or Chew Tobacco: No Second Hand Exposure: No Tobacco Cessation Education Requested by Patient: No Hx Alcohol Use: No Hx Substance Use: No Beliefs That Will Affect Care: None Communication Ability: Effective Review of Systems Constitutional: + fatigue, + weakness and + weight loss Eyes: no problem reported Ear, Nose, Mouth, Throat: no problem reported Respiratory: no problem reported Cardiovascular: no problem reported Gastrointestinal: + abdominal pain, + bloating, + nausea and + vomiting Genitourinary (Female): no problem reported Musculoskeletal: no problem reported Integumentary: as per Subjective / HPI Neurologic: no problem reported Psychiatric: + depression Endocrine: no problem reported Hematologic / Lymphatic: no problem reported Allergy / Immunological: no problem reported Physical Exam 2 Vital Signs (Past 24 Hours): Last Vital Signs Temp 36.3 C L 07/20/18 07:01 Pulse 77 07/20/18 07:01 Resp 18 07/20/18 07:01 BP 104/71 07/20/18 07:01 Pulse Ox 94 07/20/18 07:01 Constitutional: + ill appearing and + thin; no acute distress Eyes: PERRL, conjunctivae normal, anicteric sclerae ENMT: external ear and nose normal, oropharynx normal NG tube in place Neck: trachea midline, no thyromegaly neck nontender Respiratory: normal respiratory effort, lungs clear to auscultation normal percussion; no respiratory distress Cardiovascular: RRR, no murmur, no edema Heart Sounds: no cardiac rub Gastrointestinal (Abdomen): Inspection/Auscultation: + abdomen distended and normal bowel sounds Percussion/Palpation: + abdomen tender and + abdominal mass; no hepatosplenomegaly Musculoskeletal: no cyanosis or clubbing, extremities motor strength 5/5 Skin: no rashes, warm and dry normal turgor Some abdominal wall erythema Neurologic: moves all extremities and awake; no focal motor deficits Psychiatric: Orientation: alert and oriented x 3 Affect: + depressed affect Lymphatic: no cervical or axillary lymphadenopathy no inguinal lymphadenopathy Results & Data Laboratory Results Short CBC 07/19/18 07/20/18 Range/Units 12:50 05:38 WBC 11.90 H 8.25 (4.8-10.8) K/uL Hgb 11.2 L 10.0 L (12.0-16.0) g/dL Hct 35.7 L 32.3 L (37-47) % Plt Count 612 H 494 H (130-400) K/uL BMP 07/19/18 07/20/18 12:50 05:38 Sodium 138 141 Potassium 3.2 L 3.9 D Chloride 96 L 101 Carbon Dioxide 27 26 BUN 11 10 Creatinine 0.83 0.74 Glucose 60 L 54 L Calcium 9.2 8.3 L Liver Function 07/19/18 07/20/18 Range/Units 12:50 05:38 Total Bilirubin 0.5 0.3 (0.1-1) mg/dl AST 16 12 L (15-37) U/L ALT 16 17 (12-78) U/L Alkaline Phosphatase 96 82 (45-117) U/L Albumin 2.6 L 2.2 L (3.4-5.0) gm/dl Urine 07/20/18 Range/Units 06:00 Urine Color Dark Yellow Urine Appearance Clear (Clear) Urine pH 6.0 (4.5-7.5) Ur Specific [place] 1.024 (1.000-1.030) Urine Protein Trace H (Negative) Urine Glucose (UA) Negative (Negative) [place] [address] / Director: Goran Kelley M.D. Clinical Laboratory Report Name: JUNAID GARDNER Acct: [id number] Status: DIS IN : 1955 [facility] [place] Date: Age: 63 Sex: F Dis Date: Loc: Medical Oncology [address] [place] [address]/Bed: E403-1 Spec: [id number] Collected: 07/08/18-UNK Received: 07/08/18-[address]: Odalys Scott . , FAVIAN Copy To: Toni Vela MD, Jessica A., Jay Vaca M.D. Lin, Daniel Y., MD , PhD Alexx Canseco , Mo Stevens Jr, Kaleb Gomez MD Self, Referred Source: Abdomen OV Order: Ordered: Aer/Susan Cult/Sm Procedure Result Verified Site Gram Stain Final 07/09/1808 Gram Stain Result Many Polys And Mononucleated Cells Few Gram Negative Bacilli Few Gram Positive Cocci Aero/Susan Cult Final 07/13/18-1431 Organism 1 Escherichia coli ESBL Quantity Many Sens Sensitivities to Follow Organism 2 Escherichia coli Quantity Moderate Sens Sensitivities to Follow Organism 3 Bacteroides thetaiotaomicron Quantity Moderate Sens No Sensitivities to Follow Sensitivity results indicate an organism with an Extended Spectrum Beta Lactamase. This is considered a Multidrug Resistant Organism. Phoned to DR KOCH on 07/11/18 at 0816 by Rylee Quesada. Results were verbalized back. Results were also called to [facility]fection Control Answering [facility] on 07/11/18 by Rylee Quesada ESBL E col E coli RX M.I.C. RX M.I.C. --- --------- --- --------- Amikacin S <=16 S <=16 Ampicillin R >16 R >16 Amp/Sul R >16/8 R >16/8 Cefazolin R 16 S <=8 Cefepime R 16 S <=4 Cefotaxime R 8 S <=2 Cefoxitin S <=8 S <=8 Ceftriaxone R <=1 S <=1 Cefuroxime R >16 I 16 Ciprofloxacin R >2 R >2 Ertapenem S <=1 S <=1 Gentamicin S <=4 S <=4 Imipenem S <=1 S <=1 Levofloxacin R >4 R >4 Tobramycin R >8 R >8 Trimeth/Sulfa R >2/38 R >2/38 Pip/Tazo R >64 S <=16 S = SENSITIVE I = INTERMEDIATE R = RESISTANT Name: JUNAID GARDNER Isma : 1955 [address] SCAN OF THE ABDOMEN AND PELVIS WITHOUT IV CONTRAST CLINICAL HISTORY: Generalized abdominal pain. COMPARISON STUDY: Multiple prior recent abdominal CT scans, most recently dated 07/16/2018. TECHNIQUE: CT scan of the abdomen and pelvis is performed from the lung bases to the proximal femora. Images are reviewed in the axial, sagittal, and coronal planes. IV contrast was not administered as per the referring clinician. Note that the examination was performed in significantly suboptimal fashion without IV contrast. A dose lowering technique was utilized adhering to the principles of ALARA. CT DOSE: 519.97 mGy.cm FINDINGS: Lung bases: The heart is enlarged and there is trace pericardial effusion. The lung bases are clear noting bibasilar scarring/atelectasis. A tiny hiatal hernia is observed. Liver: The unenhanced liver is normal in size, contour, and attenuation. There is mild central intrahepatic biliary ductal dilatation. An implant likely grows into the inferior left hepatic lobe on image #104 and measures 1.8 cm. A 4.1 cm irregular low-attenuation focus is again seen in the left hepatic lobe on image #100. This could represent metastatic disease versus focal fatty infiltration. Gallbladder: Surgically absent noting clips in the gallbladder fossa. Spleen: Normal in size and attenuation. Pancreas: The unenhanced pancreas is grossly unremarkable. Adrenal glands: Unremarkable. Kidneys: The unenhanced kidneys demonstrate mild cortical atrophy and are without hydronephrosis. A 3 mm nonobstructing calculus is noted in the left kidney. Abdominal vasculature: The abdominal aorta is normal in course and caliber noting scattered foci of atherosclerotic calcification. Bowel: There are postoperative changes from sigmoid colon resection with colocolonic anastomosis. The stomach and small bowel are markedly distended and filled with fluid. Small bowel loops measure up to 6 cm in diameter. A transition point is identified in the central pelvis on image #339 above large serosal implant. A small bowel anastomosis is seen distal to this site on image #345. The distal small bowel and colon are decompressed, this is consistent with a high-grade small bowel obstruction. The appendix is not identified and reported surgically absent. Small bowel are matted against the ventral abdominal wall implants. 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 This is not well delineated on this examination without IV contrast. A small pocket of subcutaneous fluid is again seen near the umbilicus on image #287. This measures at least 2.8 cm in diameter. Peritoneum: There is no intraperitoneal free air or abdominal ascites. There is extensive peritoneal metastatic disease, with numerous serosal implants identified. This has not significantly changed from 07/16/2018. A large lesion in the left lower quadrant seen on image #318 measures 5.4 x 5.0 cm. Large implants are present along the ventral abdominal wall. The largest is seen on image #268 and measures 7 x 4 cm. Numerous serosal implants are seen. A serosal implant on the distal stomach is seen on image #114, a serosal implant at the site of bowel obstruction is seen on image #345, and a serosal implant at the colonic resection margin as seen on image #342. Lymphadenopathy: None. Pelvic viscera: The bladder is normal as imaged. The uterus is surgically absent. Skeletal structures: The skeletal structures are osteopenic. No lytic or blastic lesions are seen. IMPRESSION: 1. Extensive/multifocal peritoneal metastatic disease is unchanged from previous noting peritoneal and serosal implants. 2. There is persistent high-grade small bowel obstruction. This has not appreciably changed from 07/16/2018, and is likely related to serosal metastatic disease. 3. 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 This is not well assessed without IV contrast and is likely unchanged from recent prior studies. 4. There is a small pocket of subcutaneous fluid within the ventral abdominal wall at the site of the fistula. A small abscess is not excluded. 5. A serosal implant invades the inferior left lobe of the liver 6. Additional findings as above. Electronically signed by: Jonas Paulino M.D. 07/19/2018 1:46 PM Dictated: 07/19/18 1334 Transcribed: 07/19/18 1334
[2018-07-20] MEDS: PANTOprazole 40 MG in SYRINGE 0 ML IV SCH (11:14)
--- NOTE | 2018-07-20 12:39 | Surgery Consultation ---
Date of Consultation July 20, 2018 Assessment & Plan (1) Small bowel obstruction: 63-year-old female with advanced age ovarian cancer with mechanical small bowel obstruction secondary to peritoneal implants. 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 At this point there is no emergent indication for surgical intervention, and any intervention would likely be palliative. If she does need surgery then she should be transferred to a tertiary facility, preferably to her oncologic surgeon in [place]. Management of injecting his fistula will be to control sepsis, developed a low output, controlled fistula, and protect the skin. She has multiple risk factors for continuation of fistula including her tumor burden, chemotherapy, and a distal obstruction. Surgery will continue to follow, call with questions or concerns. Present on Admission?: Yes History of Present Illness Attending Physician: Jay Koch MD History of Present Illness 63-year-old female known to service from prior bowel obstructions. She has a history of metastatic ovarian cancer with multiple surgeries and peritoneal implants. She has a peritoneal implant that appears to be causing a partial mechanical obstruction near her old anastomosis. She has been admitted for this in the past and her symptoms resolved with NG tube decompression. At her last visit she was also noted to have a fluid collection that was aspirated in her anterior abdominal wall that appears to be consistent with an enteric cutaneous fistula near the area of a tumor implant. She has been on antibiotics for this problem. She had some drainage from the area during her most recent bowel obstruction episode. She was seen last week in the emergency department for recurrence of her small bowel obstruction, however she related all of her symptoms to her antibiotics and despite having a bowel obstruction on her CT scan decided she did not want to stay. Her symptoms persisted over the weekend and began to worsen so she represented to the emergency department last night. She has an NG tube in place, and feels slightly better with decompression. There is no redness or drainage currently from her fistula. She appears to have more malaise and weaker than she did at her last visit. Allergies Allergy/AdvReac Type Severity Reaction Status Date / Time carboplatin Allergy Severe anaphylactic Verified 07/19/18 13:05 reaction Home Medications Home Medications Medication Instructions Recorded Confirmed Type pantoprazole [Protonix] 40 mg PO DAILY #0 11/05/17 07/19/18 History hydrocortisone [Cortef] 5 mg PO QPM #0 11/17/17 07/19/18 History hydrocortisone [Cortef] 15 mg PO QAM #0 11/17/17 07/19/18 History oxycodone 5 - 10 mg PO Q6H PRN #0 12/07/17 07/19/18 History cyanocobalamin (vitamin B-12) 1,000 mcg PO DAILY #0 tab 02/16/18 07/19/18 History ondansetron HCl [Zofran] 4 mg PO Q6 PRN 06/16/18 07/19/18 History levothyroxine [Synthroid] 75 mcg PO DAILY 07/02/18 07/19/18 History ertapenem 1 g IV DAILY 07/16/18 07/19/18 History oxycodone 5 mg PO Q6H PRN #10 tab 07/16/18 07/19/18 Rx tramadol 50 mg PO QID PRN 07/16/18 07/19/18 History Patient History Medical History Primary cancer of ovary with widespread metastatic disease SBO (small bowel obstruction) (Acute) Adrenal insufficiency Hypocalcemia Hypomagnesemia Pancytopenia Hypothyroidism Neoplasm causing mass effect on adjacent structures Colitis (Acute) Dehydration (Acute) History of hysterectomy (Acute) Hx of thyroid disease (Acute) Hypocortisolemia (Acute) Ovarian cancer (Acute) Small bowel obstruction (Acute) Surgical History Hx of appendectomy (Acute) Hx of cholecystectomy (Acute) Family History Other No pertinent family history Social History marital status: Current Living Situation: Spouse current occupational status: employed Other Information That Helps Us Care for You: No Feels Safe at Home: Yes Safety Concerns: Feels Safe At This Time Smoking Status: Never smoker Do You Dip or Chew Tobacco: No Second Hand Exposure: No Tobacco Cessation Education Requested by Patient: No Hx Alcohol Use: No Hx Substance Use: No Beliefs That Will Affect Care: None Communication Ability: Effective Review of Systems 10 point review of systems negative except as above Physical Exam 2 Vital Signs (Past 24 Hours): Last Vital Signs Temp 36.4 C L 07/20/18 12:16 Pulse 87 07/20/18 12:16 Resp 16 07/20/18 12:16 BP 115/77 07/20/18 12:16 Pulse Ox 93 07/20/18 12:16 Constitutional: + ill appearing and + cachectic Eyes: PERRL, conjunctivae normal, anicteric sclerae ENMT: external ear and nose normal, oropharynx normal Neck: trachea midline, no thyromegaly Respiratory: normal respiratory effort, lungs clear to auscultation Cardiovascular: RRR, no murmur, no edema Gastrointestinal (Abdomen): Inspection/Auscultation: + abdomen distended Percussion/Palpation: abdomen soft and + abdominal mass Abdomen is moderately distended and tympanitic to percussion. She has abdominal wall implants near the midline of her incision just above her umbilicus. In this area at the site of prior aspiration there is some crusting over the site with some old drainage. No erythema or evidence of abscess or infection. No peritonitis. Musculoskeletal: no cyanosis or clubbing, extremities motor strength 5/5 Skin: no rashes, warm and dry Neurologic: PERRL, EOMI, accommodation nl, no face palsy, no dysarthria CN' s II-XI intact bilaterally Psychiatric: A+Ox3, euthymic affect Lymphatic: no cervical or axillary lymphadenopathy Results & Data Laboratory Results Laboratory Results - last 24 hr 07/19/18 07/19/18 07/19/18 12:50 12:50 18:31 WBC 11.90 H RBC 4.32 Hgb 11.2 L Hct 35.7 L MCV 82.6 MCH 25.9 MCHC 31.4 L RDW Std Deviation 51.1 H RDW Coeff of Jannette 17.1 H Plt Count 612 H MPV 8.9 Immature Gran % (Auto) 0.3 Neut % (Auto) 77.2 Lymph % (Auto) 12.6 Baldwin % (Auto) 8.7 Eos % (Auto) 0.9 Baso % (Auto) 0.3 Immature Gran # (Auto) 0.04 H Neut # (Auto) 9.19 H Lymph # (Auto) 1.50 Baldwin # (Auto) 1.03 H Eos # (Auto) 0.11 Baso # (Auto) 0.03 Sodium 138 Potassium 3.2 L Chloride 96 L Carbon Dioxide 27 Anion Gap 15.0 H BUN 11 Creatinine 0.83 Est Cr Clr Drug Dosing 66.6 Est GFR ( Amer) 86.4 Est GFR (Non-Af Amer) 74.5 BUN/Creatinine Ratio 13.7 Glucose 60 L Lactate 0.7 Calcium 9.2 Phosphorus Magnesium 1.8 Total Bilirubin 0.5 AST 16 ALT 16 Alkaline Phosphatase 96 Total Protein 6.5 Albumin 2.6 L Globulin 3.9 Albumin/Globulin Ratio 0.7 L Prealbumin Triglycerides TSH 0.701 Free T4 1.58 Urine Color Urine Appearance Urine pH Ur Specific Dr[place] Urine Protein Urine Glucose (UA) Urine Ketones Urine Blood Urine Nitrite Urine Bilirubin Urine Urobilinogen Ur Leukocyte Esterase Urine WBC (Auto) Urine RBC (Auto) U Hyaline Cast (Auto) U Epithel Cells (Auto) Urine Bacteria (Auto) 07/20/18 07/20/18 07/20/18 05:38 05:38 06:00 WBC 8.25 RBC 3.84 L Hgb 10.0 L Hct 32.3 L MCV 84.1 MCH 26.0 MCHC 31.0 L RDW Std Deviation 52.3 H RDW Coeff of Jannette 17.2 H Plt Count 494 H MPV 9.0 Immature Gran % (Auto) Neut % (Auto) Lymph % (Auto) Baldwin % (Auto) Eos % (Auto) Baso % (Auto) Immature Gran # (Auto) Neut # (Auto) Lymph # (Auto) Baldwin # (Auto) Eos # (Auto) Baso # (Auto) Sodium 141 Potassium 3.9 D Chloride 101 Carbon Dioxide 26 Anion Gap 14.0 H BUN 10 Creatinine 0.74 Est Cr Clr Drug Dosing 74.7 Est GFR ( Amer) 99.2 Est GFR (Non-Af Amer) 85.6 BUN/Creatinine Ratio 14.1 Glucose 54 L Lactate Calcium 8.3 L Phosphorus 3.4 Magnesium 1.8 Total Bilirubin 0.3 AST 12 L ALT 17 Alkaline Phosphatase 82 Total Protein 5.5 L Albumin 2.2 L Globulin 3.3 Albumin/Globulin Ratio 0.7 L Prealbumin 9.2 L Triglycerides 125 TSH Free T4 Urine Color Dark Yellow Urine Appearance Clear Urine pH 6.0 Ur Specific [place] 1.024 Urine Protein Trace H Urine Glucose (UA) Negative Urine Ketones 3+ H Urine Blood Negative Urine Nitrite Negative Urine Bilirubin Negative Urine Urobilinogen Negative Ur Leukocyte Esterase Negative Urine WBC (Auto) 1-5 Urine RBC (Auto) 0-4 U Hyaline Cast (Auto) 5-10 H U Epithel Cells (Auto) >30 H Urine Bacteria (Auto) Negative Diagnostic Findings CT SCAN OF THE ABDOMEN AND PELVIS WITHOUT IV CONTRAST CLINICAL HISTORY: Generalized abdominal pain. COMPARISON STUDY: Multiple prior recent abdominal CT scans, most recently dated 07/16/2018. TECHNIQUE: CT scan of the abdomen and pelvis is performed from the lung bases to the proximal femora. Images are reviewed in the axial, sagittal, and coronal planes. IV contrast was not administered as per the referring clinician. Note that the examination was performed in significantly suboptimal fashion without IV contrast. A dose lowering technique was utilized adhering to the principles of ALARA. CT DOSE: 519.97 mGy.cm FINDINGS: Lung bases: The heart is enlarged and there is trace pericardial effusion. The lung bases are clear noting bibasilar scarring/atelectasis. A tiny hiatal hernia is observed. Liver: The unenhanced liver is normal in size, contour, and attenuation. There is mild central intrahepatic biliary ductal dilatation. An implant likely grows into the inferior left hepatic lobe on image #104 and measures 1.8 cm. A 4.1 cm irregular low-attenuation focus is again seen in the left hepatic lobe on image #100. This could represent metastatic disease versus focal fatty infiltration. Gallbladder: Surgically absent noting clips in the gallbladder fossa. Spleen: Normal in size and attenuation. Pancreas: The unenhanced pancreas is grossly unremarkable. Adrenal glands: Unremarkable. Kidneys: The unenhanced kidneys demonstrate mild cortical atrophy and are without hydronephrosis. A 3 mm nonobstructing calculus is noted in the left kidney. Abdominal vasculature: The abdominal aorta is normal in course and caliber noting scattered foci of atherosclerotic calcification. Bowel: There are postoperative changes from sigmoid colon resection with colocolonic anastomosis. The stomach and small bowel are markedly distended and filled with fluid. Small bowel loops measure up to 6 cm in diameter. A transition point is identified in the central pelvis on image #339 above large serosal implant. A small bowel anastomosis is seen distal to this site on image #345. The distal small bowel and colon are decompressed, this is consistent with a high-grade small bowel obstruction. The appendix is not identified and reported surgically absent. Small bowel are matted against the ventral abdominal wall implants. 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 This is not well delineated on this examination without IV contrast. A small pocket of subcutaneous fluid is again seen near the umbilicus on image #287. This measures at least 2.8 cm in diameter. Peritoneum: There is no intraperitoneal free air or abdominal ascites. There is extensive peritoneal metastatic disease, with numerous serosal implants identified. This has not significantly changed from 07/16/2018. A large lesion in the left lower quadrant seen on image #318 measures 5.4 x 5.0 cm. Large implants are present along the ventral abdominal wall. The largest is seen on image #268 and measures 7 x 4 cm. Numerous serosal implants are seen. A serosal implant on the distal stomach is seen on image #114, a serosal implant at the site of bowel obstruction is seen on image #345, and a serosal implant at the colonic resection margin as seen on image #342. Lymphadenopathy: None. Pelvic viscera: The bladder is normal as imaged. The uterus is surgically absent. Skeletal structures: The skeletal structures are osteopenic. No lytic or blastic lesions are seen. IMPRESSION: 1. Extensive/multifocal peritoneal metastatic disease is unchanged from previous noting peritoneal and serosal implants. 2. There is persistent high-grade small bowel obstruction. This has not appreciably changed from 07/16/2018, and is likely related to serosal metastatic disease. 3. 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 This is not well assessed without IV contrast and is likely unchanged from recent prior studies. 4. There is a small pocket of subcutaneous fluid within the ventral abdominal wall at the site of the fistula. A small abscess is not excluded. 5. A serosal implant invades the inferior left lobe of the liver 6. Additional findings as above.
[2018-07-20] MEDS: ONDANSETRON INJ 2 MG/ML 2 ML VIAL IV PRN (13:27)
[2018-07-20] MEDS ORDERED: CUSTOM CENTRAL PN IV SCH (16:00)
[2018-07-20] MEDS ORDERED: DEXTROSE 10% 1,000 ML IV SCH (16:00)
[2018-07-20] MEDS: IMIPENEM/CILASTATIN SODIUM 500 MG in DEXTROSE 5% 100 ML IV SCH ×2 (17:59→23:48)
[2018-07-20] MEDS: ENOXAPARIN INJ 40 MG/0.4 ML SYR SQ SCH (20:38)
[2018-07-21] MEDS: IMIPENEM/CILASTATIN SODIUM 500 MG in DEXTROSE 5% 100 ML IV SCH ×3 (06:33→20:08)
[2018-07-21 07:29] LABS: BUN Creatinine Ratio 19.8 (10-20); Calcium 8.4 mg/dl (8.5-10.1); Est GFR (African American) 83.9; Est GFR (Non-African American) 72.4; Magnesium 1.7 mg/dl (1.8-2.4); Potassium 3.5 mmol/L (3.5-5.1)
[2018-07-21 07:31] LABS: Phosphorus 2.4 mg/dl (2.5-4.9)
[2018-07-21] MEDS: HYDROCORTISONE SOD 25 MG in SYRINGE 0 ML IV SCH ×2 (08:15→20:08)
[2018-07-21] MEDS ORDERED: POTASSIUM PHOS 3 MMOL/1 ML INFUSION IV STA (09:00)
[2018-07-21] MEDS ORDERED: MAGNESIUM SULFATE / D5W 1 GM/100 ML BAG IV ONE (09:00)
[2018-07-21] MEDS: LEVOTHYROXINE SODIUM 37.5 MCG in SYRINGE 0 ML IV SCH (09:10)
[2018-07-21] MEDS ORDERED: POTASSIUM PHOSPHATE 15 MMOL in SODIUM CHLORIDE 0.9% 250 ML IV ONE (09:30)
[2018-07-21] MEDS: PANTOprazole 40 MG in SYRINGE 0 ML IV SCH (10:40)
--- NOTE | 2018-07-21 11:59 | XRay Report ---
KUB HISTORY: Acute generalized abdominal pain eval for sbo COMPARISON: KUB 07/20/2018, CT 07/19/2018 FINDINGS: Enteric tube distal tip terminates within the abdominal left upper quadrant within the region of the proximal gastric lumen. Persistent distention of the stomach. Dilated loops of small bowel within the central abdomen appear mildly worsened from yesterday's KUB. Dilated loop about the left midabdomen measuring 6.2 cm. Dilated small bowel to the right midabdomen measures up to 4.0 cm. No pneumatosis o r pneumoperitoneum. Surgical clips project over the abdominal right upper quadrant. Phleboliths noted about the left hemipelvis. Skeletal structures appear unremarkable. IMPRESSION: 1. Persistent small bowel obstruction. 2. No pneumatosis or pneumoperitoneum. 3. Enteric tube distal tip terminates within the region of the proximal gastric lumen. Electronically signed by: Conrad Will M.D. 07/21/2018 11:58 AM
[2018-07-21] MEDS: LORazepam 0.5 MG/1 ML VIAL IV PRN ×2 (15:15→23:56)
--- NOTE | 2018-07-21 15:22 | Pharmacy Report ---
Pharmacy PN Initial Consult - Date of Service July 21, 2018 (late entry for 07/20/18) - Scope Pharmacy has been consulted to manage parenteral nutrition orders and order appropriate labs. As part of the Nutrition Support Team guidelines, pharmacy will work in conjunction with dietary when determining the patients caloric needs. - Subjective The patient is a 63 year old F admitted on 07/19/18 17:07 for SMALL BOWEL OBSTRUCTION. Patient is to receive parenteral nutrition for small bowel obstruction with poor po intake [employer] ROUTEM[employer] and 10% weight loss. Pertinent PMH: Metastatic ovarian cancer - Objective Height: 5 ft 7 in Weight: 63 kg Diet: NPO Vascular Access:: Port Intake & Output (Last 24Hrs): Intake & Output 07/19/18 07/20/18 07/21/18 07/22/18 06:59 06:59 06:59 06:59 Intake Total 239.333 / 727.804 3180.667 / 2094.667 210 / 210 Output Total 1300 / 1300 3550 / 3550 400 / 400 Balance -1060.667 / -1060.667 -1455.333 / -1455.333 -190 / -190 Weight 69.1 kg 63 kg Laboratory Data (Last 24 Hrs):: 07/21/18 06:27 Sodium 140 Potassium 3.5 Chloride 99 Carbon Dioxide 33 H BUN 17 D Creatinine 0.85 Glucose 151 H Calcium 8.4 L Phosphorus 2.4 L D Magnesium 1.7 L Nutrition Assessment:: Please refer to the Notes section of the EMR for the most recent [employer] note. - Assessment * Ms. Anderson is a candidate for TPN due to her admitting diagnosis and baseline poor nutritional status * She is at somewhat of a risk for re-feeding but surprisingly, her electrolytes are WNL today * Will still plan to initiate dextrose at ~1/2 the goal * Received verbal from physician to d/c IVFs once TPN starts - Plan For day 1 of PN administration, the following will be ordered: Macronutrients Amino acids 100 grams/day Dextrose 125 grams/day Lipids 25 grams/day Micronutrients Combined electrolytes 20 mL - contains 35 mEq Na, 20 meq K, 4.5 mEq Ca, 5 mEq Mg , 35 mEq Cl, 29.5 mEq acetate per 20 mL Sodium chloride 60 mEq Potassium phosphate 21 mMol Multivitamins 10 mL Trace Elements 1 mL Thiamine 100 mg (due to risk of re-feeding) Total volume 2000 mL (~30 mL/kg/day) to be infused over 24 hrs will provide 1075 kcal/day Labs to be ordered per PN order protocol Pharmacy will follow and adjust parenteral nutrition orders on a daily basis. Thank you.
[2018-07-21] MEDS ORDERED: CUSTOM CENTRAL PN IV SCH (16:00)
--- NOTE | 2018-07-21 16:27 | Hospitalist Progress Note ---
Date of Service July 21, 2018 Assessment & Plan (1) Small bowel obstruction: CT a/p on 07/19 showed a high-grade, mid/distal SBO which had not significantly changed from prior. ED physician spoke with Dr. Jay Hawk who is her [facility]. Cell phone is [phone]. If she doesn't respond to conservative care (i.e. NG tube), he will accept transfer to [facility] for surgical intervention. - NG tube to low-intermittent suction - NPO apart from sips & chips - Surgery consult (Dr. Segal put in port and has a history with her) Dr. Canseco is seen in her previous hospital stay - Pain and nausea control - KUB 07/21 shows persistent bowel obstruction - Dietary consult -starting TPN given patient's likely prolonged inability to tolerate PO and previous sandhya few weeks with poor p.o. intake Family and pt are willing to give it another day and if no help to consider re engaging onc surgery in [place] (2) Abdominal fluid collection: On prior admission, CT a/p showed a fluid collection in the abdominal wall that was aspirated and grew 3 bacteria. Was on ertapenem for 7-days. Patient and report moira-umbilical redness had significantly improved. However, this afternoon, they report the redness has started to return with some new, mild drainage. Drainage is since started to lessen - Restarted ertapenem but Patient felt ertapenem caused nausea and headache, did change imipenem much less headache and nausea, but also did rehydrate and treat pain - - Re-culture wound drainage results pending 07/21 (3) Primary cancer of ovary with widespread metastatic disease: Patient and say plan is for eventual restarting of chemo; however , her prognosis is palliative at this point. Patient is still full code, and her expectations seem very high patient will likely need coordination of care with her local oncologist Dr. Rendon and her oncologist at [place] (4) Adrenal insufficiency: History of adrenal insufficiency. - Transition from oral Cortef to IV hydrocortisone (5) Hypothyroidism: No hypo/hyperthyroid symptoms. - PO Synthroid 75 mcg switched to 37.5 mcg IV daily (6) DVT prophylaxis: Lovenox given its improved track record malignancy associated VTE prevention Subjective Patient is slightly lethargic still with abdominal pain no drainage from the midline abdominal wound still with hypoactive bowel sounds no flatus or bowel production Review of Systems ROS: Fatigued and worn out No double vision blurry vision No problems with speech or swallowing No palpitations, chest pain or pressure No Wheezing or breathing issues Central abdominal pain nausea pain is crampy in nature it comes and goes No burning urine urine frequency or changes in color No focal joint pain or muscle pain No skin rashes or oral lesions No unusual bruising or bleeding No focused back pain or numbness or loss of strength No changes in memory or confusion Physical Exam 2 Vital Signs (Past 24 Hours): Last Vital Signs Temp 36.4 C L 07/21/18 15:05 Pulse 79 07/21/18 15:05 Resp 18 07/21/18 15:05 BP 109/76 07/21/18 15:05 Pulse Ox 94 07/21/18 15:05 The patient appeared chronically ill and declining Vital signs as documented. Head exam is unremarkable. No scleral icterus or corneal arcus noted Neck is without jugular venous distension, thyromegaly, or lymphademopathy Lungs are decreased at the bases Cardiac exam reveals Rhythm is regular. First and second heart sounds normal. No murmurs, rubs or gallops. Abdominal exam reveals hyperactive bowel sounds masses felt on abdominal wall are about the same she is tympanitic to percussion and tender to percussion Extremities are mildly edematous and both pedal pulses are normal. Neurologic exam is A&Ox3, no focal deficits, strength is equal bilateral Skin is warm Dry without bruises or lesions _ (1) Primary cancer of ovary with widespread metastatic disease Laterality: unspecified laterality Qualified Code(s): C56.9 - Malignant neoplasm of unspecified ovary; C80.0 - Disseminated malignant neoplasm, unspecified (2) Hypothyroidism Hypothyroidism type: acquired Qualified Code(s): E03.9 - Hypothyroidism, unspecified
--- NOTE | 2018-07-21 17:08 | Surgery Progress Note ---
Date of Service July 21, 2018 Assessment & Plan (1) Small bowel obstruction: 63-year-old female with advanced stage ovarian cancer with mechanical small bowel obstruction secondary to peritoneal implants. 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 At this point there is no emergent indication for surgical intervention, and any intervention would likely be palliative. We did discuss options such as PEG tube for venting as well as bypass in continuity. If she does need surgery then she should be transferred to a tertiary facility, preferably to her oncologic surgeon in [place]. Management of enterocutaneous fistula will be to control sepsis, developed a low output, controlled fistula, and protect the skin. She has multiple risk factors for continuation of fistula including her tumor burden, chemotherapy, and a distal obstruction. Surgery will continue to follow, call with questions or concerns. Subjective 63-year-old female with metastatic ovarian cancer and history of multiple abdominal surgeries now with mechanical small bowel obstruction associated with tumor implant as well as a developing enterocutaneous fistula also associated with a tumor implant. The patient was sleeping after receiving Ativan for anxiety earlier today and was not examined. I did have a long discussion with the patient's and Dr. Boyce. Physical Exam 2 Vital Signs (Past 24 Hours): Last Vital Signs Temp 36.4 C L 07/21/18 15:05 Pulse 79 07/21/18 15:05 Resp 18 07/21/18 15:05 BP 109/76 07/21/18 15:05 Pulse Ox 94 07/21/18 15:05 Constitutional: + ill appearing and + cachectic Gastrointestinal (Abdomen): Inspection/Auscultation: + abdomen distended Percussion/Palpation: abdomen soft and + abdominal mass
[2018-07-21] MEDS: ENOXAPARIN INJ 40 MG/0.4 ML SYR SQ SCH (20:07)
[2018-07-22] MEDS: IMIPENEM/CILASTATIN SODIUM 500 MG in DEXTROSE 5% 100 ML IV SCH ×5 (01:07→23:45)
[2018-07-22 07:43] LABS: BUN Creatinine Ratio 33.2 (10-20); Calcium 8.1 mg/dl (8.5-10.1); Creatinine Clr Calc Pharmacy 93.7 ml/min; Est GFR (African American) 112.3; Est GFR (Non-African American) 96.9; Magnesium 2.1 mg/dl (1.8-2.4); Phosphorus 2.6 mg/dl (2.5-4.9); Potassium 4.1 mmol/L (3.5-5.1)
--- NOTE | 2018-07-22 08:42 | XRay Report ---
KUB CLINICAL HISTORY: progress of sbo COMPARISON STUDY: KUB July 21, 2018. FINDINGS: Tip of nasogastric tube projects over the gastric fundus. Moderate small bowel dilatation p ersists. This is similar to previous exam. IMPRESSION: No significant change in small bowel dilatation suggestive of a persistent small bowel o bstruction. Electronically signed by: Ernesto Arora M.D. 07/22/2018 8:41 AM
[2018-07-22] MEDS: LEVOTHYROXINE SODIUM 37.5 MCG in SYRINGE 0 ML IV SCH (09:08)
[2018-07-22] MEDS: HYDROCORTISONE SOD 25 MG in SYRINGE 0 ML IV SCH ×2 (09:08→22:05)
[2018-07-22] MEDS: PANTOprazole 40 MG in SYRINGE 0 ML IV SCH (11:07)
--- NOTE | 2018-07-22 13:38 | Hospitalist Progress Note ---
Date of Service July 22, 2018 Assessment & Plan (1) Small bowel obstruction: CT a/p on 07/19 showed a high-grade, mid/distal SBO which had not significantly changed from prior. ED physician spoke with Dr. Jay Hawk who is her [facility]. Cell phone is [phone]. If she doesn't respond to conservative care (i.e. NG tube), he will accept transfer to [facility] for surgical intervention. - NG tube to low-intermittent suction - NPO apart from sips & chips - Surgery consult (Dr. Segal put in port and has a history with her) Dr. Canseco is seen in her previous hospital stay - Pain and nausea control - KUB 07/21 shows persistent bowel obstruction - Dietary consult -starting TPN given patient's likely prolonged inability to tolerate PO and previous sandhya few weeks with poor p.o. intake Family and pt are considering gastrostomy tube, they did request that I call her surgeron in [place] and I do have a call out to them (2) Abdominal fluid collection: On prior admission, CT a/p showed a fluid collection in the abdominal wall that was aspirated and grew 3 bacteria. Was on ertapenem for 7-days. Patient and report moira-umbilical redness had significantly improved. However, this afternoon, they report the redness has started to return with some new, mild drainage. Drainage is since started to lessen - Restarted ertapenem but Patient felt ertapenem caused nausea and headache, did change imipenem much less headache and nausea, but also did rehydrate and treat pain - - Re-culture wound drainage results 07/21 only show coagulase neg staph, may consider Gent for home care as pt feels she is intolerant of ertapenem, will discuss with ID (3) Primary cancer of ovary with widespread metastatic disease: Patient and are agreeable to speaking to palliative at this point. Patient is still full code, and her expectations now seem to be getting thru sandra (4) Adrenal insufficiency: History of adrenal insufficiency. - Transition from oral Cortef to IV hydrocortisone (5) Hypothyroidism: No hypo/hyperthyroid symptoms. - PO Synthroid 75 mcg switched to 37.5 mcg IV daily (6) DVT prophylaxis: Lovenox given its improved track record malignancy associated VTE prevention Subjective Patient had a small bowel movement today her abdomen is still about the same mildly tender there is a firmness surrounding her midline incision consistent with a previous subcutaneous abscess We spent some time discussing the possibility of a percutaneous gastrostomy tube for palliative care for drainage of secretions and gas although she is having some stool today the likelihood that her small bowel obstruction would remain unobstructed for prolonged period time is low as it looks to be associated with a soft tissue mass which is likely a tumor implant near where the transition point of the small bowel is right I do have a phone call out to her oncological surgeon in [place] Dr. Hawk Review of Systems ROS: Patient appears chronically ill No double vision blurry vision No problems with speech or swallowing No palpitations, chest pain or pressure No Wheezing or breathing issues Diffuse abdominal pain but no nausea vomiting positive bowel movement 07/22 No burning urine urine frequency or changes in color No focal joint pain or muscle pain No skin rashes or oral lesions No unusual bruising or bleeding No focused back pain or numbness or loss of strength No changes in memory or confusion Physical Exam 2 Vital Signs (Past 24 Hours): Last Vital Signs Temp 36.3 C L 07/22/18 07:12 Pulse 68 07/22/18 07:12 Resp 16 07/22/18 07:12 BP 103/72 07/22/18 07:12 Pulse Ox 94 07/22/18 07:12 The patient appeared chronically ill malnourished and ill Vital signs as documented. Head exam is unremarkable. No scleral icterus or corneal arcus noted Neck is without jugular venous distension, thyromegaly, or lymphademopathy Lungs are clear decreased breath sounds at the bases Cardiac exam reveals Rhythm is regular. First and second heart sounds normal. No murmurs, rubs or gallops. Abdominal exam reveals hyperactive bowel sounds, no masses, no organomegaly she remains tympanitic to percussion Extremities are mildly edematous and both pedal pulses are normal. Neurologic exam is A&Ox3, no focal deficits, strength is equal bilateral Skin is warm Dry without bruises or lesions _ (1) Primary cancer of ovary with widespread metastatic disease Laterality: unspecified laterality Qualified Code(s): C56.9 - Malignant neoplasm of unspecified ovary; C80.0 - Disseminated malignant neoplasm, unspecified (2) Hypothyroidism Hypothyroidism type: acquired Qualified Code(s): E03.9 - Hypothyroidism, unspecified
[2018-07-22] MEDS: LORazepam 0.5 MG/1 ML VIAL IV PRN (13:57)
[2018-07-22] MEDS ORDERED: GENTAMICIN CONSULT ACTIVE PRN (14:09)
--- NOTE | 2018-07-22 14:19 | Pharmacy Report ---
Pharmacy Abx Dose Short Note - Date of Service July 22, 2018 - Assessment & Plan Assessment 63 year old F receiving gentamicin for treatment of MDR gram negative organisms. Received Imipenem upon admission. Day # 1 of gent thx Plan Gentamicin: Will start with 325mg (5mg/kg) dosed on actual BW X1 maintenance interval to be determined by random lvl and nomogram Gent random lvl ordered for 07/23/18 @0400, ~10hrs after start of Gent infsn Pharmacy will continue to follow and will adjust dose/frequency as necessary. Thank you.
[2018-07-22] MEDS ORDERED: CHLORASEPTIC 1.4% SOLN 180 ML BTL MT PRN (14:29)
--- NOTE | 2018-07-22 15:21 | Surgery Progress Note ---
Date of Service July 22, 2018 Assessment & Plan (1) Small bowel obstruction: 63-year-old female with advanced stage ovarian cancer with mechanical small bowel obstruction secondary to peritoneal implants. 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 At this point there is no emergent indication for surgical intervention, and any intervention would likely be palliative. We did discuss options such as PEG tube for venting as well as bypass in continuity. If she does need surgery then she should be transferred to a tertiary facility, preferably to her oncologic surgeon in [place]. She would like to discuss the findings with her [facility] [facility] in [place] prior to making any decisions. Management of enterocutaneous fistula will be to control sepsis, developed a low output, controlled fistula, and protect the skin. She has multiple risk factors for continuation of fistula including her tumor burden, chemotherapy, and a distal obstruction. Surgery will continue to follow peripherally, call with questions or concerns. Subjective 63-year-old female with metastatic ovarian cancer and history of multiple abdominal surgeries now with mechanical small bowel obstruction associated with tumor implant as well as a developing enterocutaneous fistula also associated with a tumor implant. Met with the patient and had a long discussion with the patient, her , and Dr. Boyce. Physical Exam 2 Vital Signs (Past 24 Hours): Last Vital Signs Temp 36.3 C L 07/22/18 07:12 Pulse 68 07/22/18 07:12 Resp 16 07/22/18 07:12 BP 103/72 07/22/18 07:12 Pulse Ox 94 07/22/18 07:12 Constitutional: + ill appearing and + cachectic Gastrointestinal (Abdomen): Inspection/Auscultation: + abdomen distended Percussion/Palpation: abdomen soft and + abdominal mass crusted drainage at site of prior aspiration of EC fistula Psychiatric: A+Ox3, euthymic affect Lymphatic: no cervical or axillary lymphadenopathy
[2018-07-22] MEDS ORDERED: CUSTOM CENTRAL PN IV SCH (16:00)
[2018-07-22] MEDS ORDERED: GENTAMICIN SULFATE 320 MG in DEXTROSE 5% 100 ML IV ONE (18:00)
[2018-07-22] MEDS: MoRPHine SULFATE 10 MG/ML CARP/VIAL IV PRN (19:38)
[2018-07-22] MEDS: ONDANSETRON INJ 2 MG/ML 2 ML VIAL IV PRN (19:46)
[2018-07-22] MEDS: ENOXAPARIN INJ 40 MG/0.4 ML SYR SQ SCH (22:08)
[2018-07-23] MEDS: IMIPENEM/CILASTATIN SODIUM 500 MG in DEXTROSE 5% 100 ML IV SCH ×4 (05:46→23:53)
[2018-07-23] MEDS: HYDROCORTISONE SOD 25 MG in SYRINGE 0 ML IV SCH ×2 (08:11→20:57)
[2018-07-23] MEDS: LIDOCAINE HCL 2% VISCOUS 60 ML, DiphenhydrAMINE Syrup 150 MG, ALUMINUM/MAGNESIUM SUSP 6... MT PRN ×2 (08:18→11:59)
--- NOTE | 2018-07-23 08:49 | Pharmacy Report ---
Pharmacy Abx Dose Short Note - Date of Service July 23, 2018 - Assessment & Plan A/P Gentamicin random lvl drawn within 6-14hr window. Lvl of 1.50mcg/mL within range for EI Gentamicin Q24 dosing interval pursuant to [facility] Nomogram. Continue dose of 320mg Q24. Ongoing monitoring: SCr every 3-5 days, if renal fxn remains stable please order a random Gent lvl in ~5 days. Pharmacy will continue to follow and will adjust dose/frequency as necessary. Thank you.
[2018-07-23] MEDS: LEVOTHYROXINE SODIUM 37.5 MCG in SYRINGE 0 ML IV SCH (10:08)
[2018-07-23] MEDS: MoRPHine SULFATE 10 MG/ML CARP/VIAL IV PRN ×2 (10:13→23:21)
[2018-07-23 10:53] LABS: BUN Creatinine Ratio 34.5 (10-20); Calcium 8.2 mg/dl (8.5-10.1); Creatinine Clr Calc Pharmacy 87.7 ml/min; Est GFR (African American) 109.9; Est GFR (Non-African American) 94.8; Magnesium 1.9 mg/dl (1.8-2.4); Phosphorus 3.1 mg/dl (2.5-4.9); Potassium 4.2 mmol/L (3.5-5.1)
[2018-07-23] MEDS: PANTOprazole 40 MG in SYRINGE 0 ML IV SCH (11:49)
--- NOTE | 2018-07-23 13:45 | Hospitalist Progress Note ---
Date of Service July 23, 2018 Assessment & Plan (1) Small bowel obstruction: CT a/p on 07/19 showed a high-grade, mid/distal SBO which had not significantly changed from prior. ED physician spoke with Dr. Jay Hawk who is her [facility]. Cell phone is [phone]. I spoke to Dr Hawk and he recommends consideration of venting gastrostomy tube - Gastroenterology consult, i personally spoke to Dr Johnson and he will review the case - Pain and nausea control - KUB shows persistent bowel obstruction, but she did have a small stool and has some flatus - Dietary consult -starting TPN given patient's likely prolonged inability to tolerate PO and previous sandhya few weeks with poor p.o. intake, may hold if her obstruction seems to be moving thru Family and pt are considering gastrostomy tube, are agreeable to speak to palliative care (2) Abdominal fluid collection: On prior admission, CT a/p showed a fluid collection in the abdominal wall that was aspirated and grew 3 bacteria. Was on ertapenem for 7-days. Patient and report moira-umbilical redness had significantly improved. However, the redness has started to return sortly after antibiotics were stopped, with some new, mild drainage. Drainage is since stopped, culture negative so far except for coag negative staph. - Restarted ertapenem but Patient felt ertapenem caused nausea and headache, did change to imipenem much less headache and nausea, but also did rehydrate and treat pain in preparation for patient to go home changed again to once daily gentamicin - - Re-culture wound drainage results 07/21 only show coagulase neg staph, may consider Gent for home care as pt feels she is intolerant of ertapenem, will discuss with ID (3) Primary cancer of ovary with widespread metastatic disease: Patient and are agreeable to speaking to palliative at this point. Patient is still full code, and her expectations now seem to be getting thru sandra (4) Adrenal insufficiency: History of adrenal insufficiency. - Transition to IV hydrocortisone (5) Hypothyroidism: No hypo/hyperthyroid symptoms. - PO Synthroid 75 mcg switched to 37.5 mcg IV daily (6) DVT prophylaxis: Lovenox given its improved track record malignancy associated VTE prevention Subjective I had extensive conversation with the patient and her the room regarding her likely future experience with her metastatic ovarian cancer. I related and that I spoke to their [place] surgical oncologist at their request and he recommended consideration of a percutaneous gastrostomy tube. Patient's seem to be in on the understanding and will pursue a more palliative care measure however the patient herself waxed and waned between considering future treatment versus pursuing palliative care. The patient is agreement to talk to the palliative care nurse later today and speak to the gastroneurologist locally about the possibility of a venting gastrostomy tube placed for her recurrent intermittent partial bowel obstruction Patient has been less nauseous she has had small amounts of flatus and a small stool over the last 24 hours Review of Systems ROS: feels weak and overwhelmed No double vision blurry vision No problems with speech, but painful swallowing No palpitations, chest pain or pressure No Wheezing or breathing issues mild abdominal pain and nausea but no vomiting has had some flatus No burning urine urine frequency or changes in color No focal joint pain or muscle pain No skin rashes or oral lesions No unusual bruising or bleeding No focused back pain or numbness or loss of strength No changes in memory or confusion Physical Exam 2 Vital Signs (Past 24 Hours): Last Vital Signs Temp 36.4 C L 07/23/18 07:23 Pulse 71 07/23/18 07:23 Resp 16 07/23/18 07:23 BP 95/63 L 07/23/18 07:23 Pulse Ox 96 07/23/18 07:23 The patient appeared chronically ill and weak Vital signs as documented. Head exam is unremarkable. No scleral icterus or corneal arcus noted Neck is without jugular venous distension, thyromegaly, or lymphademopathy Lungs are clear to auscultation decreased breath sounds at the bases Cardiac exam reveals Rhythm is regular. First and second heart sounds normal. No murmurs, rubs or gallops. Abdominal exam reveals normal bowel sounds, no masses, no organomegaly she is diffusely tender there is a midline incision that is well-healed but there is been from the surrounding with some mild erythema no further drainage Extremities are mildly edematous and both pedal pulses are normal. Neurologic exam is A&Ox3, no focal deficits, strength is equal bilateral Skin is warm Dry without bruises or lesions _ (1) Primary cancer of ovary with widespread metastatic disease Laterality: unspecified laterality Qualified Code(s): C56.9 - Malignant neoplasm of unspecified ovary; C80.0 - Disseminated malignant neoplasm, unspecified (2) Hypothyroidism Hypothyroidism type: acquired Qualified Code(s): E03.9 - Hypothyroidism, unspecified
[2018-07-23] MEDS ORDERED: CUSTOM CENTRAL PN IV SCH (16:00)
[2018-07-23] MEDS: ACETAMINOPHEN 1,000 MG/100 ML VIAL IV PRN (16:34)
[2018-07-23] MEDS: GENTAMICIN SULFATE 320 MG in DEXTROSE 5% 100 ML IV SCH (18:40)
[2018-07-23] MEDS: ENOXAPARIN INJ 40 MG/0.4 ML SYR SQ SCH (20:56)
--- NOTE | 2018-07-24 03:45 | Consultation Report ---
DATE OF CONSULTATION: 07/23/2018 GASTROENTEROLOGY INPATIENT CONSULTATION NOTE CHIEF COMPLAINT: Nausea, vomiting, bowel obstruction. REQUESTING PHYSICIAN: Jay Koch MD. HISTORY OF PRESENT ILLNESS: Mrs. Anderson is a 63-year-old white female who presented to the hospital on 07/19/2018 following a previous recent admission. Patient has a high-grade [id number] small-bowel obstruction. Patient has a widely metastatic ovarian cancer. Patient and family is approaching care from a palliative standpoint. Patient has had difficulty with recurrent nausea, vomiting with CT scan on 07/19/2018 showing a high-grade [id number] small-bowel obstruction that has not changed from prior imaging. KUB continues to show a bowel obstruction pattern, although she did report a firm stool today. Currently, the patient is on TPN for nutrition. PAST MEDICAL HISTORY: Includes adrenal insufficiency, hypothyroidism, pancytopenia, ovarian cancer. PAST SURGICAL HISTORY: Appendectomy and cholecystectomy. FAMILY HISTORY: Noncontributory. SOCIAL HISTORY: The patient denies tobacco or alcohol usage, is . REVIEW OF SYSTEMS: Her review of systems otherwise noncontributory. There has been no hematemesis or coffee-ground emesis reported, but NG tube is intact at this time. ALLERGIES: TO CARBOPLATIN. CURRENT MEDICATIONS: In the hospital include levothyroxine, pantoprazole, hydrocortisone, Primaxin and gentamicin. There are p.r.n. meds. Most recent diagnostics show an imaging and flat plate from yesterday that showed no significant change in small bowel dilation suggesting a persistent small-bowel obstruction. CT from 07/19/2018 reviewed and shows high-grade small-bowel obstruction which is unchanged from 07/16/2018. There is also an enterocutaneous fistula deep to the umbilicus. The patient reports that although there is some crusting in this area there has never been a high output from this periumbilical region. Review of systems is otherwise noncontributory based on 13-point exam except for mentioned above. LABORATORY DATA: BUN and creatinine today are 22 and 0.6 with a potassium of 4.2. Patient's last INR was 1.0 on 07/05. PHYSICAL EXAMINATION: VITAL SIGNS: At the present time include blood pressure 97/69, 94% on room air, heart rate 73, afebrile at 36.4. GENERAL: Physical exam today, patient accompanied by and family member. HEENT: Sclerae are anicteric, conjunctiva moist. Oral mucosa is slightly parched. HEART: Normal S1, S2. LUNGS: Clear to auscultation. ABDOMEN: Soft, nontender and not overly distended at the present time with bowel sounds, although somewhat diminished. There is no rebound or guarding. EXTREMITIES: Without edema. RECTAL: Deferred. RECOMMENDATIONS: I made the following recommendations. We spoke at length this evening regarding methods for gastric decompression. A venting gastrostomy tube endoscopically placed is reasonable provided that prior surgeries or any significant ascites would not prevent its placement. I did explain to them the technique involved and that ultimately although small amounts of clear liquids for taste purposes are reasonable, but any kinds of high volume liquids or even any solids may be problematic and lead to a gastric retention. The patient and her are agreeable to PEG tube placement and will tentatively plan for this for Thursday. Dr. Oneill will be rounding this weekend and I can further arrange for its placement on Thursday afternoon. Would check coags given that her diet has been erratic. Also, on a subsequent flat plate would also check for any retained solid stool, although it would appear that this represents a transitional high-grade small-bowel obstruction and not likely to be related to obstipation. All questions answered. Dr. Oneill will be covering this weekend.
[2018-07-24] MEDS: IMIPENEM/CILASTATIN SODIUM 500 MG in DEXTROSE 5% 100 ML IV SCH ×4 (05:52→23:45)
[2018-07-24 06:23] LABS: BUN Creatinine Ratio 39.7 (10-20); Calcium 8.1 mg/dl (8.5-10.1); Creatinine Clr Calc Pharmacy 110.5 ml/min; Est GFR (African American) 118.5; Est GFR (Non-African American) 102.3; Magnesium 1.9 mg/dl (1.8-2.4); Phosphorus 3.3 mg/dl (2.5-4.9); Potassium 4.7 mmol/L (3.5-5.1)
[2018-07-24] MEDS: ACETAMINOPHEN 1,000 MG/100 ML VIAL IV PRN ×2 (08:41→22:28)
[2018-07-24] MEDS: LORazepam 0.5 MG/1 ML VIAL IV PRN ×2 (09:12→22:31)
[2018-07-24] MEDS: LEVOTHYROXINE SODIUM 37.5 MCG in SYRINGE 0 ML IV SCH (09:13)
[2018-07-24] MEDS: HYDROCORTISONE SOD 25 MG in SYRINGE 0 ML IV SCH ×2 (09:13→20:56)
[2018-07-24] MEDS: PANTOprazole 40 MG in SYRINGE 0 ML IV SCH (12:21)
[2018-07-24] MEDS ORDERED: COUGH DROP (SUGAR FREE) LOZ 24 LOZ/1 BOX BUCCAL PRN (14:00)
[2018-07-24] MEDS: LIDOCAINE HCL 2% VISCOUS 60 ML, DiphenhydrAMINE Syrup 150 MG, ALUMINUM/MAGNESIUM SUSP 6... MT PRN (15:23)
--- NOTE | 2018-07-24 15:23 | Progress Note ---
DATE: 07/24/2018 REASON FOR EVALUATION: Small bowel obstruction from a metastatic ovarian cancer. SUBJECTIVE: The patient is admitted with high grade small bowel obstruction from metastatic ovarian cancer throughout the peritoneal cavity. CT scan does not show a significant amount of ascites, but it does appear that she has an enterocutaneous fistula. She does have a nasogastric tube in now to help drain the stomach. She is getting TPN, and a PEG tube has been requested. OBJECTIVE: Patient has a midline incision. There is an opening just below the umbilicus, which is a little bit red. There is no drainage at this time. There are no masses or tenderness. There is no scar that extends into the left upper quadrant. IMPRESSION: Patient has high grade small bowel obstruction from metastatic ovarian cancer, and a venting gastrostomy has been requested. I reviewed the procedure with the patient, she agrees to proceed on Thursday. She will continue on her current antibiotics of imipenem and gentamicin. She will be n.p.o. after midnight and will have to hold her Lovenox on Thursday night. I am going to ask the hospitalist to write for holding of the Lovenox. In the meantime, will give her some Cepacol lozenges to suck on to help prevent sore throat from her NG tube.
--- NOTE | 2018-07-24 15:59 | Hospitalist Progress Note ---
Date of Service July 24, 2018 Assessment & Plan (1) Small bowel obstruction: CT a/p on 07/19 showed a high-grade, mid/distal SBO which had not significantly changed from prior. ED physician spoke with Dr. Jay Hawk who is her [facility]. Cell phone is [phone]. I spoke to Dr Hawk and he recommends consideration of venting gastrostomy tube - Gastroenterology consult, i personally spoke to Dr Johnson and he will review the case - Pain and nausea control - KUB shows persistent bowel obstruction, but she did have a small stool and has some flatus - Dietary consult -starting TPN given patient's likely prolonged inability to tolerate PO and previous sandhya few weeks with poor p.o. intake, may hold if her obstruction seems to be moving thru Family and pt are considering gastrostomy tube, are agreeable to speak to palliative care (2) Abdominal fluid collection: On prior admission, CT a/p showed a fluid collection in the abdominal wall that was aspirated and grew 3 bacteria. Was on ertapenem for 7-days. Patient and report moira-umbilical redness had significantly improved. However, the redness has started to return sortly after antibiotics were stopped, with some new, mild drainage. Drainage is since stopped, culture negative so far except for coag negative staph. - Restarted ertapenem but Patient felt ertapenem caused nausea and headache, did change to imipenem much less headache and nausea, but also did rehydrate and treat pain in preparation for patient to go home changed again to once daily gentamicin - - Re-culture wound drainage results 07/21 only show coagulase neg staph, may consider Gent for home care as pt feels she is intolerant of ertapenem, will discuss with ID (3) Primary cancer of ovary with widespread metastatic disease: Patient and are agreeable to speaking to palliative at this point. Patient is still full code, and her expectations now seem to be getting thru sandra, and gastrostomy tube to relieve obstructive symptoms (4) Adrenal insufficiency: History of adrenal insufficiency. - Transition to IV hydrocortisone (5) Hypothyroidism: No hypo/hyperthyroid symptoms. - PO Synthroid 75 mcg switched to 37.5 mcg IV daily (6) DVT prophylaxis: Lovenox given its improved track record malignancy associated VTE prevention Subjective Patient is hyper focused on her NG tube at this point in time she was is for to be removed. We did a trial of IV hooking up to suction him with 300 mL's came out. The patient however says that she will submit to reinsertion on Thursday or reinsertion if she has vomiting but wishes for to be removed today. He will be reinserted on Thursday for the possibility of draining her stomach prior to gastrostomy tube placement. Her daughter was at the bedside and all questions were answered Review of Systems ROS: Fatigued and tired No double vision blurry vision No problems with speech or swallowing No palpitations, chest pain or pressure No Wheezing or breathing issues Mild abdominal pain nausea vomiting constipated No burning urine urine frequency or changes in color No focal joint pain or muscle pain No skin rashes or oral lesions No unusual bruising or bleeding No focused back pain or numbness or loss of strength No changes in memory or confusion Physical Exam 2 Vital Signs (Past 24 Hours): Last Vital Signs Temp 36.3 C L 07/24/18 15:36 Pulse 70 07/24/18 15:36 Resp 18 07/24/18 15:36 BP 109/73 07/24/18 15:36 Pulse Ox 97 07/24/18 15:36 The patient appeared fatigued malnourished declining Vital signs as documented. Head exam is unremarkable. No scleral icterus or corneal arcus noted Neck is without jugular venous distension, thyromegaly, or lymphademopathy Lungs are clear to auscultation decreased breath on the basis with concerns for effusions Cardiac exam reveals Rhythm is regular. First and second heart sounds normal. No murmurs, rubs or gallops. Abdominal exam reveals tender to exam hyperactive bowel sounds consistent with her bowel obstruction some rushes of air Extremities are mild to moderately edematous and both pedal pulses are normal. Neurologic exam is A&Ox3, no focal deficits, strength is equal bilateral Skin is warm Dry without bruises or lesions _ (1) Primary cancer of ovary with widespread metastatic disease Laterality: unspecified laterality Qualified Code(s): C56.9 - Malignant neoplasm of unspecified ovary; C80.0 - Disseminated malignant neoplasm, unspecified (2) Hypothyroidism Hypothyroidism type: acquired Qualified Code(s): E03.9 - Hypothyroidism, unspecified
[2018-07-24] MEDS ORDERED: CUSTOM CENTRAL PN IV SCH (16:00)
[2018-07-24] MEDS: GENTAMICIN SULFATE 320 MG in DEXTROSE 5% 100 ML IV SCH (17:40)
[2018-07-24] MEDS: ENOXAPARIN INJ 40 MG/0.4 ML SYR SQ SCH (20:58)
[2018-07-25] MEDS: IMIPENEM/CILASTATIN SODIUM 500 MG in DEXTROSE 5% 100 ML IV SCH ×3 (05:51→18:15)
[2018-07-25 07:05] LABS: Calcium 8.4 mg/dl (8.5-10.1); Creatinine Clr Calc Pharmacy 108.4 ml/min; Est GFR (African American) 117.8; Est GFR (Non-African American) 101.6; Magnesium 1.9 mg/dl (1.8-2.4); Phosphorus 3.6 mg/dl (2.5-4.9); Potassium 4.1 mmol/L (3.5-5.1)
[2018-07-25] MEDS: ACETAMINOPHEN 1,000 MG/100 ML VIAL IV PRN ×2 (08:43→11:28)
[2018-07-25] MEDS: LORazepam 0.5 MG/1 ML VIAL IV PRN ×2 (08:44→11:29)
[2018-07-25] MEDS: HYDROCORTISONE SOD 25 MG in SYRINGE 0 ML IV SCH ×2 (08:44→20:42)
[2018-07-25] MEDS: LEVOTHYROXINE SODIUM 37.5 MCG in SYRINGE 0 ML IV SCH (08:45)
[2018-07-25] MEDS: LIDOCAINE HCL 2% VISCOUS 60 ML, DiphenhydrAMINE Syrup 150 MG, ALUMINUM/MAGNESIUM SUSP 6... MT PRN (11:53)
[2018-07-25] MEDS: PANTOprazole 40 MG in SYRINGE 0 ML IV SCH (12:37)
--- NOTE | 2018-07-25 13:14 | Hospitalist Progress Note ---
Date of Service July 25, 2018 Assessment & Plan (1) Primary cancer of ovary with widespread metastatic disease: Patient is still full code, and her expectations now seem to be getting thru sandra, and gastrostomy tube to relieve obstructive symptoms. A prolonged discussion was had with the patient and the family on 07/25, with the patient having significant NG tube output is clear the obstruction is not relieved nor allowing any liquids the past. The patient has a desire to make it through the holidays for her family and her daughter specifically. He does understand that there is no defined treatment nor plan treatment for her metastatic disease and the gastrostomy tube is really meant to relieve symptoms. The and the patient expressed a desire to perhaps have some home IV fluids used between now and shortly after [place] when the family would make a decision to transition to hospice care and discontinue IV fluids at that point time or pursue more formal hospice. At this time. They would also like to use intravenous antibiotics to treat her abdominal wall abscess this may be accomplished with daily gentamicin We will need coordination with our case management home health and palliative care services to make this transition as least uncomfortable as possible (2) Small bowel obstruction: CT a/p on 07/19 showed a high-grade, mid/distal SBO which had not significantly changed from prior. ED physician spoke with Dr. Jay Hawk who is her [facility]. Cell phone is [phone]. I spoke to Dr Hawk and he recommends consideration of venting gastrostomy tube - Gastroenterology consult,Dr Johnson and Dr. Hamilton plan on doing a gastrostomy tube 07/26 - KUB shows persistent bowel obstruction NG tube output suggest consistent persistent obstruction - Dietary consult -we will continue to use TPN while she is an inpatient but discontinued this at the time of discharge Family and pt are agreeable to gastrostomy tube, are continuing to move toward palliative care (3) Abdominal fluid collection: On prior admission, CT a/p showed a fluid collection in the abdominal wall that was aspirated and grew 3 bacteria. Was on ertapenem for 7-days. Patient and report moira-umbilical redness had significantly improved. However, the redness has started to return sortly after antibiotics were stopped, with some new, mild drainage. Drainage is since stopped, culture negative so far except for coag negative staph. - Restarted ertapenem but Patient felt ertapenem caused nausea and headache, did change to imipenem much less headache and nausea, but also did rehydrate and treat pain in preparation for patient to go home changed again to once daily gentamicin - - Re-culture wound drainage results 07/21 only show coagulase neg staph, may consider Gent for home care as pt feels she is intolerant of ertapenem, will discuss with ID (4) Adrenal insufficiency: History of adrenal insufficiency. - Transition to IV hydrocortisone while an inpatient may consider discontinuation at time of discharge (5) Hypothyroidism: No hypo/hyperthyroid symptoms. - PO Synthroid 75 mcg switched to 37.5 mcg IV daily once again due to difficulty with p.o. intake may consider discontinuation at time of discharge (6) DVT prophylaxis: Lovenox given its improved track record malignancy associated VTE prevention Subjective Patient remains focused on her NG tube was accidentally pulled out during the day today she is okay not having it replaced still prior to her her endoscopy on 07/27 Long discussion was had with her and her at the bedside She is at times is confused her pain is very poorly controlled anxiety significant Review of Systems ROS: She is emotionally labile No double vision blurry vision No problems with speech complains of pain with swallowing due to her NG tube No palpitations, chest pain or pressure No Wheezing or breathing issues Intermittent diffuse abdominal pain no nausea vomiting since NG tube was placed No burning urine urine frequency or changes in color No focal joint pain or muscle pain No skin rashes or oral lesions No unusual bruising or bleeding No focused back pain or numbness or loss of strength No new changes in memory or confusion since her confusion is been since her chemotherapy Physical Exam 2 Vital Signs (Past 24 Hours): Last Vital Signs Temp 36.4 C L 07/25/18 11:34 Pulse 96 H 07/25/18 11:34 Resp 18 07/25/18 11:34 BP 104/77 07/25/18 11:34 Pulse Ox 96 07/25/18 11:34 _ (1) Primary cancer of ovary with widespread metastatic disease Laterality: unspecified laterality Qualified Code(s): C56.9 - Malignant neoplasm of unspecified ovary; C80.0 - Disseminated malignant neoplasm, unspecified (2) Hypothyroidism Hypothyroidism type: acquired Qualified Code(s): E03.9 - Hypothyroidism, unspecified
[2018-07-25] MEDS ORDERED: CUSTOM CENTRAL PN IV SCH (16:00)
--- NOTE | 2018-07-25 16:12 | Progress Note ---
DATE: 07/25/2018 Patient has an NG tube out temporarily due to discomfort. She is scheduled for a venting gastrostomy tube placement tomorrow afternoon. She will continue on her current antibiotics, and I am going to ask the hospitalist to write to hold her Lovenox this evening prior to the placement of the gastrostomy tube.
[2018-07-25] MEDS: GENTAMICIN SULFATE 320 MG in DEXTROSE 5% 100 ML IV SCH (18:15)
[2018-07-25] MEDS: ENOXAPARIN INJ 40 MG/0.4 ML SYR SQ SCH (20:42)
[2018-07-26] MEDS: IMIPENEM/CILASTATIN SODIUM 500 MG in DEXTROSE 5% 100 ML IV SCH ×5 (00:29→23:35)
[2018-07-26 06:17] LABS: BUN Creatinine Ratio 44.9 (10-20); Calcium 8.1 mg/dl (8.5-10.1); Creatinine Clr Calc Pharmacy 98.7 ml/min; Est GFR (African American) 114.2; Est GFR (Non-African American) 98.5
[2018-07-26 06:22] LABS: Bilirubin,Total 0.2 mg/dl (0.1-1); Phosphorus 3.7 mg/dl (2.5-4.9); Prealbumin 18.1 mg/dl (20-40)
[2018-07-26] MEDS: HYDROCORTISONE SOD 25 MG in SYRINGE 0 ML IV SCH (08:28)
[2018-07-26] MEDS: LEVOTHYROXINE SODIUM 37.5 MCG in SYRINGE 0 ML IV SCH (10:11)
--- NOTE | 2018-07-26 11:19 | Palliative Care Consultation ---
Date of Consultation July 26, 2018 Assessment & Plan (1) Goals of care, counseling/discussion: -63 year old female patient with PMH metastatic ovarian cancer, adrenal insufficiency, hypothyroidism, and others presented to the hospital with small bowel obstruction. Patient has had multiple hospitalizations in the last few months and has overall continued to decline. SBO not resolved, is going for venting G-tube this afternoon. -Long discussion had today with patient and Dr. Boyce, then patient privately, then with patient and her family ( Andrew and daughter Whitney). The patient understands that her condition is terminal and there will be no further chemo. -Discussed goals of care at length. Patient states she just wants to go home and be with her family. She wants to be comfortable. -In regards to IVF, TPN and IV abx, patient does NOT want to continue these things at home. She wants to be able to enjoy her time as much as possible which means having the freedom to leave the house with IVs. -She would like to continue Synthroid and steroid at home. Could crush both of these medications and take PO, clamp G-tube for about an hour after administration and allow to absorb. -regional operations manager will make referral to hospice agency today. Plan for maybe tomorrow. -POLST form completed as follows: DNR, comfort measures only, abx with comfort as the goal, no artificial hydration/nutrition. -Would utilize Roxanol 5mg PO/SL Q3h PRN pain or SOB. Can titrate up if needed. (2) Primary cancer of ovary with widespread metastatic disease: Laterality: unspecified laterality Qualified Code(s): C56.9 - Malignant neoplasm of unspecified ovary; C80.0 - Disseminated malignant neoplasm , unspecified (3) Small bowel obstruction: (4) Abdominal fluid collection: (5) Adrenal insufficiency: (6) Hypothyroidism: Hypothyroidism type: acquired Qualified Code(s): E03.9 - Hypothyroidism, unspecified Supervising Physician Co-Signing Physician Notes Patient seen and examined, discussed p.o. intake after venting G-tube placement Patient's 2 daughters at bedside PE: NAD Respirations: Unlabore CV: Well-perfused Abdomen: Not distended Neuro: Alert and oriented x4 Psych: Appropriate mood Agree with above note, assessment and plan as per AISSATOU Contreras P-will continue to follow along to assist with medical decision making. History of Present Illness Reason for Consultation: Goals of care Requesting Physician: Dr. Koch Attending Physician: Aubree English MD History of Present Illness This 63 year old female patient with PMH metastatic ovarian cancer, adrenal insufficiency, hypothyroidism, and others listed below, presented to the hospital with severe nausea and vomiting. She was found to have small bowel obstruction, high-grade per report. Her metastatic disease is extensive with many abdominal implans and matting of the bowel. Patient has had multiple hospitalizations in the last few months and has overall continued to decline. SBO has not resolved, she is going for venting G-tube this afternoon. NGT was pulled out over 24 hours ago and patient is still feeling okay without nausea or vomiting. Palliative care is consulted to discuss goals of care and assist with EOL planning. See A&P for details. Thank you kindly for this consult. I will follow. Allergies Allergy/AdvReac Type Severity Reaction Status Date / Time carboplatin Allergy Severe anaphylactic Verified 07/19/18 13:05 reaction Home Medications Home Medications Medication Instructions Recorded Confirmed Type pantoprazole [Protonix] 40 mg PO DAILY #0 11/05/17 07/19/18 History hydrocortisone [Cortef] 5 mg PO QPM #0 11/17/17 07/19/18 History hydrocortisone [Cortef] 15 mg PO QAM #0 11/17/17 07/19/18 History oxycodone 5 - 10 mg PO Q6H PRN #0 12/07/17 07/19/18 History cyanocobalamin (vitamin B-12) 1,000 mcg PO DAILY #0 tab 02/16/18 07/19/18 History ondansetron HCl [Zofran] 4 mg PO Q6 PRN 06/16/18 07/19/18 History levothyroxine [Synthroid] 75 mcg PO DAILY 07/02/18 07/19/18 History ertapenem 1 g IV DAILY 07/16/18 07/19/18 History oxycodone 5 mg PO Q6H PRN #10 tab 07/16/18 07/19/18 Rx tramadol 50 mg PO QID PRN 07/16/18 07/19/18 History Patient History Medical History Primary cancer of ovary with widespread metastatic disease SBO (small bowel obstruction) (Acute) Adrenal insufficiency Hypocalcemia Hypomagnesemia Pancytopenia Hypothyroidism Neoplasm causing mass effect on adjacent structures Colitis (Acute) Dehydration (Acute) History of hysterectomy (Acute) Hx of thyroid disease (Acute) Hypocortisolemia (Acute) Ovarian cancer (Acute) Small bowel obstruction (Acute) Surgical History Hx of appendectomy (Acute) Hx of cholecystectomy (Acute) Family History Other No pertinent family history Social History marital status: Current Living Situation: Spouse current occupational status: employed Other Information That Helps Us Care for You: No Feels Safe at Home: Yes Safety Concerns: Feels Safe At This Time Smoking Status: Never smoker Do You Dip or Chew Tobacco: No Hx Alcohol Use: No Hx Substance Use: No Beliefs That Will Affect Care: None Communication Ability: Effective Review of Systems Constitutional: no weakness Ear, Nose, Mouth, Throat: no dysphagia Respiratory: no cough and no dyspnea Cardiovascular: no chest pain and no edema Gastrointestinal: + abdominal pain (occasionally); no nausea (none at this time ) and no vomiting (none at this time) Neurologic: no confusion Psychiatric: + depression (related to situation); no anxiety Physical Exam 2 Vital Signs (Past 24 Hours): Last Vital Signs Temp 36.5 C 07/26/18 07:20 Pulse 59 L 07/26/18 07:20 Resp 20 07/26/18 07:20 BP 94/64 L 07/26/18 07:20 Pulse Ox 96 07/26/18 07:20 Constitutional: well developed, well nourished and comfortable Neck: normal visual inspection and trachea midline Respiratory: normal respiratory effort, lungs clear to auscultation Cardiovascular: RRR, no murmur, no edema Gastrointestinal (Abdomen): Inspection/Auscultation: + abdomen distended; + abnormal bowel sounds (no bowel sounds) Percussion/Palpation: abdomen soft Skin: no rashes, warm and dry Neurologic: awake; not confused Psychiatric: A+Ox3, euthymic affect (tearful about situation) Time Spent Midlevel 150 minutes with >50% of time spent at bedside with patient and family multiple times throughout the day discussing condition, goals of care, and EOL issues.
[2018-07-26] MEDS: PANTOprazole 40 MG in SYRINGE 0 ML IV SCH (11:23)
--- NOTE | 2018-07-26 12:41 | Hospitalist Progress Note ---
Date of Service July 26, 2018 Assessment & Plan (1) Primary cancer of ovary with widespread metastatic disease: - Plan for discharge to home hospice on 07/27/18. - Palliative care following, appreciate input. - Will discontinue all IV abx and TPN at discharge. Pt. is also agreeable to stopping IV fluids. (2) Small bowel obstruction: - CT A/P 07/19: high grade mid/distal SBO, not significantly changed from prior studies. - NG tube now removed; Plan for venting G-tube placement this afternoon for comfort measures. - NPO; will attempt to restart PO Synthroid and Prednisone in the morning. - On TPN as inpatient -- will discontinue at discharge. (3) Abdominal fluid collection: - CT from prior admission showed fluid collection in abdominal wall, grew 3 organisms. Pt. completed Ertapenem x 7 days. - Erythema returned following discontinuation of IV abx; repeat wound culture +Staph coag negative. - Will continue Gentamicin and Primaxin as inpt, plan to discontinue at discharge. (4) Adrenal insufficiency: - Previously on Hydrocortisone 15 mg qAM, 5 mg qPM. - Has been receiving Hydrocortisone 25 mg IV BID as inpt while NPO. - Will start Prednisone 10 mg qAM on 07/27/18 -- discussed with pharmacy, can crush medication and add to liquid water. (5) Hypothyroidism: - Will restart Synthroid 75 mcg daily on 07/27/18. (6) DVT prophylaxis: - Lovenox 40 mg subQ q24hr. Supervising Physician Co-Signing Physician Notes PA Supervision Note: I did not personally see or examine the patient today, but I verified all duncan points of SUYAPA Martini's assessment and plan with the following exceptions/ additions: I discussed the case with GI today who reported that when he went in to do her venting gastrostomy tube that she had 300 cc of bilious fluid just sitting in the stomach. She is unlikely to effectively absorb any p.o. medications. I discussed the case with the pharmacist and we do have Depo-Medrol available for steroid. Because she is steroid dependent, if she wants to try to survive through the holidays, I would suggest a dose of Depo-Medrol prior to discharge which has a half-life of 5-1/2 days. Will discuss with the patient prior to discharge. Subjective Patient was doing well this morning, family present at bedside. She did not have venting G-tube placed yet, scheduled for this afternoon. Pt. would like to try taking PO steroids and synthroid tomorrow morning -- will order PO to evaluate tolerance. Palliative care was consulted, will discharge to home hospice on 07/27/18. Review of Systems All systems reviewed & are unremarkable except as noted in HPI & below Physical Exam 2 Vital Signs (Past 24 Hours): Last Vital Signs Temp 36.5 C 07/26/18 07:20 Pulse 59 L 07/26/18 07:20 Resp 20 07/26/18 07:20 BP 94/64 L 07/26/18 07:20 Pulse Ox 96 07/26/18 07:20 Physical Exam: General: Chronically ill appearing female. HEENT: NC/AT; PERRLA with EOMI; [place] conjunctiva, MMM. Neck: Supple and nontender Cardiac: RRR w/o murmurs, gallops or rubs Lungs: CTA bilaterally; No rhonchi, wheezing, or rales Abdomen: Bowel hypoactive x4; nontender to light palpation. Extremities: Warm. No cyanosis or edema present Neuro: No focal weakness Skin: No rash Results & Data Laboratory Results 07/26/18 07/26/18 07/26/18 Range/Units 12:00 06:44 05:28 Sodium 139 (136-145) mmol/L Potassium 4.0 (3.5-5.1) mmol/L Chloride 103 (98-107) mmol/L Carbon Dioxide 33 H (21-32) mmol/L Anion Gap 4.0 (3-11) BUN 25 H (7-18) mg/dl Creatinine 0.56 L (0.6-1.2) mg/dl Est Cr Clr Drug Dosing 98.7 ml/min Est GFR ( Amer) 114.2 Est GFR (Non-Af Amer) 98.5 BUN/Creatinine Ratio 44.9 H (10-20) Glucose 123 H (70-99) mg/dl POC Glucose 108 H 117 H (70-99) Calcium 8.1 L (8.5-10.1) mg/dl Phosphorus 3.7 (2.5-4.9) mg/dl Magnesium 2.0 (1.8-2.4) mg/dl Total Bilirubin 0.2 (0.1-1) mg/dl AST 9 L (15-37) U/L ALT 12 (12-78) U/L Alkaline Phosphatase 79 (45-117) U/L Prealbumin 18.1 L (20-40) mg/dl 07/26/18 Range/Units 00:30 Sodium (136-145) mmol/L Potassium (3.5-5.1) mmol/L Chloride (98-107) mmol/L Carbon Dioxide (21-32) mmol/L Anion Gap (3-11) BUN (7-18) mg/dl Creatinine (0.6-1.2) mg/dl Est Cr Clr Drug Dosing ml/min Est GFR ( Amer) Est GFR (Non-Af Amer) BUN/Creatinine Ratio (10-20) Glucose (70-99) mg/dl POC Glucose 130 H (70-99) Calcium (8.5-10.1) mg/dl Phosphorus (2.5-4.9) mg/dl Magnesium (1.8-2.4) mg/dl Total Bilirubin (0.1-1) mg/dl AST (15-37) U/L ALT (12-78) U/L Alkaline Phosphatase (45-117) U/L Prealbumin (20-40) mg/dl _ (1) Primary cancer of ovary with widespread metastatic disease Laterality: unspecified laterality Qualified Code(s): C56.9 - Malignant neoplasm of unspecified ovary; C80.0 - Disseminated malignant neoplasm, unspecified (2) Hypothyroidism Hypothyroidism type: acquired Qualified Code(s): E03.9 - Hypothyroidism, unspecified
--- NOTE | 2018-07-26 14:12 | Infectious Disease Progress Nt ---
Date of Service July 26, 2018 Assessment & Plan (1) Abdominal fluid collection: 63-year-old female with widely metastatic ovarian carcinoma being treated with ertapenem for abdominal wall fluid collection with resistant E. coli, admitted with abdominal pain, nausea, and headache, appears to have improved with NG tube placement and suction. Remains on antibiotics with gentamicin and imipenem. Would consider discontinuation of antibiotics as patient has received likely an adequate course to treat these small abdominal wall collection. Will discuss. (2) E. coli infection: Subjective Patient seen in follow-up for abdominal wall collection. Recent events reviewed. Patient feeling better this morning. Awaiting G-tube placement. No fevers. Culture from drainage grew only coagulase-negative staph. Review of Systems All systems reviewed & are unremarkable except as noted in HPI & below Physical Exam 2 Vital Signs (Past 24 Hours): Last Vital Signs Temp 36.6 C 07/26/18 13:24 Pulse 59 L 07/26/18 07:20 Resp 18 07/26/18 13:24 BP 102/69 07/26/18 13:24 Pulse Ox 99 07/26/18 13:24 Constitutional: + ill appearing and + thin; no acute distress Eyes: PERRL, conjunctivae normal, anicteric sclerae ENMT: external ear and nose normal, oropharynx normal Neck: trachea midline, no thyromegaly neck nontender Respiratory: normal respiratory effort, lungs clear to auscultation normal percussion; no respiratory distress Cardiovascular: RRR, no murmur, no edema Heart Sounds: no cardiac rub Gastrointestinal (Abdomen): Inspection/Auscultation: + abdomen distended and normal bowel sounds Percussion/Palpation: + abdomen tender and + abdominal mass; no hepatosplenomegaly Musculoskeletal: no cyanosis or clubbing, extremities motor strength 5/5 Skin: no rashes, warm and dry normal turgor Neurologic: moves all extremities and awake; no focal motor deficits Psychiatric: Orientation: alert and oriented x 3 Affect: + depressed affect Lymphatic: no cervical or axillary lymphadenopathy no inguinal lymphadenopathy Results & Data Laboratory Results [facility] 07/26/18 05:28 Sodium 139 Potassium 4.0 Chloride 103 Carbon Dioxide 33 H BUN 25 H Creatinine 0.56 L Glucose 123 H Calcium 8.1 L Liver Function 07/26/18 Range/Units 05:28 Total Bilirubin 0.2 (0.1-1) mg/dl AST 9 L (15-37) U/L ALT 12 (12-78) U/L Alkaline Phosphatase 79 (45-117) U/L Diagnostic Findings Microbiology 07/20/18 09:25 Abdomen Gram Stain - Final 07/20/18 09:25 Abdomen Wound Culture - Final Coag negative Staphylococcus KUB CLINICAL HISTORY: progress of sbo COMPARISON STUDY: [place] July 21, 2018. FINDINGS: Tip of nasogastric tube projects over the gastric fundus. Moderate small bowel dilatation persists. This is similar to previous exam. IMPRESSION: No significant change in small bowel dilatation suggestive of a persistent small bowel obstruction. Electronically signed by: Ernesto Arora M.D. 07/22/2018 8:41 AM Dictated: 07/22/18 0840 Transcribed: 07/22/18 0840
--- NOTE | 2018-07-26 14:37 | Anesthesiology Consultation ---
Date of Service July 26, 2018 Assessment & Plan Chart Review Chart Review: Acceptable Risk for Surgery and Patient NOT seen in Pre Admission Testing Consults Requested none ASA ASA4 Proposed Anesthesia Anesthesia Type: MAC Risk / Benefits Reviewed With: PT / POA / Parent / Guardian, Accepts Plan and Informed Consent Obtained NPO Date Last Intake of Fluids: 07/25/18 Date Last Intake of Solids: 07/25/18 History Surgery Operation Date: 07/26/18 14:00 Proposed Procedures p Esophagogastroduodenoscopy Dr Nino douglas Peg Tube Placement Dr Nino Oneill Height/Weight Height: 5 ft 7 in Weight: 64.8 kg Allergies Allergy/AdvReac Type Severity Reaction Status Date / Time carboplatin Allergy Severe anaphylactic Verified 07/19/18 13:05 reaction Medications Home Medications Medication Instructions Recorded Confirmed Last Taken pantoprazole [Protonix] 40 mg PO DAILY #0 11/05/17 07/19/18 06/26/18 hydrocortisone [Cortef] 5 mg PO QPM #0 11/17/17 07/19/18 06/26/18 hydrocortisone [Cortef] 15 mg PO QAM #0 11/17/17 07/19/18 06/26/18 oxycodone 5 - 10 mg PO Q6H PRN #0 12/07/17 07/19/18 07/01/18 23:00 cyanocobalamin (vitamin B-12) 1,000 mcg PO DAILY #0 tab 02/16/18 07/19/18 ondansetron HCl [Zofran] 4 mg PO Q6 PRN 06/16/18 07/19/18 Unknown levothyroxine [Synthroid] 75 mcg PO DAILY 07/02/18 07/19/18 Unknown ertapenem 1 g IV DAILY 07/16/18 07/19/18 07/15/18 oxycodone 5 mg PO Q6H PRN #10 tab 07/16/18 07/19/18 Unknown tramadol 50 mg PO QID PRN 07/16/18 07/19/18 Unknown Active Medications Generic Name Dose Route Start Last Admin Trade Name Freq PRN Reason Stop Dose Admin Lidocaine HCl 60 ml/ 0 ml 07/22/18 17:30 07/25/18 11:53 Diphenhydramine HCl 150 mg/ Al MT 08/21/18 17:29 5 ml Hydrox/Mg Hydrox/Simethicone Q2H PRN Administration 60 ml/ Glycerin 60 ml/ BARCODE Sore Throat IDENTIFIER 1 ea Enoxaparin Sodium 40 mg 07/20/18 21:00 07/25/18 20:42 Lovenox SQ 08/19/18 20:59 40 mg HS RAFIQ Administration Heparin Sodium (Porcine) 5 ml 07/20/18 00:11 07/23/18 15:44 Heparin Sod 100 Unit/Ml Flush FLUSH 08/19/18 00:14 5 ml PRN PRN Administration Flush Acetaminophen 1,000 mg in 100 mls @ 400 mls/hr 07/19/18 18:08 07/25/18 11:50 Ofirmev IV 08/18/18 18:07 Infused Q8H PRN Infusion Pain or Fever Pantoprazole Sodium 40 mg/ 10 mls @ 5 mls/min 07/20/18 11:00 07/26/18 11:23 Syringe IV 08/19/18 10:59 5 mls/min DAILY@1100 RAFIQ Administration Lorazepam 0.5 mg in 1 mls @ 1 mls/min 07/20/18 11:47 07/25/18 11:29 Ativan IV 08/19/18 11:46 1 mls/min Q4H PRN Administration Agitation Imipenem/Cilastatin Sodium 500 110 mls @ 110 mls/hr 07/20/18 18:00 07/26/18 14:17 mg/ Dextrose IV 07/30/18 17:59 Infused Q6H RAFIQ Infusion Gentamicin Sulfate 320 mg/ 108 mls @ 100 mls/hr 07/23/18 18:00 07/25/18 19:38 Dextrose IV 08/02/18 17:59 Infused DAILY@1800 RAFIQ Infusion Menthol 1 melina 07/24/18 14:00 07/24/18 15:24 Nice BUCCAL 08/23/18 13:59 1 melina Q2H PRN Administration SORE THROAT Morphine Sulfate 6 mg 07/19/18 18:08 07/23/18 23:21 Morphine Sulfate IV 08/02/18 18:07 6 mg Q4H PRN Administration Pain Nutrition (Parenteral) 1 bag 07/25/18 16:00 07/25/18 16:41 Custom Central Pn IV 07/26/18 15:59 1 bag TODAY@16 RAFIQ Administration Protocol Ondansetron HCl 4 mg 07/19/18 18:08 07/22/18 19:46 Zofran IV 08/18/18 18:07 4 mg Q4H PRN Administration Nausea Past Medical History Medical History Primary cancer of ovary with widespread metastatic disease SBO (small bowel obstruction) (Acute) Adrenal insufficiency Hypocalcemia Hypomagnesemia Pancytopenia Hypothyroidism Neoplasm causing mass effect on adjacent structures Colitis (Acute) Dehydration (Acute) History of hysterectomy (Acute) Hx of thyroid disease (Acute) Hypocortisolemia (Acute) Ovarian cancer (Acute) Small bowel obstruction (Acute) Past Family History Family History Other No pertinent family history Past Surgical History Surgical History Hx of appendectomy (Acute) Hx of cholecystectomy (Acute) Social History Smoking Status: Never smoker Do You Dip or Chew Tobacco: No Hx Alcohol Use: No Hx Substance Use: No Review of Systems Respiratory: no dyspnea Cardiovascular: no chest pain Physical Exam Vital Signs Last Vital Signs Temp 36.6 C 07/26/18 13:24 Pulse 59 L 07/26/18 07:20 Resp 18 07/26/18 13:24 BP 102/69 07/26/18 13:24 Pulse Ox 99 07/26/18 13:24 Testing Laboratory Results 07/20/18 05:38 07/26/18 05:28 Urine Color Dark Yellow 07/20/18 06:00 Urine Appearance Clear (Clear) 07/20/18 06:00 Urine pH 6.0 (4.5-7.5) 07/20/18 06:00 Ur Specific [place] 1.024 (1.000-1.030) 07/20/18 06:00 Urine Protein Trace (Negative) H 07/20/18 06:00 Urine Glucose (UA) Negative (Negative) 07/20/18 06:00 Urine Ketones 3+ (Negative) H 07/20/18 06:00 Urine Nitrite Negative (Negative) 07/20/18 06:00 Ur Leukocyte Esterase Negative (Negative) 07/20/18 06:00 Urine WBC (Auto) 1-5 /hpf (0-5) 07/20/18 06:00 Urine RBC (Auto) 0-4 /hpf (0-4) 07/20/18 06:00 U Hyaline Cast (Auto) 5-10 /lpf (0-5) H 07/20/18 06:00 U Epithel Cells (Auto) >30 /lpf (0-5) H 07/20/18 06:00 Urine Bacteria (Auto) Negative (Negative) 07/20/18 06:00 07/20/18 09:25 Gram Stain - Final Abdomen Wound Culture - Final Coag negative Staphylococcus 07/26/18 07/26/18 12:00 06:44 POC Glucose 108 H 117 H
[2018-07-26] MEDS ORDERED: ATROPINE SULFATE 0.1 MG/ML 5ML SYR IV PRN (14:40)
[2018-07-26] MEDS ORDERED: ePHEDrine sulfate 50 MG/ML AMP IV PRN (14:40)
[2018-07-26] MEDS ORDERED: fentaNYL citrate 100 MCG/2 ML VIAL ONE (15:09)
[2018-07-26] MEDS ORDERED: PROPOFOL IV EMULSION 10 MG/ML 20 ML VIAL IV ONE (15:09)
[2018-07-26] MEDS ORDERED: LIDOCAINE HCL 2% 2 ML VIAL/AMP(20MG/ML) INFIL ONE (15:09)
--- NOTE | 2018-07-26 15:14 | History & Physical Report ---
Date of Service July 26, 2018 History of Present Illness Chief Complaint: SBO Primary Care Provider: Mo Molina Jr, DO For PEG placement Allergies Allergy/AdvReac Type Severity Reaction Status Date / Time carboplatin Allergy Severe anaphylactic Verified 07/19/18 13:05 reaction Home Medications Home Medications Medication Instructions Recorded Confirmed Type pantoprazole [Protonix] 40 mg PO DAILY #0 11/05/17 07/19/18 History hydrocortisone [Cortef] 5 mg PO QPM #0 11/17/17 07/19/18 History hydrocortisone [Cortef] 15 mg PO QAM #0 11/17/17 07/19/18 History oxycodone 5 - 10 mg PO Q6H PRN #0 12/07/17 07/19/18 History cyanocobalamin (vitamin B-12) 1,000 mcg PO DAILY #0 tab 02/16/18 07/19/18 History ondansetron HCl [Zofran] 4 mg PO Q6 PRN 06/16/18 07/19/18 History levothyroxine [Synthroid] 75 mcg PO DAILY 07/02/18 07/19/18 History ertapenem 1 g IV DAILY 07/16/18 07/19/18 History oxycodone 5 mg PO Q6H PRN #10 tab 07/16/18 07/19/18 Rx tramadol 50 mg PO QID PRN 07/16/18 07/19/18 History Past Med/Surg History Medical History Primary cancer of ovary with widespread metastatic disease SBO (small bowel obstruction) (Acute) Adrenal insufficiency Hypocalcemia Hypomagnesemia Pancytopenia Hypothyroidism Neoplasm causing mass effect on adjacent structures Colitis (Acute) Dehydration (Acute) History of hysterectomy (Acute) Hx of thyroid disease (Acute) Hypocortisolemia (Acute) Ovarian cancer (Acute) Small bowel obstruction (Acute) Surgical History Hx of appendectomy (Acute) Hx of cholecystectomy (Acute) Family History Other No pertinent family history Social History marital status: Current Living Situation: Spouse current occupational status: employed Other Information That Helps Us Care for You: No Feels Safe at Home: Yes Safety Concerns: Feels Safe At This Time Smoking Status: Never smoker Do You Dip or Chew Tobacco: No Hx Alcohol Use: No Hx Substance Use: No Beliefs That Will Affect Care: None Communication Ability: Effective Physical Exam 2 Vital Signs (Past 24 Hours): Last Vital Signs Temp 36.8 C 07/26/18 14:29 Pulse 79 07/26/18 14:29 Resp 18 07/26/18 14:29 BP 109/71 07/26/18 14:29 Pulse Ox 95 07/26/18 14:29 Constitutional: + cachectic Respiratory: normal respiratory effort Cardiovascular: Rate/Rhythm: regular rate and regular rhythm Gastrointestinal (Abdomen): Percussion/Palpation: abdomen soft
[2018-07-26] MEDS ORDERED: SODIUM CHLORIDE 0.9% 1000ML 1,000 ML IV SCH (15:15)
[2018-07-26] MEDS ORDERED: CUSTOM CENTRAL PN IV SCH (16:00)
--- NOTE | 2018-07-26 16:01 | GI REPORT ---
Patient Name: Megan Anderson Procedure Date: 07/26/2018 3:09 PM Date of : 1955 Admit Type: Inpatient Age: 63 Gender: Female Attending MD: Josef Oneill MD Procedure: Upper GI endoscopy Providers: Josef Oneill MD Referring MD: Aubree English Md Indications: Place PEG to improve nutrition in patient with prolonged severe illness Medicines: Fentanyl 100 micrograms IV, Propofol total dose 260 mg IV, Lidocaine 80 mg IV Complications: No immediate complications. Estimated Blood Loss: Estimated blood loss was minimal. Procedure: Pre-Anesthesia Assessment: - Prior to the procedure, a History and Physical was performed, and patient medications, allergies and sensitivities were reviewed. The patient's tolerance of previous anesthesia was reviewed. After obtaining informed consent, the endoscope was passed under direct vision. Throughout the procedure, the patient's blood pressure, pulse, and oxygen saturations were monitored continuously. The scope was introduced through the mouth, and advanced to the second part of duodenum. The upper GI endoscopy was accomplished without difficulty. The patient tolerated the procedure well. Findings: The examined esophagus was normal. The Z-line was regular and was found 40 cm from the incisors. Excessive fluid was found in the gastric body. Placement of an externally removable PEG with 1 T-fastener was successfully completed. The external bumper was at the 3.5 cm marking on the tube. Estimated blood loss was minimal. Food (residue) was found in the second portion of the duodenum. Impression: - Normal esophagus. - Z-line regular, 40 cm from the incisors. - Excessive gastric fluid. - Retained food in the duodenum. - An externally removable PEG placement was successfully completed. - No specimens collected. Recommendation: - Return patient to [facility] for ongoing care. - Please follow the post-PEG recommendations including: start using PEG today. Josef Oneill M.D. Josef Oneill MD 07/26/2018 4:01:17 PM This report has been signed electronically. Note Initiated On: 07/26/2018 3:09 PM Number of Addenda: 0 I attest to the content of the Intraoperative Record and orders documented therein, exceptions below {[id number]}
--- NOTE | 2018-07-26 16:14 | Anesthesiology Progress Note ---
Date of Service July 26, 2018 Anesthesia Post Procedure Vital Signs Vital Signs: Temp Pulse Resp BP BP Pulse Ox 07/26/18 14:29 36.8 C 79 18 109/71 95 07/26/18 13:24 36.6 C 18 102/69 99 07/26/18 07:20 36.5 C 59 L 20 94/64 L 96 07/25/18 22:00 36.7 C 68 18 104/21 L 96 07/25/18 19:00 36.4 C L 65 18 96/66 L 98 Pain Intensity Abdomen: Pain Intensity: 5 Notes Mental Status: alert / awake / arousable and participated in evaluation Patient Amnestic to Procedure: Yes Nausea / Vomiting: adequately controlled Pain: adequately controlled Airway Patency, RR, SpO2: stable & adequate BP & HR: stable & adequate Hydration State: stable & adequate Anesthetic Complications: no major complications apparent and Pt Satisfied with anesthetic care
[2018-07-26] MEDS: MoRPHine SULFATE 10 MG/ML CARP/VIAL IV PRN (16:22)
--- NOTE | 2018-07-26 17:04 | Progress Note ---
DATE: 07/26/2018 The patient has a small-bowel obstruction from metastatic ovarian cancer and presented to the endoscopy unit today to have a venting gastrostomy tube placed. A 24 [place] venting gastrostomy tube was placed in the gastric antrum without any complications. She tolerated the procedure well. There was a fair amount of fluid in the stomach; approximately 200-300 mL of bilious material in the stomach and in the small intestine that was suctioned out prior to placement of the tube. The tube can be used immediately for venting if needed and her need for ongoing nasogastric tube should be eliminated at this time.
[2018-07-26] MEDS: LORazepam 0.5 MG/1 ML VIAL IV PRN ×2 (17:10→23:27)
[2018-07-26] MEDS: GENTAMICIN SULFATE 320 MG in DEXTROSE 5% 100 ML IV SCH (18:45)
[2018-07-26] MEDS ORDERED: HYDROCORTISONE SOD 25 MG in SYRINGE 0 ML IV SCH (21:00)
[2018-07-26] MEDS: MoRPHine SULFATE 5 MG/0.25 ML UDP PO PRN (21:08)
[2018-07-26] MEDS: ENOXAPARIN INJ 40 MG/0.4 ML SYR SQ SCH (21:20)
[2018-07-27] MEDS: IMIPENEM/CILASTATIN SODIUM 500 MG in DEXTROSE 5% 100 ML IV SCH ×2 (06:16→12:01)
[2018-07-27] MEDS ORDERED: LEVOTHYROXINE SODIUM 75 MCG TABLET PO SCH (06:30)
[2018-07-27 07:15] LABS: Creatinine Clr Calc Pharmacy 98.7 ml/min; Est GFR (African American) 114.2; Est GFR (Non-African American) 98.5; Magnesium 1.9 mg/dl (1.8-2.4); Phosphorus 3.7 mg/dl (2.5-4.9)
[2018-07-27] MEDS ORDERED: predniSONE 10 MG TABLET PO SCH (09:00)
[2018-07-27] MEDS ORDERED: methylPREDNISolone acetate 40 MG/ML VIAL IM ONE (09:49)
[2018-07-27] MEDS: MoRPHine SULFATE 5 MG/0.25 ML UDP PO PRN (09:51)
[2018-07-27] MEDS: PANTOprazole 40 MG in SYRINGE 0 ML IV SCH (11:01)
--- NOTE | 2018-07-27 12:25 | Discharge Summary ---
Date of Service July 27, 2018 Admission HPI Per Admitting Provider 63yo F w/ hx of metastatic ovarian cancer causing SBO who presents with abdominal pain and nausea. Reports the pain has been ongoing for several day. She was recently admitted for SBO. In late June, was admitted and conservatively treated and improved. She was admitted after Thanksgiving after "overdoing it" and reproesented to the ED on 07/02. She had a prolonged stay for her SBO. She was found to have an abomdinal wall infection and was discharged on ertapenem. She reports that the redness of her abdominal wall improved significantly on the ertapenem; however, she had headaches and nausea with the medication. She saw Toni Vela in the office on 07/16 and her antibiotics were stopped due to the side effects and hope that the infection had been treated. She and her report that the redness on her abdomen has been worsening just in the last few hours. They admit there may be some mild drainage from the area as well. Admission Exam Per Admitting Provider Constitutional: WD/WN, vitals as above + ill appearing and + thin Eyes: EOM intact bilaterally; no conjunctival abnormality ENMT: external ear and nose normal, oropharynx normal Neck: trachea midline, no thyromegaly normal visual inspection Respiratory: normal respiratory effort, lungs clear to auscultation no respiratory distress Cardiovascular: RRR, no murmur, no edema Gastrointestinal (Abdomen): Inspection/Auscultation: + abdominal surgical scar and + abdominal surgical incision (Serous drainage present); + abdomen abnormal to inspection, abdomen not distended and + abnormal bowel sounds ( Hypoactive) Percussion/Palpation: abdomen soft and + abdominal mass; abdomen nontender, no guarding and abdomen not rigid Musculoskeletal: no cyanosis or clubbing, extremities motor strength 5/5 Skin: no rashes, warm and dry Neurologic: moves all extremities and awake Psychiatric: Orientation: alert, oriented to person and cooperative Principal Diagnosis Small Bowel Obstruction in setting of Metastatic Ovarian Cancer Discharge Exam General: Chronically ill appearing female. HEENT: NC/AT; PERRLA with EOMI; [place] conjunctiva, MMM. Neck: Supple and nontender Cardiac: RRR w/o murmurs, gallops or rubs Lungs: CTA bilaterally; No rhonchi, wheezing, or rales Abdomen: G-tube with mild bleeding noted around site, no erythema; non tender to light palpation over abdomen. Extremities: Warm. No cyanosis or edema present Neuro: No focal weakness Skin: Left sided mediport with no erythema or tenderness to palpation noted. Discharge Data Allergies Allergy/AdvReac Type Severity Reaction Status Date / Time carboplatin Allergy Severe anaphylactic Verified 07/19/18 13:05 reaction Consultations 07/19/18 18:08 Consult General Surgery Routine Consult Infectious Diseases Routine 07/20/18 08:55 Consult Oncology Routine 07/23/18 13:37 Consult Gastroenterology Routine 07/26/18 09:27 Consult Palliative Care Routine Procedures Performed Operation Date: 07/26/18 14:00 Actual Procedures p EGD Gastric Tube Placement - Josef Oneill Ordered Studies 07/19/18 12:56 CT abd pelvis wo con Stat Hospital Course (1) Primary cancer of ovary with widespread metastatic disease: Patient was admitted on 07/19/18 for small bowel obstruction in the setting of metastatic ovarian cancer. CT showed high grade mid/distal SBO, mostly unchanged from prior studies. NG tube was placed and NPO diet was ordered. She did not respond to conservative treatment for SBO. Surgery did not recommend intervention and suggested palliative options. TPN was started for nutrition due to NPO status. GI was consulted and recommended a venting G-tube for comfort measures. A discussion was held with the patient and her regarding hospice measures; they were agreeable to transitioning to a palliative approach/hospice on 07/25/18. Venting G- tube was placed by GI on . Palliative care was consulted to discuss goals of care/pain management. Roxanol was ordered prn pain with improvement in symptoms. TPN was discontinued at time of discharge per patient wishes. She will be discharged to home hospice. (2) Small bowel obstruction: Treatment as noted above. (3) Abdominal fluid collection: She had previously been treated with Ertapenem for an abdominal wall fluid collection, culture +3 organisms. Erythema had increased following discontinuation of IV abx course. Repeat wound culture during this admission showed +Staph coag negative. Gentamicin and Primaxin were ordered for empiric coverage. ID was consulted for recs. Pt. continued IV abx until day of discharge -- she requested to stop medications at home and transition to hospice. (4) Adrenal insufficiency: Hydrocortisone 25 mg IV BID was ordered due to h/o adrenal insufficiency and inability to take home PO hydrocortisone. She received Depo-Medrol 40 mg IM on day of discharge due to concern for obstruction/lack of absorption within the GI tract. Pt. was educated on the benefits of a steroid injection. She may require a repeat injection over the next 7-10 days. Home Hydrocortisone PO was discontinued. (5) Hypothyroidism: Synthroid was ordered via IV. She will resume home Synthroid 75 mcg at discharge. (6) DVT prophylaxis: Lovenox was ordered. Pt. was stable for discharge to home hospice on 07/27/18. Venting G-tube care education was provided by bedside nursing prior to discharge. Total Time Total Time Spent Total Time Spent (In Minutes): >30 minutes Total Time Includes: Examination of the Patient, Discharge Planning, Medication Reconciliation and Communication With Other Providers Discharge Plan Discharge Items Patient Disposition: Hospice - Home Reason For Visit: SMALL BOWEL OBSTRUCTION Discharge Diagnosis: Small Bowel Obstruction in setting of Metastatic Ovarian Cancer Condition: Fair Discharge Goals: Decrease discomfort, Improve function and Increase independence Activity: Resume your previous activity Bathing: Keep incision dry Non-emergency contact: Primary Care Provider Call non-emergency contact if: you have any medication questions, your symptoms worsen, your pain is not controlled, your pain is worsening, your pain is unusual for you, your pain is concerning for you, you have a fever, your wound has increased redness, your wound has increased drainage and your wound pain has increased Diet: Full liquid Addtl Provider Instructions: 1. Metastatic Ovarian Cancer/Small Bowel Obstruction * You will be discharged with home hospice services. Please call your hospice nurse/sales representative aircraft with any questions/concerns following discharge. * For pain, please take Roxanol 5 mg (0.25 mL) by mouth every 3 hours as needed. * For nausea, please take Zofran 4 mg every 8 hours as needed. * For anxiety, please take Ativan 0.5 mg three times daily as needed. * Please continue oral Synthroid 75 mcg daily -- you can crush medication and mix with applesauce. * A steroid injection was given on day of discharge (Depo-Medrol 40 mg IM on ); you will likely need another steroid injection over the next 7-10 days. * Home nursing agency will help with venting G-tube care at home. Prescriptions: New morphine concentrate 100 mg/5 mL (20 mg/mL) solution 5 mg SL Q3H PRN (Reason: pain) Qty: 15 RF: 0 ondansetron HCl [Zofran] 4 mg/5 mL solution 4 mg PO Q8H PRN (Reason: nausea and vomiting) Qty: 50 RF: 0 lorazepam [Ativan] 0.5 mg tablet 0.5 mg SL TID PRN (Reason: anxiety) Qty: 9 RF: 0 Continue levothyroxine [Synthroid] 75 mcg tablet 75 mcg PO DAILY RF: 0 Discontinued pantoprazole [Protonix] 40 mg Tablet,Delayed Release (Dr/Ec) 40 mg PO DAILY Qty: 0 RF: 0 hydrocortisone [Cortef] 5 mg Tablet 5 mg PO QPM Qty: 0 RF: 0 hydrocortisone [Cortef] 5 mg Tablet 15 mg PO QAM Qty: 0 RF: 0 oxycodone 5 mg Tablet 5 - 10 mg PO Q6H PRN (Reason: Pain) Qty: 0 RF: 0 cyanocobalamin (vitamin B-12) 1,000 mcg Tablet 1,000 mcg PO DAILY Qty: 0 RF: 0 ondansetron HCl [Zofran] 4 mg Tablet 4 mg PO Q6 PRN (Reason: Nausea) RF: 0 tramadol 50 mg tablet 50 mg PO QID PRN (Reason: Pain) RF: 0 ertapenem 1 gram Recon Soln 1 g IV DAILY RF: 0 oxycodone 5 mg tablet 5 mg PO Q6H PRN (Reason: pain) Qty: 10 RF: 0 Discharge Orders: Discharge Order (Routine); Ordered 07/27/18 Ordered By: Aubree English Admission Data Admit Date/Time: 07/19/18 17:07 Attending Provider: Aubree English Admit Provider: Thom Ball Primary Care Provider: Mo Molina Jr Other Providers: Thom Ball ; Alexx Canseco ; Charleen Awan ; Jaime Colbert V ; Alexsander Johnson ; Jennifer Miller Service: Oncology Other Interventions: Discharge Summary Assessment (RN) Last Done: 07/27/18 12:23 Pending Studies at Discharge: No DC Date/Time DO NOT enter until pt leaves facility: 07/27/18 15:18 Supervising Physician Co-Signing Physician Notes SUYAPA Supervision Note: I personally saw and examined the patient. I verified all duncan points and agree with SUYAPA Martini with the following exceptions and/or additions: Pt with no pain, all questions answered regarding prognosis and G-tube instructions. Pt and family at bedside saddened by her transitioning to Hospice but pt glad to be going home. Vitals reviewed NAD Abd with G-tube in place with minimal surrounding bloody drainage, no erythema, bilious fluid in tube Ext no edema 63 yo female with metastatic ovarian CA, SBO from tumor, and abdominal wall infection, here with chronic SBO. Now s/p palliative venting gastrostomy tube. Dc to home with Hospice and discontinue all treatment as above. Supportive care given to pt and her family
--- NOTE | 2018-07-27 14:41 | Palliative Care Progress Note ---
Date of Service July 27, 2018 Assessment & Plan (1) Goals of care, counseling/discussion: -63 year old female patient with PMH metastatic ovarian cancer, adrenal insufficiency, hypothyroidism, and others presented to the hospital with small bowel obstruction. Patient has had multiple hospitalizations in the last few months and has overall continued to decline. SBO not resolved, received venting G-tube last evening. Tolerated procedure well. -G-tube okay for use per the GI doctor. -Received IM depo-medrol today, 40mg. Will need to repeat dose in about a week to a [id number]. Hospice is aware and said they can order this. -POLST form completed 07/26 as follows: DNR, comfort measures only, abx with comfort as the goal, no artificial hydration/nutrition. -Continue Roxanol 5mg PO/SL Q3h PRN pain or SOB. Can titrate up if needed. -Plan is for home with hospice today. I discussed at length with patient and her about using the g-tube for comfort. Patient is tolerating full liquids so far. (2) Primary cancer of ovary with widespread metastatic disease: (3) Small bowel obstruction: (4) Abdominal fluid collection: (5) Adrenal insufficiency: (6) Hypothyroidism: Subjective Patient is feeling pretty well today. Does have some pain at g-tube insertion site, but not severe. She tolerated procedure well yesterday. She is already up and moving, tolerating liquids today. Discussed use of g-tube for venting and for comfort. Planning for home with hospice today. See A&P. Constitutional: no weakness Ear, Nose, Mouth, Throat: no dysphagia Respiratory: no cough and no dyspnea Cardiovascular: no chest pain and no edema Gastrointestinal: + abdominal pain; no nausea and no vomiting Genitourinary (Female): no problem reported Neurologic: no confusion Psychiatric: no anxiety Physical Exam 2 Vital Signs (Past 24 Hours): Last Vital Signs Temp 36.6 C 07/27/18 12:23 Pulse 72 07/27/18 12:23 Resp 16 07/27/18 12:23 BP 97/64 L 07/27/18 12:23 Pulse Ox 98 07/27/18 12:23 Constitutional: well developed, well nourished and comfortable Neck: normal visual inspection and trachea midline Respiratory: normal respiratory effort, lungs clear to auscultation Cardiovascular: RRR, no murmur, no edema Gastrointestinal (Abdomen): Inspection/Auscultation: + abdomen distended; + abnormal bowel sounds (no bowel sounds) Percussion/Palpation: + abdomen tender (at g-tube insertion site.) and abdomen soft Skin: no rashes, warm and dry Neurologic: awake; not confused Psychiatric: A+Ox3, euthymic affect (tearful about situation) Supervising Physician Co-Signing Physician Notes Patient seen and examined, 2 daughters and at bedside. Patient awake and alert, in good spirits, anxious to get home Reviewed patient's acceptable diet-will depend on how she tolerates p.o. intake , educated patient and family regarding use of venting G-tube. PE: No acute distress Respirations: Unlabored CV: Well-perfused Abdomen: Surgical dressing still in place, minimal tenderness at G-tube site Neuro: Alert and oriented x4 Psych: Appropriate mood and affect Agree with above note, assessment and plan as per AISSATOU Contreras P- patient is plan for discharge this afternoon once cleared by surgery. Time Spent Midlevel 40 minutes with >50% of time spent at bedside with patient and her discussing plan of care and home with hospice. _ (1) Primary cancer of ovary with widespread metastatic disease Laterality: unspecified laterality Qualified Code(s): C56.9 - Malignant neoplasm of unspecified ovary; C80.0 - Disseminated malignant neoplasm, unspecified (2) Hypothyroidism Hypothyroidism type: acquired Qualified Code(s): E03.9 - Hypothyroidism, unspecified
[2018-07-28] MEDS ORDERED: GENTAMICIN TROUGH ONE (17:30)
== END 2018-07-27 15:18 | disposition hospice, home (50) | DRG 375 ==
LOC: ED 12:20 → 4E 17:07 → SUATTDRO 17:07 → 4E 17:57